=== PATIENT | female | born 1980 | race Caucasian/White ===

== ENCOUNTER 2023-05-10 08:25 | Outpatient (OUT) | payer MEDICAID, SELFPAY ==
--- NOTE | 2023-05-10 | NM_ITS ---
Patient Name: ODETTE MYERS MR#: [id number] : 1980 Exam Date: 05/10/2023 Ordering Doctor: LINNEA CERVANTES M.D. RADIOLOGY REPORT PROCEDURE: NM QING PERF SPECT REST STR COMPARISON: None. INDICATIONS: Encounter for other preprocedural examination TECHNIQUE: Exam Description: Stress/Rest two day protocol gated SPECT Rest Imagin.5 mCi Tc-99m Cardiolite IV on 05/10/2023 Stress Imaging 25.7 mCi Tc-99m Cardiolite IV on 05/12/2023 Exercise Protocol: Vickey Heart Rate (bpm): Rest: 90 Max: 150 PMHR: 85 Blood Pressure: Rest: 128/88 Max: 180/102 Exercise Time: Minutes: 4 Seconds: 00 Stage Reached: Stage: 2 Mets 4.6 Symptoms: Rest and peak stress ECG findings were normal and the exercise portion of the study was normal per attending physician Dr. Hayward . For more details please see separate cardiac stress test report. FINDINGS: QUALITY OF STUDY: Excellent. PERFUSION DEFECT: LOCATION: Basal anteroseptal. Mid-anteroseptal. SIZE: SEVERITY: TYPE: WALL MOTION: Mild hypokinesis: Mid-anteroseptal. LV SIZE: Normal. 101 mL. TID / TCD: None; 1.0 LVEF: Abnormal. Calculated EF 53%. SUMMARY: Myocardial perfusion imaging study has ABNORMAL findings. CONCLUSION: 1. No acute or reversible ischemia. 2. Mild hypokinesis of the mid anterior septal segment. 3. Fixed, decreased perfusion of the mid and basal anterior septal segments. 4. Slightly low ejection fraction, 53%. Dictated by: Maicol Ramírez M.D. on 05/13/2023 at 15:09 Approved by: Maicol Ramírez M.D. on 05/13/2023 at 15:26
== END 2023-05-10 08:26 | disposition home or self-care (01) ==
LOC: NM 08:25
PROVIDERS: PCP Family Medicine; Visit Provider Internal Medicine Cardiovascular Disease
DX: Z82.49 Family history of ischemic heart disease and other diseases of the circulatory system (principal); Z01.818 Encounter for other preprocedural examination
CPT/HCPCS: 78452; A9500

== ENCOUNTER 2023-05-12 09:47 | Outpatient (OUT) | payer MEDICAID, SELFPAY ==
--- NOTE | 2023-05-12 | PCN_ITS ---
CARDIAC STRESS TEST Requesting Physician: Procedure Date: 05/12/2023 INDICATION: Preoperative evaluation, family history of heart disease. METHODS: After risks, benefits, and alternatives were explained, written informed consent was obtained. The patient was brought to the Stress Lab in a resting and fasting state. She was connected to the appropriate hemodynamic and electrocardiographic monitoring. She underwent a Vickey protocol for exercise. Technetium Cardiolite was injected per protocol. She tolerated the procedure well. There were no complications. FINDINGS: HEMODYNAMICS: The patient exercised for 4 minutes, achieving 4.2 METS and reaching stage 2 of the Vickey protocol. Resting blood pressure was 128/88, increasing to a maximum of 180/102. Resting heart rate was 90 beats per minute, increasing to a maximum of 150 beats per minute, which is 85% of maximum predicted heart rate. The patient reported no chest pain or other symptoms. ELECTROCARDIOGRAPHY: Rest EKG: Sinus rhythm, 87 beats per minute, septal infarct, age indeterminate, cannot be ruled out, non-specific ST-T wave changes inferolaterally. During exercise and recovery: No significant changes in her ST-T wave abnormalities are seen. No significant arrhythmias seen. FINAL IMPRESSIONS: 1. No ischemic EKG changes seen in a patient with an abnormal resting EKG. 2. Normal heart rate and blood pressure response to exercise. 3. Salgado treadmill score is +4. Estimated one year mortality is 1.0 to 1.1%. Risk category: Moderate risk. Angiography may be indicated. 4. Nuclear images are to be read, interpreted and reported in a separate dictation. [facility]
--- OUTSIDE RECORDS SUMMARY | 2023-05-12 09:49 | XMS_ITS | CCD ---
Author Name Unknown Address [address] [place] [id number] Organization [facility] Care Team Providers Care Statement Request Clerk Name Role Phone HIEN MISTRY Attending Unavailable FEDEHIEN NGUYEN Consulting Unavailable FEDEHIEN NGUYEN Admitting Unavailable SANCHEZ, DR ROSE Attending Unavailable SANCHEZ, DR ROSE Primary Care Unavailable SANCHEZ, DR ROSE Admitting Unavailable ROSS, ANNIE Admitting Unavailable ROSS, ANNIE Attending Unavailable ROSS, ANNIE Consulting Unavailable SANCHEZ, DR ROSE Attending Unavailable SANCHEZ, DR ROSE Consulting Unavailable SANCHEZ, DR ROSE Admitting Unavailable CONNELL, ABAD Admitting Unavailable CONNELL, ABAD Attending Unavailable CONNELL, ABAD Attending Unavailable ANA, KOURTNEY Attending Unavailable CONNELL, ABAD Referring Unavailable ALGHOTHLINNEA BUTTS Attending Unavailable ALGHOTHBECKIE MOHAMAJurgen Referring Unavailable Allergies Allergy Classification Reported Allergen(s) Allergy Type Date of Onset Reaction(s) Facility (1 source) Latex; Translations: [LATEX] Propensity to adverse reactions to drug (disorder) 3 [facility] Repository (1 source) SULFUR HEXAFLUORIDE MICROSPHR; Translations: [SULFUR HEXAFLUORIDE MICROSPHR] Propensity to adverse reactions to drug (disorder) 4 [facility] Repository Problems Active Problems Problem Classification Problem Date Documented Date Episodic/Chronic Anxiety disorders (2 sources) Anxiety disorder, unspecified; Translations: [Anxiety disorder, unspecified] Onset: 01-07-2023 Chronic Esophageal disorders (2 sources) Gastro-esophageal reflux disease without esophagitis; Translations: [Gastro-esophageal reflux disease without esophagitis] Onset: 01-08-2023 Chronic Essential hypertension (2 sources) Essential (primary) hypertension; Translations: [Essential (primary) hypertension] Onset: 01-07-2023 Chronic Immunizations and screening for infectious disease (4 sources) Encounter for immunization; Translations: [ENCOUNTER FOR IMMUNIZATION] Onset: 01-10-2021 Episodic Other nervous system disorders (2 sources) Other chronic pain; Translations: [Other chronic pain] Onset: 01-07-2023 Chronic Other nutritional; endocrine; and metabolic disorders (2 sources) Obesity; Translations: [Obesity] Onset: 04-01-2023 Chronic Other nutritional; endocrine; and metabolic disorders (2 sources) Morbid (severe) obesity due to excess calories; Translations: [Morbid (severe) obesity due to excess calories] Onset: 01-07-2023 Chronic Other nutritional; endocrine; and metabolic disorders (2 sources) Body mass index (BMI) 50.0-59.9, adult; Translations: [Body mass index (BMI) 50.0-59.9, adult] Onset: 01-07-2023 Chronic Other screening for suspected conditions (not mental disorders or infectious disease) (2 sources) Abnormal electrocardiogram [ECG] [EKG]; Translations: [Abnormal electrocardiogram (ECG) (EKG)] Onset: 03-12-2023 Episodic Other upper respiratory infections (1 source) Acute pharyngitis, unspecified; Translations: [ACUTE PHARYNGITIS UNSPECIFIED] Onset: 03-26-2021 Episodic Residual codes; unclassified (1 source) Pain, unspecified; Translations: [PAIN UNSPECIFIED] Onset: 03-26-2021 Episodic Unclassified (2 sources) CONTACT W/AND (SUSP) EXPOS COVID-19; Translations: [CONTACT W/AND (SUSP) EXPOS COVID-19] Onset: 03-26-2021 Viral infection (1 source) COVID-19; Translations: [COVID-19] Onset: 03-26-2021 Past or Other Problems Problem Classification Problem Date Documented Date Episodic/Chronic Administrative/social admission (4 sources) Encounter for pre-employment examination; Translations: [ENCOUNTER FOR PRE-EMPLOYMENT EXAM] Onset: 12-16-2020 Episodic Other connective tissue disease (2 sources) Personal history of other diseases of the musculoskeletal system and connective tissue; Translations: [Personal history of other diseases of the musculoskeletal system and connective tissue] Onset: 01-07-2023 Episodic Other non-traumatic joint disorders (2 sources) Pain in left knee; Translations: [Pain in left knee] Onset: 01-07-2023 Episodic Unclassified (1 source) CONTACT W/AND (SUSP) EXPOS COVID-19; Translations: [CONTACT W/AND (SUSP) EXPOS COVID-19] Onset: 03-24-2021 Results Test Name Value Interpretation Reference Range Facility Clinical Supporton 4 Clinical Support [id number] Holden,Clyde ndy L 1980 F Date Provider Department Center 04/29/2023 [id number] RECREATION ASSISTANT [facility] Second Fl Chart Close Cosign Required by: Abad Connell MD[[id number]] Family History Problem Relation Age of Onset Diabetes Father Heart attack Father Hypertension Father Heart attack Brother Deep vein thrombosis Brother Family Status - Relation Status Age at Father Brother Normal [facility] Orders Onlyon 04-20-2023 Orders Only [id number] Clyde Azevedo ndy L 1980 F Date Provider Department Center 04/20/2023 8250-JENNIFFER HOLGUIN [facility] Second Fl Family History Problem Relation Age of Onset Diabetes Father Heart attack Father Hypertension Father Heart attack Brother Deep vein thrombosis Brother Family Status - Relation Status Age at Father Brother Normal [facility] Clinical Supporton 4 Clinical Support [id number] Holden,Bra ndy L 1980 F Date Provider Department Center 04/15/202306032-WSPSPW, KOURTNEY [facility] Second Fl Chart Close Cosign Accepted by: ABAD CONNELL[[id number]] Chart Close Cosign Accepted on: WedMay 03, 2023 2:49 PM Family History Problem Relation Age of Onset Diabetes Father Heart attack Father Hypertension Father Heart attack Brother Deep vein thrombosis Brother Family Status - Relation Status Age at Father Brother Reason for Visit and Comments: Obesity [[id number]] Normal [facility] Clinical Supporton 4 Clinical Support [id number] Jolly,Clyde ndy L 1980 F Date Provider Department Center 04/01/202325513-PFUMUEKOURTNEY WHITE [facility] Second Fl Chart Close Cosign Required by: Abad Connell MD[[id number]] Family History Problem Relation Age of Onset Diabetes Father Heart attack Father Hypertension Father Heart attack Brother Deep vein thrombosis Brother Family Status - Relation Status Age at Father Brother Reason for Visit and Comments: Obesity [[id number]] Normal [facility] Office Visiton 03-12-2023 Follow-up visit [id number] Clyde Azevedo L 1980 F Date Provider Department Center 03/12/2023 3848-HELEN ELLIOTJurgen POP [facility] Family History Problem Relation Age of Onset Diabetes Father Heart attack Father Hypertension Father Heart attack Brother Deep vein thrombosis Brother Family Status - Relation Status Age at Father Brother Level of Service:31632 [place] OFFICE/OUTPATIENT NEW MODERATE MDM 45 MINUTES Normal [facility] Orders Onlyon 02-22-2023 Orders Only [id number] Clyde Azevedo 1980 F Date Provider Department Center 02/22/2023 8250-JENNIFFER HOLGUIN [facility] Second Fl Family History Problem Relation Age of Onset Diabetes Father Heart attack Father Hypertension Father Family Status - Relation Status Age at Father Normal [facility] HISTOLOGY - TISSUE EXAMon LAB AP ADDENDUM 1 [facility] Comment on above: Order Comment: Pre-o p diagnosis:Gastroesophageal reflux disease, unspecified whether esophagitis present [K21.9] Result Comment: B. I mmunostain for Helicobacter pylori is negative, in the presence of adequate control. Addendum electronically signed by Olya Hooper MD on 02/09/2023 at 6:27 PM Performed By: #### L [id number] ####[facility] (BEAKER)[address] [place] [address] LAB AP ADDENDUM 2 Normal [facility] Comment on above: Order Comment: Pre-o p diagnosis:Gastroesophageal reflux disease, unspecified whether esophagitis present [K21.9] Result Comment: C. I mmunostain for Helicobacter pylori is negative, in the presence of adequate control. Addendum electronically signed by Olya Hooper MD on 02/24/2023 at 4:14 PM Performed By: #### L [id number] ####[facility] (BEAKER)[address] [place] [address] LAB AP ASR DISCLAIMER The interpretation of this case included the use of immunohistochemistry or special stains. These tests have not been cleared or approved by the U.S. Food and Drug Administration. The FDA has determined that such clearance or approval is not necessary. These tests are used for clinical purposes and should not be regarded as investigational or for research. This laboratory is certified to perform high complexity testing under the Clinical Laboratory Improvement Amendments of 1998. [facility] Comment on above: Order Comment: Pre-o p diagnosis:Gastroesophageal reflux disease, unspecified whether esophagitis present [K21.9] Performed By: #### L [id number] ####[facility] (BEAKER)[address] [facility] [place] [address] LAB AP CASE REPORT [facility] Comment on above: Order Comment: Pre-o p diagnosis:Gastroesophageal reflux disease, unspecified whether esophagitis present [K21.9] Result Comment: Surg ical Pathology Case: [id number] Authorizing Provider: Abad Connell MD Collected: 02/05/2023 0800 Ordering Location: [facility] Main Operating Room Received: 02/05/2023 0914 Pathologist: Olya Hooper MD Specimens: A) - Small Intestine, Duodenum, DUODENUM B) - Stomach, STOMACH ANTRUM-PLEASE ALSO ADD DENI TEST C) - Stomach, STOMACH BODY Performed By: #### L [id number] ####[facility] (BEAKER)[address] [facility] [place] [address] LAB AP CLINICAL INFORMATION [facility] Comment on above: Order Comment: Pre-o p diagnosis:Gastroesophageal reflux disease, unspecified whether esophagitis present [K21.9] Result Comment: Post -Op Diagnoses K21.9 - Gastroesophageal reflux disease, unspecified whether esophagitis present [ICD-10-CM] Performed By: #### L [id number] ####[facility] (BEAKER)[address] [facility] [place] [address] LAB AP DIAGNOSIS COMMENT B. The biopsy was received in formalin. DENI test was requested by the treating physician, however, this test cannot be performed on formalin fixed tissue. Immunostain for Helicobacter pylori is ordered and will be reported in an addendum. [facility] Comment on above: Order Comment: Pre-o p diagnosis:Gastroesophageal reflux disease, unspecified whether esophagitis present [K21.9] Performed By: #### L [id number] ####[facility] ([facility])[address] [place] [address] LAB AP GROSS DESCRIPTION [facility] Comment on above: Order Comment: Pre-o p diagnosis:Gastroesophageal reflux disease, unspecified whether esophagitis present [K21.9] Result Comment: A. S mall Intestine, Duodenum. Received in formalin labeled Odette Jolly, DUODENUM are two dark santos slightly stellate 0.2 cm soft tissue bits. The specimen is entirely submitted in a single cassette. Christy West, Pathologists' Painter [place] B. Stomach. Received in formalin labeled Odette Jolly, STOMACH ANTRUM is a flores to santos 0.4 cm soft tissue bit. The specimen is entirely submitted in a single cassette. Christy West, Pathologists' Pain[employer] [place] C. Stomach. Received in formalin labeled Odette Jolly, STOMACH BODY are two santos focally erythematous soft tissue bits, 0.2 and 0.3 cm. The specimen is entirely submitted in a single cassette. Christy West, Pathologists' Painter [place] Free text Performed By: #### L [id number] ####[facility] ([facility])[address] [place] [address] LAB AP MICROSCOPIC DESCRIPTION Microscopic examination performed. [facility] Comment on above: Order Comment: Pre-o p diagnosis:Gastroesophageal reflux disease, unspecified whether esophagitis present [K21.9] Performed By: #### L [id number] ####[facility] ([facility])[address] [place] [address] LAB AP REPORT FINAL DIAGNOSIS NARRATIVE [facility] Comment on above: Order Comment: Pre-o p diagnosis:Gastroesophageal reflux disease, unspecified whether esophagitis present [K21.9] Result Comment: A. S mall bowel, duodenum, biopsy: - Small bowel mucosa with features suggestive of peptic injury. - Separate fragment of gastroduodenal junction mucosa with chronic gastritis. B. Stomach, antrum, biopsy: - Gastric mucosa with denuded surface epithelium. - Immunostain for Helicobacter pylori will be reported in an addendum. - No evidence of intestinal metaplasia or dysplasia. - See comment. C. Stomach, body, biopsy: - Mild chronic, inactive gastritis. - Immunostain for Helicobacter pylori will be reported in an addendum. - No evidence of intestinal metaplasia or dysplasia. Performed By: #### L [id number] ####[facility] (CADY)[address] [place] [address] HPon 02-05-2023 HP H&P reviewed. The pa ashlee was examined and there are no changes to the H&P. Normal [facility] OPNOTEon 02-05-2023 OPNOTE EGD (ESOPHAGOGASTRODUODENOSCOPY) Operative Note Date: 02/05/2023 Location: [facility] Name: Odette Azevedo, : 1980, Diagnosis Pre-op Diagnosis * Gastroesophageal reflux disease, unspecified whether esophagitis present [K21.9] Post-op Diagnosis * Gastroesophageal reflux disease, unspecified whether esophagitis present [K21.9] Procedures EGD (ESOPHAGOGASTRODUODENOSCOPY) [address]7412 - [place] ESOPHAGOGASTRODUODENOSCOPY [facility] Surgeons * Abad Connell - Primary Procedure Summary Anesthesia: Monitor Anesthesia Care ASA: ASA status not filed in the log. Estimated Blood Loss: 1 mL Drains: * None in log * Specimens ID Source Type Tests Collected By Collected At Frozen? Priority Lab ID A Stomach Tissue HISTOLOGY - TISSUE EXAM Abad Connell MD 02/05/23 0800 No Description: DUODENUM Comment: PLACED IN FORMALIN B Stomach Tissue HISTOLOGY - TISSUE EXAM Abad Connell MD 02/05/23 0804 No Description: STOMACH ANTRUM-PLEASE ALSO ADD DENI TEST Comment: PLEASE ALSO DO DENI TEST FOR H.PYLORI PLACED IN FORMALIN C Stomach Tissue HISTOLOGY - TISSUE EXAM Abad Connell MD 02/05/23 0805 No Description: STOMACH BODY Comment: PLACED IN FORMALIN Staff: Deputy Coroner: Maggie Ware RN Scrub Person: Nedra Botello Indications: Odette Azevedo is an 42 y.o. female who is having surgery for Gastroesophageal reflux disease, unspecified whether esophagitis present [K21.9]. Procedure Details: The patient was seen in the preoperative area. The risks, benefits, complications, treatment options, non-operative alternatives, expected recovery and outcomes were discussed with the patient. The possibilities of reaction to medication, pulmonary aspiration, injury to surrounding structures, bleeding, recurrent infection, the need for additional procedures, failure to diagnose a condition, and creating a complication requiring transfusion or operation were discussed with the patient. The patient concurred with the proposed plan, giving informed consent. The site of surgery was properly noted/marked if necessary per policy. The patient has been actively warmed in preoperative area. Preoperative antibiotics are not indicated. Venous thrombosis prophylaxis are not indicated. With the patient in the left lateral decubitus position after examination of the heart lung was normal patient received IV sedation by anesthesia. Olympus gastroscope was introduced in the oropharynx down the esophagus where the GE junction was seen at 38 cm level. Z-line was at 38cm. There was no esophagitis and the esophagus appeared normal. Stomach was entered and appeared to have multiple benign appearing fundic gland polyps and no bile reflux into the stomach. There was small area ~1 cm of focal gastritis that was biopsied. The stomach antrum had mild gastritis. Biopsy and DENI test was performed to rule out gastritis and H. pylori. The 1st portion of the duodenum was intubated which appeared to have mild duodenitis and was biopsied as well. The scope withdrawn into the stomach where a retroflexion was performed in the upper part of the stomach that showed the hiatus which was a Hill type I hiatus. The scope was then removed. The esophagus appeared to be normal. Patient tolerated the procedure well and was returned to the recovery room in good condition. Findings: EGD with noted duodenitis, multiple fundic gland polyps, small focal area of gastritis at body biopsied. Complications: None; patient tolerated the procedure well. Disposition: PACU - hemodynamically stable. Condition: stable Abad [facility] Normal [facility] POCT GLUCOSE METER UNSOLICIT ED RESULTSon 02-05-2023 Glucose [Mass/Vol] 118 mg/dL High 70-105 [facility] Comment on above: Order Comment: Waive d Testing in the ED is performed under the ED CLIA certificate #[id number]. Result Comment: skir by Performed By: #### L [id number] #### [facility] (BEAKER) [address] [place] [address] Glucose [Mass/Vol] 95 mg/dL Normal 70-105 [facility] Comment on above: Order Comment: Waive d Testing in the ED is performed under the ED CLIA certificate #[id number]. Result Comment: asor ia3 Performed By: #### L [id number] #### [facility] (BEAKER) [address] [place] [address] CBC WITH AUTO DIFFERENTIALon 01-07-2023 Basophils (Bld) [#/Vol] 0.06 10*3/uL Normal 0.00-0.20 [facility] Comment on above: Performed By: #### L [id number] #### [facility] (BEAKER) [address] [place] [address] Basophils/100 WBC (Bld) 0.6 % Normal 0.0-1.0 [facility] Comment on above: Performed By: #### L [id number] #### [facility] (BEAKER) [address] [place] [address] Eosinophils (Bld) [#/Vol] 0.12 10*3/uL Normal 0.00-0.50 [facility] Comment on above: Performed By: #### L [id number] #### [facility] (BEAKER) [address] [place] [address] Eosinophils/100 WBC (Bld) 1.2 % Normal 0.0-6.0 [facility] Comment on above: Performed By: #### L [id number] #### [facility] (BEAKER) [address] [place] [address] Erythrocyte distribution width (RBC) [Ratio] 13.4 % Normal 11.5-15.0 [facility] Comment on above: Performed By: #### L [id number] #### [facility] ([facility]NER) [address] [place] [address] ERYTHROCYTE MEAN CORPUSCULAR HEMOGLOBIN CONCENTRATION (G/DL) BY AUTOMATED 32.4 g/dL Normal 32.0-35.0 [facility] Comment on above: Performed By: #### L [id number] #### [facility] (BEAKER) [address] [place] [address] Hemoglobin (Bld) [Mass/Vol] 14.8 g/dL Normal 12.0-15.0 [facility] Comment on above: Performed By: #### L [id number] #### [facility] (BEAKER) [address] [place] [address] Immature granulocytes (Bld) [#/Vol] 0.04 10*3/uL Normal 0.00-0.20 [facility] Comment on above: Performed By: #### L [id number] #### [facility] (BEAKER) [address] [place] [address] Immature granulocytes/100 WBC (Bld) 0.4 % Normal 0.0-1.0 [facility] Comment on above: Performed By: #### L [id number] #### [facility] (BEAKER) [address] [place] [address] Lymphocytes (Bld) [#/Vol] 2.92 10*3/uL Normal 1.20-4.00 [facility] Comment on above: Performed By: #### L [id number] #### [facility] (BEAKER) [address] [place] [address] Lymphocytes/100 WBC (Bld) 29.3 % Normal 20.0-45.0 [facility] Comment on above: Performed By: #### L [id number] #### [facility] (BEAKER) [address] [place] [address] MCH (RBC) [Entitic mass] 28.7 pg Normal 27.0-33.0 [facility] Comment on above: Performed By: #### L [id number] #### [facility] (BEAKER) [address] [place] [address] MCV (RBC) [Entitic vol] 88.7 fL Normal 82.0-98.0 [facility] Comment on above: Performed By: #### L [id number] #### [facility] (BEAKER) [address] [place] [address] Monocytes (Bld) [#/Vol] 0.56 10*3/uL Normal 0.10-1.00 [facility] Comment on above: Performed By: #### L [id number] #### [facility] (BEAKER) [address] [place] [address] Monocytes/100 WBC (Bld) 5.6 % Normal 5.0-12.0 [facility] Comment on above: Performed By: #### L [id number] #### [facility] (BEAKER) [address] [place] [address] Neutrophils (Bld) [#/Vol] 6.25 10*3/uL Normal 1.60-7.60 [facility] Comment on above: Performed By: #### L [id number] #### [facility] (BEAKER) [address] [place] [address] Neutrophils/100 WBC (Bld) 62.9 % Normal 40.0-72.0 [facility] Comment on above: Performed By: #### L [id number] #### [facility] (BEAKER) [address] [place] [address] NRBC (PER 100 WBCS) BY AUTOMATED COUNT 0.0 % Normal 0 [facility] Comment on above: Performed By: #### L [id number] #### [facility] (BE[facility]ER) [address] [place] [address] PLATELETS (10*3/UL) IN BLOOD AUTOMATED COUNT 348 10*3/uL Normal 150-400 [facility] Comment on above: Performed By: #### L [id number] #### [facility] (BEAKER) [address] [place] [address] RBC (Bld) [#/Vol] 5.15 10*6/uL High 3.80-5.00 [facility] Comment on above: Performed By: #### L [id number] #### [facility] (BEAKER) [address] [place] [address] WBC (Bld) [#/Vol] 9.95 10*3/uL Normal 4.00-10.60 [facility] Comment on above: Performed By: #### L [id number] #### [facility] (BEAKER) [address] [place] [address] COMPREHENSIVE METABOLIC PANE Daniel 01-07-2023 Albumin [Mass/Vol] 4.6 g/dL Normal 3.5-5.7 [facility] Comment on above: Performed By: #### L [id number] #### [facility] (BEAKER) [address] [place] [address] ALP [Catalytic activity/Vol] 97 U/L Normal 34-104 [facility] Comment on above: Performed By: #### L [id number] #### [facility] (BEAKER) [address] [place] [address] ALT [Catalytic activity/Vol] 23 U/L Normal 7-52 [facility] Comment on above: Performed By: #### L [id number] #### [facility] (BEAKER) [address] [place] [address] Anion gap [Moles/Vol] 12 mmol/L Normal 7-20 [facility] Comment on above: Performed By: #### L [id number] #### [facility] (BEAKER) [address] [place] [address] AST [Catalytic activity/Vol] 20 U/L Normal 13-39 [facility] Comment on above: Performed By: #### L [id number] #### [facility] (BEAKER) [address] [place] [address] Bilirubin [Mass/Vol] 1.0 mg/dL Normal 0.3-1.0 [facility] Comment on above: Performed By: #### L [id number] #### [facility] (BEAKER) [address] [place] [address] Calcium [Mass/Vol] 9.6 mg/dL Normal 8.6-10.3 [facility] Comment on above: Performed By: #### L [id number] #### [facility] (BEAKER) [address] [place] [address] Chloride [Moles/Vol] 103 mmol/L Normal 98-107 [facility] Comment on above: Performed By: #### L [id number] #### [facility] (BEAKER) [address] [place] [address] CO2 [Moles/Vol] 26 mmol/L Normal 21-31 [facility] Comment on above: Performed By: #### L [id number] #### [facility] ([facility]) [address] [place] [address] Creatinine [Mass/Vol] 0.67 mg/dL Normal 0.60-1.20 [facility] Comment on above: Performed By: #### L [id number] #### [facility] ([facility]) [address] [place] [address] GLOMERULAR FILTRATION RATE ML/MIN/1.73 SQ M.PREDICTED 110.5 mL/min/1.73m*2 Normal >60.0 [facility] Comment on above: Result Comment: The [facility]???s estimated glomerular filtration rate (eGFR) will no longer include consideration of race in its calculation. The National Kid[employer] Foundation???s eGFR Task Force developed new recommendations for the estimation of the glomerular filtration rate in the [place] They recommend immediate implementation of the new equation refit without the race variable in all laboratories because the calculation does not include race. In addition to not including race in the calculation and reporting, it included diversity in its development, and has acceptable performance characteristics and potential consequences that do not disproportionately affect any one group of individuals. Performed By: #### L [id number] #### [facility] ([facility]) [address] [place] [address] Glucose [Mass/Vol] 89 mg/dL Normal 70-100 [facility] Comment on above: Performed By: #### L [id number] #### [facility] ([facility]) [address] [place] [address] Potassium [Moles/Vol] 3.7 mmol/L Normal 3.5-5.1 [facility] Comment on above: Performed By: #### L [id number] #### [facility] ([facility]) [address] [place] [address] Protein [Mass/Vol] 7.5 g/dL Normal 6.0-8.3 [facility] Comment on above: Performed By: #### L [id number] #### [facility] ([facility]) [address] [place] [address] Sodium [Moles/Vol] 137 mmol/L Normal 136-145 [facility] Comment on above: Performed By: #### L [id number] #### [facility] ([facility]) [address] [place] [address] Urea nitrogen [Mass/Vol] 19 mg/dL Normal 7-25 [facility] Comment on above: Performed By: #### L [id number] #### [facility] ([facility]) [address] [place] [address] UREA NITROGEN/CREATINI NE (MASS RATIO) IN SER/PLAS 28.4 Normal [facility] Comment on above: Performed By: #### L [id number] #### [facility] ([facility]) [address] [place] [address] COPPER, SERUMon 01-07-2023 COPPER 153.0 ug/dL Normal 80.0-155.0 [facility] Comment on above: Result Comment: INTE RPRETIVE INFORMATION: Copper, Serum or Plasma Elevated results may be due to skin or collection-related contamination, including the use of a noncertified metal-free collection/transport tube. If contamination concerns exist due to elevated levels of serum/plasma copper, confirmation with a second specimen collected in a certified metal-free tube is recommended. Serum copper may be elevated with infection, inflammation, stress, and copper supplementation. In females, elevated copper may also be caused by oral contraceptives and (concentrations may be elevated up to 3 times normal during the third trimester). This test was developed and its performance characteristics determined by [employer]. It has not been cleared or approved by the US Food and Drug Administration. This test was performed in a CLIA certified laboratory and is intended for clinical purposes. Performed By: [facility] [address] [place] [address] Magazine Hand: Varun Thomas MD, PhD CLIA Number: [id number] Performed By: #### L [id number] #### [facility] ([facility]) [address] [place] [address] FERRITINon 01-07-2023 FERRITIN (NG/ML) IN SER/PLAS 54.0 ng/mL Normal 11.0-307.0 [facility] Comment on above: Performed By: #### L [id number] #### [facility] ([facility]) [address] [place] [address] FOLATE RBCon 01-07-2023 Hematocrit (Bld) [Volume fraction] 45.7 % Normal 36.0-48.0 [facility] Comment on above: Performed By: #### L [id number] #### [facility] ([facility]) [address] [place] [address] RBC FOLATE 553 ng/mL Normal >=366 [facility] Comment on above: Result Comment: Perf ormed By: [facility] [address] [place] [address] Magazine Hand: Varun Thomas MD, PhD CLIA Number: [id number] Performed By: #### L [id number] #### [facility] ([facility]) [address] [place] [address] HEMOGLOBIN A1Con 01-07-2023 Glucose [Mass/Vol] 105 mg/dL Normal [facility] Comment on above: Performed By: #### L [id number] #### [facility] ([facility]) [address] [place] [address] HbA1c (Bld) [Mass fraction] 5.3 % Normal 4.0-6.0 [facility] Comment on above: Performed By: #### L [id number] #### [facility] ([facility]) [address] [place] [address] HPon 01-07-2023 Bariatric Surgery Co nsult Note Identifying Data Patient Name: Odette Azevedo MRN / CSN: [id number] Date of / Age: 8 1980 / 42 y.o. / female Encounter Date: 01/07/23 Diagnosis: The encounter diagnosis was Morbid obesity with BMI of 50.0-59.9, adult (CMS/[facility]). Subjective Odette Azevedo is a 42 y.o. years old female who has been having problem with overweight since many years ago. Patient heaviest weight is Her current weight which is 144kg BMI Body mass index is 54.41 kg/m???. . Patient has been trying to lose weight and had fluctuated. She had lost about 20 pounds at Her best attempt in diet and exercising and had tried Adipex. Patient is finding difficulty losing Her weight regardless of what She tried to do with avoiding carbs and all the junk food. Patient's health is also complicated by HTN, anxiety, and knee pain as well as hx of scoliosis s/p back surgery. Patient has a history of IBS as well and denies abdominal surgical history. She is interested in bariatric surgery and She is here for evaluation. Patient does take NSAIDS for her knee pain. GERD: No EGD: No CRYSTAL: Denies diagnosis DM: previous hx of prediabetes Malignancy Screening: per PCP Substance use: no EKG/CXR: no Bleeding/clotting disorders: no Anesthesia issues: no ROS Review of Systems Constitutional: Negative. HENT: Negative. Eyes: Negative. Respiratory: Positive for shortness of breath. Cardiovascular: Negative. Gastrointestinal: Negative. Endocrine: Negative. Genitourinary: Negative. Musculoskeletal: Positive for back pain. Skin: Negative. Allergic/Immunologic: Negative. Neurological: Negative. Hematological: Bruises/bleeds easily. Psychiatric/Behavioral: Negative. Past Medical History: Diagnosis Date Anemia Hypertension History reviewed. No pertinent surgical history. Social History Socioeconomic History Marital status: Single Spouse name: Not on file Number of children: Not on file Years of education: Not on file Highest education level: Not on file Occupational History Not on file Tobacco Use Smoking status: Never Smokeless tobacco: Never Substance and Sexual Activity Alcohol use: Yes Drug use: Never Sexual activity: Not on file Other Topics Concern Not on file Social History Narrative Not on file Social Determinants of Health Financial Resource Strain: Not on file Food Insecurity: Not on file Transportation Needs: Not on file Physical Activity: Not on file Stress: Not on file Social Connections: Not on file Intimate Partner Violence: Unknown (01/07/2023) Humiliation, Afraid, Rape, and Kick questionnaire Fear of Current or Ex-Partner: No Emotionally Abused: Not on file Physically Abused: Not on file Sexually Abused: Not on file Housing Stability: Not on file Family History Problem Relation Name Age of Onset Diabetes Father Heart attack Father Hypertension Father Medications & Allergies Current Outpatient Medications: ALPRAZolam (Xanax) 0.5 mg tablet, TAKE ONE TABLET BY MOUTH TWICE A DAY NEEDED FOR ANXIETY, Disp: , Rfl: atorvastatin (Lipitor) 20 mg tablet, , Disp: , Rfl: buPROPion SR (Wellbutrin SR) 100 mg 12 hr tablet, , Disp: , Rfl: furosemide (Lasix) 40 mg tablet, , Disp: , Rfl: Jardiance 25 mg, , Disp: , Rfl: meloxicam (Mobic) 15 mg tablet, , Disp: , Rfl: PARoxetine (Paxil) 40 mg tablet, , Disp: , Rfl: spironolactone (Aldactone) 25 mg tablet, , Disp: , Rfl: Allergies No Known Allergies Objective Blood pressure (!) 168/91, pulse 109, temperature 36.6 ???C (97.9 ???F), temperature source Oral, height 1.626 m (5' 4 ), weight (!) 144 kg (317 lb). Physical Exam Constitutional: Appearance: obese. HENT: Head: Atraumatic. Right Ear: External ear normal. Left Ear: External ear normal. Nose: Nose normal. Mouth/Throat: Mouth: Mucous membranes are moist. Eyes: General: Right eye: No discharge. Left eye: No discharge. Conjunctiva/sclera: Conjunctivae normal. Cardiovascular: Rate and Rhythm: Normal rate and regular rhythm. Pulses: Normal pulses. Pulmonary: Effort: Pulmonary effort is normal. Abdominal: General: There is no distension. Palpations: Abdomen is soft. Musculoskeletal: General: No swelling. Cervical back: Neck supple. Skin: General: Skin is warm. Capillary Refill: Capillary refill takes less than 2 seconds. Neurological: Mental Status: alert. No results found for: WBC, HCT, HGB, PLT No results found for: NA, K, CL, BUN, CREATININE, CALCIUM, MG, AST, ALT, PROT, ALBUMIN No results found for: TSH, VITD25, FOLATE, [id number] No results found for: HGBA1C, LDL, HDL, CHOLHDLRATIO, TRIG Assessment and Plan Impression: -Obesity weight: 144kg BMI: Body mass index is 54.41 kg/m???. Idea body weight: [place] body weight: 54.7 kg (120 lb 9.5 oz) Adjusted ideal body weight: 90.3 kg (199 lb 2.5 oz) Plan: Laparoscopic sleeve gastrectomy possible open I had (more content not included)... Normal [facility] IRON AND TIBCon 01-07-2023 IRON (UG/DL) IN SER/PLAS 75 ug/dL Normal 50-212 [facility] Comment on above: Performed By: #### L [id number] #### [facility] ([facility]) [address] [place] [address] IRON BINDING CAPACITY (UG/DL) IN SER/PLAS 456 ug/dL High 250-450 [facility] Comment on above: Performed By: #### L [id number] #### [facility] ([facility]) [address] [place] [address] IRON BINDING CAPACITY.UNSATURA STEPHAN (UG/DL) IN SER/PLAS 381.0 ug/dL High 155.0-355.0 [facility] Comment on above: Performed By: #### L [id number] #### [facility] ([facility]) [address] [place] [address] IRON SATURATION (%) IN SER/PLAS 16 % Low 20-50 [facility] Comment on above: Performed By: #### L [id number] #### [facility] ([facility]) [address] [place] [address] LIPID PANELon 01-07-2023 CHOL/HDL 3.0 mg/dL Normal [facility] Comment on above: Performed By: #### L [id number] #### [facility] ([facility]) [address] [place] [address] Cholesterol [Mass/Vol] 179 mg/dL Normal 120-200 [facility] Comment on above: Performed By: #### L [id number] #### [facility] ([facility]) [address] [place] [address] Magnesium [Mass/Vol] 108 mg/dL Normal 40-149 [facility] Comment on above: Result Comment: TRIG LYCERIDE REFERENCE RANGE: 20 YEARS AND OLDER CARDIOVASCULAR RISK LESS THAN 150 mg/dL LOW RISK 150 TO 199 mg/dL BORDERLINE RISK 200 mg/dL AND GREATER HIGH RISK Performed By: #### L [id number] #### [facility] ([facility]) [address] [place] [address] Magnesium [Mass/Vol] 97 mg/dL Normal 0-160 [facility] Comment on above: Performed By: #### L [id number] #### [facility] ([facility]) [address] [place] [address] Magnesium [Mass/Vol] 60 mg/dL Normal 23-92 [facility] Comment on above: Performed By: #### L [id number] #### [facility] ([facility]) [address] [place] [address] NON HDL CHOL. (LDL+VLDL) 119 Normal [facility] Comment on above: Performed By: #### L [id number] #### [facility] ([facility]) [address] [place] [address] TOTAL VLDL-C 22 mg/dL Normal 0-40 [facility] Comment on above: Performed By: #### L [id number] #### [facility] ([facility]) [address] [place] [address] Labon 01-07-2023 Lab [id number] Clyde Azevedo ndgricel 1980 F Date Provider Department Center 01/07/2023 [id number] Family History Problem Relation Age of Onset Diabetes Father Heart attack Father Hypertension Father Family Status - Relation Status Age at Father Normal [facility] NIACIN (VITAMIN B3)on 2022 NICOTINAMIDE 73 ng/mL Normal [facility] Comment on above: Result Comment: Seru m or Plasma Reporting Limit: 10 ng/mL Synonym(s): Niacinamide; Vitamin B3; Niacin(R) Nicotinamide is a metabolite of nicotinic acid, is the common form of niacin included in vitamin preparations and is also added to many foods as a vitamin supplement. Due to the large variability in the metabolism of nicotinic acid, plasma concentrations of this metabolite also are variable. In one study, fasting plasma concentrations were reported to be approximately 40 ng/mL. In another study it was reported that the administration of a single 1000 mg extended-release tablet of nicotinic acid resulted in a mean peak nicotinamide concentration of 400 ng/mL between 5 and 10 hours post dose, decreasing to about 100 ng/mL by 16 hours post dose. The administration of multiple oral doses of nicotinic acid (for a total of 2000 mg) resulted in the following mean peak nicotinamide plasma concentrations: 25 mg every 10 min. for 80 doses (over 13 hours): 1300 ng/mL 50 mg every 10 min. for 40 doses (over 6.5 hours): 2300 ng/mL 100 mg every 10 min. for 20 doses (over 3 hours): 2000 ng/mL This test should be considered as a therapeutic drug monitoring/toxicological test associated with niacin (Vitamin B3) supplementation. Care should be taken in the use of this test for basal Vitamin B3 determination. The supplied reference comment does not reflect normal, endogenous Vitamin B3 concentrations. Analysis by [employer]/ Tandem Mass Spectrometry (LC-MS/MS) Performed By: #### L [id number] #### [facility] ([facility]) [address] [place] [address] NICOTINIC ACID None Det Normal [facility] Comment on above: Result Comment: Seru m or Plasma Reporting Limit: 10 ng/mL Synonym(s): Niacor(R); Niaspan(R); Slo-Niacin(R); Vitamin B3 Nicotinic acid occurs naturally in plants and animals and is also added to many foods as a vitamin supplement. Due to the large variability in the metabolism of nicotinic acid, the dosing preparation used (immediate-release vs. extended-release), and the mg doses used, the serum concentrations may range from less than 10 ng/mL to about [address]2010 ng/mL. After oral administration of an immediate-release tablet, peak plasma concentrations are achieved in 30 to 60 min; after oral administration of an extended- release capsule, peak plasma concentrations occur in 4 to 5 hours. The plasma half-life of nicotinic acid is about 1 hour. In one study, fasting plasma concentrations were reported to be approximately 10 ng/mL. In another study it was reported that the administration of a single 1000 mg extended-release tablet resulted in mean nicotinic acid concentrations of less than 50 ng/mL. The administration of multiple oral doses of nicotinic acid (for a total of 2000 mg) resulted in the following mean peak nicotinic acid plasma concentrations: 25 mg every 10 min. for 80 doses (over 13 hours): 1100 ng/mL 50 mg every 10 min. for 40 doses (over 6.5 hours): 5400 ng/mL 100 mg every 10 min. for 20 doses (over 3 hours): 21848 ng/mL This test should be considered as a therapeutic drug monitoring/toxicological test associated with niacin (Vitamin B3) supplementation. Care should be taken in the use of this test for basal Vitamin B3 determination. The supplied reference comment does not reflect normal, endogenous Vitamin B3 concentrations. Analysis by [employer] Liquid Chromatography/ Tandem Mass Spectrometry (LC-MS/MS) Performed By: #### L [id number] #### [facility] ([address] [address] NICOTINURIC ACID None Det Normal [facility] Comment on above: Result Comment: Seru m or Plasma Reporting Limit: 10 ng/mL Synonym(s): Niacin Metabolite Nicotinuric acid is a metabolite of nicotinic acid and nicotinamide. Due to the large variability in the metabolism of nicotinic acid and nicotinamide, plasma concentrations of this metabolite also are variable. In one study it was reported that the administration of a single 1000 mg extended-release tablet of nicotinic acid resulted in a mean peak nicotinuric acid concentration of over 1000 ng/mL within 2 hours post dose, decreasing to less than 200 ng/mL by 6 hours and less than 50 ng/mL by 12 hours post dose. The administration of multiple oral doses of nicotinic acid (for a total of 2000 mg) resulted in the following mean peak nicotinuric acid plasma concentrations: 25 mg every 10 min. for 80 doses (over 13 hours): 950 ng/mL 50 mg every 10 min. for 40 doses (over 6.5 hours): 2300 ng/mL 100 mg every 10 min. for 20 doses (over 3 hours): 5100 ng/mL This test should be considered as a therapeutic drug monitoring/toxicological test associated with niacin (Vitamin B3) supplementation. Care should be taken in the use of this test for basal Vitamin B3 determination. The supplied reference comment does not reflect normal, endogenous Vitamin B3 concentrations. Analysis by [employer] Liquid [employer]atography/ Tandem Mass Spectrometry (LC-MS/MS) This test was developed and its performance characteristics determined by [employer]. It has not been cleared or approved by the [place] Food and Drug Administration. Digital data review may have taken place remotely by qualified [facility] staff utilizing a secure VPN connection for some or all of the reported results. This is in accordance with and follows CLIA regulations. Testing performed at [facility] [address] [place] [id number] CLIA [id number] Performed By: #### L [id number] #### [facility] ([facility]) [address] [place] [address] Office Visiton 01-07-2023 Follow-up visit [id number] Clyde Azevedo 1980 F Date Provider Department Center 01/07/2023 [id number], [facility] Family History Problem Relation Age of Onset Diabetes Father Heart attack Father Hypertension Father Family Status - Relation Status Age at Father Level of Service:32991 [place] OFFICE/OUTPATIENT NEW LOW MDM 30-44 MINUTES (57) Reason for Visit and Comments: Consult [484] - Odette is here today for an initial bariatric consult. Normal [facility] PTH, INTACTon 01-07-2023 PARATHYRIN INTACT (PG/ML) IN SER/PLAS 60 pg/mL Normal 12-88 [facility] Comment on above: Performed By: #### L [id number] ####[facility] ([facility])[address] [place] [address] T4, FREEon 01-07-2023 THYROXINE (T4) FREE (NG/DL) IN SER/PLAS 0.78 ng/dL Normal 0.71-1.85 [facility] Comment on above: Performed By: #### L [id number] #### [facility] ([facility]) [address] [place] [address] TSHon 01-07-2023 THYROTROPIN (MIU/L) IN SER/PLAS BY DETECTION LIMIT <= 0.05 MIU/L 0.99 mIU/L Normal 0.34-5.60 [facility] Comment on above: Performed By: #### L [id number] ####[facility] ([facility])[address] [place] [address] VITAMIN Aon 01-07-2023 VITAMIN A (RETINOL) 0.70 mg/L Normal 0.30-1.20 [facility] Comment on above: Performed By: #### L [id number] #### [facility] ([facility]) [address] [place] [address] VITAMIN A (RETINYL PALMITATE) 0.03 mg/L Normal 0.00-0.10 [facility] Comment on above: Performed By: #### L [id number] #### [facility] [place] ([place] [address] VITAMIN A, SER/KANIKA - INTERPRETATION Normal Normal [facility] Comment on above: Result Comment: This test was developed and its performance characteristics determined by [employer]. It has not been cleared or approved by the US Food and Drug Administration. This test was performed in a CLIA certified laboratory and is intended for clinical purposes. Performed By: [facility] [address] [place] [address] Magazine Hand: Varun Thomas MD, PhD CLIA Number: [id number] Performed By: #### L [id number] #### [facility] ([place] [address] VITAMIN B1on 01-07-2023 VITAMIN B1, PLASMA 3 nmol/L Low 4-15 [facility] Comment on above: Result Comment: INTE RPRETIVE DATA: Vitamin B1, Plasma Thiamine (vitamin B1) is reported. However, thiamine diphosphate (TDP), the biologically active form of thiamine, is not found in measurable concentrations in plasma, and is best determined in whole blood specimens. Plasma thiamine concentration reflects recent intake rather than body stores. This test was developed and its performance characteristics determined by [employer]. It has not been cleared or approved by the US Food and Drug Administration. This test was performed in a CLIA certified laboratory and is intended for clinical purposes. Performed By: [facility] [address] [place] [address] Magazine Hand: Varun Thomas MD, PhD CLIA Number: [id number] Performed By: #### L [id number] ####[facility] ([facility])[address] [place] [address] VITAMIN B12on 01-07-2023 Cobalamin (Vitamin B12) [Mass/Vol] 192 pg/mL Normal 180-914 [facility] Comment on above: Result Comment: REFE RENCE RANGES: 180-914 pg/mL Normal 145-179 pg/mL Indeterminate <145 pg/mL Deficient Performed By: #### L [id number] ####[facility] ([facility])[address] [place] [address] VITAMIN B2on 01-07-2023 VITAMIN B2 4 nmol/L Low 5-50 [facility] Comment on above: Result Comment: INTE RPRETIVE INFORMATION: Vitamin B2, Plasma This test was developed and its performance characteristics determined by [employer]. It has not been cleared or approved by the US Food and Drug Administration. This test was performed in a CLIA certified laboratory and is intended for clinical purposes. Performed By: [facility] [address] [place] [address] Magazine Hand: Varun Thomas MD, PhD CLIA Number: [id number] Performed By: #### L [id number] #### [facility] ([facility]) [address] [place] [address] VITAMIN B6on 01-07-2023 VITAMIN B6 10.7 nmol/L Low 20.0-125.0 [facility] Comment on above: Result Comment: INTE RPRETIVE INFORMATION: Vitamin B6 (Pyridoxal 5-Phosphate) Pyridoxal 5'-phosphate measured in a specimen collected following an 8-hour or overnight fast accurately indicates vitamin B6 nutritional status. Non-fasting specimen concentration reflects recent vitamin intake. This test was developed and its performance characteristics determined by [employer]. It has not been cleared or approved by the US Food and Drug Administration. This test was performed in a CLIA certified laboratory and is intended for clinical purposes. Performed By: [facility] [address] [place] [address] Magazine Hand: Varun Thomas MD, PhD CLIA Number: [id number] Performed By: #### L [id number] ####[facility] ([facility])[address] [place] [address] VITAMIN D 25 HYDROXYon 01-07 CALCIDIOL (25 [place] VITAMIN D3) (NG/ML) IN SER/PLAS 32.4 ng/mL Normal 30.0-80.0 [facility] Comment on above: Result Comment: >80. 0 Toxicity possible Performed By: #### L [id number] #### [facility] ([facility]) [address] [place] [address] ZINCon 01-07-2023 ZINC 83.3 ug/dL Normal 60.0-120.0 [facility] Comment on above: Result Comment: INTE RPRETIVE INFORMATION: Zinc, Serum or Plasma Elevated results may be due to skin or collection-related contamination, including the use of a noncertified metal-free collection/transport tube. If contamination concerns exist due to elevated levels of serum/plasma zinc, confirmation with a second specimen collected in a certified metal-free tube is recommended. Circulating zinc concentrations are dependent on albumin status and are depressed with malnutrition. Zinc may also be lowered with infection, inflammation, stress, oral contraceptives, and . Zinc may be elevated with zinc supplementation or fasting. Elevated zinc concentrations may interfere with copper absorption. This test was developed and its performance characteristics determined by [employer]. It has not been cleared or approved by the US Food and Drug Administration. This test was performed in a CLIA certified laboratory and is intended for clinical purposes. Performed By: [facility] [address] [place] [address] Magazine Hand: Varun Thomas MD, PhD CLIA Number: [id number] Performed By: #### L [id number] #### [facility] ([facility]) [address] [place] [address] Covid-19 PCR ([facility])on 03-08 SARS-CoV-2 (COVID-19) RNA LUIS ENRIQUE+probe Ql (Unsp spec) Detected Critically abnormal NOT DETECTED [facility] Comment on above: Result Comment: This test is not yet approved or cleared by the [place] FDA. When there are no FDA-approved or cleared tests available, and other criteria are met, FDA can make tests available under an emergency access mechanism called an Emergency Use Authorization (EUA). The EUA for this test is supported by the [place] of Health and Human Service's (HHS's) declaration that circumstances exist to justify the emergency use of in vitro diagnostics for the detection and/or diagnosis of the virus that causes COVID-19. This EUA will remain in effect (meaning this test can be used) for the duration of the COVID-19 declaration justifying emergency of IVDs, unless it is terminated or revoked by FDA (after which the test may no longer be used). Performed By: #### C VDTB #### [facility] [address] [address] [address] Yessica Rashid QUANTIFERON TB GOLD PLUS (NO N-INC)on 12-20-2020 Comment Incubation performed. Normal [facility] Comment on above: Performed By: #### Q NTTBG #### [facility] [address] [place] [address] Dr. Yessica Rashid Criteria Comment Normal [facility] Comment on above: Result Comment: The QuantiFERON-TB Gold Plus result is determined by subtracting the Nil value from either TB antigen (Ag) tube. The mitogen tube serves as a control for the test. Performed By: #### Q NTTBG #### [facility] [address] [place] [address] Dr. Yessica Rashid Mitogen Value >10.00 Normal [facility] Comment on above: Performed By: #### Q NTTBG #### [facility] [address] [place] [address] Dr. Yessica Rashid Nill Value 0.10 IU/mL Normal [facility] Comment on above: Performed By: #### Q NTTBG #### [facility] [address] [place] [address] Dr. Yessica Rashid Quantiferon Gold Plus Negative Normal Negative [facility] Comment on above: Result Comment: Chem iluminescence immunoassay methodology Performed By: #### Q NTTBG #### [facility] [address] [place] [address] Dr. Yessica Rashid TB1 Ag Value 0.10 IU/mL Normal [facility] Comment on above: Performed By: #### Q NTTBG #### [facility] [address] [place] [address] Dr. Yessica Rashid TB2 Ag Value 0.08 IU/mL Normal [facility] Comment on above: Performed By: #### Q NTTBG #### [facility] [address] [place] [address] Dr. Yessica Rashid HEPATITIS B SURFACE ANTIBODY , QUANTon 12-17-2020 Hepatitis B Surf AB Quant <3.1 Critically low Immunity>9. 9 [facility] Comment on above: Result Comment: Stat us of Immunity Anti-HBs Level Inconsistent with Immunity 0.0 - 9.9 Consistent with Immunity >9.9 Performed By: #### H EPBSRF #### [facility] [address] [place] [address] Dr. Yessica Rashid MMR IMMUNITYon 12-17-2020 Mumps Abs, IgG 21.1 AU/mL Normal Immune >10.9 [facility] Comment on above: Result Comment: Nega tive <9.0 Equivocal 9.0 - 10.9 Positive >10.9 A positive result generally indicates past exposure to Mumps virus or previous vaccination. Performed By: #### M MRIMMU #### [facility] [address] [place] [address] Dr. Yessica Rashid Rubella Antibodies, IgG 1.77 index Normal Immune >0.99 [facility] Comment on above: Result Comment: Non- immune <0.90 Equivocal 0.90 - 0.99 Immune >0.99 Performed By: #### M MRIMMU #### [facility] [address] [place] [address] Dr. Yessica Rashid Rubeola Ab, IgG >300.0 Normal Immune >16.4 [facility] Comment on above: Result Comment: Nega tive <13.5 Equivocal 13.5 - 16.4 Positive >16.4 Presence of antibodies to Rubeola is presumptive evidence of immunity except when acute infection is suspected. Performed By: #### M MRIMMU #### [facility] [address] [place] [address] Dr. Yessica Rashid VARICELLA IGG ABon Varicella Zoster IgG 1145 index Normal Immune >165 [facility] Comment on above: Result Comment: Nega tive <135 Equivocal 135 - 165 Positive >165 A positive result generally indicates exposure to the pathogen or administration of specific immunoglobulins, but it is not indication of active infection or stage of disease. Performed By: #### V ARCEL #### [facility] [address] [place] [address] Dr. Yessica Rashid Encounters Encounter Date Encounter Type Care Provider Facility Start: 04-29-2023 ambulatory KOURTNEY WHITE [facility] Start: 04-15-2023 End: 04-15-2023 ambulatory [facility] Start: 04-07-2023 End: 04-08-2023 ambulatory [facility] Start: 04-01-2023 End: 04-01-2023 ambulatory [facility] Start: 03-12-2023 End: 03-12-2023 ambulatory [facility] Start: 03-12-2023 End: 03-12-2023 Encounter for other preprocedural examination [facility] Start: 02-05-2023 End: 02-05-2023 ambulatory [facility] Start: 01-07-2023 ambulatory [facility] Start: 01-07-2023 ambulatory [facility] Start: 04-15-[address] ROSE BRDAFORD Facility: [facility] Start: 03-24-2021 End: 03-24-[address] ROSE BRADFORD Facility:[facility] Start: 01-10-2021 End: 01-11-2021 ambulatory ANNIE BRIZUELA Facility:[facility] Start: 12-16-2020 End: 12-16-2020 ambulatory HIEN MISTRY Facility:[facility] Payers Date Payer Category Payer Private Health Insurance [id number] 2022 Private Health Insurance [id number] 1980 Unknown [id number] 1980 Unknown [id number] 04.23.84 [id number] 1961 Self-pay [id number] 1961 Unknown [id number] Unknown [id number] 04.23.84 [id number] Unknown [id number] Progress note 04-29-2023 Note Date & Type Note Facility 04-29-2023 Note Bariatric Nutrition Follow Up Visit: Name: Odette Azevedo Date: 1980 Age: 42 y.o. Date of Visit: 04/29/23 Visit #: Pre-surgery nutrition visit #3 Past Medical History: Diagnosis Date Anemia Anxiety Depression Hyperlipidemia Hypertension IBS (irritable bowel syndrome) Obese OCD (obsessive compulsive disorder) Scoliosis Current Outpatient Medications Medication Instructions ALPRAZolam (Xanax) 0.5 mg tablet TAKE ONE TABLET BY MOUTH TWICE A DAY NEEDED FOR ANXIETY atorvastatin (LIPITOR) 20 mg, oral, Nightly buPROPion SR (WELLBUTRIN SR) 100 mg, oral, Once Daily furosemide (LASIX) 40 mg, oral, Daily Jardiance 25 mg, Daily meloxicam (MOBIC) 15 mg, oral, Daily multivitamin capsule 1 capsule, oral, Daily PARoxetine (PAXIL) 40 mg, oral, Every morning spironolactone (ALDACTONE) 25 mg, oral, Daily Diabetes Mellitus: prediabetes on Jardiance GERD: No Hyperlipidemia: yes Hypertension: yes Sleep Apnea: unknown Diagnosed Eating Disorder: none History of Mental Health Issues: anxiety, OCD - Labs: 01/08/24 Albumin(g/dL): 4.6 Hemoglobin/Hematocrit: WNL HgbA1c: 5.3 Other noted deficiencies/abnormal labs: low VitB1, B2, B6, iron sat low Abnormal Physical Assessment Findings: none Allergies: Allergies Allergen Reactions Lumason [Sulfur Hexafluoride Microsphr] Shortness of breath and Headache Patient experienced facial flushing after administration of Lumason Latex Rash Anthropometrics: IBW: 120 # Wt History: weight is down 4# since first visit Vitals 02/05/2023 02/05/2023 02/05/2023 02/05/2023 03/12/2023 04/01/2023 04/07/2023 Systolic 155 106 110 118 141 152 - Diastolic 94 72 85 79 89 97 - Pulse 86 81 83 72 89 99 - Temp 97.7 98.6 - - - 97.6 - Resp 20 18 18 18 - - - Height (in) 64 - - - 64 - - Weight (lb) 326.5 - - - 321 - 321 BMI (kg/m2) 56.04 kg/m2 - - - 55.1 kg/m2 - 55.1 kg/m2 BSA (m2) 2.59 m2 - - - 2.57 m2 - 2.57 m2 VISIT REPORT - - - - [email or web address] [id number]; - - Some recent data might be hidden Nutrition History 24 hour Intake: Breakfast: protein shake Lunch: no lunch Dinner: chicken, tuna, vegetable Snacks: cheese stick , beef stick Beverages: water, Current Diet/Special Diets: 1200 kcal Current Vitamins and supplements: VitB12, VitD, iron, MVI Purchased bariatric protein supplement: powder protein in almond milk, Exercise/Activity: walking dogs 3 days /week Dental Issues: none Food allergies/sensitivities/dislikes: mushroom allergy, does not eat much pork How often is patient eating outside of the home?: not eating out How many meals and snacks?: 2 meals Following guidelines drinking 30 minutes outside of meals? yes Straw/gum use: yes, following Carbonated beverage intake: yes, one per week Eating/Chewing Pace: slow eater. Do you know your after surgery protein goals: 60 gm Alcohol use: none Smoking: none maladaptive eating behaviors: none Support from family and friends: yes Nutrition Diagnosis: Obesity related to energy imbalance as evidenced by BMI = 54.4 Nutrition Education/Evaluation/Monitoring: Odette is following the 30 minute rule with difficulty. She has added protein to breakfast and dinner. She skips lunch, but understands the importance of 3 meals with protein after surgery to meet protein goals of 60gm per day. Today we reviewed protein sources and how much protein they provide to diet. She does not like a lot of meat and prefers to eat more vegetarian protein. She is using protein flavorless powder in am with smoothie. We reviewed options to add protein powder to sugar free pudding, applesauce, oats, smoothies. We reviewed option for sugar free beverages. We reviewed the bariatric plate. All questions answered. Goals: Weight loss goals: 5# x 30days 1200 kcal/day for weight loss 60-75gm Protein/day (20-25% total Calories) 1920ml -2150 ml Fluid/day Interventions/Recommendations: Exercise 75-150 minutes of moderate-intensity physical activity per week Continue to follow a 1200 kcal and >60 grams of protein diet Practice incorporating protein at all meals and snacks + one protein drink per day. Continue to practice avoiding straws, gum, carbonated beverages and practice 30 minute rule. Work on prioritizing plate with protein first, non starchy vegetables and then fruit Understanding of Goals and Diet Instructions: Odette Azevedo is developing knowledge as evidenced by was able to verbalize with teachback understanding of 30 minute rule, protein goals, reason to avoid carbonated beverages and caffeine. Pt was seen from 11:50-12:20pm Patient is being seen for preoperative bariatric nutrition management visit Kourtney White RDN, [facility] Progress note 04-15-2023 Note Date & Type Note Facility 04-15-2023 Note Bariatric Nutrition Follow Up Visit: Name: Odette Azevedo Date: 1980 Age: 42 y.o. Date of Telehealth Visit: 04/15/23 Visit #: Patient is being seen for preoperative bariatric nutrition management visit #2 Past Medical History: Diagnosis Date Anemia Anxiety Depression Hyperlipidemia Hypertension IBS (irritable bowel syndrome) Obese OCD (obsessive compulsive disorder) Scoliosis Current Outpatient Medications Medication Instructions ALPRAZolam (Xanax) 0.5 mg tablet TAKE ONE TABLET BY MOUTH TWICE A DAY NEEDED FOR ANXIETY atorvastatin (LIPITOR) 20 mg, oral, Nightly buPROPion SR (WELLBUTRIN SR) 100 mg, oral, Once Daily furosemide (LASIX) 40 mg, oral, Daily Jardiance 25 mg, Daily meloxicam (MOBIC) 15 mg, oral, Daily multivitamin capsule 1 capsule, oral, Daily PARoxetine (PAXIL) 40 mg, oral, Every morning spironolactone (ALDACTONE) 25 mg, oral, Daily Diabetes Mellitus: prediabetes on jaurdice GERD: No Hyperlipidemia: yes Hypertension: yes Sleep Apnea: unknown Diagnosed Eating Disorder: none History of Mental Health Issues: anxiety, OCD - Labs: 01/08/24 Albumin(g/dL): 4.6 Hemoglobin/Hematocrit: WNL HgbA1c: 5.3 Other noted deficiencies/abnormal labs: low VitB1, B2, B6, iron sat low Abnormal Physical Assessment Findings: none Allergies: Allergies Allergen Reactions Lumason [Sulfur Hexafluoride Microsphr] Shortness of breath and Headache Patient experienced facial flushing after administration of Lumason Latex Rash Anthropometrics: IBW: 120 # Wt History: unable to obtain weight Vitals 02/05/2023 02/05/2023 02/05/2023 02/05/2023 03/12/2023 04/01/2023 04/07/2023 Systolic 155 106 110 118 141 152 - Diastolic 94 72 85 79 89 97 - Pulse 86 81 83 72 89 99 - Temp 97.7 98.6 - - - 97.6 - Resp 20 18 18 18 - - - Height (in) 64 - - - 64 - - Weight (lb) 326.5 - - - 321 - 321 BMI (kg/m2) 56.04 kg/m2 - - - 55.1 kg/m2 - 55.1 kg/m2 BSA (m2) 2.59 m2 - - - 2.57 m2 - 2.57 m2 VISIT REPORT - - - - [email or web address] [id number]; - - Some recent data might be hidden Nutrition History 24 hour Intake: Breakfast: serbian yogurt Lunch: 1/2 peanut butter sandwich, 1 cheese stick Dinner: baked chicken tenders and broccoli Snacks: none Beverages: coffee sugar free, water Current Diet/Special Diets:Lower sugar diet Current Vitamins and supplements: none Purchased bariatric protein supplement: none, we reviewed today Dental Issues:No How many meals and snacks?: 2-3 meals Following guidelines drinking 30 minutes outside of meals? She has started practicing Straw/gum use: working on this practice and doing well Carbonated beverage intake: None Eating/Chewing Pace: slower Do you know your after surgery protein goals: yes 60gm Alcohol use: None Smoking: None maladaptive eating behaviors: none Support from family and friends: Yes Nutrition Diagnosis: Obesity related to energy imbalance as evidenced by BMI =55 Nutrition Education/Evaluation/Monitoring: Odette has started following practicing the 30 minute rule, slow mindful eating, avoiding straw and avoiding carbonated beverages. She is not tracking her nutrition(kcal and protein). Today we reviewed nutritional protein supplements requirements. We practiced reading food labels with focus on kcal, protein, sugar and fat. We reviewed protein sources. We discussed importance of protein in diet after surgery. All questions answered. Encouraged to start following a 1200 kcal, 60gm protein diet. Start using [employer] food saji or write on paper. Goals: Weight loss goals: 5# x 30days 1200 kcal/day for weight loss 60-75gm Protein/day (20-25% total Calories) 1920ml -2150 ml Fluid/day Interventions/Recommendations: Exercise 75-150 minutes of moderate-intensity physical activity per week Start to follow a 1200 kcal and >60 grams of protein diet- read food labels. Practice incorporating protein at all meals and snacks + one protein drink per day. Continue to practice avoiding straws, gum, carbonated beverages and practice 30 minute rule. Work on prioritizing plate with protein first, non starchy vegetables and then fruit Understanding of Goals and Diet Instructions: Odette Azevedo is developing knowledge as evidenced by was able to verbalize with teachback understanding of 30 minute rule, importance of protein in diet and protein supplement requirements. The patient was notified that using 3rd alliance party telecommunication application is not HIPPA compliant and many carry some privacy risk. This visit was conducted face to face with the use of audio and video technology -telemedicine visit Time IN: 1:40 Time out: 2:05pm Kourtney White RDN, [facility] Progress note 04-01-2023 Note Date & Type Note Facility 04-01-2023 Note Initial Bariatric Nu trition Assessment Visit: Initial Name: Odette Azevedo Date: 1980 Date of Visit: 04/01/23 Referring physician: Dr. Abad Connell Past Medical History: Diagnosis Date Anemia Anxiety Depression Hyperlipidemia Hypertension IBS (irritable bowel syndrome) Obese OCD (obsessive compulsive disorder) Scoliosis Current Outpatient Medications Medication Instructions ALPRAZolam (Xanax) 0.5 mg tablet TAKE ONE TABLET BY MOUTH TWICE A DAY NEEDED FOR ANXIETY atorvastatin (LIPITOR) 20 mg, oral, Nightly buPROPion SR (WELLBUTRIN SR) 100 mg, oral, Once Daily furosemide (LASIX) 40 mg, oral, Daily Jardiance 25 mg, Daily meloxicam (MOBIC) 15 mg, oral, Daily multivitamin capsule 1 capsule, oral, Daily PARoxetine (PAXIL) 40 mg, oral, Every morning spironolactone (ALDACTONE) 25 mg, oral, Daily Diabetes Mellitus: prediabetes on jaurdice GERD: no Hyperlipidemia: yes Hypertension: yes Sleep Apnea: unknown Diagnosed Eating Disorder: none History of Mental Health Issues: anxiety, OCD - Labs: 01/08/24 Albumin(g/dL): 4.6 Hemoglobin/Hematocrit: WNL HgbA1c: 5.3 Other noted deficiencies/abnormal labs: low VitB1, B2, B6, iron sat low Allergies: Allergies Allergen Reactions Latex Rash Anthropometrics: Height=64 inches IBW: 120 # BMI=55 Hip circumference= Waist circumference= Neck circumference= Picture taken on 04/01/23 Nutrition History: Current Diet/Special Diets: none How many in household?: odette, boyfriend, son Who buys food and prepares meals?: boyfriend and odette 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 Smoking: no Weight Management History: heavy as a child, teenage years ate 1 meal and lost weight, in mid she weighed about 160-170#, at she gained [id number]#, Steady weight gain since of child. Eating patterns/maladaptive eating behaviors: none Any period in the patient's life that was a critical trigger for weight gain: none How often is patient eating outside of the home?: once per week Do you think sometimes you eat to fast or more than you should?: slow How much sleep do you get on most nights?: 6-7 hrs 24 hour diet recall Breakfast: skips on most days, peanut butter toast at times Lunch: skip Dinner: steam fresh vegetables, meat, rice or baked potatoes Snacks: ice cream Beverages: 1800 ml- fluid restriction?? Drinks water, coffee +2 spoons of coffeemate creamer , soda 1 can of day( mid day) What is your level of motivation to make changes? Yes, to be more active, SOB What is your level of confidence to make changes? yes Support from family or friends? yes Physical Activity: 1. On average, how many days per week do you engage in moderate -intensity exercise (like a brisk walk) __0___ days 2. On average, how many days per week do you engage in vigorous-intensity exercise (running or aerobics)_0__ days ?3. On average, how many minutes do you engage in exercise at this level? __0___ minutes 4. On average, how many days do you engage in muscle strengthening activity __0___ days ? Total minutes per week of physical activity = _0____ minutes per week Estimated Energy Needs: Needs based on: actual body weight Calorie needs: 2400 kcals/day based on Equation: Robbie Carbajallisette Protein needs: > 60 g/day Fluid needs: 6199-4994 ml/day per case maker Nutrition Diagnosis: Obesity related to energy imbalance as evidenced by BMI=55 Nutrition Education/Evaluation/Monitoring: Odette Azevedo is a 42 y.o. female who presents to the [facility] for nutritional counseling. Diagnosis of morbid obesity d/t excess calorie intake. We reviewed diet history and eating habits today. Odette does not eat breakfast and lunch. She reports she eats a balanced supper. Odette Azevedo was provided the Bariatric Resource Guide Booklet and we reviewed the 19 bariatric goals prior to surgery. We discussed required vitamins and minerals. We talked about importance of changing eating patterns and learning nutrition to help nursing home weight loss/maintenance. We discussed the importance of protein and hydration after surgery. We discussed exercising and she does gets SOB with walking so actively is limited at this time. Event Operations Manager did want Odette to slowly increase walking as tolerated. We did not talk about protein supplement requirements which will be covered at next session. Rec Nutrition Plan 1200 kcal/day for weight loss 60-75gm Protein/day (20-25% total Calories) 1920ml -2150 ml Fluid/day Interventions/Plan/Recommendations: Weight loss goal: To follow 1200kcal diet and track nutrition with a food log/journal Read and familiarize self with bariatric booklet and bring to all appointments. To start practicing avoiding straws, gum, carb (more content not included)... [facility] Progress note 03-12-2023 Note Date & Type Note Facility 03-12-2023 Note New patient here to establish care. She needs cleared for bariatric surgery, which will be done at [facility]. She denies all cardiac symptoms. Father and brother both had hx of UT. Review of Systems All other systems reviewed and are negative. [facility] Progress note 03-12-2023 Note Date & Type Note Facility 03-12-2023 Note Cardiology Clinic No te Chief Complaint: Perioperative Risk stratification HPI: Odette Azevedo is a 42 y.o. female With a past medical history including morbid obesity, GERD, and OCD. She presents to cardiology clinic for perioperative risk stratification prior to gastric bypass surgery. Patient denies any History of any cardiac issues. She denies any history of UT, CHF, CVA, PCI. She does endorse a family history of premature coronary artery disease. She states that her father and brothers had PCI for CAD at an early age. She denies any cardiac complaints or concerns. She denies any chest pain or shortness of breath. She denies any lower extremity edema, orthopnea, paroxysmal nocturnal dyspnea. She has poor functional capacity, and she is unclear about how many METS she can perform. Cardiology ROS: GENERAL: Denies fever, chills, night sweats, weight loss. HEENT: Denies changes in vision, photophobia, changes in hearing, epistaxis, oral bleeding. CARDIOVASCULAR: Denies chest pain, exertional dyspnea, orthopnea/PND, lower extremity edema, palpitations, lightheadedness/dizziness. RESPIRATORY: Denies SOB, coughing, wheezing GI: Denies abdominal pain, nausea/vomiting, heartburn, melena/hematochezia. RENAL: Denies dysuria, hematuria, flank pain. MSK: Denies muscle weakness/pain, arthralgias/joint pain. NEUROLOGIC: Denies LOC, weakness, numbness, headaches. SKIN: Denies abnormal rashes or bleeding. PSYCH: Denies significant anxiety, depression, sleep disturbances. Past Medical History She has a past medical history of Anemia, Anxiety, Depression, Hyperlipidemia, Hypertension, IBS (irritable bowel syndrome), Obese, OCD (obsessive compulsive disorder), and Scoliosis. Surgical History She has a past surgical history that includes Back surgery (1988) and [place] tooth extraction. Social History She reports that she has never smoked. She has never used smokeless tobacco. She reports current alcohol use. She reports that she does not use drugs. Family History Family History Problem Relation Name Age of Onset Diabetes Father Heart attack Father Hypertension Father Heart attack Brother Deep vein thrombosis Brother Medications Current Outpatient Medications on File Prior to Visit Medication Sig Dispense Refill ALPRAZolam (Xanax) 0.5 mg tablet TAKE ONE TABLET BY MOUTH TWICE A DAY NEEDED FOR ANXIETY atorvastatin (Lipitor) 20 mg tablet Take 20 mg by mouth at bedtime. buPROPion SR (Wellbutrin SR) 100 mg 12 hr tablet Take 100 mg by mouth once daily as directed. furosemide (Lasix) 40 mg tablet Take 40 mg by mouth in the morning. Jardiance 25 mg 25 mg 1 (one) time each day. meloxicam (Mobic) 15 mg tablet Take 15 mg by mouth in the morning. multivitamin capsule Take 1 capsule by mouth in the morning. PARoxetine (Paxil) 40 mg tablet Take 40 mg by mouth in the morning. spironolactone (Aldactone) 25 mg tablet Take 25 mg by mouth in the morning. No current facility-administered medications on file prior to visit. Allergies Lumason [sulfur hexafluoride microsphr] and Latex Physical Exam VITAL SIGNS: BP 141/89 (BP Location: Left wrist, Patient Position: Sitting) Pulse 89 Ht 1.626 m (5' 4 ) Wt (!) 146 kg (321 lb) SpO2 97% BMI 55.10 kg/m??? Constitutional: Well developed, Well nourished, No acute distress, Non-toxic appearance. HENT: Normocephalic, Atraumatic, Bilateral external ears have normal appearance, Nose appears normal, nares are patent. Eyes: PERRLA, EOMI, Conjunctiva normal, No discharge. Neck: Normal range of motion, No tenderness, Supple, No stridor. No cervical lymphadenopathy noted. Cardiovascular: Normal heart rate, Normal rhythm, No murmurs, No rubs, No gallops. Thorax & Lungs: Normal breath sounds, No respiratory distress, No wheezing, No chest tenderness to palpation. Abdomen: Bowel sounds normal, Soft, Nontender, No masses, No pulsatile masses. Skin: Warm, Dry, No erythema, No rash. Back: No tenderness, No CVA tenderness. Extremities: Intact distal pulses, No edema, No tenderness, No cyanosis, No clubbing. Musculoskeletal: Grossly normal strength in extremities Neurologic: Alert & oriented x 3, no gross focal neurological deficits Psychiatric: Affect normal, Judgment normal, Mood normal. Impression: -HTN -HLD -Family history of premature CAD -Perioperative risk stratification -Abnormal EKG with poor r wave progression (personally reviewed) Plan: -Given unclear functional status and family history of premature CAD, will obtain stress test to rule out ischemia. Patient cannot walk on treadmill, per her report. As such, will order dobutamine echocardiogram stress test. Further recommendations to follow perioperative restratification -Patient states that blood pressure is well-controlled at home. Continue current regimen -Continue atorvastatin 20 mg daily for hyperlipidemia -Aggressive risk factor modification given st (more content not included)... [facility] Clinical Note 02-05-2023 Note Date & Type Note Facility 02-05-2023 Note Patient: Odette fischer Procedure Information Anesthesia Start Date/Time: 02/05/2348 Procedure: EGD (ESOPHAGOGASTRODUODENOSCOPY) (Esophagus) - can use OR 9's yan cart, get scope from Endo Location: [facility] / [facility] Operating Room Surgeons: Abad Connell MD Relevant Problems GI (+) Gastroesophageal reflux disease Clinical information reviewed: Tobacco Allergies Meds Med Hx Surg Hx OB Status Fam Hx Soc Hx Physical Exam Airway Mallampati: II TM distance: >3 FB Neck ROM: full Cardiovascular - normal exam Dental Pulmonary - normal exam Abdominal (+) obese Anesthesia Plan ASA 4 MAC intravenous induction Postoperative administration of opioids is intended. Anesthetic plan and risks discussed with patient. Use of blood products discussed with patient who. Plan discussed with resident, CAA and SECURITY RISK ANALYST. Additional Equipment Requests [facility] Clinical Note 02-05-2023 Note Date & Type Note Facility 02-05-2023 Note Patient: Odette fischer Procedure Summary Date: 02/05/23 Room / Location: [facility] / [facility] Operating Room Anesthesia Start: 747 Anesthesia Stop: 18 Procedure: EGD (ESOPHAGOGASTRODUODENOSCOPY) (Esophagus) Diagnosis: Gastroesophageal reflux disease, unspecified whether esophagitis present (Gastroesophageal reflux disease, unspecified whether esophagitis present [K21.9]) Surgeons: Abad Connell MD Responsible Provider: Nataliia Raza MD Anesthesia Type: MAC ASA Status: Not recorded Anesthesia Type: MAC Vitals Value Taken Time BP 110/85 02/05/23 0830 Temp 37 ???C (98.6 ???F) 02/05/23 0815 Pulse 83 02/05/23 0830 Resp 18 02/05/23 0830 SpO2 94 % 02/05/23 0839 Vitals shown include unvalidated device data. Anesthesia Post Evaluation Patient location during evaluation: PACU Patient participation: complete - patient participated Level of consciousness: awake and alert Pain management: adequate There was medical reason for not using a multimodal analgesia pain management approach.Airway patency: patent Cardiovascular status: acceptable and hemodynamically stable Respiratory status: acceptable and room air Hydration status: acceptable Patient is hemodynamically stable and is able to be discharged from PACU per anesthesia protocol. No notable events documented. [facility] Clinical Note 01-25-2023 Note Date & Type Note Facility 01-25-2023 Note IF YOU ARE GOING [place] AFTER YOUR SURGERY OR PROCEDURE, FOR YOUR SAFETY, YOUR SURGERY WILL BE CANCELLED IF BOTH OF THE FOLLOWING ARE NOT AVAILABLE: An adult driver license examiner over the age of 18, that can receive information about your care after surgery, and drive you home. A responsible adult to stay with you for 24 hours in case of an emergency. Can be same as above. The highest risk of complications is within the first 24 hours after sedation/anesthesia. Nothing to eat or drink after midnight the night before surgery. This includes gum, candy, mints, and lozenges. No alcohol, marijuana, or tobacco products including vaping for 24 hours. Please brush your teeth; don't swallow the toothpaste or water. If you use dentures, wear them but do not use paste. Please leave any other removable dental hardware at home. Do not put in contact lenses. Do not wear perfume, make-up, nail khmer, or lotions on the day of your surgery or procedure. Follow skin-prep/wipe instructions as below if required. Bring with you: *Insurance card *Photo ID *Medication list *Co-pay for visit/prescriptions If applicable: *Rescue inhalers *Green bracelet from lab *CPAP or BiPAP machine, if staying overnight *Any braces, splints, or equipment ordered preoperatively *Remote controls for implanted devices Leave at home: *Purse/Wallet/Scott- unless needed for co-pay *Cell phone (can leave with family/friend or place in locker if needed) *Jewelry (including piercings and wedding bands) *If not possible, ask the person who is waiting with you to keep them Children under the age of 12 will not be allowed into patient care areas. We will call you between 3pm and 4pm the day before your surgery to give you an arrival time. If you do not receive this call, have any questions, or need to make any changes, please call [phone]. Notify your surgeon if you develop any illness such as a cold, cough, fever, sore throat or vomiting between now and your surgery. Thank you for entrusting us with your care. [facility] Progress note 01-07-2023 Note Date & Type Note Facility 01-07-2023 Note Bariatric Surgery Co nsult Note Identifying Data Patient Name: Odette Azevedo MRN / CSN: [id number] Date of / Age: 8 1980 / 42 y.o. / female Encounter Date: 01/07/23 Diagnosis: The encounter diagnosis was Morbid obesity with BMI of 50.0-59.9, adult (CMS/[facility]). Subjective Odette Azevedo is a 42 y.o. years old female who has been having problem with overweight since many years ago. Patient heaviest weight is Her current weight which is 144kg BMI Body mass index is 54.41 kg/m???. . Patient has been trying to lose weight and had fluctuated. She had lost about 20 pounds at Her best attempt in diet and exercising and had tried Adipex. Patient is finding difficulty losing Her weight regardless of what She tried to do with avoiding carbs and all the junk food. Patient's health is also complicated by HTN, anxiety, and knee pain as well as hx of scoliosis s/p back surgery. Patient has a history of IBS as well and denies abdominal surgical history. She is interested in bariatric surgery and She is here for evaluation. Patient does take NSAIDS for her knee pain. GERD: No EGD: No CRYSTAL: Denies diagnosis DM: previous hx of prediabetes Malignancy Screening: per PCP Substance use: no EKG/CXR: no Bleeding/clotting disorders: no Anesthesia issues: no ROS Review of Systems Constitutional: Negative. HENT: Negative. Eyes: Negative. Respiratory: Positive for shortness of breath. Cardiovascular: Negative. Gastrointestinal: Negative. Endocrine: Negative. Genitourinary: Negative. Musculoskeletal: Positive for back pain. Skin: Negative. Allergic/Immunologic: Negative. Neurological: Negative. Hematological: Bruises/bleeds easily. Psychiatric/Behavioral: Negative. Past Medical History: Diagnosis Date Anemia Hypertension History reviewed. No pertinent surgical history. Social History Socioeconomic History Marital status: Single Spouse name: Not on file Number of children: Not on file Years of education: Not on file Highest education level: Not on file Occupational History Not on file Tobacco Use Smoking status: Never Smokeless tobacco: Never Substance and Sexual Activity Alcohol use: Yes Drug use: Never Sexual activity: Not on file Other Topics Concern Not on file Social History Narrative Not on file Social Determinants of Health Financial Resource Strain: Not on file Food Insecurity: Not on file Transportation Needs: Not on file Physical Activity: Not on file Stress: Not on file Social Connections: Not on file Intimate Partner Violence: Unknown (01/07/2023) Humiliation, Afraid, Rape, and Kick questionnaire Fear of Current or Ex-Partner: No Emotionally Abused: Not on file Physically Abused: Not on file Sexually Abused: Not on file Housing Stability: Not on file Family History Problem Relation Name Age of Onset Diabetes Father Heart attack Father Hypertension Father Medications & Allergies Current Outpatient Medications: ALPRAZolam (Xanax) 0.5 mg tablet, TAKE ONE TABLET BY MOUTH TWICE A DAY NEEDED FOR ANXIETY, Disp: , Rfl: atorvastatin (Lipitor) 20 mg tablet, , Disp: , Rfl: buPROPion SR (Wellbutrin SR) 100 mg 12 hr tablet, , Disp: , Rfl: furosemide (Lasix) 40 mg tablet, , Disp: , Rfl: Jardiance 25 mg, , Disp: , Rfl: meloxicam (Mobic) 15 mg tablet, , Disp: , Rfl: PARoxetine (Paxil) 40 mg tablet, , Disp: , Rfl: spironolactone (Aldactone) 25 mg tablet, , Disp: , Rfl: Allergies No Known Allergies Objective Blood pressure (!) 168/91, pulse 109, temperature 36.6 ???C (97.9 ???F), temperature source Oral, height 1.626 m (5' 4 ), weight (!) 144 kg (317 lb). Physical Exam Constitutional: Appearance: obese. HENT: Head: Atraumatic. Right Ear: External ear normal. Left Ear: External ear normal. Nose: Nose normal. Mouth/Throat: Mouth: Mucous membranes are moist. Eyes: General: Right eye: No discharge. Left eye: No discharge. Conjunctiva/sclera: Conjunctivae normal. Cardiovascular: Rate and Rhythm: Normal rate and regular rhythm. Pulses: Normal pulses. Pulmonary: Effort: Pulmonary effort is normal. Abdominal: General: There is no distension. Palpations: Abdomen is soft. Musculoskeletal: General: No swelling. Cervical back: Neck supple. Skin: General: Skin is warm. Capillary Refill: Capillary refill takes less than 2 seconds. Neurological: Mental Status: alert. No results found for: WBC, HCT, HGB, PLT No results found for: NA, K, CL, BUN, CREATININE, CALCIUM, MG, AST, ALT, PROT, ALBUMIN No results found for: TSH, VITD25, FOLATE, BFMTGADH94 No results found for: HGBA1C, LDL, HDL, CHOLHDLRATIO, TRIG Assessment and Plan Impression: -Obesity weight: 144kg BMI: Body mass index is 54.41 kg/m???. Idea body weight: [place] body weight: 54.7 kg (120 lb 9.5 oz) Adjusted ideal body weight: 90.3 kg (199 lb 2.5 oz) Plan: Laparoscopic sleeve gastrectomy possible open I had (more content not included)... [facility] Progress note 12-17-2022 Note Date & Type Note Facility 12-17-2022 Note Patient attended The [facility] Metabolic and Bariatric Surgery Program Orientation Seminar on 12/16/2022. All questions were answered at that time. MBS Coordinator contacted patient and set appointment for initial bariatric consultation per patient availability. [facility] Summary Purpose Family History No Family History Records FoundNo Family History Records Found Advance Directives No Advanced Directives Records FoundNo Advanced Directives Records Found Additional Source Comments INFORMATION SOURCE (unrecogn ized section and content) DATE CREATED AUTHOR 04/15/2021 [facility] DATE CREATED AUTHOR AUTHOR'S ORGANIZ ATION 05/07/2023 [facility] FOR RECORDS PERTAINING TO PATIENTS WHO ARE OR HAVE BEEN ENROLLED IN A CHEMICAL DEPENDENCY/SUBSTANCEABUSE PROGRAM, SOME INFORMATION MAY BE OMITTED. This clinical summary was aggregated from multiple sources. Caution should be exercised in using it in the provision of clinical care. This summary normalizes information from multiple sources, and as a consequence, information in this document may materially change the coding, format and clinical context of patient data. In addition, data may be omitted in some cases. CLINICAL DECISIONS SHOULD BE BASED ON THE PRIMARY CLINICAL RECORDS. [email or web address] provides no warranty or guarantee of the accuracy or completeness of information in this document.
== END 2023-05-12 09:48 | disposition home or self-care (01) ==
LOC: CARD 09:47
PROVIDERS: PCP Family Medicine; Visit Provider Internal Medicine Cardiovascular Disease
DX: Z01.810 Encounter for preprocedural cardiovascular examination (principal); Z82.49 Family history of ischemic heart disease and other diseases of the circulatory system
CPT/HCPCS: 93017

== ENCOUNTER 2023-06-07 12:58 | Outpatient (OUT) | payer MEDICAID, SELFPAY ==
--- NOTE | 2023-06-07 13:00 | CA_ITS ---
Patient Name: ODETTE MYERS MR#: [id number] : 1980 Exam Date: 06/07/2023 Ordering Doctor: LINNEA CERVANTES M.D. ECHOCARDIOGRAM REPORT PROCEDURE: CA ECHO DOPPLER COMPLETE INDICATIONS: Pre-operative examination COMPARISON: None. DESCRIPTION: COMPLETE ECHOCARDIOGRAM Real-time transthoracic echocardiography with 2D, M-mode, spectral and color flow Doppler performed. QUALITY: Technically difficult due to patients condition. 64 , 316#, BSA 2.38 m2, BP 138/94 LEFT VENTRICLE: Normal chamber size. Mild concentric left ventricular hypertrophy. Segmental wall motion cannot be accurately assessed due to poor sound transmission. Normal systolic function. LV EF: Normal left ventricular ejection fraction, (55%). DIASTOLIC: Normal diastolic function. ATRIAL SEPTUM: LEFT ATRIUM: Normal chamber size. RIGHT ATRIUM: Normal chamber size. RIGHT VENTRICLE: Normal chamber size. TRICUSPID VALVE: Normal mobility and thickness. No stenosis with no regurgitation. MITRAL VALVE: Normal mobility and thickness. No evidence of mitral valve stenosis. There is no mitral annular calcification. No mitral regurgitation. AORTIC VALVE: No visible sclerosis. Normal leaflet mobility. No evidence of aortic valve stenosis. No aortic regurgitation. AORTIC ROOT: PULMONIC VALVE: Not well visualized. No stenosis. No regurgitation. PERICARDIUM: No evidence of pericardial effusion. IVC: Collapses with inspirations. IVC is normal in size. PLEURA: CONCLUSION: 1. Mild concentric left ventricular hypertrophy with normal systolic function. LVEF is estimated at 55%. 2. Normal right ventricular size and systolic function. 3. No significant valvular dysfunction. 4. Technically difficult study with poor sound transmission, limiting the diagnostic accuracy of the test. Adult Echocardiography Procedure Report Left Ventricle LVEDD (3.7 - 5.6 cm): 4.79 cm LVESD (2.2 - 4.0 cm): 3.23 cm LVIVS thickness (0.6 - 1.2 cm): 1.18 cm LVPW thickness (0.5 - 1.0 cm): 1.20 cm E - e': 4.65 LVOT Max Gradient: 2.45 mm[Hg] LVOT Area (cm2): 0.78 m/s Peak Velocity (LVOT): 0.78 m/s LVOT Diameter 2.15 cm Left Atrium LA Volume Index (2D A2C): 13.52 ml/m2 Left Atrium Systolic Dimension: 3.61 cm Mitral Valve MV E to A Ratio: 1.25 Mitral Valve A-Wave Peak Velocity: 0.48 m/s Mitral Valve E-Wave Peak Velocity: 0.59 m/s Right Ventricle Aorta AO Root Diam: 3.14 cm Aortic Valve AoV Area (Peak Robetr): 2.99 cm2, 2.99 cm2 Peak Velocity(Antegrade Flow): 0.95 m/s Peak Gradient(Antegrade Flow): 3.62 mm[Hg] Tricuspid Valve Pulmonic Valve Peak Gradient: 3.22 mm[Hg], 3.48 mm[Hg] Right Atrium Dictated by: Prince Mcgee M.D. on 06/08/2023 at 19:01 Approved by: Prince Mcgee M.D. on 06/08/2023 at 19:05
== END 2023-06-07 12:59 | disposition home or self-care (01) ==
LOC: CARD 12:59
PROVIDERS: PCP Family Medicine; Visit Provider Internal Medicine Cardiovascular Disease
DX: Z01.818 Encounter for other preprocedural examination (principal); Z82.49 Family history of ischemic heart disease and other diseases of the circulatory system
CPT/HCPCS: 93306

== ENCOUNTER 2023-06-11 16:46 | Outpatient (OUT) | payer MEDICAID, SELFPAY ==
[2023-06-11 17:03] LABS: Basophils Absolute Auto 0.1 10^3/uL (0.0-0.1); Basophils Percent Auto 0.5 % (0.2-2.0); Eosinophils Absolute Auto 0.2 10^3/uL (0.0-0.7); Eosinophils Percent Auto 1.9 % (0.9-7.0); Hemoglobin 14.5 g/dL (12.0-16.0); Immature Granulocytes Abs Auto 0.03 10^3/uL (0.00-0.03); Immature Granulocytes Pct Auto 0.3 % (0.0-0.5); Lymphocytes Absolute Auto 3.6 10^3/uL (1.2-3.8); Lymphocytes Percent Auto 32.2 % (20.5-60.0); Mean Corpuscular HGB Conc 31.5 g/dL (29.9-35.2); Mean Corpuscular Hemoglobin 28.4 pg (26.7-34.0); Mean Corpuscular Volume 90.2 fL (81.0-99.0); Mean Platelet Volume 10.3 fL (9.5-13.5); Monocytes Absolute Auto 0.6 10^3/uL (0.3-0.8); Monocytes Percent Auto 5.1 % (1.7-12.0); Neutrophils Absolute Auto 6.8 10^3/uL (1.4-6.5); Platelet Count 314 10^3/uL (150-450); White Blood Count 11.3 10^3/uL (4.0-11.0)
[2023-06-11 17:55] LABS: Alanine Aminotransferase 27 U/L (14-59); Albumin Globulin Ratio 0.9; Albumin Level 3.7 g/dL (3.4-5.0); Alkaline Phosphatase 131 U/L (46-116); Anion Gap 13.6; Aspartate Amino Transferase 16 U/L (15-37); BUN Creatinine Ratio 22.9; Bilirubin Total 0.5 mg/dL (0.2-1.0); Calcium 9.5 mg/dL (8.5-10.1); Carbon Dioxide 26.9 mmol/L (21.0-32.0); Chloride 104 mmol/L (98-107); Estimated GFR (African America >60 (>=60); Estimated GFR (Non-African Ame >60 (>=60); Globulin 3.9 g/dL; Glucose 121 mg/dL (74-106); Potassium 3.5 mmol/L (3.5-5.1); Sodium 141 mmol/L (136-145); Total Protein 7.6 g/dL (6.4-8.2)
== END 2023-06-11 16:47 | disposition home or self-care (01) ==
LOC: LAB 16:46
PROVIDERS: PCP Family Medicine; Visit Provider Physician Assistant
DX: Z01.818 Encounter for other preprocedural examination (principal); R73.01 Impaired fasting glucose
CPT/HCPCS: 36415; 80053; 85025

== ENCOUNTER 2023-07-23 09:26 | Outpatient (OUT) | payer MEDICAID, SELFPAY ==
--- NOTE | 2023-07-23 09:32 | US_ITS ---
The [address] [address] Patient Name: ODETTE MYERS MRN: [id number] date: 1980 Sex: F Assigned Patient Location: US Current Patient Location: US Accession/Order Number: [id number] Exam Date: 07/23/2023 09:40 Report Date: 07/23/2023 10:27 At the request of: NON-STAFF PHYSICIAN Procedure: US abdomen limited EXAMINATION: US abdomen limited HISTORY: Incisional Pain L76.82 COMPARISON: No relevant comparison available. FINDINGS: Ultrasound in the region of the patient's pain demonstrates a small area of anechoic echogenicity with increased acoustic through transmission measuring 9.1 x 6.4 x 9.0 mm, postoperative seroma is suspected no definite hernia is observed. No focal mass. US/US abdomen limited IMPRESSION: 9.1 mm fluid collection in the region of the patient's incision possibly a postoperative seroma Electronically authenticated by: MERI CALZADA Date: 07/23/2023 10:27
--- OUTSIDE RECORDS SUMMARY | 2023-07-23 09:34 | XMS_ITS | CCD ---
Author Organization [facility] Care Team Providers Care Weigh Boss Name Role Phone HIEN MISTRY Attending Unavailable FEDEHIEN NGUYEN Consulting Unavailable HIEN MISTRY Admitting Unavailable SANCHEZ, DR ROSE Attending Unavailable SANCHEZ, DR ROSE Primary Care Unavailable SANCHEZ, DR ROSE Admitting Unavailable ROSS, ANNIE Admitting Unavailable ROSS, ANNIE Attending Unavailable ROSS, ANNIE Consulting Unavailable SANCHEZ, DR ROSE Attending Unavailable SANCHEZ, DR ROSE Consulting Unavailable SANCHEZ, DR ROSE Admitting Unavailable HEMMER, CAROLYN Estrada Attending Unavailable SANCHEZ, ROSE M Attending Unavailable CONNELL, JEFFERY Admitting Unavailable CONNELL, JEFFERY Attending Unavailable ANA, KOURTNEY Attending Unavailable GAUAMIS, RENELLA Attending Unavailable CONNELL, JEFFERY Attending Unavailable CONNELL, JEFFERY Attending Unavailable BADAR, MELLISA Attending Unavailable GAUAMIS, RENELLA Referring Unavailable ALGHOTHANI, MOHAMAD Referring Unavailable ALGHOTHANI, MOHAMAD Attending Unavailable CONNELL, JEFFERY Referring Unavailable RAPPORT, LAVON Attending Unavailable CONNELL, JEFFERY Referring Unavailable CONNELL, JEFFERY Admitting Unavailable CONNELL, JEFFERY Attending Unavailable Allergies Allergy Classification Reported Allergen(s) Allergy Type Date of Onset Reaction(s) Facility (1 source) Latex; Translations: [LATEX] Propensity to adverse reactions to drug (disorder) 3 [facility] Repository (1 source) SULFUR HEXAFLUORIDE MICROSPHR; Translations: [SULFUR HEXAFLUORIDE MICROSPHR] Propensity to adverse reactions to drug (disorder) 4 [facility] Repository Problems Active Problems Problem Classification Problem Date Documented Da te Episodic/Chronic Anxiety disorders (4 sources) Anxiety disorder, unspecified; Translations: [Obsessive-compuls sonido disorder, unspecified] Onset: 01-07-2023 Chronic Coagulation and hemorrhagic disorders (2 sources) Spontaneous ecchymoses; Translations: [Spontaneous ecchymoses] Onset: 06-21-2023 Episodic Esophageal disorders (2 sources) Gastro-esophageal reflux disease without esophagitis; Translations: [Gastro-esophageal reflux disease without esophagitis] Onset: 01-08-2023 Chronic Essential hypertension (2 sources) Essential (primary) hypertension; Translations: [Essential (primary) hypertension] Onset: 01-07-2023 Chronic Immunizations and screening for infectious disease (4 sources) Encounter for immunization; Translations: [ENCOUNTER FOR IMMUNIZATION] Onset: 01-10-2021 Episodic Other gastrointestinal disorders (2 sources) Bariatric surgery status; Translations: [Bariatric surgery status] Onset: 07-06-2023 Episodic Other nervous system disorders (2 sources) Other chronic pain; Translations: [Other chronic pain] Onset: 06-21-2023 Chronic Other nutritional; endocrine; and metabolic disorders (2 sources) Morbid (severe) obesity due to excess calories; Translations: [Morbid (severe) obesity due to excess calories] Onset: 06-16-2023 Chronic Other nutritional; endocrine; and metabolic disorders (2 sources) Body mass index (BMI) 50.0-59.9, adult; Translations: [Body mass index (BMI) 50.0-59.9, adult] Onset: 06-16-2023 Chronic Other nutritional; endocrine; and metabolic disorders (2 sources) Obesity; Translations: [Obesity] Onset: 06-14-2023 Chronic Other upper respiratory infections (1 source) Acute pharyngitis, unspecified; Translations: [ACUTE PHARYNGITIS UNSPECIFIED] Onset: 03-26-2021 Episodic Residual codes; unclassified (1 source) Pain, unspecified; Translations: [PAIN UNSPECIFIED] Onset: 03-26-2021 Episodic Residual codes; unclassified (2 sources) Localized edema; Translations: [Localized edema] Onset: 01-07-2023 Episodic Unclassified (2 sources) CONTACT W/AND (SUSP) EXPOS COVID-19; Translations: [CONTACT W/AND (SUSP) EXPOS COVID-19] Onset: 03-26-2021 Unclassified (2 sources) Post-op; Translations: [Post-op] Onset: 07-15-2023 Unclassified (2 sources) Psychiatric Evaluation; Translations: [Psychiatric Evaluation] Onset: 06-02-2023 Viral infection (1 source) COVID-19; Translations: [COVID-19] Onset: 03-26-2021 Past or Other Problems Problem Classification Problem Date Documented Date Episodic/Chronic Administrative/socia l admission (4 sources) Encounter for pre-employment examination; [...] [Pain in left knee] Onset: 01-07-2023 Episodic Other screening for suspected conditions (not mental disorders or infectious disease) (2 sources) Abnormal electrocardiogram [ECG] [EKG]; Translations: [Abnormal electrocardiogram (ECG) (EKG)] Onset: 04-07-2023 Episodic Unclassified (1 source) CONTACT W/AND (SUSP) EXPOS COVID-19; Translations: [CONTACT W/AND (SUSP) EXPOS COVID-19] Onset: 03-24-2021 Results Test Name Value Interpretation Reference Range Facility Letter (Out)on 07-15-2023 Letter (Out) [id number] Clyde Azevedo 1980 F Date Provider Department Center 07/15/2023 [id number] MARTINEZ [facility] Second Fl Family History Problem Relation Age of Onset Diabetes Father Heart attack Father Hypertension Father Asthma Father Anxiety disorder Father COPD Father Heart disease Father Hyperlipidemia Father Mental illness Father Heart attack Brother Deep vein thrombosis Brother Diabetes Maternal Grandmother Alcohol abuse Maternal Grandmother Arthritis Maternal Grandmother Depression Maternal Grandmother Heart disease Maternal Grandmother Miscarriages / Stillbirths Maternal Grandmother Diabetes Paternal Grandfather Hypertension Paternal Grandfather Hyperlipidemia Paternal Grandfather Mental illness Paternal Grandfather Hypertension Paternal Grandmother Arthritis Paternal Grandmother Heart disease Paternal Grandmother Kidney disease Paternal Grandmother Asthma Brother Diabetes Brother Hypertension Brother Anxiety disorder Brother COPD Brother Depression Brother Heart disease Brother Hyperlipidemia Brother Suicide Attempts Brother Asthma Brother Hypertension Brother COPD Brother Hyperlipidemia Brother Mental illness Brother Hypertension Mother's Sister Heart disease Mother's Sister Miscarriages / Stillbirths Mother's Sister Anxiety disorder Mother Arthritis Mother Depression Mother Alcohol abuse Maternal Grandfather Arthritis Maternal Grandfather Heart disease Maternal Grandfather Hyperlipidemia Maternal Grandfather Anxiety disorder Sister Arthritis Sister Depression Sister Depression Sister Drug abuse Sister Mental illness Sister Family Status - Relation Status Age at Father Brother Maternal Grandmother Paternal Grandfather Paternal Grandmother Brother Brother Mother's Sister Mother Maternal Grandfather Sister Sister Normal [facility] Office Visiton 07-15-2023 Follow-up visit [id number] Clyde Azevedo 1980 F Date Provider Department Center 07/15/2023 [id number], JEFFERY [facility] Second Fl Family History Problem Relation Age of Onset Diabetes Father Heart attack Father Hypertension Father Asthma Father Anxiety disorder Father COPD Father Heart disease Father Hyperlipidemia Father Mental illness Father Heart attack Brother Deep vein thrombosis Brother Diabetes Maternal Grandmother Alcohol abuse Maternal Grandmother Arthritis Maternal Grandmother Depression Maternal Grandmother Heart disease Maternal Grandmother Miscarriages / Stillbirths Maternal Grandmother Diabetes Paternal Grandfather Hypertension Paternal Grandfather Hyperlipidemia Paternal Grandfather Mental illness Paternal Grandfather Hypertension Paternal Grandmother Arthritis Paternal Grandmother Heart disease Paternal Grandmother Kidney disease Paternal Grandmother Asthma Brother Diabetes Brother Hypertension Brother Anxiety disorder Brother COPD Brother Depression Brother Heart disease Brother Hyperlipidemia Brother Suicide Attempts Brother Asthma Brother Hypertension Brother COPD Brother Hyperlipidemia Brother Mental illness Brother Hypertension Mother's Sister Heart disease Mother's Sister Miscarriages / Stillbirths Mother's Sister Anxiety disorder Mother Arthritis Mother Depression Mother Alcohol abuse Maternal Grandfather Arthritis Maternal Grandfather Heart disease Maternal Grandfather Hyperlipidemia Maternal Grandfather Anxiety disorder Sister Arthritis Sister Depression Sister Depression Sister Drug abuse Sister Mental illness Sister Family Status - Relation Status Age at Father Brother Maternal Grandmother Paternal Grandfather Paternal Grandmother Brother Brother Mother's Sister Mother Maternal Grandfather Sister Sister Level of Service:48554 AL POSTOP FOLLOW UP VISIT RELATED TO ORIGINAL PX Reason for Visit and Comments: Post-op [483] - Odette is here today for a post op visit, s/p 07/06/23 gastric sleeve. Normal [facility] Orders Onlyon 07-12-2023 Orders Only [id number] Clyde Azevedo 1980 F Date Provider Department Center 07/12/2023 [id number], RENELLA [facility] Second Fl Family History Problem Relation Age of Onset Diabetes Father Heart attack Father Hypertension Father Asthma Father Anxiety disorder Father COPD Father Heart disease Father Hyperlipidemia Father Mental illness Father Heart attack Brother Deep vein thrombosis Brother Diabetes Maternal Grandmother Alcohol abuse Maternal Grandmother Arthritis Maternal Grandmother Depression Maternal Grandmother Heart disease Maternal Grandmother Miscarriages / Stillbirths Maternal Grandmother Diabetes Paternal Grandfather Hypertension Paternal Grandfather Hyperlipidemia Paternal Grandfather Mental illness Paternal Grandfather Hypertension Paternal Grandmother Arthritis Paternal Grandmother Heart disease Paternal Grandmother Kidney disease Paternal Grandmother Asthma Brother Diabetes Brother Hypertension Brother Anxiety disorder Brother COPD Brother Depression Brother Heart disease Brother Hyperlipidemia Brother Suicide Attempts Brother Asthma Brother Hypertension Brother COPD Brother Hyperlipidemia Brother Mental illness Brother Hypertension Mother's Sister Heart disease Mother's Sister Miscarriages / Stillbirths Mother's Sister Anxiety disorder Mother Arthritis Mother Depression Mother Alcohol abuse Maternal Grandfather Arthritis Maternal Grandfather Heart disease Maternal Grandfather Hyperlipidemia Maternal Grandfather Anxiety disorder Sister Arthritis Sister Depression Sister Depression Sister Drug abuse Sister Mental illness Sister Family Status - Relation Status Age at Father Brother Maternal Grandmother Paternal Grandfather Paternal Grandmother Brother Brother Mother's Sister Mother Maternal Grandfather Sister Sister Normal [facility] Documentationon 07-09-2023 Documentation [id number] Clyde Azevedo 1980 F Date Provider Department Center 07/09/2023 [id number], RENELLA [facility] Second Fl Family History Problem Relation Age of Onset Diabetes Father Heart attack Father Hypertension Father Asthma Father Anxiety disorder Father COPD Father Heart disease Father Hyperlipidemia Father Mental illness Father Heart attack Brother Deep vein thrombosis Brother Diabetes Maternal Grandmother Alcohol abuse Maternal Grandmother Arthritis Maternal Grandmother Depression Maternal Grandmother Heart disease Maternal Grandmother Miscarriages / Stillbirths Maternal Grandmother Diabetes Paternal Grandfather Hypertension Paternal Grandfather Hyperlipidemia Paternal Grandfather Mental illness Paternal Grandfather Hypertension Paternal Grandmother Arthritis Paternal Grandmother Heart disease Paternal Grandmother Kidney disease Paternal Grandmother Asthma Brother Diabetes Brother Hypertension Brother Anxiety disorder Brother COPD Brother Depression Brother Heart disease Brother Hyperlipidemia Brother Suicide Attempts Brother Asthma Brother Hypertension Brother COPD Brother Hyperlipidemia Brother Mental illness Brother Hypertension Mother's Sister Heart disease Mother's Sister Miscarriages / Stillbirths Mother's Sister Anxiety disorder Mother Arthritis Mother Depression Mother Alcohol abuse Maternal Grandfather Arthritis Maternal Grandfather Heart disease Maternal Grandfather Hyperlipidemia Maternal Grandfather Anxiety disorder Sister Arthritis Sister Depression Sister Depression Sister Drug abuse Sister Mental illness Sister Family Status - Relation Status Age at Father Brother Maternal Grandmother Paternal Grandfather Paternal Grandmother Brother Brother Mother's Sister Mother Maternal Grandfather Sister Sister Normal [facility] 30on 07-07-2023 30 Daily Case Managemen t Update Multidisciplinary rounds have been completed. Barriers to Discharge: Patient is medically ready for hospital discharge today. Patient is post-op #1 s/p vertical sleeve gastrectomy. Upper GI follow through completed and negative for leaks. AVS has been completed. No further OTM needs at this time. [facility] will continue to follow patient through discharge process and assist with any further discharge related needs. Diet: Dietary Orders (From admission, onward) Start Ordered 07/07/23 1040 Bariatric Full Liquid Diet Diet effective now Question: Room Service? Answer: No 07/07/23 1040 Physician Expected Discharge Date: 07/08/2023 Discharge Delays: PT Six Click Score: 23 OT Six Click Score: PT Recommendations: OT Recommendations: Does patient understand post acute plan of care? Yes Is expected discharge disposition appropriate for patient?: Yes New Consults: Normal [facility] 30 The patient is Moder ately Stable - Low risk of patient condition declining or worsening The patient's goals for the shift include sleep/comfort The clinical goals for the shift include sleep/comfort Problem: Pain - Adult Goal: Verbalizes/displays adequate comfort level or baseline comfort level Outcome: Progressing Problem: Safety - Adult Goal: Free from fall injury Outcome: Progressing Problem: Discharge Planning Goal: Discharge to home or other facility with appropriate resources Outcome: Progressing Problem: Chronic Conditions and Co-morbidities Goal: Patient's chronic conditions and co-morbidity symptoms are monitored and maintained or improved Outcome: Progressing Normal [facility] BASIC METABOLIC PANELon 05-0 Anion gap [Moles/Vol] 9 mmol/L Normal 7-20 [facility] Comment on above: Performed By: #### L [id number] #### [facility] ([facility] [address] [place] [address] Calcium [Mass/Vol] 8.9 mg/dL Normal 8.6-10.3 [facility] Comment on above: Performed By: #### L [id number] #### [facility] ([facility]) [address] [place] [address] Chloride [Moles/Vol] 101 mmol/L Normal 98-107 [facility] Comment on above: Performed By: #### L [id number] #### [facility] ([facility]) [address] [place] [address] CO2 [Moles/Vol] 29 mmol/L Normal 21-31 [facility] Comment on above: Performed By: #### L [id number] #### [facility] ([facility]) [address] [place] [address] Creatinine [Mass/Vol] 0.72 mg/dL Normal 0.60-1.20 [facility] Comment on above: Performed By: #### L [id number] #### [facility] ([facility]) [address] [place] [address] GLOMERULAR FILTRATION RATE ML/MIN/1.73 SQ M.PREDICTED 105.7 mL/min/1.73m*2 Normal >60.0 [facility] Comment on above: Result Comment: The [facility]???s estimated glomerular filtration rate (eGFR) will no [...] group of individuals. Performed By: #### L [id number] #### [facility] ([facility] [address] [place] [address] Glucose [Mass/Vol] 117 mg/dL High 70-100 [facility] Comment on above: Performed By: #### L [id number] #### [facility] ([facility]) [address] [place] [address] Potassium [Moles/Vol] 3.2 mmol/L Low 3.5-5.1 [facility] Comment on above: Performed By: #### L [id number] #### [facility] ([facility] [address] [place] [address] Sodium [Moles/Vol] 136 mmol/L Normal 136-145 [facility] Comment on above: Performed By: #### L [id number] #### [facility] ([facility] [address] [place] [address] Urea nitrogen [Mass/Vol] 6 mg/dL Low 7-25 [facility] Comment on above: Performed By: #### L [id number] #### [facility] ([facility]) [address] [place] [address] UREA NITROGEN/CREATININ E (MASS RATIO) IN SER/PLAS 8.3 Normal [facility] Comment on above: Performed By: #### L [id number] #### [facility] ([facility]) [address] [place] [address] CBCon 07-07-2023 Erythrocyte distribution width (RBC) [Ratio] 13.6 % Normal 11.5-15.0 [facility] Comment on above: Performed By: #### L [id number] ####[facility] ([facility])[address] [place] [address] ERYTHROCYTE MEAN CORPUSCULAR HEMOGLOBIN CONCENTRATION (G/DL) BY AUTOMATED 31.7 g/dL Low 32.0-35.0 [facility] Comment on above: Performed By: #### L [id number] ####[facility] ([facility])[address] [place] [address] Hematocrit (Bld) [Volume fraction] 39.8 % Normal 36.0-48.0 [facility] Comment on above: Performed By: #### L [id number] ####[facility] ([facility])[address] [place] [address] Hemoglobin (Bld) [Mass/Vol] 12.6 g/dL Normal 12.0-15.0 [facility] Comment on above: Performed By: #### L [id number] ####[facility] ([facility])[address] [place] [address] MCH (RBC) [Entitic mass] 29.0 pg Normal 27.0-33.0 [facility] Comment on above: Performed By: #### L [id number] ####[facility] ([facility])[address] [place] [address] MCV (RBC) [Entitic vol] 91.7 fL Normal 82.0-98.0 [facility] Comment on above: Performed By: #### L [id number] ####[facility] ([facility])[address] [place] [address] PLATELETS (10*3/UL) IN BLOOD AUTOMATED COUNT 234 10*3/uL Normal 150-400 [facility] Comment on above: Performed By: #### L [id number] ####[facility] ([facility])[address] [address] RBC (Bld) [#/Vol] 4.34 10*6/uL Normal 3.80-5.[address] [facility] Comment on above: Performed By: #### L [id number] ####[facility] ([facility])[address] [address] WBC (Bld) [#/Vol] 11.00 10*3/uL High 4.00-10.60 [facility] Comment on above: Performed By: #### L [id number] ####[facility] ([facility])[address] [place] [address] DSon 07-07-2023 DS Admission Admitted 07/06/2023 for Morbid obesity with body mass inde* Discharge Diagnosis Morbid obesity with body mass index (BMI) of 50.0 to 59.9 in adult ([facility]) Discharge Disposition Home or Self Care (01) Discharge Medications Your medication list START taking these medications Instructions Last Dose Given Next Dose Due acetaminophen 500 mg tablet Commonly known as: Tylenol Take 2 tablets (1,000 mg) by mouth every 6 (six) hours if needed for mild pain (1-3 pain score) for up to 10 days. gabapentin 300 mg capsule Commonly known as: Neurontin Take 1 capsule (300 mg) by mouth three times daily for 7 days. methocarbamol 500 mg tablet Commonly known as: Robaxin Take 1 tablet (500 mg) by mouth every 6 (six) hours for 7 [address] omep[address] capsule Commonly known as: PriLOSEC Take 1 capsule (20 mg) by mouth before breakfast. Do not crush or chew. ondansetron ODT 4 mg disintegrating tablet Commonly known as: Zofran-ODT Take 1 tablet (4 mg) by mouth every 8 (eight) hours if needed for nausea or vomiting for up to 7 days. oxyCODONE 5 mg immediate release tablet Commonly known as: Roxicodone Take 1 tablet (5 mg) by mouth every 4 (four) hours if needed for moderate pain (4-7 pain score) for up to 12 doses. scopolamine 1 mg over 3 days patch 3 day Commonly known as: Transderm-Scop Start taking on: July 08, 2023 Place 1 patch on the skin every 3rd (third) day for 9 days. Do not start before July 08, 2023. CONTINUE taking these medications Instructions Last Dose Given Next Dose Due ALPRAZolam 0.5 mg tablet Commonly known as: Xanax atorvastatin 20 mg tablet Commonly known as: Lipitor b complex vitamins capsule biotin 2,500 mcg capsule buPROPion SR 100 mg 12 hr tablet Commonly known as: Wellbutrin SR busPIRone 5 mg tablet Commonly known as: Buspar Jardiance 25 mg Generic drug: empagliflozin multivitamin capsule Vitamin D3 25 MCG (1000 units) tablet Generic drug: cholecalciferol STOP taking these medications furosemide 40 mg tablet Commonly known as: Lasix spironolactone 25 mg tablet Commonly known as: Aldactone Where to Get Your Medications These medications were sent to [facility] - [place], [place] - [address] [place] [address] [place] [address], [facility] [address] gabapentin 300 mg capsule methocarbamol 500 mg tablet omeprazole [address] capsule ondansetron ODT 4 mg disintegrating tablet oxyCODONE 5 mg immediate release tablet scopolamine 1 mg over 3 days patch 3 day Information about where to get these medications is not yet available Ask your nurse or doctor about these medications acetaminophen 500 mg tablet Activity Patient currently has no discharge activity orders Diet Patient currently has no discharge diet orders Allergies Lumason [sulfur hexafluoride microsphr] and Latex Hospital Course Patient underwent uncomplicated robotic Sleeve gastrectomy on 07/06/23. Patient did well overnight and had an unremarkable UGI on 07/06 with no leak or strictures. Patient tolerated liquids with nausea/pain controlled. Denies fever, chills, nausea, vomiting, diarrhea, constipation, skin changes, vision changes, chest pain, shortness of breath, or headaches. Pertinent Physical Exam At Time of Discharge Physical Exam Constitutional: General: She is not in acute distress. Appearance: Normal appearance. She is obese. She is not ill-appearing. HENT: Head: Normocephalic. Right Ear: External ear normal. Left Ear: External ear normal. Nose: Nose normal. Mouth/Throat: Mouth: Mucous membranes are moist. Eyes: General: No scleral icterus. Right eye: No discharge. Left eye: No discharge. Conjunctiva/sclera: Conjunctivae normal. Cardiovascular: Rate and Rhythm: Normal rate and regular rhythm. Pulses: Normal pulses. Pulmonary: Effort: Pulmonary effort is normal. No respiratory distress. Abdominal: General: There is no distension. Palpations: Abdomen is soft. Tenderness: There is no abdominal tenderness. Comments: Incisions c/d/i Musculoskeletal: General: No swelling or deformity. Cervical back: Neck supple. Skin: General: Skin is warm. Capillary Refill: Capillary refill takes less than 2 seconds. Coloration: Skin is not jaundiced. Neurological: General: No focal deficit present. Mental Status: She is alert and oriented to person, place, and time. Psychiatric: Mood and Affect: Mood normal. Lab Results Labs Reviewed CBC - Abnormal Result Value Auto WBC 11.00 (*) RBC 4.34 Hemoglobin 12.6 Hematocrit 39.8 MCV 91.7 MCH 29.0 MCHC 31.7 (*) RDW 13.6 Platelets 234 POCT GLUCOSE METER UNSOLICITED RESULTS - Abnormal Glucose POC 119 (*) Narrative: Waived Testing in the ED is performed under the ED CLIA certificate #[id number]. POCT GLUCOSE METER UNSOLICITED RESULTS - Normal Glucose POC 95 Narrative: Waived (more content not included)... Normal [facility] [place] UPPER GI WITH KUBon 07-06 SD UPPER GI WITH KUB Fluoroscopy upper GI HISTORY: Status post gastric sleeve COMPARISON: None FINDINGS: Contrast passes normally from the stomach into the stomach. Normal postoperative appearance of the stomach from gastric sleeve. Contrast passes normally from the stomach into the duodenum. No leak or obstruction identified. Reference air kerma 134 mGy. IMPRESSION: *Status post gastric sleeve with no evidence of leak or obstruction. Electronically signed: Roger Funk. Normal [facility] Comment on above: Order Comment: Water soluble contrast, 90ml maximum oral intake MAGNESIUMon 07-07-2023 Magnesium [Mass/Vol] 1.8 mg/dL Low 1.9-2.7 [facility] Comment on above: Performed By: #### L [id number] #### [facility] HOSP[facility] LAB (BEAKER) [address] [place] [address] Orders Onlyon 07-07-2023 Orders Only [id number] Clyde Azevedo 1980 F Date Provider Department Center 07/07/2023 [id number] URIBE [facility] SURG Second Fl Family History Problem Relation Age of Onset Diabetes Father Heart attack Father Hypertension Father Asthma Father Anxiety disorder Father COPD Father Heart disease Father Hyperlipidemia Father Mental illness Father Heart attack Brother Deep vein thrombosis Brother Diabetes Maternal Grandmother Alcohol abuse Maternal Grandmother Arthritis Maternal Grandmother Depression Maternal Grandmother Heart disease Maternal Grandmother Miscarriages / Stillbirths Maternal Grandmother Diabetes Paternal Grandfather Hypertension Paternal Grandfather Hyperlipidemia Paternal Grandfather Mental illness Paternal Grandfather Hypertension Paternal Grandmother Arthritis Paternal Grandmother Heart disease Paternal Grandmother Kidney disease Paternal Grandmother Asthma Brother Diabetes Brother Hypertension Brother Anxiety disorder Brother COPD Brother Depression Brother Heart disease Brother Hyperlipidemia Brother Suicide Attempts Brother Asthma Brother Hypertension Brother COPD Brother Hyperlipidemia Brother Mental illness Brother Hypertension Mother's Sister Heart disease Mother's Sister Miscarriages / Stillbirths Mother's Sister Anxiety disorder Mother Arthritis Mother Depression Mother Alcohol abuse Maternal Grandfather Arthritis Maternal Grandfather Heart disease Maternal Grandfather Hyperlipidemia Maternal Grandfather Anxiety disorder Sister Arthritis Sister Depression Sister Depression Sister Drug abuse Sister Mental illness Sister Family Status - Relation Status Age at Father Brother Maternal Grandmother Paternal Grandfather Paternal Grandmother Brother Brother Mother's Sister Mother Maternal Grandfather Sister Sister Normal [facility] PHOSPHORUSon 07-07-2023 Magnesium [Mass/Vol] 1.9 mg/dL Low 2.5-5.0 [facility] Comment on above: Performed By: #### L [id number] #### [facility] (BEAKER) [address] [place] [address] POCT GLUCOSE METER UNSOLICIT ED RESULTSon 07-07-2023 Glucose [Mass/Vol] 95 mg/dL Normal 70-105 [facility] Comment on above: Order Comment: Waive d Testing in the ED is performed under the ED CLIA certificate #[id number]. Result Comment: epoo le6 Performed By: #### L [id number] #### [facility] (BEAKER) [address] [place] [address] Glucose [Mass/Vol] 119 mg/dL High 70-105 [facility] Comment on above: Order Comment: Waive d Testing in the ED is performed under the ED CLIA certificate #[id number]. Result Comment: epoo le6 Performed By: #### L [id number] ####[facility] (BEAKER)[address] [place] [address] HISTOLOGY - TISSUE EXAMon LAB AP CASE REPORT Normal [facility] Comment on above: Order Comment: Waive d Testing in the ED is performed under the ED CLIA certificate #[id number]. Result Comment: Surg ical Pathology Case: [id number] Authorizing Provider: Jeffery Connell MD Collected: 07/06/2023 1201 Ordering Location: [facility] Main Operating Room Received: 07/06/2023 1312 Pathologist: Olya Hooper MD Specimen: Stomach, Portion of stomach Performed By: #### L [id number] #### [facility] (BEAKER) [address] [place] [address] LAB AP CLINICAL INFORMATION [facility] Comment on above: Order Comment: Waive d Testing in the ED is performed under the ED CLIA certificate #[id number]. Result Comment: Post -Op Diagnoses E66.01, Z68.43 - Morbid obesity with body mass index (BMI) of 50.0 to 59.9 in adult (CMS/HCC) [ICD-10-CM] Performed By: #### L [id number] #### [facility] (BEAKER) [address] [place] [address] LAB AP DIAGNOSIS COMMENT Multiple fundic gland polyps may arise in several settings such as proton pump inhibitor use, familial adenomatous polyposis (FAP), and gastric adenocarcinoma and proximal polyposis of the stomach (GAPPS). [facility] Comment on above: Order Comment: Waive d Testing in the ED is performed under the ED CLIA certificate #[id number]. Performed By: #### L [id number] #### [facility] ([facility] [address] [place] [address] LAB AP GROSS DESCRIPTION A. Stomach. [facility] Comment on above: Order Comment: Waive d Testing in the ED is performed under the ED CLIA certificate #[id number]. Result Comment: Part A is received in formalin labeled with the patient's name Odette Azevedo and portion of stomach. It consists of a 23.2 cm in length and 3.2 cm in diameter, santos-pink, tubular sleeve gastrectomy specimen with minimal attached santos-yellow, lobulated omental fat. The resection margin is closed with a staple line. The serosa is pink, glistening, smooth and uniform. The specimen is opened to reveal santos-pink mucosa with normal rugal folds and 32 polypoid areas ranging from 0.2 cm to 0.7 cm in greatest dimension. The closest polypoid area to resection margin is abutting the resection margin and is located towards the presumed distal (less dilated) portion of stomach. The serosa closest to the abutting polypoid area is inked green and the resection margin is inked yellow. A 0.3 x 0.3 x 0.3 cm polyp in the middle portion of stomach is 0.3 cm from the resection margin. The resection margin near this polyp is inked blue. A 0.4 x 0.3 x 0.3 cm polyp at the presumed proximal (more dilated) end of stomach that is 0.9 cm from the resection margin. The resection margin near this polyp is inked black. The two largest polyps (0.7 cm each) are located 3.2 cm and 2.8 cm from the closest resection margin. The serosa overlying the larger polyps is inked orange. The polyps are grossing confined to the mucosa. No prominent lymph nodes are identified. Gross photographs are taken and training representative sections of the specimen are submitted as follows: Cassette summary: A1: 4 polyps, including all closest resection margins, perpendicular A2: 2 polyps, including resection margin, perpendicular A3: 3 polyps, including resection margin, perpendicular A4: 2 largest polyps Ruby Valdovinos, Pathologists' Caregivers Non Medical Student Quique Vargas, Pathologists' Caregivers Non Medical Performed By: #### L [id number] #### [facility] ([facility]) [address] [place] [address] LAB AP MICROSCOPIC DESCRIPTION Microscopic examination performed. [facility] Comment on above: Order Comment: Waive d Testing in the ED is performed under the ED CLIA certificate #[id number]. Performed By: #### L [id number] #### [facility] ([facility] [address] [place] [address] LAB AP REPORT FINAL DIAGNOSIS NARRATIVE [facility] Comment on above: Order Comment: Waive d Testing in the ED is performed under the ED CLIA certificate #[id number]. Result Comment: Percy quan, sleeve gastrectomy: - Portion of stomach with multiple fundic gland polyps. - No evidence of dysplasia or carcinoma. - See comment. Performed By: #### L [id number] #### [facility] ([facility]) [address] [place] [address] OPNOTEon 07-06-2023 OPNOTE GASTRECTOMY, SLEEVE, ROBOT-ASSISTED Operative Note Date: 07/06/2023 Location: [facility] OR Name: Odette Azevedo, : 1980, Diagnosis Pre-op Diagnosis * Morbid obesity with body mass index (BMI) of 50.0 to 59.9 in adult ([facility]) [E66.01, Z68.43] Post-op Diagnosis * Morbid obesity with body mass index (BMI) of 50.0 to 59.9 in adult ([facility]) [E66.01, Z68.43] Procedures GASTRECTOMY, SLEEVE, ROBOT-ASSISTED 16455 - AL LAPS [facility] RSTRICTIV PX LONGITUDINAL GASTRECTOMY Surgeons * Jeffery Connell - Primary Procedure Summary Anesthesia: General ASA: III Estimated Blood Loss: 25 mL Drains: * None in log * Specimens ID Source Type Tests Collected By Collected At Frozen? Priority Lab ID A Stomach Tissue HISTOLOGY - TISSUE EXAM Jeffery Connell MD 07/06/23 1201 Description: Portion of stomach Staff: Dishwasher Busser: Deisy Echols RN Relief Dishwasher Busser: Solange Allen RN Scrub Person: Nedra Botello Indications: Odette Azevedo is an 42 y.o. female who is having surgery for Morbid obesity with body mass index (BMI) of 50.0 to 59.9 in adult ([facility]) [E66.01, Z68.43]. Procedure Details: The patient was seen in [...] actively warmed in preoperative area. Preoperative antibiotics have been ordered and given within 1 hours of incision. Venous thrombosis prophylaxis have been ordered including bilateral sequential compression devices and chemical prophylaxis The patient was correctly identified before the procedure and informed consent was reviewed. Anesthesia pre-induction timeout was performed with anesthesia staff and surgical team present using the appropriate checklist and verification. The patient was taken to the operating room and placed on the operating table in supine position with a safety belt fastened across the thighs. Preoperative antibiotics was insured to have been given. SCDs were applied and verified to be running. General endotracheal anesthesia was initiated. Appropriate lines were placed. The patient was positioned supine with bilateral arms out with all appropriate padding and secured to the table. She was prepped and draped in the usual sterile fashion. A second timeout was performed with all members of the surgical and Anesthesia teams present. 1 mg of IV Glucagon was given and OG was placed by anesthesia team. Varess needle entry was performed at Bhat's point in the LUQ. Saline drop test was performed and insufflation with CO2 was initiated. Once the abdomen was adequately insufflated, optical trocar entry was performed with 8 mm robotic port in the left abdomen. The entry confirmed intraabdominal insufflation with no signs of any injury to underlying structures underneath entry site or Varess needle site. Varess needle was withdrawn and the rest of the trocars were placed under direct visualization (two more 8 mm trocars on the left side of the abdomen, one 12 mm robotic port in the right periumbilical region). A transversus abdominis block was performed under direct visualization with a 18 gauge spinal needle using 1% lidocaine w/ epinephrine mixed with 0.25% marcaine at 20 ml on each side of the abdomen. The abdomen was surveyed and a Moi liver retractor was placed in the subxiphoid region via a 5 mm incision. Robot was docked. The greater curve of the stomach freed up with a Vessel sealer device all the way up to the left eriberto, taking extra care to divide the short gastrics and protecting the spleen and splenic vessels. There was no hiatal hernia noted. Dissection then carried out inferiorly to 6 cm proximal of the pylorus. The posterior stomach was freed up from all adhesions. 40 Fr VisiGi bougie was placed in the stomach and a 60 mm Blue load stapler was used to begin the sleeve at least 6 cm away from the pylorus as well as away from the angularis incisura of the stomach. 60 mm white loads were then used to divide the rest of the stomach all the way up to 1 cm lateral to the angle of His, taking care to avoid any redundant fundus posteriorly. ICG 2.5 mg mixed with 50 ml of sterile saline was injected via VisiGi bougie and leak test was negative for leak under Firefly. The entire staple line was imbricated with a 2-0 Absorbable V-lock with the omentum. Hemostasis was achieved meticulously. Robot was undocked. The s (more content not included)... Normal [facility] POCT GLUCOSE METER UNSOLICIT ED RESULTSon 07-06-2023 Glucose [Mass/Vol] 93 mg/dL Normal 70-105 [facility] Comment on above: Order Comment: Waive d Testing in the ED is performed under the ED CLIA certificate #[id number]. Result Comment: [email or web address] [email or web address] Performed By: #### L [id number] ####[facility] ([email or web address])[address] [place] [address] Glucose [Mass/Vol] 95 mg/dL Normal 70-105 [facility] Comment on above: Order Comment: Waive d Testing in the ED is performed under the ED CLIA certificate #[id number]. Result Comment: epaw low Performed By: #### L [id number] #### [facility] ([email or web address]) [address] [place] [address] ABO/RHon 06-21-2023 ABO group Nom (Bld) A Normal [facility] Comment on above: Performed By: #### L [id number] ####[facility] BLOOD BANK, RH TYPE IN BLOOD Positive Normal [facility] Comment on above: Result Comment: This result is revised from OPOS result, resulted on 06/21/2023 3:07:01 PM Performed By: #### L [id number] ####[facility], Result Comment: This test has been invalidated. See Test performed 06/21/2023 4:26:32 PM for corrected/revised report Performed By: #### L [id number] #### [facility] ([email or web address]) [address] [place] [address] APTTon 06-21-2023 ACTIVATED PARTIAL THROMBOPLASTIN TIME IN PPP BY COAGULATION ASSAY 30.2 Seconds Normal 25.0-35.0 [facility] Comment on above: Result Comment: Clin ical significance of the APTT is questionable in the presence of heparin. Performed By: #### L [id number] #### [facility] ([facility]) [address] [place] [address] Follow-Upon 06-21-2023 Follow-Up [id number] Clyde Azevedo L 1980 F Date Provider Department Center 06/21/2023 8250-JENNIFFER MACIAS [facility] SURG Second Fl Family History Problem Relation Age of Onset Diabetes Father Heart attack Father Hypertension Father Asthma Father Anxiety disorder Father COPD Father Heart disease Father Hyperlipidemia Father Mental illness Father Heart attack Brother Deep vein thrombosis Brother Diabetes Maternal Grandmother Alcohol abuse Maternal Grandmother Arthritis Maternal Grandmother Depression Maternal Grandmother Heart disease Maternal Grandmother Miscarriages / Stillbirths Maternal Grandmother Diabetes Paternal Grandfather Hypertension Paternal Grandfather Hyperlipidemia Paternal Grandfather Mental illness Paternal Grandfather Hypertension Paternal Grandmother Arthritis Paternal Grandmother Heart disease Paternal Grandmother Kidney disease Paternal Grandmother Asthma Brother Diabetes Brother Hypertension Brother Anxiety disorder Brother COPD Brother Depression Brother Heart disease Brother Hyperlipidemia Brother Suicide Attempts Brother Asthma Brother Hypertension Brother COPD Brother Hyperlipidemia Brother Mental illness Brother Hypertension Mother's Sister Heart disease Mother's Sister Miscarriages / Stillbirths Mother's Sister Anxiety disorder Mother Arthritis Mother Depression Mother Alcohol abuse Maternal Grandfather Arthritis Maternal Grandfather Heart disease Maternal Grandfather Hyperlipidemia Maternal Grandfather Anxiety disorder Sister Arthritis Sister Depression Sister Depression Sister Drug abuse Sister Mental illness Sister Family Status - Relation Status Age at Father Brother Maternal Grandmother Paternal Grandfather Paternal Grandmother Brother Brother Mother's Sister Mother Maternal Grandfather Sister Sister Level of Service:38481 AL OFFICE/OUTPATIENT ESTABLISHED LOW MDM 20 MIN Normal [facility] Labon 06-21-2023 Lab [id number] Clyde Azevedo ndy L 1980 F Date Provider Department Center 06/21/2023 2245-[facility] OPD LAB RESOURCE [facility] OPD [facility] Medical C Family History Problem Relation Age of Onset Diabetes Father Heart attack Father Hypertension Father Asthma Father Anxiety disorder Father COPD Father Heart disease Father Hyperlipidemia Father Mental illness Father Heart attack Brother Deep vein thrombosis Brother Diabetes Maternal Grandmother Alcohol abuse Maternal Grandmother Arthritis Maternal Grandmother Depression Maternal Grandmother Heart disease Maternal Grandmother Miscarriages / Stillbirths Maternal Grandmother Diabetes Paternal Grandfather Hypertension Paternal Grandfather Hyperlipidemia Paternal Grandfather Mental illness Paternal Grandfather Hypertension Paternal Grandmother Arthritis Paternal Grandmother Heart disease Paternal Grandmother Kidney disease Paternal Grandmother Asthma Brother Diabetes Brother Hypertension Brother Anxiety disorder Brother COPD Brother Depression Brother Heart disease Brother Hyperlipidemia Brother Suicide Attempts Brother Asthma Brother Hypertension Brother COPD Brother Hyperlipidemia Brother Mental illness Brother Hypertension Mother's Sister Heart disease Mother's Sister Miscarriages / Stillbirths Mother's Sister Anxiety disorder Mother Arthritis Mother Depression Mother Alcohol abuse Maternal Grandfather Arthritis Maternal Grandfather Heart disease Maternal Grandfather Hyperlipidemia Maternal Grandfather Anxiety disorder Sister Arthritis Sister Depression Sister Depression Sister Drug abuse Sister Mental illness Sister Family Status - Relation Status Age at Father Brother Maternal Grandmother Paternal Grandfather Paternal Grandmother Brother Brother Mother's Sister Mother Maternal Grandfather Sister Sister Normal [facility] PROTIME-INRon 06-21-2023 INR IN PPP BY COAGULATION ASSAY 1.07 Normal 0.90-1.10 [facility] Comment on above: Result Comment: ACCC P RECOMMENDED INR FOR WARFARIN THERAPY CONDITION INR PROPHYLAXIS OF VENOUS THROMBOSIS 2-3 (HIGH-RISK SURGERY) TREATMENT OF VENOUS THROMBOSIS 2-3 TREATMENT OF PULMONARY EMBOLISM 2-3 PREVENTION OF SYSTEMIC EMBOLISM: 2-3 ACUTE MYOCARDIAL INFARCTION TISSUE HEART VALVES VALVULAR HEART DISEASE ATRIAL FIBRILLATION RECURRENT SYSTEMIC EMBOLISM MECHANICAL HEART VALVE 2.5-3.5 FROM: ORAL ANTICOAGULANTS. MECHANISM OF ACTION, CLINICAL EFFECTIVENESS, AND OPTIMAL THERAPEUTIC RANGE. CHEST 1995;[id number]. Performed By: #### L [id number] ####[facility] (BEAKER)[address] [place] [address] PROTHROMBIN TIME (PT) IN PPP BY COAGULATION ASSAY 13.9 Seconds Normal 12.3-14.8 [facility] Comment on above: Performed By: #### L [id number] ####[facility] (BEAKER)[address] [place] [address] TYPE AND SCREENon 06-21-2023 AB SCREEN Negative Normal [facility] Comment on above: Performed By: #### L [id number] #### [facility] (BEAKER) [address] [facility] [place] [address] ABO group Nom (Bld) O Normal [facility] Comment on above: Performed By: #### L [id number] #### [facility] (BEAKER) [address] [facility] [place] [address] Documentationon 06-16-2023 Documentation [id number] Clyde Azevedo 1980 F Date Provider Department Center 06/16/2023 JENNIFFER KRAMER [facility] SURG Second Fl Family History Problem Relation Age of Onset Diabetes Father Heart attack Father Hypertension Father Asthma Father Anxiety disorder Father COPD Father Heart disease Father Hyperlipidemia Father Mental illness Father Heart attack Brother Deep vein thrombosis Brother Diabetes Maternal Grandmother Alcohol abuse Maternal Grandmother Arthritis Maternal Grandmother Depression Maternal Grandmother Heart disease Maternal Grandmother Miscarriages / Stillbirths Maternal Grandmother Diabetes Paternal Grandfather Hypertension Paternal Grandfather Hyperlipidemia Paternal Grandfather Mental illness Paternal Grandfather Hypertension Paternal Grandmother Arthritis Paternal Grandmother Heart disease Paternal Grandmother Kidney disease Paternal Grandmother Asthma Brother Diabetes Brother Hypertension Brother Anxiety disorder Brother COPD Brother Depression Brother Heart disease Brother Hyperlipidemia Brother Suicide Attempts Brother Asthma Brother Hypertension Brother COPD Brother Hyperlipidemia Brother Mental illness Brother Hypertension Mother's Sister Heart disease Mother's Sister Miscarriages / Stillbirths Mother's Sister Anxiety disorder Mother Arthritis Mother Depression Mother Alcohol abuse Maternal Grandfather Arthritis Maternal Grandfather Heart disease Maternal Grandfather Hyperlipidemia Maternal Grandfather Anxiety disorder Sister Arthritis Sister Depression Sister Depression Sister Drug abuse Sister Mental illness Sister Family Status - Relation Status Age at Father Brother Maternal Grandmother Paternal Grandfather Paternal Grandmother Brother Brother Mother's Sister Mother Maternal Grandfather Sister Sister Normal [facility] Orders Onlyon 06-16-2023 Orders Only [id number] Clyde Azevedo ndy L 1980 F Date Provider Department Center 06/16/2023 MAITE LUCERO [facility] SURG Second Fl Family History Problem Relation Age of Onset Diabetes Father Heart attack Father Hypertension Father Asthma Father Anxiety disorder Father COPD Father Heart disease Father Hyperlipidemia Father Mental illness Father Heart attack Brother Deep vein thrombosis Brother Diabetes Maternal Grandmother Alcohol abuse Maternal Grandmother Arthritis Maternal Grandmother Depression Maternal Grandmother Heart disease Maternal Grandmother Miscarriages / Stillbirths Maternal Grandmother Diabetes Paternal Grandfather Hypertension Paternal Grandfather Hyperlipidemia Paternal Grandfather Mental illness Paternal Grandfather Hypertension Paternal Grandmother Arthritis Paternal Grandmother Heart disease Paternal Grandmother Kidney disease Paternal Grandmother Asthma Brother Diabetes Brother Hypertension Brother Anxiety disorder Brother COPD Brother Depression Brother Heart disease Brother Hyperlipidemia Brother Suicide Attempts Brother Asthma Brother Hypertension Brother COPD Brother Hyperlipidemia Brother Mental illness Brother Hypertension Mother's Sister Heart disease Mother's Sister Miscarriages / Stillbirths Mother's Sister Anxiety disorder Mother Arthritis Mother Depression Mother Alcohol abuse Maternal Grandfather Arthritis Maternal Grandfather Heart disease Maternal Grandfather Hyperlipidemia Maternal Grandfather Anxiety disorder Sister Arthritis Sister Depression Sister Depression Sister Drug abuse Sister Mental illness Sister Family Status - Relation Status Age at Father Brother Maternal Grandmother Paternal Grandfather Paternal Grandmother Brother Brother Mother's Sister Mother Maternal Grandfather Sister Sister Normal [facility] Orders Only [id number] Clyde Azevedo ndy L 1980 F Date Provider Department Center 06/16/2023 JENNIFFER KRAMER [facility] SURG Second Fl Family History Problem Relation Age of Onset Diabetes Father Heart attack Father Hypertension Father Asthma Father Anxiety disorder Father COPD Father Heart disease Father Hyperlipidemia Father Mental illness Father Heart attack Brother Deep vein thrombosis Brother Diabetes Maternal Grandmother Alcohol abuse Maternal Grandmother Arthritis Maternal Grandmother Depression Maternal Grandmother Heart disease Maternal Grandmother Miscarriages / Stillbirths Maternal Grandmother Diabetes Paternal Grandfather Hypertension Paternal Grandfather Hyperlipidemia Paternal Grandfather Mental illness Paternal Grandfather Hypertension Paternal Grandmother Arthritis Paternal Grandmother Heart disease Paternal Grandmother Kidney disease Paternal Grandmother Asthma Brother Diabetes Brother Hypertension Brother Anxiety disorder Brother COPD Brother Depression Brother Heart disease Brother Hyperlipidemia Brother Suicide Attempts Brother Asthma Brother Hypertension Brother COPD Brother Hyperlipidemia Brother Mental illness Brother Hypertension Mother's Sister Heart disease Mother's Sister Miscarriages / Stillbirths Mother's Sister Anxiety disorder Mother Arthritis Mother Depression Mother Alcohol abuse Maternal Grandfather Arthritis Maternal Grandfather Heart disease Maternal Grandfather Hyperlipidemia Maternal Grandfather Anxiety disorder Sister Arthritis Sister Depression Sister Depression Sister Drug abuse Sister Mental illness Sister Family Status - Relation Status Age at Father Brother Maternal Grandmother Paternal Grandfather Paternal Grandmother Brother Brother Mother's Sister Mother Maternal Grandfather Sister Sister Normal [facility] Telemedicineon 06-14-2023 Telemedicine [id number] Clyde Azevedo 1980 F Date Provider Department Center 06/14/202327586-ROLYVSKSUM SOCIAL PSYCHOLOGIST [facility] Second Fl Family History Problem Relation Age of Onset Diabetes Father Heart attack Father Hypertension Father Asthma Father Anxiety disorder Father COPD Father Heart disease Father Hyperlipidemia Father Mental illness Father Heart attack Brother Deep vein thrombosis Brother Diabetes Maternal Grandmother Alcohol abuse Maternal Grandmother Arthritis Maternal Grandmother Depression Maternal Grandmother Heart disease Maternal Grandmother Miscarriages / Stillbirths Maternal Grandmother Diabetes Paternal Grandfather Hypertension Paternal Grandfather Hyperlipidemia Paternal Grandfather Mental illness Paternal Grandfather Hypertension Paternal Grandmother Arthritis Paternal Grandmother Heart disease Paternal Grandmother Kidney disease Paternal Grandmother Asthma Brother Diabetes Brother Hypertension Brother Anxiety disorder Brother COPD Brother Depression Brother Heart disease Brother Hyperlipidemia Brother Suicide Attempts Brother Asthma Brother Hypertension Brother COPD Brother Hyperlipidemia Brother Mental illness Brother Hypertension Mother's Sister Heart disease Mother's Sister Miscarriages / Stillbirths Mother's Sister Anxiety disorder Mother Arthritis Mother Depression Mother Alcohol abuse Maternal Grandfather Arthritis Maternal Grandfather Heart disease Maternal Grandfather Hyperlipidemia Maternal Grandfather Anxiety disorder Sister Arthritis Sister Depression Sister Depression Sister Drug abuse Sister Mental illness Sister Family Status - Relation Status Age at Father Brother Maternal Grandmother Paternal Grandfather Paternal Grandmother Brother Brother Mother's Sister Mother Maternal Grandfather Sister Sister Level of Service:05490 AL OFFICE/OUTPATIENT ESTABLISHED SF MDM 10 MIN Reason for Visit and Comments: Obesity [[id number]] Normal [facility] Clinical Supporton Clinical Support [id number] Clyde Azevedo L 1980 F Date Provider Department Center 05/28/202388160-[id number] SOCIAL PSYCHOLOGIST [facility] Chart Close Cosign Required by: Jeffery Connell MD[[id number]] Family History Problem Relation Age of Onset Diabetes Father Heart attack Father Hypertension Father Asthma Father Anxiety disorder Father COPD Father Heart disease Father Hyperlipidemia Father Mental illness Father Heart attack Brother Deep vein thrombosis Brother Diabetes Maternal Grandmother Alcohol abuse Maternal Grandmother Arthritis Maternal Grandmother Depression Maternal Grandmother Heart disease Maternal Grandmother Miscarriages / Stillbirths Maternal Grandmother Diabetes Paternal Grandfather Hypertension Paternal Grandfather Hyperlipidemia Paternal Grandfather Mental illness Paternal Grandfather Hypertension Paternal Grandmother Arthritis Paternal Grandmother Heart disease Paternal Grandmother Kidney disease Paternal Grandmother Asthma Brother Diabetes Brother Hypertension Brother Anxiety disorder Brother COPD Brother Depression Brother Heart disease Brother Hyperlipidemia Brother Suicide Attempts Brother Asthma Brother Hypertension Brother COPD Brother Hyperlipidemia Brother Mental illness Brother Hypertension Mother's Sister Heart disease Mother's Sister Miscarriages / Stillbirths Mother's Sister Anxiety disorder Mother Arthritis Mother Depression Mother Alcohol abuse Maternal Grandfather Arthritis Maternal Grandfather Heart disease Maternal Grandfather Hyperlipidemia Maternal Grandfather Anxiety disorder Sister Arthritis Sister Depression Sister Depression Sister Drug abuse Sister Mental illness Sister Family Status - Relation Status Age at Father Brother Maternal Grandmother Paternal Grandfather Paternal Grandmother Brother Brother Mother's Sister Mother Maternal Grandfather Sister Sister Reason for Visit and Comments: Obesity [[id number]] Normal [facility] Office Visiton 05-20-2023 Follow-up visit [id number] Clyde Azevedo 1980 F Date Provider Department Center 05/20/202374404-ACBCCMELLISA INTERIANO [facility] Comprehensiv Family History Problem Relation Age of Onset Diabetes Father Heart attack Father Hypertension Father Asthma Father Heart attack Brother Deep vein thrombosis Brother Diabetes Maternal Grandmother Diabetes Paternal Grandfather Hypertension Paternal Grandfather Hypertension Paternal Grandmother Asthma Brother Diabetes Brother Hypertension Brother Asthma Brother Hypertension Brother Hypertension Mother's Sister Family Status - Relation Status Age at Father Brother Maternal Grandmother Paternal Grandfather Paternal Grandmother Brother Brother Mother's Sister Level of Service:30493 AL OFFICE/OUTPATIENT NEW LOW MDM 30 MINUTES (GC) Normal [facility] Orders Onlyon 05-17-2023 Orders Only [id number] Nome,Bra ndy L 1980 F Date Provider Department Center 05/17/2023 NinoMonique-SHIRA RAMIREZ DONN Sheri [facility] Family History Problem Relation Age of Onset Diabetes Father Heart attack Father Hypertension Father Heart attack Brother Deep vein thrombosis Brother Family Status - Relation Status Age at Father Brother Normal [facility] Telemedicineon 05-14-2023 Telemedicine [id number] Jolly,Bra ndy L 1980 F Date Provider Department Center 05/14/2023 [id number] SOCIAL PSYCHOLOGIST [facility] Second Fl Family History Problem Relation Age of Onset Diabetes Father Heart attack Father Hypertension Father Heart attack Brother Deep vein thrombosis Brother Family Status - Relation Status Age at Father Brother Level of Service:68590 AL OFFICE/OUTPATIENT ESTABLISHED SF MDM 10 MIN Normal [facility] Clinical Supporton 4 Clinical Support [id number] Jolly,Bra ndy L 1980 F Date Provider Department Center 04/29/2023 [id number] SOCIAL PSYCHOLOGIST [facility] Second Fl Chart Close Cosign Required by: Jeffery Connell MD[[id number]] Family History Problem Relation Age of Onset Diabetes Father Heart attack Father Hypertension Father Heart attack Brother Deep vein thrombosis Brother Family Status - Relation Status Age at Father Brother Normal [facility] Orders Onlyon 04-20-2023 Orders Only [id number] Jolly,Bra ndy L 1980 F Date Provider Department Center 04/20/2023 [id number]-JENNIFFER MACIAS [facility] Second Fl Family History Problem Relation Age of Onset Diabetes Father Heart attack Father Hypertension Father Heart attack Brother Deep vein thrombosis Brother Family Status - Relation Status Age at Father Brother Normal [facility] Clinical Supporton 4 Clinical Support [id number] Jolly,Bra ndy L 1980 F Date Provider Department Center 04/15/202357266-YFASAZKOURTNEY WHITE [facility] Second Fl Chart Close Cosign Accepted by: JEFFERY CONNELL[[id number]] Chart Close Cosign Accepted on: WedMay 03, 2023 2:49 PM Family History Problem Relation Age of Onset Diabetes Father Heart attack Father Hypertension Father Heart attack Brother Deep vein thrombosis Brother Family Status - Relation Status Age at Father Brother Reason for Visit and Comments: Obesity [[id number]] Normal [facility] Clinical Supporton Clinical Support [id number] Clyde Azevedo L 1980 F Date Provider Department Center 04/01/2023 [id number] ALEXANDRA [facility] Second Fl Chart Close Cosign Required by: Jeffery Connell MD[[id number]] Family History Problem Relation Age of Onset Diabetes Father Heart attack Father Hypertension Father Heart attack Brother Deep vein thrombosis Brother Family Status - Relation Status Age at Father Brother Reason for Visit and Comments: Obesity [[id number]] Normal [facility] Office Visiton 03-12-2023 Follow-up visit [id number] Clyde Azevedo L 1980 F Date Provider Department Center 03/12/2023 3848-LINNEA CERVANTES [facility] Family History Problem Relation Age of Onset Diabetes Father Heart attack Father Hypertension Father Heart attack Brother Deep vein thrombosis Brother Family Status - Relation Status Age at Father Brother Level of Service:62382 AL OFFICE/OUTPATIENT NEW MODERATE MDM 45 MINUTES Normal [facility] Orders Onlyon 02-22-2023 Orders Only [id number] Clyde Azevedo 1980 F Date Provider Department Center 02/22/2023 JENNIFFER KRAMER [facility] Second Fl Family History Problem Relation Age of Onset Diabetes Father Heart attack Father Hypertension Father Family Status - Relation Status Age at Father Normal [facility] HISTOLOGY - TISSUE EXAMon LAB AP ADDENDUM 1 Normal [facility] [place] Comment on above: Order Comment: Pre-o p diagnosis:Gastroesophageal reflux disease, unspecified whether esophagitis present [K21.9] Result Comment: B. I mmunostain for Helicobacter pylori is negative, in the presence of adequate control. Addendum electronically signed by Olya Hooper MD on 02/09/2023 at 6:27 PM Performed By: #### L [id number] ####[facility] ([facility])[address] [place] [address] LAB AP ADDENDUM 2 Normal [facility] [place] Comment on above: Order Comment: Pre-o p diagnosis:Gastroesophageal reflux disease, unspecified whether esophagitis present [K21.9] Result Comment: C. I mmunostain for Helicobacter pylori is negative, in the presence of adequate control. Addendum electronically signed by Olya Hooper MD on 02/24/2023 at 4:14 PM Performed By: #### L [id number] ####[facility] ([facility])[address] [place] [address] LAB AP ASR DISCLAIMER The interpretation of [...] the Clinical Laboratory Improvement Amendments of 1998. Normal [facility] Comment on above: Order Comment: Pre-o p diagnosis:Gastroesophageal reflux disease, unspecified whether esophagitis present [K21.9] Performed By: #### L [id number] ####[facility] ([facility])[address] [place] [address] LAB AP CASE REPORT Normal [facility] Comment on above: Order Comment: Pre-o p diagnosis:Gastroesophageal reflux disease, unspecified whether esophagitis present [K21.9] Result Comment: Surg ical Pathology Case: [id number] Authorizing Provider: Jeffery Connell MD Collected: 02/05/2023 0800 Ordering Location: [facility] Main Operating Room Received: 02/05/2023 0914 Pathologist: Olya Hooper MD Specimens: A) - Small Intestine, Duodenum, DUODENUM B) - Stomach, STOMACH ANTRUM-PLEASE ALSO ADD DENI TEST C) - Stomach, STOMACH BODY Performed By: #### L [id number] ####[facility] ([facility])[address] [place] [address] LAB AP CLINICAL INFORMATION [facility] Comment on above: Order Comment: Pre-o p diagnosis:Gastroesophageal reflux disease, unspecified whether esophagitis present [K21.9] Result Comment: Post -Op Diagnoses K21.9 - Gastroesophageal reflux disease, unspecified whether esophagitis present [ICD-10-CM] Performed By: #### L [id number] ####[facility] ([facility])[address] [place] [address] LAB AP DIAGNOSIS COMMENT B. The biopsy was received in formalin. DENI test was requested by the treating physician, however, this test cannot be performed on formalin fixed tissue. Immunostain for Helicobacter pylori is ordered and will be reported in an addendum. [facility] Comment on above: Order Comment: Pre-o p diagnosis:Gastroesophageal reflux disease, unspecified whether esophagitis present [K21.9] Performed By: #### L [id number] ####[facility] ([facility])[address] [place] [address] LAB AP GROSS DESCRIPTION [facility] Comment on above: Order Comment: Pre-o p diagnosis:Gastroesophageal reflux disease, unspecified whether esophagitis present [K21.9] Result Comment: A. S mall Intestine, Duodenum. Received in formalin labeled Odette Jolly, DUODENUM are two dark santos slightly stellate 0.2 cm soft tissue bits. The specimen is entirely submitted in a single cassette. [facility] B. Stomach. Received in formalin labeled Odette Jolly, STOMACH ANTRUM is a flores to santos 0.4 cm soft tissue bit. The specimen is entirely submitted in a single cassette. [facility] C. Stomach. Received in formalin labeled Odette Jolly, STOMACH BODY are two santos focally erythematous soft tissue bits, 0.2 and 0.3 cm. The specimen is entirely submitted in a single cassette. [facility] Free text Performed By: #### L [id number] ####[facility] ([facility] [place] [address] LAB AP MICROSCOPIC DESCRIPTION Microscopic examination performed. [facility] Comment on above: Order Comment: Pre-o p diagnosis:Gastroesophageal reflux disease, unspecified whether esophagitis present [K21.9] Performed By: #### L [id number] ####[facility] ([facility])[address] [place] [address] LAB AP REPORT FINAL DIAGNOSIS NARRATIVE Normal [facility] Comment on above: Order Comment: [...] metaplasia or dysplasia. Performed By: #### L [id number] ####[facility] ([facility])[address] [place] [address] HPon 02-05-2023 HP H&P reviewed. The pa tient was examined and there are no changes to the H&P. [facility] OPNOTEon 02-05-2023 OPNOTE EGD (ESOPHAGOGASTRODUODENOSCOPY) Operative Note Date: 02/05/2023 Location: [facility] OR Name: Odette Azevedo, : 1980, Diagnosis Pre-op Diagnosis * Gastroesophageal reflux disease, unspecified whether esophagitis present [K21.9] Post-op Diagnosis * Gastroesophageal reflux disease, unspecified whether esophagitis present [K21.9] Procedures EGD (ESOPHAGOGASTRODUODENOSCOPY) [id number] - [place] ESOPHAGOGASTRODUODENOSCOPY TRANSORAL DIAGNOSTIC Surgeons * Jeffery Connell - Primary Procedure Summary Anesthesia: Monitor Anesthesia Care ASA: ASA status not filed in the log. Estimated Blood Loss: 1 mL Drains: * None in log * Specimens ID Source Type Tests Collected By Collected At Frozen? Priority Lab ID A Stomach Tissue HISTOLOGY - TISSUE EXAM Jeffery Connell MD 02/05/23799 No Description: DUODENUM Comment: PLACED IN FORMALIN B Stomach Tissue HISTOLOGY - TISSUE EXAM Jeffery Connell MD 02/05/23803 No Description: STOMACH ANTRUM-PLEASE ALSO ADD DENI TEST Comment: PLEASE ALSO DO DENI TEST FOR H.PYLORI PLACED IN FORMALIN C Stomach Tissue HISTOLOGY - TISSUE EXAM Jeffery Connell MD 02/05/23804 No Description: STOMACH BODY Comment: PLACED IN FORMALIN Staff: Dishwasher Busser: Maggie Ware RN Scrub Person: Nedra Botello [...] Disposition: PACU - hemodynamically stable. Condition: stable Jeffery Connell Normal [facility] POCT GLUCOSE METER UNSOLICIT ED RESULTSon 02-05-2023 Glucose [Mass/Vol] 118 mg/dL High 70-105 [facility] Comment on above: Order Comment: Waive d Testing in the ED is performed under the ED CLIA certificate #[id number]. Result Comment: skir by Performed By: #### L [id number] #### [facility] ([facility]) [address] [place] [address] Glucose [Mass/Vol] 95 mg/dL Normal 70-105 [facility] Comment on above: Order Comment: Waive d Testing in the ED is performed under the ED CLIA certificate #[id number]. Result Comment: asor ia3 Performed By: #### L [id number] #### [facility] ([facility]) [address] [place] [address] CBC WITH AUTO DIFFERENTIALon 01-07-2023 Basophils (Bld) [#/Vol] 0.06 10*3/uL Normal 0.00-0.20 [facility] Comment on above: Performed By: #### L [id number] #### [facility] ([facility]) [address] [place] [address] Basophils/100 WBC (Bld) 0.6 % Normal 0.0-1.0 [facility] Comment on above: Performed By: #### L [id number] #### [facility] ([facility]) [address] [place] [address] Eosinophils (Bld) [#/Vol] 0.12 10*3/uL Normal 0.00-0.50 [facility] Comment on above: Performed By: #### L [id number] #### [facility] ([facility]) [address] [place] [address] Eosinophils/100 WBC (Bld) 1.2 % Normal 0.0-6.0 [facility] Comment on above: Performed By: #### L [id number] #### [facility] ([facility]) [address] [place] [address] Erythrocyte distribution width (RBC) [Ratio] 13.4 % Normal 11.5-15.0 [facility] Comment on above: Performed By: #### L [id number] #### [facility] ([facility]) [address] [place] [address] ERYTHROCYTE MEAN CORPUSCULAR HEMOGLOBIN CONCENTRATION (G/DL) BY AUTOMATED 32.4 g/dL Normal 32.0-35.0 [facility] Comment on above: Performed By: #### L [id number] #### [facility] ([facility]) [address] [place] [address] Hematocrit (Bld) [Volume fraction] 45.7 % Normal [facility] Comment on above: Performed By: #### L [id number] #### [facility] ([facility]) [address] [place] [address] Performed By: #### L [id number] ####[facility] ([facility])[address] [place] [address] Hemoglobin (Bld) [Mass/Vol] 14.8 g/dL Normal 12.0-15.0 [facility] Comment on above: Performed By: #### L [id number] #### [facility] ([facility]) [address] [place] [address] Immature granulocytes (Bld) [#/Vol] 0.04 10*3/uL Normal 0.00-0.20 [facility] Comment on above: Performed By: #### L [id number] #### [facility] ([facility]) [address] [place] [address] Immature granulocytes/100 WBC (Bld) 0.4 % Normal 0.0-1.0 [facility] Comment on above: Performed By: #### L [id number] #### [facility] ([facility]) [address] [place] [address] Lymphocytes (Bld) [#/Vol] 2.92 10*3/uL Normal 1.20-4.00 [facility] Comment on above: Performed By: #### L [id number] #### [facility] ([facility]) [address] [place] [address] Lymphocytes/100 WBC (Bld) 29.3 % Normal 20.0-45.0 [facility] Comment on above: Performed By: #### L [id number] #### [facility] ([facility]) [address] [place] [address] MCH (RBC) [Entitic mass] 28.7 pg Normal 27.0-33.0 [facility] Comment on above: Performed By: #### L [id number] #### [facility] ([facility] [address] [place] [address] MCV (RBC) [Entitic vol] 88.7 fL Normal 82.0-98.0 [facility] Comment on above: Performed By: #### L [id number] #### [facility] ([facility]) [address] [place] [address] Monocytes (Bld) [#/Vol] 0.56 10*3/uL Normal 0.10-1.00 [facility] Comment on above: Performed By: #### L [id number] #### [facility] ([facility]) [address] [place] [address] Monocytes/100 WBC (Bld) 5.6 % Normal 5.0-12.0 [facility] Comment on above: Performed By: #### L [id number] #### [facility] ([facility]) [address] [place] [address] Neutrophils (Bld) [#/Vol] 6.25 10*3/uL Normal 1.60-7.60 [facility] Comment on above: Performed By: #### L [id number] #### [facility] ([facility]) [address] [place] [address] Neutrophils/100 WBC (Bld) 62.9 % Normal 40.0-72.0 [facility] Comment on above: Performed By: #### L [id number] #### [facility] ([facility]) [address] [place] [address] NRBC (PER 100 WBCS) BY AUTOMATED COUNT 0.0 % Normal 0 [facility] Comment on above: Performed By: #### L [id number] #### [facility] ([facility]) [address] [place] [address] PLATELETS (10*3/UL) IN BLOOD AUTOMATED COUNT 348 10*3/uL Normal 150-400 [facility] Comment on above: Performed By: #### L [id number] #### [facility] ([facility]) [address] [place] [address] RBC (Bld) [#/Vol] 5.15 10*6/uL High 3.80-5.[address] [facility] Comment on above: Performed By: #### L [id number] #### [facility] ([facility]) [address] [place] [address] WBC (Bld) [#/Vol] 9.95 10*3/uL Normal 4.00-10.[address] [facility] Comment on above: Performed By: #### L [id number] #### [facility] ([facility]) [address] [place] [address] COMPREHENSIVE METABOLIC PANE Daniel 01-07-2023 Albumin [Mass/Vol] 4.6 g/dL Normal 3.5-5.7 [facility] Comment on above: Performed By: #### L [id number] #### [facility] ([facility]) [address] [place] [address] ALP [Catalytic activity/Vol] 97 U/L Normal 34-104 [facility] Comment on above: Performed By: #### L [id number] #### [facility] ([facility]) [address] [place] [address] ALT [Catalytic activity/Vol] 23 U/L Normal 7-52 [facility] Comment on above: Performed By: #### L [id number] #### [facility] ([facility]) [address] [place] [address] Anion gap [Moles/Vol] 12 mmol/L Normal 7-20 [facility] Comment on above: Performed By: #### L [id number] #### [facility] ([facility]) [address] [place] [address] AST [Catalytic activity/Vol] 20 U/L Normal 13-39 [facility] Comment on above: Performed By: #### L [id number] #### [facility] ([facility]) [address] [place] [address] Bilirubin [Mass/Vol] 1.0 mg/dL Normal 0.3-1.0 [facility] Comment on above: Performed By: #### L [id number] #### [facility] ([facility]) [address] [place] [address] Calcium [Mass/Vol] 9.6 mg/dL Normal 8.6-10.3 [facility] Comment on above: Performed By: #### L [id number] #### [facility] ([facility] [address] [place] [address] Chloride [Moles/Vol] 103 mmol/L Normal 98-107 [facility] Comment on above: Performed By: #### L [id number] #### [facility] ([facility] [address] [place] [address] CO2 [Moles/Vol] 26 mmol/L Normal 21-31 [facility] Comment on above: Performed By: #### L [id number] #### [facility] ([facility]) [address] [place] [address] Creatinine [Mass/Vol] 0.67 mg/dL Normal 0.60-1.20 [facility] Comment on above: Performed By: #### L [id number] #### [facility] ([facility] [address] [place] [address] GLOMERULAR FILTRATION RATE ML/MIN/1.73 SQ M.PREDICTED 110.5 mL/min/1.73m*2 Normal >60.0 [facility] Comment on above: Result Comment: The [facility]???s estimated glomerular filtration rate (eGFR) will no [...] group of individuals. Performed By: #### L [id number] #### [facility] ([facility]) [address] [place] [address] Glucose [Mass/Vol] 89 mg/dL Normal 70-100 [facility] Comment on above: Performed By: #### L [id number] #### [facility] ([facility]) [address] [place] [address] Potassium [Moles/Vol] 3.7 mmol/L Normal 3.5-5.1 [facility] Comment on above: Performed By: #### L [id number] #### [facility] ([facility]) [address] [place] [address] Protein [Mass/Vol] 7.5 g/dL Normal 6.0-8.3 [facility] Comment on above: Performed By: #### L [id number] #### [facility] ([facility]) [address] [place] [address] Sodium [Moles/Vol] 137 mmol/L Normal 136-145 [facility] Comment on above: Performed By: #### L [id number] #### [facility] ([facility]) [address] [place] [address] Urea nitrogen [Mass/Vol] 19 mg/dL Normal 7-25 [facility] Comment on above: Performed By: #### L [id number] #### [facility] ([facility]) [address] [place] [address] UREA NITROGEN/CREATININ E (MASS RATIO) IN SER/PLAS 28.4 Normal [facility] Comment on above: Performed By: #### L [id number] #### [facility] ([facility]) [address] [place] [address] COPPER, SERUMon 01-07-2023 COPPER 153.0 ug/dL Normal 80.0-155.0 [facility] Comment on above: Result Comment: INTE RPRETIVE [...] developed and its performance characteristics determined by [facility]. It has not been cleared or approved by the US Food and Drug Administration. This test was performed in a CLIA certified laboratory and is intended for clinical purposes. Performed By: [facility] [address] [place] [address] Pot Sander: Varun Thomas MD, PhD CLIA Number: [id number] Performed By: #### L [id number] ####[facility] ([facility])[address] [place] [address] FERRITINon 01-07-2023 FERRITIN (NG/ML) IN SER/PLAS 54.0 ng/mL Normal 11.0-307.0 [facility] Comment on above: Performed By: #### L [id number] #### [facility] ([facility]) [address] [place] [address] FOLATE RBCon 01-07-2023 RBC FOLATE 553 ng/mL Normal >=366 [facility] Comment on above: Result Comment: Perf ormed By: [facility] [address] [place] [address] Pot Sander: Varun Thomas MD, PhD CLIA Number: [id number] Performed By: #### L [id number] ####[facility] ([facility])[address] [place] [address] HEMOGLOBIN A1Con 01-07-2023 Glucose [Mass/Vol] 105 mg/dL Normal [facility] Comment on above: Performed By: #### L [id number] ####[facility] ([facility])[address] [place] [address] HbA1c (Bld) [Mass fraction] 5.3 % Normal 4.0-6.0 [facility] Comment on above: Performed By: #### L [id number] ####[facility] ([facility])[address] [place] [address] HPon 01-07-2023 Bariatric Surgery Co nsult Note Identifying Data Patient Name: Odette Azevedo MRN / CSN: [id number] Date of / Age: 8 1980 / 42 y.o. / female Encounter Date: 01/07/23 Diagnosis: The encounter diagnosis was Morbid obesity with BMI of 50.0-59.9, adult (CMS/[facility]). Subjective Odette Azevedo is a 42 [...] No results found for: TSH, VITD25, FOLATE, XSCOIPBE04 No results found for: HGBA1C, LDL, HDL, CHOLHDLRATIO, TRIG Assessment and Plan Impression: -Obesity weight: 144kg BMI: Body mass index is 54.41 kg/m???. Idea body weight: [place] body weight: 54.7 kg (120 lb 9.5 oz) Adjusted ideal body weight: 90.3 kg (199 lb 2.5 oz) Plan: Laparoscopic sleeve gastrectomy possible open I had (more content not included)... Normal [facility] IRON AND TIBCon 01-07-2023 IRON (UG/DL) IN SER/PLAS 75 ug/dL Normal 50-212 [facility] Comment on above: Performed By: #### L [id number] #### [facility] ([facility]) [address] [place] [address] IRON BINDING CAPACITY (UG/DL) IN SER/PLAS 456 ug/dL High 250-450 [facility] Comment on above: Performed By: #### L [id number] #### [facility] ([facility]) [address] [place] [address] IRON BINDING CAPACITY.UNSATURAT ED (UG/DL) IN SER/PLAS 381.0 ug/dL High 155.0-355.0 [facility] Comment on above: Performed By: #### L [id number] #### [facility] ([facility]) [address] [place] [address] IRON SATURATION (%) IN SER/PLAS 16 % Low 20-50 [facility] Comment on above: Performed By: #### L [id number] #### [facility] ([facility]) [address] [place] [address] LIPID PANELon 01-07-2023 CHOL/HDL 3.0 mg/dL Normal [facility] Comment on above: Performed By: #### L [id number] #### [facility] ([facility]) [address] [place] [address] Cholesterol [Mass/Vol] 179 mg/dL Normal 120-200 [facility] Comment on above: Performed By: #### L [id number] #### [facility] ([facility]) [address] [place] [address] Magnesium [Mass/Vol] 108 mg/dL Normal 40-149 [facility] Comment on above: Result Comment: TRIG LYCERIDE REFERENCE RANGE: 20 YEARS AND OLDER CARDIOVASCULAR RISK LESS THAN 150 mg/dL LOW RISK 150 TO 199 mg/dL BORDERLINE RISK 200 mg/dL AND GREATER HIGH RISK Performed By: #### L [id number] #### [facility] ([facility]) [address] [place] [address] Magnesium [Mass/Vol] 97 mg/dL Normal 0-160 [facility] Comment on above: Performed By: #### L [id number] #### [facility] ([facility]) [address] [place] [address] Magnesium [Mass/Vol] 60 mg/dL Normal 23-92 [facility] Comment on above: Performed By: #### L [id number] #### [facility] ([facility]) [address] [place] [address] NON HDL CHOL. (LDL+VLDL) 119 Normal [facility] Comment on above: Performed By: #### L [id number] #### [facility] ([facility]) [address] [place] [address] TOTAL VLDL-C 22 mg/dL Normal 0-40 [facility] Comment on above: Performed By: #### L [id number] #### [facility] ([facility]) [address] [place] [address] Labon 01-07-2023 Lab [id number] Clyde Azevedo ndgricel 1980 F Date Provider Department Center 01/07/2023 2245-[facility] OPD LAB RESOURCE [facility] Family History Problem Relation Age of Onset Diabetes Father Heart attack Father Hypertension Father Family Status - Relation Status Age at Father Normal [facility] NIACIN (VITAMIN B3)on 2022 NICOTINAMIDE 73 ng/mL Normal [facility] Comment on above: Result Comment: Seru [...] Mass Spectrometry (LC-MS/MS) Performed By: #### L [id number] #### [facility] ([facility]) [address] [place] [address] NICOTINIC ACID None Det Normal [facility] Comment on above: Result Comment: Seru [...] from less than 10 ng/mL to about 69224 ng/mL. After oral administration of an immediate-release [...] min. for 20 doses (over 3 hours): 89527 ng/mL This test should be considered as a therapeutic drug monitoring/toxicological test associated with niacin (Vitamin B3) supplementation. Care should be taken in the use of this test for basal Vitamin B3 determination. The supplied reference comment does not reflect normal, endogenous Vitamin B3 concentrations. Analysis by High Performance Liquid Chromatography/ Tandem Mass Spectrometry (LC-MS/MS) Performed By: #### L [id number] #### [facility] ([facility]) [address] [place] [address] NICOTINURIC ACID None Det Normal [facility] Comment on above: Result Comment: [...] developed and its performance characteristics determined by [facility]. It has not been cleared or approved by the US Food and Drug Administration. Digital data review may have taken place remotely by qualified [facility] staff utilizing a secure VPN connection for some or all of the reported results. This is in accordance with and follows CLIA regulations. Testing performed at [facility] [address] [place] [address] CLIA [id number] Performed By: #### L [id number] #### [facility] ([facility]) [address] [place] [address] Office Visiton 01-07-2023 Follow-up visit [id number] Clyde Azevedo 1980 F Date Provider Department Center 01/07/2023 [address]34[address]-EGNJEFFERY URI[facility] SURG Second Fl Family History Problem Relation Age of Onset Diabetes Father Heart attack Father Hypertension Father Family Status - Relation Status Age at Father Level of Service:89747 AL OFFICE/OUTPATIENT NEW LOW MDM 30-44 MINUTES (57) Reason for Visit and Comments: Consult [484] - Odette is here today for an initial bariatric consult. Normal [facility] PTH, INTACTon 01-07-2023 PARATHYRIN INTACT (PG/ML) IN SER/PLAS 60 pg/mL Normal 12-88 [facility] Comment on above: Performed By: #### L [id number] ####[facility] ([facility])[address] [place] [address] T4, FREEon 01-07-2023 THYROXINE (T4) FREE (NG/DL) IN SER/PLAS 0.78 ng/dL Normal 0.71-1.85 [facility] Comment on above: Performed By: #### L [id number] ####[facility] ([facility])[address] [place] [address] TSHon 01-07-2023 THYROTROPIN (MIU/L) IN SER/PLAS BY DETECTION LIMIT <= 0.05 MIU/L 0.99 mIU/L Normal 0.34-5.60 [facility] Comment on above: Performed By: #### L [id number] ####[facility] ([facility])[address] [place] [address] VITAMIN Aon 01-07-2023 VITAMIN A (RETINOL) 0.70 mg/L Normal 0.30-1.20 [facility] Comment on above: Performed By: #### L [id number] ####[facility] ([email or web address])[address] [place] [address] VITAMIN A (RETINYL PALMITATE) 0.03 mg/L Normal 0.00-0.10 [facility] Comment on above: Performed By: #### L [id number] ####[facility] ([email or web address])[address] [place] [address] VITAMIN A, SER/KANIKA - INTERPRETATION Normal Normal [facility] Comment on above: Result Comment: This test was developed and its performance characteristics determined by [facility]. It has not been cleared or approved by the US Food and Drug Administration. This test was performed in a CLIA certified laboratory and is intended for clinical purposes. Performed By: [facility] [address] [place] [address] Pot Sander: Varun Thomas MD, PhD CLIA Number: [id number] Performed By: #### L [id number] ####[facility] ([facility])[address] [place] [address] VITAMIN B1on 01-07-2023 VITAMIN B1, PLASMA 3 nmol/L Low 4-15 [facility] Comment on above: Result Comment: INTE RPRETIVE DATA: Vitamin B1, Plasma Thiamine (vitamin B1) is reported. However, thiamine diphosphate (TDP), the biologically active form of thiamine, is not found in measurable concentrations in plasma, and is best determined in whole blood specimens. Plasma thiamine concentration reflects recent intake rather than body stores. This test was developed and its performance characteristics determined by [facility]. It has not been cleared or approved by the US Food and Drug Administration. This test was performed in a CLIA certified laboratory and is intended for clinical purposes. Performed By: [facility] [address] [place] [address] Pot Sander: Varun Thomas MD, PhD CLIA Number: [id number] Performed By: #### L [id number] ####[facility] ([facility])[address] [place] [address] VITAMIN B12on 01-07-2023 Cobalamin (Vitamin B12) [Mass/Vol] 192 pg/mL Normal 180-914 [facility] Comment on above: Result Comment: REFE RENCE RANGES: 180-914 pg/mL Normal 145-179 pg/mL Indeterminate <145 pg/mL Deficient Performed By: #### L [id number] ####[facility] ([facility]AK[facility])[address] [place] [address] VITAMIN B2on 01-07-2023 VITAMIN B2 4 nmol/L Low 5-50 [facility] Comment on above: Result Comment: INTE RPRETIVE INFORMATION: Vitamin B2, Plasma This test was developed and its performance characteristics determined by [facility]. It has not been cleared or approved by the US Food and Drug Administration. This test was performed in a CLIA certified laboratory and is intended for clinical purposes. Performed By: [facility] [address] [place] [address] Pot Sander: Varun Thomas MD, PhD CLIA Number: [id number] Performed By: #### L [id number] #### [facility] ([facility]) [address] [place] [address] VITAMIN B6on 01-07-2023 VITAMIN B6 10.7 nmol/L Low 20.0-125.0 [facility] Comment on above: Result Comment: INTE RPRETIVE INFORMATION: Vitamin B6 (Pyridoxal 5-Phosphate) Pyridoxal 5'-phosphate measured in a specimen collected following an 8-hour or overnight fast accurately indicates vitamin B6 nutritional status. Non-fasting specimen concentration reflects recent vitamin intake. This test was developed and its performance characteristics determined by [facility]. It has not been cleared or approved by the US Food and Drug Administration. This test was performed in a CLIA certified laboratory and is intended for clinical purposes. Performed By: [facility] [address] [place] [address] Pot Sander: Varun Thomas MD, PhD CLIA Number: [id number] Performed By: #### L [id number] ####[facility] ([facility])[address] [place] [address] VITAMIN D 25 HYDROXYon 01-07 CALCIDIOL (25 [place] VITAMIN D3) (NG/ML) IN SER/PLAS 32.4 ng/mL Normal 30.0-80.0 [facility] Comment on above: Result Comment: >80. 0 Toxicity possible Performed By: #### L [id number] ####[facility] ([facility])[address] [place] [address] ZINCon 01-07-2023 ZINC 83.3 ug/dL Normal 60.0-120.0 [facility] Comment on above: Result Comment: INTE RPRETIVE [...] developed and its performance characteristics determined by [facility]. It has not been cleared or approved by the US Food and Drug Administration. This test was performed in a CLIA certified laboratory and is intended for clinical purposes. Performed By: [facility] [address] [place] [address] Pot Sander: Varun Thomas MD, PhD CLIA Number: [id number] Performed By: #### L [id number] ####[facility] ([facility])[address] [place] [address] Covid-19 PCR ([facility])on 03-08 SARS-CoV-2 (COVID-19) RNA LUIS ENRIQUE+probe Ql (Unsp spec) Detected Critically abnormal NOT DETECTED [facility] Comment on above: Result Comment: This test is not yet approved or cleared by the [place] FDA. When there are no FDA-approved or cleared tests available, and other criteria are met, FDA can make tests available under an emergency access mechanism called an Emergency Use Authorization (EUA). The EUA for this test is supported by the Improvement Engineer of Health and Human Service's (HHS's) declaration [...] longer be used). Performed By: #### C VDTBH #### [facility] [address] [address] [address] Yessica Rashid QUANTIFERON TB GOLD PLUS (NO N-INC)on 12-20-2020 Comment Incubation performed. Normal [facility] Comment on above: Performed By: #### Q NTTBG #### [facility] [address] [address] [address] Yessica Rashid Criteria Comment Normal [facility] Comment on above: Result Comment: The QuantiFERON-TB Gold Plus result is determined by subtracting the Nil value from either TB antigen (Ag) tube. The mitogen tube serves as a control for the test. Performed By: #### Q NTTBG #### [facility] [address] [place] [address] Dr. Yessica Rashid Mitogen Value >10.00 Normal [facility] Comment on above: Performed By: #### Q NTTBG #### [facility] [address] [place] [address] Dr. Yessica Rashid Nill Value 0.10 IU/mL Normal [facility] Comment on above: Performed By: #### Q NTTBG #### [facility] [address] [place] [address] Dr. Yessica Rashid Quantiferon Gold Plus Negative Normal Negative [facility] Comment on above: Result Comment: Chem iluminescence immunoassay methodology Performed By: #### Q NTTBG #### [facility] [address] [place] [address] Dr. Yessica Rashid TB1 Ag Value 0.10 IU/mL Normal [facility] Comment on above: Performed By: #### Q NTTBG #### [facility] [address] [place] [address] Dr. Yessica Rashid TB2 Ag Value 0.08 IU/mL Normal [facility] Comment on above: Performed By: #### Q NTTBG #### [facility] [address] [place] [address] Dr. Yessica Rashid HEPATITIS B SURFACE ANTIBODY , QUANTon 12-17-2020 Hepatitis B Surf AB Quant <3.1 Critically low Immunity>9. 9 [facility] Comment on above: Result Comment: Stat us of Immunity Anti-HBs Level Inconsistent with Immunity 0.0 - 9.9 Consistent with Immunity >9.9 Performed By: #### H EPBSRF #### [facility] [address] [place] [address] Dr. Yessica Rashid MMR IMMUNITYon 12-17-2020 Mumps Abs, IgG 21.1 AU/mL Normal Immune >10.[address] [facility] Comment on above: Result Comment: Nega tive <9.0 Equivocal 9.0 - 10.9 Positive >10.9 A positive result generally indicates past exposure to Mumps virus or previous vaccination. Performed By: #### M MRIMMU #### [facility] [address] [place] [address] Dr. Yessica Rashid Rubella Antibodies, IgG 1.77 index Normal Immune >0.99 [facility] Comment on above: Result Comment: Non- immune <0.90 Equivocal 0.90 - 0.99 Immune >0.99 Performed By: #### M MRIMMU #### [facility] [address] [place] [address] Dr. Yessica Rashid Rubeola Ab, IgG >300.0 Normal Immune >16.4 [facility] Comment on above: Result Comment: Nega tive <13.5 Equivocal 13.5 - 16.4 Positive >16.4 Presence of antibodies to Rubeola is presumptive evidence of immunity except when acute infection is suspected. Performed By: #### M MRIMMU #### [facility] [address] [place] [address] Dr. Yessica Rashid VARICELLA IGG ABon 1 Varicella Zoster IgG 1145 index Normal Immune >165 [facility] Comment on above: Result Comment: Nega tive <135 Equivocal 135 - 165 Positive >165 A positive result generally indicates exposure to the pathogen or administration of specific immunoglobulins, but it is not indication of active infection or stage of disease. Performed By: #### V ARCEL #### [facility] [address] [place] [address] Dr. Yessica Rashid Encounters Encounter Date Encounter Type Care Provider Facility Start: 07-15-2023 End: 07-15-2023 ambulatory [facility] Start: 07-12-2023 End: 07-12-2023 ambulatory ROSE Estrada SANCHEZ Not Available Start: 07-07-2023 Evaluation and manag ement of inpatient [facility] Start: 07-06-2023 End: 07-07-2023 Evaluation and management of inpatient [facility] Start: 06-21-2023 ambulatory [facility] Start: 06-21-2023 ambulatory JENNIFFER MACIAS [facility] Start: 06-21-2023 [facility] Start: 06-14-2023 End: 06-14-2023 ambulatory [facility] Start: 06-02-2023 End: 06-02-2023 ambulatory LAVON FREEMAN [facility] Start: 05-28-2023 End: 05-28-2023 ambulatory [facility] Start: 05-20-2023 End: 05-20-2023 ambulatory MELLISA [facility] Start: 05-14-2023 End: 05-14-2023 ambulatory [facility] Start: 05-12-2023 End: 05-12-2023 ambulatory CAROLYN HARDING Not Available Start: 04-29-2023 ambulatory KOURTNEY ANA [facility] Start: 04-15-2023 End: 04-15-2023 ambulatory [facility] Start: 04-07-2023 End: 04-08-2023 ambulatory [facility] Start: 04-01-2023 End: 04-01-2023 ambulatory [facility] Start: 03-12-2023 End: 03-12-2023 ambulatory [facility] Start: 02-05-2023 End: 02-05-2023 ambulatory [facility] Start: 01-07-2023 ambulatory [facility] Start: 01-07-2023 ambulatory [facility] Start: 04-15-[address] ROSE BRADFORD Facility: [facility] Start: 03-24-2021 End: 03-24-[address] ROSE BRADFORD Facility:[facility] Start: 01-10-2021 End: 01-11-2021 ambulatory ANNIE BRIZUELA Facility:[facility] Start: 12-16-2020 End: 12-16-2020 ambulatory HIEN MISTRY Facility:[facility] Payers Date Payer Category Payer Medicaid [id number] 2022 Medicaid [id number] 2022 Private Health Insurance [id number] 1980 Unknown [id number] 2.16.84 [id number] 1980 Unknown [id number] 2.16.84 [id number] 1978 Unknown [id number] 2.16.84 [id number] 1980 Unknown [id number] 2.16.84 [id number] 1959 Self-pay [id number] 1961 Unknown [id number] Unknown [id number] 2.16.84 [id number] Unknown [id number] 2.16.84 [id number] Clinical Notes 12-17-2022 to 07-15-2023 Note Date & Type Note Facility 07-15-2023 Note Subjective Patient ID: Odette Azevedo is a 42 y.o. female who presents for Post-op (Odette is here today for a post op visit, s/p 07/06/23 gastric sleeve. ). HPI Patient s/p sleeve gastrectomy without complications. Doing well and tolerating liquids and protein shakes. Pain and nausea controlled. Patient ambulating but constipated. Patient taking in about 40-50 oz liquid with one 60 g protein powder shake daily. Patient lives about 1.5 hr away and has gym member at local facility. Review of Systems Constitutional: Negative. Respiratory: Negative. Cardiovascular: Negative. Gastrointestinal: Positive for constipation and nausea. Genitourinary: Negative. Neurological: Negative. Hematological: Bruises/bleeds easily. Objective Visit Vitals BP 136/77 (BP Location: Left arm, Patient Position: Sitting) Pulse 81 Temp 36.7 ???C (98.1 ???F) (Oral) Physical Exam Constitutional: General: She is not in acute distress. Appearance: Normal appearance. She is not ill-appearing. HENT: Head: Normocephalic. Right Ear: External ear normal. Left Ear: External ear normal. Nose: Nose normal. Mouth/Throat: Mouth: Mucous membranes are moist. Eyes: General: No scleral icterus. Right eye: No discharge. Left eye: No discharge. Conjunctiva/sclera: Conjunctivae normal. Cardiovascular: Rate and Rhythm: Normal rate and regular rhythm. Pulses: Normal pulses. Pulmonary: Effort: Pulmonary effort is normal. No respiratory distress. Abdominal: General: There is no distension. Palpations: Abdomen is soft. Tenderness: There is no abdominal tenderness. Comments: Incisions c/d/i Musculoskeletal: General: No swelling or deformity. Cervical back: Neck supple. Skin: General: Skin is warm. Capillary Refill: Capillary refill takes less than 2 seconds. Coloration: Skin is not jaundiced. Neurological: General: No focal deficit present. Mental Status: She is alert and oriented to person, place, and time. Psychiatric: Mood and Affect: Mood normal. Assessment/Plan Diagnoses and all orders for this visit: S/P gastric sleeve procedure Doing well. Follow up as per pathway. Discussed importance of liquid intake (64 oz. And 60-80 g protein). Continue PPI for 1 month. Encouraged ambulation/light exercise as able. Diagnosis Plan 1. S/P gastric sleeve procedure [facility] 07-12-2023 Note Post-op Phone Call Odette Azevedo is a 42 y.o. year old female patient is doing well after surgery. Patient had a laparoscopic Gastric Sleeve procedure on 07/06/2023. No issues with incisions. Tolerating diet well with no nausea/vomiting. No current issues with bowel function. Denies any issues with the incisions. Pain is well controlled. Patient denies fever, chills, diarrhea, constipation, skin changes, leg swelling/pain, vision changes, chest pain, shortness of breath, or headaches. [facility] 07-09-2023 Note Attempted to do a post op check. [facility] 07-07-2023 Note 07/07/23 1127 Admission Assessment Questions Verify insurance with patient Yes Do you understand medical disease or what brought you into the hospital? Yes Who is your current PCP? Rose Bradford MD Can I schedule a follow up appointment for you at the time of discharge? No Do you understand why you are taking your current medications? Yes Are you taking your medications as prescribed? Yes Did patient provide teach back? Yes Would you like use our pharmacy [facility] to fill your new medications at the time of Discharge? Yes Does the patient have a corrections caseworker assigned to them through their insurance? No Living Arrangement (Current/Prior to Hospitalization) Private residence Does the patient have history of HHC or SNF? No Assistive Device Not applicable Patient's goal for discharge Home Was patient reminded that goal for discharge is 11am? Yes Does the patient have transportation at discharge? Yes Type of Residence/Post Acute Needs Private residence Is PT/OT appropriate? No Is PT/OT ordered? No Is SW consult appropriate? No Is SW consult ordered? No Do you understand the benefits of Nykaahart? Yes Were you able to send link and activate JumpTime? Sentrinsict already active [facility] 07-06-2023 Note Patient: Odette morgan Procedure Summary Date: 07/06/23 Room / Location: [facility] OPERATING ROOM 13 / [facility] Operating Room Anesthesia Start: 1103 Anesthesia Stop: 1255 Procedure: GASTRECTOMY, SLEEVE, ROBOT-ASSISTED Diagnosis: Morbid obesity with body mass index (BMI) of 50.0 to 59.9 in adult ([facility]) (Morbid obesity with body mass index (BMI) of 50.0 to 59.9 in adult ([facility]) [E66.01, Z68.43]) Surgeons: Jeffery Connell MD Responsible Provider: Earnest Tapia MD Anesthesia Type: general ASA Status: 3 Anesthesia Type: general Vitals Value Taken Time BP 121/53 07/06/23 1323 Temp 36.3 ???C (97.3 ???F) 07/06/23 1253 Pulse 72 07/06/23 1323 Resp 14 07/06/23 1323 SpO2 99 % 07/06/23 1323 Anesthesia Post Evaluation Patient location during evaluation: PACU Patient participation: complete - patient participated Level of consciousness: awake Pain score: 1 Pain management: adequate Airway patency: patent Cardiovascular status: acceptable Respiratory status: acceptable Patient is hemodynamically stable and is able to be discharged from PACU per anesthesia protocol. No notable events documented. [facility] 07-06-2023 Note Patient: Odette morgan Procedure Summary Date: 07/06/23 Room / Location: [facility] OPERATING ROOM 13 / [facility] Operating Room Anesthesia Start: 1103 Anesthesia Stop: 1255 Procedure: GASTRECTOMY, SLEEVE, ROBOT-ASSISTED Diagnosis: Morbid obesity with body mass index (BMI) of 50.0 to 59.9 in adult ([facility]) (Morbid obesity with body mass index (BMI) of 50.0 to 59.9 in adult ([facility]) [E66.01, Z68.43]) Surgeons: Jeffery Connell MD Responsible Provider: Earnest Tapia MD Anesthesia Type: general ASA Status: 3 Anesthesia Post Transport Note Transport to: PACU O2 Route: face mask Oxygen Flow (L/min): 8 Patient Monitor: direct observation Transport: uneventful Patient condition is: stable Comments: Patient arousable, V SS, SV well, report to RN [facility] 07-06-2023 Note Airway Date/Time: 07/06/2023 11:10 AM Urgency: elective Airway not difficult General Information and Staff Patient location during procedure: OR Anesthesiologist: Earnest Tapia MD Resident/AIRFLIGHT ATTENDANTS SUPERVISOR/CAA: MARTIN Vences Performed: other anesthesia staff Learner assisted: VIOLETA Bangura Indications and Patient Condition Indications for airway management: anesthesia Spontaneous Ventilation: absent Sedation level: deep Preoxygenated: yes Patient position: sniffing MILS not maintained throughout Mask difficulty assessment: 1 - vent by mask No planned trial extubation Final Airway Details Final airway type: endotracheal airway Successful airway: ETT Cuffed: yes Successful intubation technique: video laryngoscopy Facilitating devices/methods: intubating stylet Endotracheal tube insertion site: oral Blade: De La Fuente Blade size: #3 ETT size (mm): 7.5 Cormack-Lehane Classification: grade I - full view of glottis Placement verified by: chest auscultation and capnometry Cuff volume (mL): 6 Measured from: lips ETT to lips (cm): 21 Number of attempts at approach: 1 Number of other approaches attempted: 0 Additional Comments Soft bite block placed at end [facility] 07-06-2023 Note Patient: Odette morgan Procedure Information Date/Time: 07/06/23 1030 Procedure: GASTRECTOMY, SLEEVE, ROBOT-ASSISTED Location: [facility] OPERATING ROOM 13 / [facility] Operating Room Surgeons: Jeffery Connell MD Relevant Problems Anesthesia (within normal limits) Cardio >4 METS denies chest pain/SOB Endo BMI 50, non diabetic GI (+) Gastroesophageal reflux disease Neuro/Psych (within normal limits) Pulmonary (within normal limits) Clinical information reviewed: Tobacco Allergies Meds Med Hx Surg Hx OB Status Fam Hx Soc Hx Physical Exam Airway Mallampati: II TM distance: >3 FB Neck ROM: full Cardiovascular - normal exam Dental Pulmonary - normal exam Abdominal Anesthesia Plan ASA 3 general The patient is not a current smoker. Patient was not previously instructed to abstain from smoking on day of procedure. Patient did not smoke on day of procedure. intravenous induction Anesthetic plan and risks discussed with patient. Plan discussed with CAA. Additional Equipment Requests [facility] 07-06-2023 Note [facility] Trauma Service History and Physical History of Present Illness Odette Azevedo is a 42 y.o. year old female patient with a known history of Morbid Obesity, Hypertension, Hyperlipidemia,Chronic pain, peripheral edema, and, OCD/Anxiety came in today for her scheduled Laparoscopic Gastric Sleeve Procedure. Patient denies any fever or chills, CP, or SOB. NPO post midnight. Past Medical History: Diagnosis Date Anemia Anxiety Awareness under anesthesia July 22, 2007 Depression History of transfusion 1988 Hyperlipidemia Hypertension IBS (irritable bowel syndrome) Obese OCD (obsessive compulsive disorder) Other chronic pain 06/21/2023 Scoliosis Spinal headache 02/05/2023 Past Surgical History: Procedure Laterality Date BACK SURGERY 1988 SPINE SURGERY 1988 WISDOM TOOTH EXTRACTION Allergies Allergies Allergen Reactions Lumason [Sulfur Hexafluoride Microsphr] Shortness of breath and Headache Patient experienced facial flushing after administration of Lumason Latex Rash Home Medications: Current Outpatient Medications Medication Instructions ALPRAZolam (Xanax) 0.5 mg tablet TAKE ONE TABLET BY MOUTH TWICE A DAY NEEDED FOR ANXIETY atorvastatin (LIPITOR) 20 mg, oral, Nightly b complex vitamins capsule 1 capsule, oral, Daily biotin 2,500 mcg capsule 1 capsule, oral, Every morning buPROPion SR (WELLBUTRIN SR) 100 mg, oral, Once Daily busPIRone (BUSPAR) 5 mg, oral, 3 times daily, JUST STARTED 06/29/23 cholecalciferol (VITAMIN D3) 1,000 Units, oral, Daily furosemide (LASIX) 40 mg, oral, Daily Jardiance 25 mg, Daily meloxicam (MOBIC) 15 mg, oral, Daily multivitamin capsule 1 capsule, oral, Daily spironolactone (ALDACTONE) 25 mg, oral, Daily ROS Review of Systems Constitutional: Negative for activity change, appetite change, chills, fever and unexpected weight change. Eyes: Negative for visual disturbance. Respiratory: Negative for shortness of breath and wheezing. Cardiovascular: Negative for chest pain and palpitations. Gastrointestinal: Negative for abdominal pain, constipation, diarrhea and nausea. Endocrine: Negative for polyphagia. Skin: Negative for color change, rash and wound. Neurological: Negative for headaches. Hematological: Does not bruise/bleed easily. Psychiatric/Behavioral: The patient is nervous/anxious. All other systems reviewed and are negative. Vital signs BP 132/74 Pulse 83 Temp 36.5 ???C (97.7 ???F) (Temporal) Resp 20 Ht 1.626 m (5' 4 ) Wt 135 kg (296 lb 15.4 oz) BMI 50.97 kg/m??? Physical Exam Constitutional: Appearance: She is morbidly obese. HENT: Head: Normocephalic. Nose: Nose normal. Mouth/Throat: Mouth: Mucous membranes are moist. Cardiovascular: Rate and Rhythm: Normal rate and regular rhythm. Pulses: Normal pulses. Heart sounds: Normal heart sounds. Pulmonary: Effort: Pulmonary effort is normal. No respiratory distress. Breath sounds: Normal breath sounds. Abdominal: Palpations: Abdomen is soft. Tenderness: There is no abdominal tenderness. Musculoskeletal: General: Normal range of motion. Cervical back: Normal range of motion. Skin: General: Skin is warm. Capillary Refill: Capillary refill takes less than 2 seconds. Neurological: Mental Status: She is alert and oriented to person, place, and time. Psychiatric: Mood and Affect: Mood is anxious. Labs: Reviewed today Lab Results Component Value Date WBC 9.95 01/07/2023 HGB 14.8 01/07/2023 HCT 45.7 01/07/2023 HCT 45.7 01/07/2023 MCV 88.7 01/07/2023 PLT 348 01/07/2023 Lab Results Component Value Date GLUCOSE 89 01/07/2023 CALCIUM 9.6 01/07/2023 NA 137 01/07/2023 K 3.7 01/07/2023 CO2 26 01/07/2023 CL 103 01/07/2023 BUN 19 01/07/2023 CREATININE 0.67 01/07/2023 Lab Results Component Value Date ALT 23 01/07/2023 AST 20 01/07/2023 ALKPHOS 97 01/07/2023 BILITOT 1.0 01/07/2023 Lab Results Component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 auscultation bilaterally. No wheezes, rales, or rhonchi CARDIOVASCULAR: Regular rate and rhythm. Normal S1 and S2. No murmur, rubs, or gallops. BACK: normal curvature ABDOMEN: Soft, non-tender, non-distended EXTREMITIES: No cyanosis, no edema, no calf tenderness SKIN: Warm and dry. No rashes or lesions NEUROLOGIC: Normal gait. No extremity weakness. No slurred speech PSYCHIATRIC: Cooperative. Appropriate mood and affect. Labs Results: Lab Results Component Value Da (more content not included)... [facility] 05-14-2023 Note Bariatric Nutrition Telemedicine Remote Visit: Name: Odette Azevedo Date: 1980 Age: 42 y.o. Date of Visit: 05/14/23 Visit #: Pre-surgery nutrition visit #4 This visit was conducted [id number] with the use of audio and video technology using the [employer] Remote Telehealth between patient and provider for a virtual visit. Prior to start of visit the patient was informed that using a 3rd green party telecommunications application may carry some privacy risk? ___YES Past Medical History: Diagnosis Date Anemia Anxiety [...] # Wt History: unable to obtain weight d/t televisit Vitals 02/05/2023 02/05/2023 02/05/2023 03/12/2023 04/01/2023 04/07/2023 04/29/2023 Systolic 106 110 118 141 152 - - Diastolic 72 85 79 89 97 - - Pulse 81 83 72 89 99 - - Temp 98.6 - - - 97.6 - 96 Resp 18 18 18 - - - - Height (in) - - - 64 - - - Weight (lb) - - - 321 - 321 317.2 BMI (kg/m2) - - - 55.1 kg/m2 - 55.1 kg/m2 54.45 kg/m2 BSA (m2) - - - 2.57 m2 - 2.57 m2 2.55 m2 VISIT REPORT - - - 17NONCRENCREPNotFromCR [id number]; - - - Some recent data might be hidden Nutrition History 24 hour Intake: Breakfast: boiled eggs and protein shake Lunch: turkey or chicken, protein pack microwave vegetable Dinner: chicken, rice, vegetable Snacks: yogurt Beverages: water Current Diet/Special Diets:1200 kcal Current Vitamins and supplements: MVI Purchased bariatric protein supplement: vanilla protein powder Exercise/Activity: walking Dental Issues:none Food allergies/sensitivities/dislikes:-- How often is patient eating outside of the home?: limited How many meals and snacks?: 3 meals Following guidelines drinking 30 minutes outside of meals? yes Straw/gum use: none Carbonated beverage intake: none Eating/Chewing Pace: slow Do you know your after surgery protein goals: Alcohol use: none Smoking: none maladaptive eating behaviors: none Support from family and friends: yes Nutrition Diagnosis: Obesity related to energy imbalance as evidenced by BMI=54 Nutrition Education/Evaluation/Monitoring: Odette is following a 1200 kcal diet. Eating 3 protein meals per day. She is eating bariatric friendly foods. She continues to practice the 30 minute rule, slow mindful eating, avoids carbonated beverages. We reviewed bariatric diet phases today. Goals: Weight loss goals: 5# wt loss x 30 days Calorie Intake: 1200 kkcal Protein Intake: 60gm protein Fluid Intake: 48-64fl oz Interventions/Recommendations: Exercise 75-150 minutes of moderate-intensity physical [...] able to verbalize with teachback understanding of protein goals Time In: 11:06am Time Out: 11:30am Patient is being seen for preoperative bariatric nutrition management visit Kourtney White RDN, TEVIN [facility] 04-29-2023 Note Bariatric Nutrition Follow Up Visit: [...] VISIT REPORT - - - - 17NONCRENCREPNotFromCR [id number]; - - Some recent data might be [...] nutrition management visit Kourtney White RDN, TEVIN [facility] 04-15-2023 Note Bariatric Nutrition Follow Up Visit: [...] VISIT REPORT - - - - 17NONCRENCREPNotFromCR [id number]; - - Some recent data might be hidden Nutrition History 24 hour Intake: Breakfast: malay yogurt Lunch: 1/2 peanut butter sandwich, 1 [...] 1200 kcal, 60gm protein diet. Start using [employer] food saji or write on paper. Goals: [...] The patient was notified that using 3rd green party telecommunication application is not HIPPA compliant and many carry some privacy risk. This visit was conducted face to face with the use of audio and video technology -telemedicine visit Time IN: 1:40 Time out: 2:05pm Kourtney White RDN, TEVIN [facility] 04-01-2023 Note Initial Bariatric Nu trition Assessment Visit: Initial Name: Odette Azevedo Date: 1980 Date of Visit: 04/01/23 Referring physician: Dr. Jeffery Connell Past Medical History: Diagnosis Date Anemia [...] 1 meal and lost weight, in mid 18 she weighed about 160-170#, at she gained rzswlq=640#, Steady weight gain since of child. Eating [...] Calorie needs: 2400 kcals/day based on Equation: [place] Protein needs: > 60 g/day Fluid needs: 6793-3196 ml/day per postal worker Nutrition Diagnosis: Obesity related to energy imbalance as evidenced by BMI=55 Nutrition Education/Evaluation/Monitoring: Odette Azevedo is a 42 y.o. female who presents to the [facility] Bariatric Clinic for nutritional counseling. Diagnosis of [...] eating patterns and learning nutrition to help care home weight loss/maintenance. We discussed the importance of protein and hydration after surgery. We discussed exercising and she does gets SOB with walking so actively is limited at this time. [employer] Black Belt Engineer did want Odette to slowly increase walking [...] straws, gum, carb (more content not included)... [facility] 03-12-2023 Note Cardiology Clinic No te Chief Complaint: Perioperative Risk stratification HPI: Odette Azevedo is a 42 y.o. female With a past medical history including morbid obesity, GERD, and OCD. She presents to cardiology clinic for perioperative risk stratification prior to gastric bypass surgery. Patient denies any History of any cardiac issues. She denies any history of VT, CHF, CVA, PCI. She does endorse a [...] history that includes Back surgery (1988) and [place] tooth extraction. Social History She reports that [...] modification given st (more content not included)... [facility] 03-12-2023 Note New patient here to establish care. She needs cleared for bariatric surgery, which will be done at [facility]. She denies all cardiac symptoms. Father and brother both had hx of VT. Review of Systems All other systems reviewed and are negative. [facility] 02-05-2023 Note Patient: Odette Form an Procedure Information Anesthesia Start Date/Time: 02/05/23 0748 Procedure: EGD (ESOPHAGOGASTRODUODENOSCOPY) (Esophagus) - can use OR 9's yan cart, get scope from Endo Location: [facility] OPERATING ROOM 13 / [facility] Operating Room Surgeons: Jeffery Connell MD Relevant Problems GI (+) Gastroesophageal [...] who. Plan discussed with resident, CAA and AIRFLIGHT ATTENDANTS SUPERVISOR. Additional Equipment Requests [facility] 02-05-2023 Note Patient: Odette Form an Procedure Summary Date: 02/05/23 Room / Location: [facility] OPERATING ROOM 13 / [facility] Operating Room Anesthesia Start: 0748 Anesthesia Stop: 817 Procedure: EGD (ESOPHAGOGASTRODUODENOSCOPY) (Esophagus) Diagnosis: Gastroesophageal reflux disease, unspecified whether esophagitis present (Gastroesophageal reflux disease, unspecified whether esophagitis present [K21.9]) Surgeons: Jeffery Connell MD Responsible Provider: Nataliia Raza MD [...] per anesthesia protocol. No notable events documented. 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 Do not wear perfume, make-up, nail norwegian, or lotions on the day of your [...] need to make any changes, please call [phone]. Notify your surgeon if you develop any illness such as a cold, cough, fever, sore throat or vomiting between now and your surgery. Thank you for entrusting us with your care. [facility] Surgical Services Team [facility] 01-07-2023 Note Bariatric Surgery Co nsult Note Identifying Data Patient Name: Odette Azevedo MRN / CSN: [id number] Date of / Age: 8 1980 / 42 y.o. / female Encounter Date: 01/07/23 Diagnosis: The encounter diagnosis was Morbid obesity with BMI of 50.0-59.9, adult (CMS/[facility]). Subjective Odette Azevedo is a 42 [...] No results found for: TSH, VITD25, FOLATE, [id number] No results found for: HGBA1C, LDL, HDL, CHOLHDLRATIO, TRIG Assessment and Plan Impression: -Obesity weight: 144kg BMI: Body mass index is 54.41 kg/m???. Idea body weight: [place] body weight: 54.7 kg (120 lb 9.5 oz) Adjusted ideal body weight: 90.3 kg (199 lb 2.5 oz) Plan: Laparoscopic sleeve gastrectomy possible open I had (more content not included)... [facility] 12-17-2022 Note Patient attended The [facility] Metabolic and Bariatric Surgery Program Orientation Seminar on 12/16/2022. All questions were answered at that time. MBS Coordinator contacted patient and set appointment for initial bariatric consultation per patient availability. [facility] Summary Purpose Family History No Family History Records FoundNo Family History Records FoundNo Family History Records Found Advance Directives No Advanced Directives Records FoundNo Advanced Directives Records FoundNo Advanced Directives Records Found Additional Source Comments INFORMATION SOURCE (unrecogn ized section and content) DATE CREATED AUTHOR 04/15/2021 [facility] DATE CREATED AUTHOR AUTHOR'S ORGANIZ ATION 07/12/2023 [facility] EPIC DATE CREATED AUTHOR AUTHOR'S ORGANIZ ATION 07/16/2023 [facility] FOR RECORDS PERTAINING TO PATIENTS WHO [...] BE BASED ON THE PRIMARY CLINICAL RECORDS. [employer] [facility]. provides no warranty or guarantee of the accuracy or completeness of information in this document.
== END 2023-07-23 09:27 | disposition home or self-care (01) ==
LOC: US 09:27
PROVIDERS: PCP Family Medicine
DX: L76.82 Other postprocedural complications of skin and subcutaneous tissue (principal)
CPT/HCPCS: 76705

== ENCOUNTER 2024-03-29 10:00 | Outpatient (OUT) | payer MEDICAID, SELFPAY ==
[2024-03-29 11:09] LABS: Percent Iron Saturation 22.2 %
[2024-03-29 12:37] LABS: Chol HDL Ratio 2.4; Cholesterol 156 mg/dL (<=200); HDL Cholesterol 66 mg/dL (40-60); Thyroid Stimulating Hormone 1.206 uIU/mL (0.358-3.740); Triglycerides 73 mg/dL (<=150); VLDL CHOLESTEROL 14.6 mg/dL
[2024-03-30 06:11] LABS: Vitamin B12 470 pg/mL (232-1245)
[2024-04-03 12:07] LABS: Vitamin B6, Plasma 14.5 ug/L (3.4-65.2)
[2024-04-03 17:07] LABS: Vitamin A, Serum 41.6 ug/dL (20.1-62.0)
[2024-04-04 18:07] LABS: Vitamin B1 (Thiamine), Blood 109.7 nmol/L (66.5-200.0)
== END 2024-03-29 10:01 | disposition home or self-care (01) ==
LOC: LAB 10:00
PROVIDERS: PCP Family Medicine
DX: D50.8 Other iron deficiency anemias (principal); Z98.84 Bariatric surgery status; E66.812 Obesity, class 2; E66.09 Other obesity due to excess calories; Z68.38 Body mass index [BMI] 38.0-38.9, adult; I10 Essential (primary) hypertension
CPT/HCPCS: 36415; 80061; 82306; 82607; 82728; 82746; 83540; 83550; 84207; 84252; 84425; 84443; 84590; 84591

== ENCOUNTER 2025-02-03 22:27 | Emergency (ER) | payer MEDICAID, SELFPAY ==
--- OUTSIDE RECORDS SUMMARY | 2007-06-30 07:37 | XMS_ITS | Continuity of Care Document ---
Author Organization [facility] Address [address] [place] [address] Phone Care Team Providers Care Personnel Research Scientist Name Role Phone ToddJono richards Unavailable Unavailable Procedures Procedure Date Levonorgestrel Iu Contracept Insrt Intrauterine Device Pp Care Only (separt Proc) Routine Ob Care Incl Vag Del Echo Pg Uterus B-scan; Complt 8 Regular Ob Visit Regular Ob Visit Regular Ob Visit Cult Bact Screen Only Sngl Org 08 Regular Ob Visit Echo Pg Uterus B-scan; Complt 7 Rtu Pg Utrus W/imag Doc Transv 07 Regular Ob Visit Glu; Post Glu Dose Bld Ct; Hg/pltlt Ct Auto/compl 07 Routine Venipunct/finger/heel 7 Regular Ob Visit Echo Pg Uterus B-scan; Complt 7 Alpha-fetoprotein; Serum Estriol Inhibin A Routine Venipunct/finger/heel 7 Preven Med Counsl (sep Pro); 3 07 Cytopath Cerv/vag Thin Prep; R 07 Rtu Pg Utrus W/imag Doc Transv 07 Rtu Pg Utrus 1 Tri Abd;03/08 Ges Offic/outpt E&m Estab Mod-hi 2 Glu; Bossman Antib; Toxoplasma Antib; Toxoplasma Igm Antib; Varicella-zoster Comp Metabolic Panel Lipid Panel Triiodothyronine T3; Tot (tt3) Thyroxine; Tot Thyroid Hormone Uptake/bindng 7 Ob Panel Urin Pg Test Visual Color Comp Antib; Hiv-1 Glu; Bossman Advance Directives Directive Yes / No Effective Date File Name No Information Encounters Encounter Description Practice Location Reason(s) For Visit Diagnoses Date Provider Providers Copied on Encounter [facility], [address], [place], [place], [address] [place] [address], tel:[phone] [facility] No Information Sandy De La Cruz. [address], [place], [place], [address] [place] [address], [place]. tel:[phone] [facility], [address], [place], [place], [address] [place] [address], tel:[phone] [facility] No Information Sandy De La Cruz. [address], [address], [place], [place], [id number], [place]. tel:[phone] [facility], [address], [place], [address] [place] [address], tel:[phone] [facility] ngy No Information Ashish Moraes. [address], [address], [place], [place], [id number], [place]. tel:[phone] [facility], [address], [place], [address] [place] [address], tel:[phone] [facility] ngy No Information Sandy De La Cruz. [address], [address], [place], [place], [id number], [place]. tel:[phone] [facility], [address], [place], [place], [id number], [place] tel:[phone] [facility] ngy No Information Yann Moraes. [address], [address], [place], [place], [id number], [place]. tel:[phone] [facility], [address], [place], [place], [id number], [place] tel:[phone] [facility] ngy No Information Yann Moraes. [address], [address], [place], [place], [id number], [place]. tel:[phone] [facility], [address], [place], [place], [id number], [place] tel:[phone] [facility] ngy No Information Sandy De La Cruz. [address], [address], [place], [place], [id number], [place]. tel:[phone] [facility], [address], [place], [place], [id number], [place] tel:[phone] [facility] No Information Ashish Moraes. [address], [address], [place], [place], [id number], [place]. tel:[phone] [facility], [address], [place], [place], [id number], [place] tel:[phone] [facility] No Information Sandy De La Cruz. [address], [address], [place], [place], [id number], [place]. tel:[phone] [facility], [address], [place], [place], [id number], [place] tel:[phone] [facility] No Information Rumaurice De La Cruz. [address], [place] [address], [place], [address] [place] [address], [place]. tel:[phone] [facility], [address], [place], [address] [place] [address], tel:[phone] [facility] No Information Rumaurice De La Cruz. [address], [place] [address], [place], [address] [place] [address], [place]. tel:[phone] [facility], [address], [place], [address] [place] [address], tel:[phone] [facility] No Information Rumaurice De La Cruz. [address], [place] [address], [place], [address] [place] [address], . tel:[phone] Preven Med Counsl (sep Pro); 3 [facility], [place] [address], [place], [address] [place] [address], tel:[phone] [facility] No Information Rumaurice De La Cruz. [address], [address], [address] [place] [address], . tel:[phone] Offic/outpt E&m Estab Mod-hi 2 [facility], [facility] [address], [place], [address] [place] [address], tel:[phone] [facility] No Information Sandy De La Cruz. [address], [address], [address] [place] [address], [place]. tel:[phone] Family History Family Member Type Diagnosis Age At Onset No Information Payers Payer name Insurance type Covered democrat ID Madaya kwan(s) [employer] ([facility]) CI [id number] Social History Type Description Quantity Date Captured Comments Sex Female Smoking Status No Information Chief Complaint And Reason For Visit No Information Reason For Referral Reason For Referral No Information History Of Present Illness Encounter Date Complaint History Of Prese nt Illness No Information Functional Status Date Functional Assessmen t No Information Instructions Date Instruction Additional Infor keyla No Information Assessments Type Assessment Date No Information Patient Care Teams Name Effective Dates (start - stop) Status Members No Information
--- OUTSIDE RECORDS SUMMARY | 2018-01-02 05:30 | XMS_ITS | Continuity of Care Document ---
Author Organization [facility] Address [address] [place] [address] Phone Care Team Providers Care Plate Sensitizer Name Role Phone Marquita Blanco MD Unavailable Unavailable Allergies, Adverse Reactions, Alerts Substance Reaction Status Criticality No Known Allergies Active No Inform ation Medications Medication Instructions Dosage Effective Dates (start - stop) Status Comments fluticasone 50 mcg/actuation nasal spray,suspension spray 1 - 2 spray by intranasal route every day in each nostril as needed 50-100 MCG - Active amoxicillin 875 mg tablet take 1 tablet by oral route every 12 hours 875 MG - Active amoxicillin 500 mg tablet take 1 tablet by oral route every 8 hours until gone - Active Flonase Allergy Relief 50 mcg/actuation nasal spray,suspension spray 1 - 2 spray by intranasal route every day in each nostril as needed 50-100 MCG - Active amoxicillin 500 mg capsule take 1 capsule by oral route every 12 hours 500 MG - Active CLARITIN (unknown strength) take 1 tablet by oral route every day Not Available - Active Procedures Procedure Date OFFICE VISIT/EST LEVEL III Medication Reviewed TOBACCO NON-USER PHQ2 Negative FU MAX PARTIAL DENTURE-RESIN BASE FU TEMP PTL DENTURE (MAXILLARY) 018 TEMP PTL DENTURE (MAXILLARY) EXMPT BITEWIN FILMS PERIODIC ORAL EVAL:ESTABLISHED 18 ADULT PROPHYLAXIS(Over 14) ORAL HYGIENE INSTRUCTIONS Caries High Risk Findings OFFICE VISIT/NEW LEVEL III Medication Reviewed Health History Update AMALGAM:2 SURFACES-PRIMARY OR PERM RESIN-BASE COMPSITE:4+ SURF, POST Health History Update AMALGAM:2 SURFACES-PRIMARY OR PERM RESIN-BASED COMPOSITE:2 SURFACES, ANT Oc Health History Update AMALGAM:2 SURFACES-PRIMARY OR PERM Health History Update AMALGAM:3 SURFACES-PRIMARY OR PERM Health History Update COMPR ORAL EVAL:NEW/EST BITEWIN FILMS PANORAMIC FILM Advance Directives Directive Yes / No Effective Date File Name No Information Encounters Encounter Description Practice Location Reason(s) For Visit Diagnoses Date Provider Providers Copied on Encounter OFFICE VISIT/EST LEVEL III [facility], [address], [id number], [place] tel:[phone] [facility] URI (chief complaint) Dietary counseling and surveillanceA cute URIBody mass index (BMI) 45.0-49.9, adult 8 Bella Juárez. [address] [place], [place], [id number], [place]. tel:[phone] [facility], [address] [facility] [address], [place], [id number], [place] tel:[phone] [facility] Other dental procedure status 8 Derrek Estes. [address] [place], [address], [place]. tel:[phone] [facility], [address], [place], [id number], [place] tel:[phone] [facility] Other dental procedure status 8 Anglin DDS [address]. [address] [place], [address], [place]. tel:[phone] [facility], [address] [place] [address] [address], [place], [place], [id number], [place] tel:[phone] [facility] Other dental procedure status 8 Anglin DDS [address]. [address] [place], [address], [place]. tel:[phone], [place], [place], [id number], [place] tel:[phone] [facility] Other dental procedure statusEncount er for dental exam and cleaning w/o abnormal findings 8 Anglin DDS [address]. [address] [place], [address], [place]. tel:[phone] OFFICE VISIT/NEW LEVEL III [address], [place], [place], [id number], [place] tel:[phone] [facility] Care Sinus symptoms (acute) (chief complaint) Acute non-recurrent sinusitis, unspecified locationEusta chian tube anomalyBody mass index (BMI) 45.0-49.9, adult - 8 [facility] Yaz. . [facility], [address] [place] [address] [address], [place], [place], [id number], [place] tel:[phone] [facility] Other dental procedure statusDental judaism status 6 Anglin DDS [address]. [address] [place], [address], [place]. tel:[phone], [place], [place], [id number], [place] tel:[phone] [facility] Other dental procedure statusDental judaism status 6 No Information [facility], [address] [place] [address] [address], [place], [place], [id number], [place] tel:[phone] [facility] Other dental procedure statusDental judaism status 6 No Information [facility], [address] [facility] [address], [place], [place], [id number], tel:[phone] [facility] Other dental procedure statusDental judaism status 6 No Information [facility], [address] [facility] [address], [place], [place], [id number], [place] tel:[phone] [facility] Other dental procedure status 6 Anglin Slime Estes. [address] [facility], [place], [address], [place]. tel:[phone] Family History Family Member Type Diagnosis Age At Onset No Information Payers Payer name Insurance type Covered republican ID Andrea bowens(arben Almendarez [facility] [id number] Social History Type Description Quantity Date Captured Comments Alcohol Use Details Unknown Caffeine Use Details Unknown Tobacco Use Status Current non-smoker 16 Smoking Status Never smoker Non-Smoking Tobacco Use Details : No Details Available : No Details Available [id number] Vital Signs Date / Time: Height Weight BMI Pulse Rate Blood Pressure Temperature Respiratory Rate Body Surface Area Head Circumference Head Circ. Percentile Wt./Volodymyr. Percentile BMI percentile Pulse Ox Inhaled Ox 10:44 AM 65.06 in 135.171 kg (298.00 lbs) 49.5 0 kg/m eter (2) 88 /min 126/64 mm[Hg] 99.10 F 16 /min 2.49 meter(2) Chief Complaint And Reason For Visit From encounter dated '01/02/2018 10:30'. URI (chief complaint) Reason For Referral Reason For Referral No Information Plan Of Treatment Date Type Action Status Goal Lifestyle education regardin g diet completed History Of Present Illness Encounter Date Complaint History Of Prese nt Illness URI (comments) Here for evaluat ion of cough, chest congestion, productive cough x 2 weeks. Had fever earlier this week to 100.2. Not a smoker. Has been taking Nanci Christoval Cold/Flu, Clariitn and Flonase. Has also had terrible sinus headaches. Saw some blood in sputum. Nose also bleeds. URI Sinus symptoms (acute) Onset: 1 Week. Associated symptoms include cough, headache, nasal drainage, sinus pressure, sore throat, nasal congestion and ear pain.. Additional information: Taking claritin, flonase and tylenol prn. Functional Status Date Functional Assessmen t No Information Instructions Date Instruction Additional Infor keyla Lifestyle education regarding di et Related to Dietary counseling and surveillance Giving encouragement to exercise Related to Dietary counseling and surveillance Assessments Type Assessment Date assessment Dietary counseling and surveilla nce assessment Acute URI assessment Body mass index (BMI) 45.0-49.9, adult impression Given duration of sy mptoms, will try abx.Continue OTC treatments as well. Mental Status Date Cognitive Assessment Orientation - Olney ed to time, place, person, situation. Patient Care Teams Name Effective Dates (start - stop) Status Members No Information
[2025-02-03 22:35] VITALS: BP 120/83; PULSE 82; TEMP 36.7; O2SAT 100; BMI 31.6
--- NOTE | 2025-02-03 22:42 | PC.NURSE ---
Patient complains of throat tightness , symptoms present for approx. one month. Complains of headache and left lower leg numbness , symptoms started today. Alert and oriented, ambulates without difficulty.
[2025-02-03 23:28] LABS: Hematocrit 37.5 % (36.0-48.0); Hemoglobin 12.4 g/dL (12.0-16.0); Immature Granulocytes Abs Auto 0.01 10^3/uL (0.00-0.03); Immature Granulocytes Pct Auto 0.1 % (0.0-0.5); Lymphocytes Absolute Auto 3.7 10^3/uL (1.2-3.8); Mean Corpuscular HGB Conc 33.1 g/dL (29.9-35.2); Mean Corpuscular Hemoglobin 29.5 pg (26.7-34.0); Mean Corpuscular Volume 89.3 fL (81.0-99.0); Platelet Count 245 10^3/uL (150-450); Red Blood Count 4.20 10^6/uL (4.20-5.40); White Blood Count 7.1 10^3/uL (4.0-11.0)
--- OUTSIDE RECORDS SUMMARY | 2025-02-03 23:39 | XMS_ITS | CCD ---
Author Organization [facility] Care Team Providers Care Three Dimensional Art Instructor Name Role Phone HIEN MISTRY Attending Unavailable HIEN MISTRY Consulting Unavailable HIEN MISTRY Admitting Unavailable SANCHEZ, DR ROSE Attending Unavailable SANCHEZ, DR ROSE Primary Care Unavailable SANCHEZ, DR ROSE Admitting Unavailable ANNIE BRIZUELA Admitting Unavailable ANNIE BRIZUELA Attending Unavailable ANNIE BRIZUELA Consulting Unavailable SANCHEZ, DR ROSE Attending Unavailable SANCHEZ, DR ROSE Consulting Unavailable SANCHEZ, DR ROSE Admitting Unavailable Rose Bradford MD Primary Care Provider Kim Burger Unavailable Kim Burger Unavailable [phone] CONNELL, JEFFERY Attending Unavailable CONNELL, JEFFERY Attending Unavailable JENNIFFER HOLGUIN Attending Unavailable KOURTNEY WHITE Attending Unavailable JENNIFFER HOLGUIN Attending Unavailable KOURTNEY WHITE Attending Unavailable LINNEA CERVANTES Attending Unavailable LINNEA CERVANTES Attending Unavailable CONNELLJEFFERY Acuna Referring Unavailable CONNELLJEFFERY Acuna Attending Unavailable Rose Bradford MD Unavailable YAEL RIVERA Attending Unavailable YAEL RIVERA Attending Unavailable ROSE BRDAFORD Attending Unavailable KIM HARDING Attending Unavailable YAEL RIVERA Attending Unavailable KIM HARDING Attending Unavailable YAEL RIVERA Attending Unavailable Kim Burger Unavailable [phone] Wednesday MARKETING OPERATIONS SPECIALIST, Fanny Unavailable Allergies Allergy ClassificationReported Allergen(s)Allergy TypeDate of OnsetReaction(s) Facility (20 sources)Latex; Translations: [LATEX]Propensity to adverse reactions 08-45-0353GqksJBXM [facility] (20 sources)Sulfur HexafluoridePropensity to adverse ohzwezdld06-47-1037 Headache, Shortness of breathNOMS Healthcare (1 source)SULFUR HEXAFLUORIDE MICROSPHR; Translations: [SULFUR HEXAFLUORIDE MICROSPHR]Propensity to adverse reactions to drug (disorder)63-98-7310UiwnvmuoawSelect [facility] [place] [facility] Medications Current Medications MedicationDrug Class(es)DatesSig (Normalized)Sig (Original)ALPRAZolam 0.5 mg oral tablet (20 sources)BenzodiazepineStart: 12-41-6869krcj 1 tablet by mouth twice daily as needed for anxietyALPRAZolam (Xanax) 0.5 MG tablet Indications: Anxiety TAKE 1 TABLET (0.5 MG) BY MOUTH 2 (TWO) TIMESA DAY NEEDED FOR ANXIETY 60 tablet 12/21/2024 ActiveStart: 01-31-2024 End: 30-06-3821fhke 1 tablet by mouth twice daily as needed for anxiety ALPRAZolam (Xanax) 0.5 MG tablet Indications: Anxiety Take 1 tablet (0.5 mg) by mouth 2 (two) timesa day as needed for anxiety 60 tablet 11/21/2024 12/21/2024 DiscontinuedStart: 60-70-5630dvsb 1 tablet by mouth twice daily as needed for anxietyALPRAZolam (Xanax) 0.5 MG tablet Indications: Anxiety Take 1 tablet (0.5 mg) by mouth 2 (two) timesa day as needed for anxiety 60 tablet 12/30/2023 ActiveStart: 09-13-2023 End: 34-13-4172vkum 1 tablet by mouth twice daily as needed for anxiety ALPRAZolam (Xanax) 0.5 MG tablet Indications: Anxiety Take 1 tablet (0.5 mg) by mouth 2 (two) timesa day as needed for anxiety 60 tablet 12/30/2023 01/31/2024 DiscontinuedStart: 05-12-2023 End: 58-67-9446eteg 1 tablet by mouth twice daily as needed for anxiety ALPRAZolam (Xanax) 0.5 MG tablet Indications: Anxiety Take 1 tablet (0.5 mg) by mouth 2 (two) timesa day as needed for anxiety 60 tablet 05/12/2023 07/29/2023 Discontinued (Reorder)ascorbic acid 60 mg / beta carotene 5000 unt / copper sulfate 40 mg / dl-alpha tocopheryl acetate 30 unt / sodium selenite 0.04 mg / zinc oxide 40 mg oral tablet (7 sources)Vitamin CStart: 55-45-7867dwbv 1 tablet by mouth once dailyMultiple Vitamin (Multivitamin Adult) tablet Indications: Anxiety Take 1 tablet by mouth Daily 30 tablet 2 10/23/2024 Activeatorvastatin 20 mg oral tablet (20 sources)HMG-CoA Reductase InhibitorStart: 71-71-1525kbwj 1 tablet by mouth once daily in the morningatorvastatin (Lipitor) 20 MG tablet Indications: Elevated LDL cholesterol level TAKE 1 TABLET BY MOUTH EVERY DAY IN THE MORNING 100 tablet 3 11/20/2024 ActiveStart: 10-05-2022 End: 91-71-1160xawx 1 tablet by mouth in the morningatorvastatin (Lipitor) 20 MG tablet Indications: Elevated LDL cholesterol level Take 1 tablet (20 mg) by mouth in the morning. 100 tablet 3 10/26/2023 Activeb complex vitamins capsule (20 sources)Start: 62-00-9286snrd 1 capsule by mouth once in the morningb complex vitamins capsule Indications: H/O gastric bypass Take 1 capsule by mouth in the morning. 90 capsule 3 06/24/2024 Active End: 94-36-6590udrc 1 capsule by mouth in the morningb complex vitamins capsule Take 1 capsule by mouth in the morning. 06/24/2024 Discontinued (Reorder)take 1 capsule by mouth in the morningb complex vitamins capsule Take 1 capsule by mouth in the morning. Activebiotin 10 mg oral capsule (20 sources)Start: 04-48-3743aecy 1 capsule by mouth once dailybiotin 10 MG capsule Indications: Impaired fasting glucose TAKE 1 CAPSULE BY MOUTH EVERY DAY 30 capsule 11 11/15/2024 ActiveStart: 44-09-4055utwj 1 tablet by mouth once dailybiotin 01614 MCG tablet Indications: Impaired fasting glucose Take 1 tablet (10,000 mcg) by mouth Daily 30 tablet 10/16/2024 Activebiotin 49643 MCG tablet Take by mouth Daily Iifani48 hr buPROPion hydrochloride 150 mg extended release oral tablet (20 sources)AminoketoneStart: 77-70-9024bruv 1 tablet by mouth once daily buPROPion XL (Wellbutrin XL) 150 MG 24 hr tablet Indications: Anxiety TAKE 1 TABLET BY MOUTH EVERY DAY, DO NOT CRUSH, CHEW, OR SPLIT 100 tablet 3 02/25/2024 ActiveStart: 06-76-9323afxa 1 tablet by mouth once dailybuPROPion XL (Wellbutrin XL) 150 MG 24 hr tablet Indications: Anxiety Take 1 tablet (150 mg) by mouth Daily Do not crush, chew, or split. 30 tablet 3 10/26/2023 ActiveStart: 02-59-1725xorf 1 tablet by mouth once daily in the morningbuPROPion SR (Wellbutrin SR) 100 MG 12 hr tablet Indications: Obsessive-compulsive disorder, unspecified type (CMS/HCC) TAKE 1 TABLET BY MOUTH EVERY MORNING 30 tablet 15 09/13/2023 ActiveStart: 07-29-2022 End: 87-42-3501weke 1 tablet by mouth every twelve hours in the morningbuPROPion SR (Wellbutrin SR) 100 MG 12 hr tablet Indications: Obsessive-compulsive disorder, unspecified type Take 1 tablet (100 mg) by mouth in the morning. 100 tablet 4 07/29/2022 09/13/2023 DiscontinuedbusPIRone hydrochloride 10 mg oral tablet (20 sources)Start: 41-74-5471rcik 1 tablet by mouth in the morning, then take 1 tablet by mouth in the evening, then take 1 tablet by mouth at bedtimebusPIRone (Buspar) 10 MG tablet Indications: Anxiety Take 1 tablet (10 mg) by mouth in the morning and 1 tablet (10 mg) in the evening and 1 tablet (10 mg) before bedtime. 12/13/2024 ActiveStart: 09-20-5414edsi 1 tablet by mouth in the morning, then take 1 tablet by mouth in the evening, then take 1 tablet by mouth at bedtime busPIRone (Buspar) 10 MG tablet Indications: Anxiety Take 1 tablet (10 mg) by mouth in the morning and 1 tablet (10 mg) in the evening and 1 tablet (10 mg) before bedtime. 12/13/2024 ActiveStart: 08-14-2024 End: 55-83-7927kruh 1 tablet by mouth at bedtimebusPIRone (Buspar) 5 MG tablet Indications: Anxiety TAKE 1 TABLET BY MOUTH IN THE MORNING, IN THE EVENING AND BEFORE BEDTIME 270 tablet 3 08/14/2024 12/13/2024 Discontinued (Reorder)Start: 06-25-2023 End: 94-46-0254lpjk 1 tablet by mouth in the morning, then take 1 tablet by mouth in the evening, then take 1 tablet by mouth at bedtimebusPIRone (Buspar) 5 MG tablet Indications: Anxiety Take 1 tablet (5 mg) by mouth in the morning and 1 tablet (5 mg) in the evening and 1 tablet (5 mg) before bedtime. 90 tablet 11 06/25/2023 Activecefdinir 300 mg oral capsule (1 source)Cephalosporin AntibacterialStart: 01-05-2024 End: 42-17-9178qoub 1 capsule by mouth in the morningcefdinir (Omnicef) 300 MG capsule Indications: Acute left otitis media , Acute non-recurrent pansinusitis Take 1 capsule (300 mg) by mouth in the morning and 1 capsule (300 mg) before bedtime. Do allthis for 10 days. 20 capsule 01/05/2024 01/15/2024 Active cholecalciferol 0.025 mg oral tablet (20 sources)Vitamin DStart: 48-99-7153imka 1 tablet by mouth once in the morning cholecalciferol (Vitamin D-3) 25 MCG (1000 UT) tablet Indications: Vitamin D deficiency Take 1 tablet (25 mcg) by mouth in the morning. 90 tablet 3 06/24/2024 Active End: 84-35-3771brjl 1 tablet by mouth in the morningcholecalciferol (Vitamin D- 3) 25 MCG (1000 UT) tablet Take 1,000 Units by mouth in the morning. 06/24/2024 Discontinued (Reorder)empagliflozin 25 mg oral tablet (4 sources)Sodium-Glucose Cotransporter 2 InhibitorStart: 12-20-2023 End: 08-31-2598mzws 1 tablet by mouth once dailyJardiance 25 MG Indications: Impaired fasting glucose TAKE 1 TABLET BY MOUTH EVERY DAY AT THE SAME TIME 30 tablet 3 12/20/2023 12/27/2023 Discontinued (Therapy completed)Start: 01-05-2023 End: 46-20-1489waoo 1 tablet by mouth once dailyJardiance 25 MG Indications: Impaired fasting glucose TAKE 1 TABLET (25 MG) BY MOUTH 1 (ONE) TIME EACH DAY AT THE SAME TIME. 30 tablet 3 07/22/2023 Activefluconazole 150 mg oral tablet (1 source)Azole AntifungalStart: 01-05-2024 End: 25-19-6106vekwtqmlbql (Diflucan) 150 MG tablet Indications: Acute left otitis media Take 1 tablet (150 mg) bymouth Daily for 1 day, THEN 1 tablet (150 mg) Daily for 1 day. Take doses 3 days apart. 2 tablet 01/05/2024 01/06/2024 Activefluticasone propionate 0.05 mg/actuat metered dose nasal spray (20 sources)CorticosteroidStart: 09-20-8558wttw 1-2 spray(s) nasal route once dailyfluticasone (Flonase) 50 MCG/ACT nasal spray Indications: Acute left otitis media , Acute non-recurrent pansinusitis INSTILL 1 TO 2 SPRAYS IN EACH NOSTRIL DAILY. BEFORE 1ST USE PRIME PUMP, AFTER USE CLERAN TIP & REPLACE CAP 48 mL 1 08/14/2024 ActiveStart: 70-33-8574kfvl 1-2 spray(s) nasal route once daily fluticasone (Flonase) 50 MCG/ACT nasal spray Indications: Acute left otitis media , Acute non-recurrent pansinusitis INSTILL 1-2 SPRAYS INTO EACH NOSTRIL DAILY, BEFORE 1ST USE, PRIME PUMP, AFTER ISE CLEAN TIP AND REPLACE CAP 48 mL 1 01/27/2024 ActiveStart: 39-83-9680axqu 1-2 spray(s) nasal route once daily fluticasone (Flonase) 50 MCG/ACT nasal spray Indications: Acute left otitis media , Acute non-recurrent pansinusitis Administer 1-2 sprays into each nostril Daily Shake gently. Before first use, prime pump. After use, clean tip and replace cap. 16 g 01/05/2024 Activefurosemide 40 mg oral tablet (20 sources)Loop DiureticStart: 30-11-7980jepe 1 tablet by mouth once daily furosemide (Lasix) 40 MG tablet Indications: Localized edema TAKE 1 TABLET BY MOUTH EVERY DAY 100 tablet 3 08/31/2024 ActiveStart: 07-29-2022 End: 71-08-8455irmu 1 tablet by mouth once dailyfurosemide (Lasix) 40 MG tablet Indications: Localized edema Take 1 tablet (40 mg) by mouth Daily 100 tablet 4 07/12/2023 Activelisinopril 5 mg oral tablet (6 sources)Angiotensin Converting Enzyme InhibitorStart: 07-13-2023 End: 72-50-2380zgns 1 tablet by mouth once dailylisinopril 5 MG tablet Indications: Pure hypercholesterolemia (CMS/HCC) Take 1 tablet (5 mg) by mouth Daily 90 tablet 10/26/2023 Activephentermine hydrochloride 37.5 mg oral tablet (20 sources)Sympathomimetic Amine AnorecticStart: 04-26-2024 End: 78-80-9929cnsc 1 tablet by mouth in the morningphentermine (Adipex-P) 37.5 MG tablet Indications: Morbid (severe) obesity due to excess calories (CMS-HCC) TAKE 1 TABLET (37.5 MG) BY MOUTH IN THE MORNING 30 tablet 12/21/2024 01/20/2025 ActiveStart: 03-23-2024 End: 99-92-8639hunc 1 capsule by mouth before mealtimephentermine 37.5 MG capsule Indications: Morbid (severe) obesity due to excess calories (CMS/HCC) Ta ke 1 capsule (37.5 mg) by mouth in the morning. Take before meals. 30 capsule 04/26/2024 05/24/2024Discontinued (Other)simethicone 125 mg chewable tablet (20 sources)Start: 12-26-2023 End: 79-33-3843TMM Gas Relief Extra Strength 125 MG chewable tablet 12/26/2023 12/13/2024 Discontinued (Therapy completed) Completed/Discontinued Medications MedicationDrug Class(es)DatesSig (Normalized)Sig (Original)meloxicam 15 mg oral tablet (1 source)Nonsteroidal Anti-inflammatory DrugStart: 04-01-2023 End: 30-73-8817dejh 1 tablet by mouth in the morningmeloxicam (Mobic) 15 MG tablet Indications: Chronic pain of left knee TAKE 1 TABLET (15 MG) BY MOUTH IN THE MORNING. 30 tablet 3 04/01/2023 07/12/2023 Discontinued (Other)methocarbamol 500 mg oral tablet (4 sources)Muscle RelaxantStart: 04-26-2024 End: 94-44-3344utqe 1 tablet by mouth four times daily as needed for muscle spasmsmethocarbamol (Robaxin) 500 MG tablet Indications: Muscle spasm Take 1 tablet (500 mg) by mouth 4 (four) times a day as needed for muscle spasms for up to 10 days 40 tablet 04/26/2024 05/24/2024 Discontinued (Other)PARoxetine hydrochloride 20 mg oral tablet (7 sources)Serotonin Reuptake InhibitorStart: 10-23-2024 End: 17-94-6525zwbw 1 tablet by mouth in the morningPARoxetine (Paxil) 20 MG tablet Indications: Anxiety Take 1 tablet (20 mg) by mouth in the morning.30 tablet 3 10/23/2024 10/31/2024 Discontinued (Side effects)Start: 09-28-2023 End: 37-46-2261pjab 1 tablet by mouth once dailyPARoxetine (Paxil) 40 MG tablet Indications: Anxiety TAKE 1 TABLET BY MOUTH EVERY DAY AT THE SAME TIME EACH DAY 90 tablet 1 12/27/2023 ActiveStart: 06-09-2023 End: 93-95-1444rscc 0.5 tablet by mouth once dailyPARoxetine (Paxil) 40 MG tablet Indications: Anxiety Take 0.5 tablets (20 mg) by mouth 1 (one) timeeach day at the same time 100 tablet 3 06/09/2023 06/16/2023 Discontinued (Dose adjustment)spironolactone 25 mg oral tablet (1 source)Aldosterone AntagonistStart: 01-05-2023 End: 15-27-1653rycw 1 tablet by mouth in the morningspironolactone (Aldactone) 25 MG tablet Indications: Finding of above normal blood pressure Take 1 tablet (25 mg) by mouth in the morning. 30 tablet 3 01/05/2023 07/12/2023 Discontinued (Other) Problems Active Problems Problem ClassificationProblemDateDocumented DateEpisodic/ChronicAnxiety disorders (20 sources)Anxiety; Translations: [Anxiety disorder, unspecified]Onset: 221315-59-1235IypqehmMwbzicii mellitus with complications (2 sources)Type 2 diabetes mellitus; Translations: [Type 2 diabetes mellitus with other specified complication]52-38-3269HpmgegcZhfaggpnp of lipid metabolism (20 sources)Pure hypercholesterolemia; Translations: [Pure hypercholesterolemia, unspecified]Onset: 947732-76-2575SgsukhbPjvmjdmyus disorders (20 sources)Gastroesophageal reflux disease; Translations: [Gastro-esophageal reflux disease without esophagitis]Onset: 133001-27-7666PzwrsjpBkhzfzpxy hypertension (2 sources)Essential (primary) hypertension; Translations: [Essential (primary) hypertension]Onset: 98-35-6127DuihtksSnagpunnyyswq and screening for infectious disease (4 sources)Encounter for immunization; Translations: [ENCOUNTER FOR IMMUNIZATION]Onset: 15-66-9863ArvtyjywHldkbichchtid mental health disorders (2 sources)Primary insomnia; Translations: [Primary insomnia]06-74-5146Okpuvez Nutritional deficiencies (20 sources)Vitamin D deficiency; Translations: [Vitamin D deficiency, unspecified]Onset: 162660-50-9989NedibjyAcpku connective tissue disease (2 sources)Spasm; Translations: [Other muscle spasm]74-42-9160UngwxeymNirdq gastrointestinal disorders (20 sources)Irritable bowel syndrome with diarrhea; Translations: [Irritable bowel syndrome with diarrhea]Onset: 320387-70-0177XdkcaruRgseq gastrointestinal disorders (1 source)Irritable bowel syndrome with diarrhea; Translations: [Irritable bowel syndrome with diarrhea]Onset: 06-53-8858HupxbumYstcs nutritional; endocrine; and metabolic disorders (20 sources)Obesity caused by energy imbalance; Translations: [Morbid (severe) obesity due to excess calories]Onset: 211418-26-9931YbvazusAutbz nutritional; endocrine; and metabolic disorders (20 sources)Body mass index 40+ - severely obese; Translations: [Body mass index (BMI) 50.0-59.9, adult]Onset: 434892-96-0293VkpvyuyKndxu nutritional; endocrine; and metabolic disorders (1 source)Morbid obesity; Translations: [Morbid (severe) obesity due to excess calories]Onset: 298221-07-2946CengjlsPitnc nutritional; endocrine; and metabolic disorders (2 sources)Other obesity due to excess calories; Translations: [Other obesity due to excess calories]Onset: 80-67-6615SunzszqAvqgl nutritional; endocrine; and metabolic disorders (2 sources)Body mass index (BMI) 38.0-38.9, adult; Translations: [Body mass index (BMI) 38.0-38.9, adult]Onset: 08-24-3824TlgjougFdbbv nutritional; endocrine; and metabolic disorders (2 sources)Morbid (severe) obesity due to excess calories; Translations: [Morbid (severe) obesity due to excess calories]Onset: 70-65-3987MgwxdwbJpcyn screening for suspected conditions (not mental disorders or infectious disease) (2 sources)Patient encounter status; Translations: [Encounter for other screening for malignant neoplasm of breast]33-10-7566FgqpppmiIezuk upper respiratory infections (2 sources)Acute pharyngitis, unspecified; Translations: [Acute pansinusitis] Onset: 952831-99-5989YdbsmjruFvjrmx media and related conditions (1 source)Acute left otitis media; Translations: [Otitis media, unspecified, left ear]08-77-9165PzhdtfzxZhzqrpfe codes; unclassified (1 source)Pain, unspecified; Translations: [PAIN UNSPECIFIED]Onset: 03-26-2021 EpisodicResidual codes; unclassified (8 sources)History of sleeve gastrectomy; Translations: [Acquired absence of stomach [part of]]Onset: 785241-02-1198MhpvqbanCgicqfpbazwx (2 sources)CONTACT W/AND (SUSP) EXPOS COVID-19; Translations: [CONTACT W/AND (SUSP) EXPOS COVID-19]Onset: 79-43-2272Pfcghfuhfnog (1 source)Patient on antidepressant monitoring planOnset: 227310-70-6812 Unclassified (1 source)Baseline PHQ-9Onset: 291165-31-5343Mwttollwciaq (1 source)Obesity, class 2; Translations: [Obesity, class 2]Onset: 01-13-2024 Unclassified (2 sources)Post-op; Translations: [Post-op]Onset: 30-49-8459Tdheo infection (1 source)COVID-19; Translations: [COVID-19]Onset: 03-26-2021 Past or Other Problems Problem ClassificationProblemDateDocumented DateEpisodic/Chronic Administrative/social admission (6 sources)Encounter for pre-employment examination; Translations: [Dietary counseling and surveillance]Onset: 45-79-7110TcrwmfujHzjdwweajlrmp of surgical procedures or medical care (2 sources)Other postprocedural complications of skin and subcutaneous tissue; Translations: [Other postprocedural complications of skin and subcutaneous tissue]Onset: 29-00-6538MotteyxxJxxvvhpmij and other anemia (2 sources)Other iron deficiency anemias; Translations: [Other iron deficiency anemias]Onset: 52-96-6873YsjwcagjMntvxksb mellitus without complication (20 sources)Type 2 diabetes mellitus without complication; Translations: [Type 2 diabetes mellitus without complications]Onset: 07-12-2023 Resolved: 411585-61-0043XhczjfbAwyaokgc mellitus without complication (20 sources)Impaired fasting glycemia; Translations: [Impaired fasting glucose] Onset: 316151-34-9380LhxqwbutXkqrl circulatory disease (20 sources)Elevated blood pressure; Translations: [Elevated blood-pressure reading, without diagnosis of hypertension]Onset: 07-29-2022 Resolved: 862253-65-7192AlgeefolRixxk connective tissue disease (20 sources)Muscle pain; Translations: [Myalgia, unspecified site]Onset: 977652-45-0285KuadrweiBlwfs gastrointestinal disorders (20 sources)History of bypass of stomach; Translations: [Bariatric surgery status]Onset: 612583-36-1889QwoeujicVgeaf gastrointestinal disorders (2 sources)Bariatric surgery status; Translations: [Bariatric surgery status] Onset: 57-07-1587NgdssdsiQpzhg infections; including parasitic (20 sources)Personal history of other infectious and parasitic diseases; Translations: [History of COVID-19]Onset: 001253-03-5468QeumcycnYawsj skin disorders (2 sources)Nonscarring hair loss, unspecified; Translations: [Nonscarring hair loss, unspecified]Onset: 60-44-6556EzoopfocDqntvehd codes; unclassified (20 sources)Insomnia; Translations: [Insomnia, unspecified]Onset: 07-29-2022 80-64-6066TtcxcghzOliccufo codes; unclassified (20 sources)Localized edema; Translations: [Localized edema]Onset: 07-29-2022 56-19-3471RfhqujwaBwgslpkwgngz (1 source)CONTACT W/AND (SUSP) EXPOS COVID-19; Translations: [CONTACT W/AND (SUSP) EXPOS COVID-19]Onset: 21-17-9262Xuwvudxwqzko (1 source)Obesity, class 2; Translations: [Obesity, class 2]Onset: 01-14-2024 Viral infection (20 sources)COVID-19; Translations: [Other specified viral infection]Onset: 07-29-2022 Resolved: 069664-11-4477Smcoqtfg Results Test NameValueInterpretationReference RangeFacilityFollow-Upon 07-06-2024 Follow-[id number] Odette Azevedo 1980 F Date Provider Department Center 07/06/2024 31201-BUSJEFFERY CONNELL [facility] [address] Family History Problem Relation [...] Mother Maternal Grandfather Sister Sister Level of Service:15442 [place] OFFICE/OUTPATIENT ESTABLISHED LOW MDM 20 MIN Reason for Visit and Comments: Follow-up [545235] - Odette is here today for follow up: 1 yr follow up S/p 07/06/23 Robotic [facility]astric [facility]lee[facility]NUniversity [facility] - Hematology and Cell countson 02-42-5710EdV3n (Bld) [Mass fraction] 5.3 %[facility] HealthcareNo Panel Informationon 17-73-1209Pvlycpivyxebsq and review of laboratory resultsNormSuburban Community HospitalNOKY HealthcareOffice Visiton 01-88-6308Xqeufd-up [id number] Odette Azevedo 1980 F Date Provider Department Center 05/15/2024 3848-LINNEA CERVANTES DONN [facility] Family History Problem Relation Age of [...] Mother Maternal Grandfather Sister Sister Level of Service:51017 [place] OFFICE/OUTPATIENT ESTABLISHED LOW MDM 20 [facility]Telemedicineon 41-90-2664Anbqqleqcpgw [id number] Odette Azevedo 1980 F Date Provider Department Center 04/04/2024 80621-JRVLIRDUHJ JUNIOR BOOKKEEPER [facility] [place] Family History Problem Relation Age of Onset [...] Mother Maternal Grandfather Sister Sister Level of Service:[id number]* OFFICE/OUTPATIENT [facility] 15-29 MINUTESNoSelect Medical Specialty Hospital - CantonMETRO IRON AND TIBCon 79-44-8440KJM IRON74 ug/dL50.0 - 170.0 ug/dLNOMS HealthcareTBH PERCENT IRON TPTFVTOMQZ25.2 %[facility]S HealthcareTBH TOTAL IRON BINDING BSUXKOBP636 ug/dL250.0 - 450.0 ug/dLNOMS HealthcareCLINISYNCNOMS HealthcareFollow-Upon 66-15-0730Amelhb-[id number] Odette Azevedo 1980 F Date Provider Department Center 01/14/2024 8250JENNIFFER QUEZADA [facility] [address] Family History Problem Relation [...] Mother Maternal Grandfather Sister Sister Level of Service:80824 [place] OFFICE/OUTPATIENT ESTABLISHED MOD MDM 30 MIN Reason for Visit and Comments: Follow-up [437667] - Odette is here for a 6 mos ff up GS 07/05.NormalSelect Medical Specialty Hospital - Southeast OhioLaboratory - Hematology and Cell countson 12-27-2023 HbA1c (Bld) [Mass fraction]4.8 %[facility] HealthcareNo Panel Informationon 12-27-2023 Interpretation and review of laboratory resultsAbnormalNOKY HealthcareNOMS HealthcareOffice Visiton 33-80-4205Hrxfuv-up [id number] Odette Azevedo 1980 F Date Provider Department Center 11/23/2023 3848-LINNEA CERVANTES [facility] Family History Problem Relation Age of [...] Mother Maternal Grandfather Sister Sister Level of Service:45446 [place] OFFICE/OUTPATIENT ESTABLISHED LOW MDM 20 MINNormal [facility] OhioClinical Supporton 73-04-6595Thzkbhrl Support [id number] Odette Azevedo 1980 F Date Provider Department Center 10/12/2023 53794-RUKCYPKOURTNEY WHITE [facility] Second [address] Chart Close Cosign Accepted by: JEFFERY CONNELL[[id number]] Chart Close Cosign Accepted on: WedOct 12, 2023 1:03 PM Family History Problem Relation Age of [...] Sister Reason for Visit and Comments: Obesity [[id number]]NormalUnThe University of Toledo Medical CenterFollow-Upon 28-80-5251Wkcwkc-[id number] Odette Azevedo 1980 F Date Provider Department Center 09/02/2023 JENNIFFER KRAMER [facility] [address] Family History Problem Relation [...] Mother Maternal Grandfather Sister Sister Level of Service:22455 [place] OFFICE/OUTPATIENT ESTABLISHED MOD MDM 30 MIN Reason for Visit and Comments: Follow-up [382130] - Patient is here for a 07/[address] [id number] Coordinator called patient to remind her of her 6-8 week follow up with [facility] on 09/02/2023 at 0900. She confirmed she would be there. Informed her to call us should she need to reschedule. She verbalized understanding.NormalSelect Medical Specialty Hospital - Southeast OhioTelephoneon [id number] Odette Azevedo 1980 Date Provider Department Center 08/31/2023 TOMAS ELLER [facility] SURG Second Fl Family History Problem Relation [...] Brother Mother's Sister Mother Maternal Grandfather Sister SisterNormalUniversity of Houston Methodist HospitalClinical Supporton 30-34-0812Fygtehwn [id number] Odette Azevedo 1980 F Date Provider Department Center 08/05/202301900-OGGTNOMKVK JUNIOR BOOKKEEPER [facility] SURG Second Fl Chart Close Cosign Required by: Jeffery Connell MD[[id number]] Family History Problem Relation Age of Onset [...] Brother Mother's Sister Mother Maternal Grandfather Sister SisterNormalUniversCleveland Clinic Children's Hospital for RehabilitationLetter (Out)on 07-28-2023 Letter (Out)[id number] Odette Azevedo 1980 F Date Provider Department Center 07/28/2023 JEFFERY ROCHA [facility] SURG Second Fl Family History Problem Relation [...] Brother Mother's Sister Mother Maternal Grandfather Sister SisterNormalUniversity Georgetown Behavioral HospitalOrders Onlyon 07-28-2023 Orders [id number] Odette Azevedo 1980 F Date Provider Department Center 07/28/2023 SPEEDY ROCHAIN [facility] SURG Second Fl Family History Problem Relation [...] Brother Mother's Sister Mother Maternal Grandfather Sister SisterNormalUniProMedica Defiance Regional Hospital ABDOMEN LIMITEDon 90-88-2909[place]na[place] [address] Ultrasound Report Signed Patient: ODETTE AZEVEDO MR#: [id number] : 1980 Acct:[id number] Age/Sex: 42 / F ADM Date: 07/23/23 Loc: US Attending Dr: Non-Staff Physician MDeysi Ordering Physician: PhysicianNonRichieStaff Arias Date of Service: 07/23/23 Procedure(s): US abdomen limited Accession Number(s): [id number] cc: ROSE BRADFORD ; PhysicianNon-Staff Arias [place] [id number] Patient Name: ODETTE AZEVEDO MRN: [id number] date: 1980 Sex: F Assigned Patient Location: US Current Patient Location: US Accession/Order Number: [id number] Exam Date: 07/23/2023 09:40 Report Date: 07/23/2023 10:27 At the request of: NON-STAFF PHYSICIAN Procedure: US abdomen limited EXAMINATION: US abdomen limited HISTORY: Incisional Pain L76.82 COMPARISON: No relevant comparison available. FINDINGS: Ultrasound in the region of the patient's pain demonstrates a small area of anechoic echogenicity with increased acoustic through transmission measuring 9.1 x 6.4 x 9.0 mm, postoperative seroma is suspected no definite hernia is observed. No focal mass. US/US abdomen limited IMPRESSION: 9.1 mm fluid collection in the region of the patient's incision possibly a postoperative seroma Electronically authenticated by: MERI CALZADA Date: 07/23/2023 10:27 Dictated By: Meir Calzada M.D. Signed By: 07/23/23 1030 DD/ 1027 TD/TT: Application Developer Manager:TBHRadiology, Radiologist, - 07/23/2023 [place] [address] Ultrasound Report Signed Patient: ODETTE AZEVEDO MR#: [id number] : 1980 Acct:[id number] Age/Sex: 42 / F ADM Date: 07/23/23 Loc: US Attending Dr: Non-Staff Physician Arias Ordering Physician: Physician,Non-Staff MDeysi Date of Service: 07/23/23 Procedure(s): US abdomen limited Accession Number(s): [id number] cc: ROSE BRADFORD ; Physician,Non-Staff MDeysi The [address] [address] Patient Name: ODETTE AZEVEDO MRN: [id number] date: 1980 Sex: F Assigned Patient Location: US Current Patient Location: US Accession/Order Number: [id number] Exam Date: 07/23/2023 09:40 Report Date: 07/23/2023 10:27 At the request of: NON-STAFF PHYSICIAN Procedure: US abdomen limited EXAMINATION: US abdomen limited HISTORY: Incisional Pain L76.82 COMPARISON: No relevant comparison available. FINDINGS: Ultrasound in the region of the patient's pain demonstrates a small area of anechoic echogenicity with increased acoustic through transmission measuring 9.1 x 6.4 x 9.0 mm, postoperative seroma is suspected no definite hernia is observed. No focal mass. US/US abdomen limited IMPRESSION: 9.1 mm fluid collection in the region of the patient's incision possibly a postoperative seroma Electronically authenticated by: MERI CALZADA Date: 07/23/2023 10:27 Dictated By: Meri Calzada M.D. Signed By: 07/23/23 1030 DD/ 1027 TD/TT: Application Developer Manager: JACQUELIN HealthcareRadiology Study observation (narrative)JACQUELIN HealthcareUS ABDOMEN LIMITEDOrdered By: Radiologist Radiology on [id number] Healthcare Work Phone: Office Visiton [phone]-up [id number] Odette Azevedo 1980 F Date Provider Department Center 07/22/2023 45082-SQL, JEFFERY [facility] SURG Second Fl Family History Problem Relation [...] Mother Maternal Grandfather Sister Sister Level of Service:16630 [place] POSTOP FOLLOW UP VISIT RELATED TO ORIGINAL PX Reason for Visit and Comments: Post-op [483] - Odette is here today for a post op visit, s/p 07/06/23 sleeve.[facility] CenterOrders Onlyon 87-76-9202Urukli [id number] Odette Azevedo 1980 F Date Provider Department Center 07/21/202340454-[address] [place] [address] SURG Second Fl Family History Problem Relation [...] Brother Mother's Sister Mother Maternal Grandfather Sister SisterNormalUniMercy Health – The Jewish HospitalRefillon 50-30-3489Yfcqdy [id number] Odette Azevedo 1980 F Date Provider Department Center 07/21/202371140-DMV [facility] [address] Family History Problem Relation Age [...] Sister Sister Reason for Visit and Comments: Med Refill [231936]NormalSelect Medical Specialty Hospital - Southeast OhioLetter (Out)on 91-08-1384Fhziqe (Out)[id number] Odette Azevedo 1980 F Date Provider Department Center 07/15/2023 97907-VGCJEFFERY MARTINEZ [facility] SURG Second Fl Family History Problem Relation [...] Brother Mother's Sister Mother Maternal Grandfather Sister SisterNormalUniMercy Health – The Jewish HospitalOffice Visiton 07-15-2023 Follow-up [id number] Odette Azevedo 1980 F Date Provider Department Center 07/15/2023 27521-LKV, JEFFERY [facility] SURG Second Fl Family History Problem Relation [...] Mother Maternal Grandfather Sister Sister Level of Service:37708 [place] POSTOP FOLLOW UP VISIT RELATED TO ORIGINAL PX Reason for Visit and Comments: Post-op [483] - Odette is here today for a post op visit, s/p 07/06/23 gastric sleeve.[facility] Medical CenterCA ECHO DOPPLER COMPLETE on 12-94-4752AgdMain Campus Medical Center [address] [place] [address] Cardiology Report Signed Patient: ODETTE AZEVEDO MR#: [id number] : 1980 Acct:[id number] Age/Sex: 42 / F ADM Date: 06/07/23 Loc: CARD Attending Dr: LINNEA CERVANTES Ordering Physician: LINNEA CERVANTES Date of Service: 06/07/23 Procedure(s): CA echo doppler complete Accession Number(s): [id number] cc: ROSE BRADFORD ; LINNEA CERVANTES Patient Name: ODETTE AZEVEDO MR#: [id number] : 1980 Exam Date: 06/07/2023 Ordering Doctor: LINNEA CERVANTES M.D. ECHOCARDIOGRAM REPORT PROCEDURE: CA ECHO DOPPLER COMPLETE INDICATIONS: Pre-operative examination COMPARISON: None. DESCRIPTION: COMPLETE ECHOCARDIOGRAM Real-time transthoracic echocardiography with 2D, M-mode, spectral and color flow Doppler performed. QUALITY: Technically difficult due to patients condition. 64 , 316#, BSA 2.38 m2, BP 138/94 LEFT VENTRICLE: Normal chamber size. Mild concentric left ventricular hypertrophy. Segmental wall motion cannot be accurately assessed due to poor sound transmission. Normal systolic function. LV EF: Normal left ventricular ejection fraction, (55%). DIASTOLIC: Normal diastolic function. ATRIAL SEPTUM: LEFT ATRIUM: Normal chamber size. RIGHT ATRIUM: Normal chamber size. RIGHT VENTRICLE: Normal chamber size. TRICUSPID VALVE: Normal mobility and thickness. No stenosis with no regurgitation. MITRAL VALVE: Normal mobility and thickness. No evidence of mitral valve stenosis. There is no mitral annular calcification. No mitral regurgitation. AORTIC VALVE: No visible sclerosis. Normal leaflet mobility. No evidence of aortic valve stenosis. No aortic regurgitation. AORTIC ROOT: PULMONIC VALVE: Not well visualized. No stenosis. No regurgitation. PERICARDIUM: No evidence of pericardial effusion. IVC: Collapses with inspirations. IVC is normal in size. PLEURA: CONCLUSION: 1. Mild concentric left ventricular hypertrophy with normal systolic function. LVEF is estimated at 55%. 2. Normal right ventricular size and systolic function. 3. No significant valvular dysfunction. 4. Technically difficult study with poor sound transmission, limiting the diagnostic accuracy of the test. Adult Echocardiography Procedure Report Left Ventricle LVEDD (3.7 - 5.6 cm): 4.79 cm LVESD (2.2 - 4.0 cm): 3.23 cm LVIVS thickness (0.6 - 1.2 cm): 1.18 cm LVPW thickness (0.5 - 1.0 cm): 1.20 cm E - e': 4.65 LVOT Max Gradient: 2.45 mm[Hg] LVOT Area (cm2): 0.78 m/s Peak Velocity (LVOT): 0.78 m/s LVOT Diameter 2.15 cm Left Atrium LA Volume Index (2D A2C): 13.52 ml/m2 Left Atrium Systolic Dimension: 3.61 cm Mitral Valve MV E to A Ratio: 1.25 Mitral Valve A-Wave Peak Velocity: 0.48 m/s Mitral Valve E-Wave Peak Velocity: 0.59 m/s Right Ventricle Aorta AO Root Diam: 3.14 cm Aortic Valve AoV Area (Peak Robert): 2.99 cm2, 2.99 cm2 Peak Velocity(Antegrade Flow): 0.95 m/s Peak Gradient(Antegrade Flow): 3.62 mm[Hg] Tricuspid Valve Pulmonic Valve Peak Gradient: 3.22 mm[Hg], 3.48 mm[Hg] Right Atrium Dictated by: Roopa Brown M.D. on 06/08/2023 at 19:01 Approved by: Roopa Brown M.D. on 06/08/2023 at 19:05 Dictated By: ROOPA BROWN Signed By: 06/08/231905 DD/ 04 TD/TT: Application Developer Manager:TBHRadiology, Radiologist, - 06/08/2023 [place] [address] Cardiology Report Signed Patient: ODETTE AZEVEDO MR#: [id number] : 1980 Acct:[id number] Age/Sex: 42 / F ADM Date: 06/07/23 Loc: CARD Attending Dr: LINNEA CERVANTES Ordering Physician: LINNEA CERVANTES Date of Service: 06/07/23 Procedure(s): CA echo doppler complete Accession Number(s): [id number] cc: ROSE BRADFORD ; LINNEA CERVANTES Patient Name: ODETTE AZEVEDO MR#: [id number] : 1980 Exam Date: 06/07/2023 Ordering Doctor: LINNEA CERVANTES M.D. ECHOCARDIOGRAM REPORT PROCEDURE: CA ECHO DOPPLER COMPLETE INDICATIONS: Pre-operative examination COMPARISON: None. DESCRIPTION: COMPLETE ECHOCARDIOGRAM Real-time transthoracic echocardiography with 2D, M-mode, spectral and color flow Doppler performed. QUALITY: Technically difficult due to patients condition. 64 , 316#, BSA 2.38 m2, BP 138/94 LEFT VENTRICLE: Normal chamber size. Mild concentric left ventricular hypertrophy. Segmental wall motion cannot be accurately assessed due to poor sound transmission. Normal systolic function. LV EF: Normal left ventricular ejection fraction, (55%). DIASTOLIC: Normal diastolic function. ATRIAL SEPTUM: LEFT ATRIUM: Normal chamber size. RIGHT ATRIUM: Normal chamber size. RIGHT VENTRICLE: Normal chamber size. TRICUSPID VALVE: Normal mobility and thickness. No stenosis with no regurgitation. MITRAL VALVE: Normal mobility and thickness. No evidence of mitral valve stenosis. There is no mitral annular calcification. No mitral regurgitation. AORTIC VALVE: No visible sclerosis. Normal leaflet mobility. No evidence of aortic valve stenosis. No aortic regurgitation. AORTIC ROOT: PULMONIC VALVE: Not well visualized. No stenosis. No regurgitation. PERICARDIUM: No evidence of pericardial effusion. IVC: Collapses with inspirations. IVC is normal in size. PLEURA: CONCLUSION: 1. Mild concentric left ventricular hypertrophy with normal systolic function. LVEF is estimated at 55%. 2. Normal right ventricular size and systolic function. 3. No significant valvular dysfunction. 4. Technically difficult study with poor sound transmission, limiting the diagnostic accuracy of the test. Adult Echocardiography Procedure Report Left Ventricle LVEDD (3.7 - 5.6 cm): 4.79 cm LVESD (2.2 - 4.0 cm): 3.23 cm LVIVS thickness (0.6 - 1.2 cm): 1.18 cm LVPW thickness (0.5 - 1.0 cm): 1.20 cm E - e': 4.65 LVOT Max Gradient: 2.45 mm[Hg] LVOT Area (cm2): 0.78 m/s Peak Velocity (LVOT): 0.78 m/s LVOT Diameter 2.15 cm Left Atrium LA Volume Index (2D A2C): 13.52 ml/m2 Left Atrium Systolic Dimension: 3.61 cm Mitral Valve MV E to A Ratio: 1.25 Mitral Valve A-Wave Peak Velocity: 0.48 m/s Mitral Valve E-Wave Peak Velocity: 0.59 m/s Right Ventricle Aorta AO Root Diam: 3.14 cm Aortic Valve AoV Area (Peak Robert): 2.99 cm2, 2.99 cm2 Peak Velocity(Antegrade Flow): 0.95 m/s Peak Gradient(Antegrade Flow): 3.62 mm[Hg] Tricuspid Valve Pulmonic Valve Peak Gradient: 3.22 mm[Hg], 3.48 mm[Hg] Right Atrium Dictated by: Roopa Brown M.D. on 06/08/2023 at 19:01 Approved by: Roopa Brown M.D. on 06/08/2023 at 19:05 Dictated By: ROOPA BROWN Signed By: 06/08/231905 DD/ 04 TD/TT: Application Developer Manager: WHITTIER REHABILITATION HOSPITALSlime Galion Community HospitalRadiology Study observation (narrative)[facility] ECHO DOPPLER COMPLETEOrdered By: Radiologist Radiology on 06-72-1157WYJR Critique^It Work Phone: nm QING PERF SPECT REST STRon 47-01-3645RgpSaran[place], [place] [address] Nuclear Medicine Report Signed Patient: ODETTE AZEVEDO MR#: [id number] : 1980 Acct:[id number] Age/Sex: 42 / F ADM Date: 05/10/23 Loc: OBDULIO Attending Dr: LINNEA CERVANTES Ordering Physician: LINNEA CERVANTES Date of Service: 05/10/23 Procedure(s): NM qing perf SPECT rest str Accession Number(s): [id number] cc: ROSE BRADFORD ; LINNEA CERVANTES Patient Name: ODETTE AZEVEDO MR#: [id number] : 1980 Exam Date: 05/10/2023 Ordering Doctor: LINNEA CERVANTES M.D. RADIOLOGY REPORT PROCEDURE: NM QING PERF SPECT REST STR COMPARISON: None. INDICATIONS: Encounter for other preprocedural examination TECHNIQUE: Exam Description: Stress/Rest two day protocol gated SPECT Rest Imagin.5 mCi Tc-99m Cardiolite IV on 05/10/2023 Stress Imaging 25.7 mCi Tc-99m Cardiolite IV on 05/12/2023 Exercise Protocol: Vickey Heart Rate (bpm): Rest: 90 Max: 150 PMHR: 85 Blood Pressure: Rest: 128/88 Max: 180/102 Exercise Time: Minutes: 4 Seconds: 00 Stage Reached: Stage: 2 Mets 4.6 Symptoms: Rest and peak stress ECG findings were normal and the exercise portion of the study was normal per attending physician Dr. Hayward . For more details please see separate cardiac stress test report. FINDINGS: QUALITY OF STUDY: Excellent. PERFUSION DEFECT: LOCATION: Basal anteroseptal. Mid-anteroseptal. SIZE: SEVERITY: TYPE: WALL MOTION: Mild hypokinesis: Mid-anteroseptal. LV SIZE: Normal. 101 mL. TID / TCD: None; 1.0 LVEF: Abnormal. Calculated EF 53%. SUMMARY: Myocardial perfusion imaging study has ABNORMAL findings. CONCLUSION: 1. No acute or reversible ischemia. 2. Mild hypokinesis of the mid anterior septal segment. 3. Fixed, decreased perfusion of the mid and basal anterior septal segments. 4. Slightly low ejection fraction, 53%. Dictated by: Maicol Ramírez M.D. on 05/13/2023 at 15:09 Approved by: Maicol Ramírez M.D. on 05/13/2023 at 15:26 Dictated By: Maicol Ramírez M.D. Signed By: 05/13/23 1527 DD/ 1526 TD/TT: Application Developer Manager:TBHRadiology, Radiologist, - 05/13/2023 [place] [address] Nuclear Medicine Report Signed Patient: ODETTE AZEVEDO MR#: [id number] : 1980 Acct:[id number] Age/Sex: 42 / F ADM Date: 05/10/23 Loc: NM Attending Dr: LINNEA CERVANTES Ordering Physician: LINNEA CERVANTES Date of Service: 05/10/23 Procedure(s): NM qing perf SPECT rest str Accession Number(s): [id number] cc: ROSE BRADFORD ; LINNEA CERVANTES Patient Name: ODETTE AZEVEDO MR#: [id number] : 1980 Exam Date: 05/10/2023 Ordering Doctor: LINNEA CERVANTES M.D. RADIOLOGY REPORT PROCEDURE: NM QING PERF SPECT REST STR COMPARISON: None. INDICATIONS: Encounter for other preprocedural examination TECHNIQUE: Exam Description: Stress/Rest two day protocol gated SPECT Rest Imagin.5 mCi Tc-99m Cardiolite IV on 05/10/2023 Stress Imaging 25.7 mCi Tc-99m Cardiolite IV on 05/12/2023 Exercise Protocol: Vickey Heart Rate (bpm): Rest: 90 Max: 150 PMHR: 85 Blood Pressure: Rest: 128/88 Max: 180/102 Exercise Time: Minutes: 4 Seconds: 00 Stage Reached: Stage: 2 Mets 4.6 Symptoms: Rest and peak stress ECG findings were normal and the exercise portion of the study was normal per attending physician Dr. Hayward . For more details please see separate cardiac stress test report. FINDINGS: QUALITY OF STUDY: Excellent. PERFUSION DEFECT: LOCATION: Basal anteroseptal. Mid-anteroseptal. SIZE: SEVERITY: TYPE: WALL MOTION: Mild hypokinesis: Mid-anteroseptal. LV SIZE: Normal. 101 mL. TID / TCD: None; 1.0 LVEF: Abnormal. Calculated EF 53%. SUMMARY: Myocardial perfusion imaging study has ABNORMAL findings. CONCLUSION: 1. No acute or reversible ischemia. 2. Mild hypokinesis of the mid anterior septal segment. 3. Fixed, decreased perfusion of the mid and basal anterior septal segments. 4. Slightly low ejection fraction, 53%. Dictated by: Maicol Ramírez M.D. on 05/13/2023 at 15:09 Approved by: Maicol Ramírez M.D. on 05/13/2023 at 15:26 Dictated By: Maicol Ramírez M.D. Signed By: 05/13/23 1527 DD/ 1526 TD/TT: Application Developer Manager: WHITTIER REHABILITATION HOSPITALSlime [facility] Community HospitalRadiology Study observation (narrative)[facility] QING PERF SPECT REST STROrdered By: Radiologist Radiology on 76-38-7211FEWS Critique^It Work Phone: [phone]-44 PCR (CVDTBH)on 02-59-4919LLKF-CoV-2 (COVID- 19) RNA LUIS ENRIQUE+probe Ql (Unsp spec)DetectedCritically abnormalNOT DETECTEDThe [facility] on above:Result Comment: This test is not yet approved or cleared by the [place] FDA. When there are no FDA-approved or cleared tests available, and other criteria are met, FDA can make tests available under an emergency access mechanism called an Emergency Use Authorization (EUA). The EUA for this test is supported by the [place] of Health and Human Service's (HHS's) declaration [...] no longer be used). Performed By: #### CVDTBH #### [facility] [address] [place] [address] Dr. Yessica RashidQUANTIFERON TB GOLD PLUS (NON-INC)on 97-69-7167ZuaygizMqfphvqedv performed.NormalThe [facility] on above:Performed By: #### QNTTBG #### [facility] [address] [place] [address] Dr. Yessica SandersiaCommentNoOhioHealth O'Bleness Hospital on above:Result Comment: The QuantiFERON-TB Gold Plus result is determined by subtracting the Nil value from either TB antigen (Ag) tube. The mitogen tube serves as a control for the test.Performed By: #### QNTTBG #### [facility] [address] [place] [address] Dr. Yessica RashidMitogen Value>10.00NoOhioHealth O'Bleness Hospital on above: Performed By: #### QNTTBG #### [facility] [address] [place] [address] Dr. Yessica Brink Value0.10 IU/mLNormalSelect Medical Specialty Hospital - Columbus Southment on above: Performed By: #### QNTTBG #### [facility] [address] [place] [address] Dr. Yessica Clemens PlusNegativeNormalNegativeMain Campus Medical Center Comment on above:Result Comment: Chemiluminescence immunoassay methodology Performed By: #### QNTTBG #### [facility] [address] [place] [address] Dr. Yessica Tong1 Ag Value0.10 IU/mLNormalMain Campus Medical CenterComment on above:Performed By: #### QNTTBG #### [facility] [address] [place] [address] Dr. Yessica Tong2 Ag Value0.08 IU/mLNormalMain Campus Medical CenterComment on above:Performed By: #### QNTTBG #### [facility] [address] [place] [address] Dr. Yessica Peterson B SURFACE ANTIBODY, QUANTon 28-87-6753Tkuurmdjw B Surf AB Quant<3.1Critically lowImmunity>9.9The [facility] on above: Result Comment: Status of Immunity Anti-HBs Level Inconsistent with Immunity 0.0 - 9.9 Consistent with Immunity >9.9Performed By: #### HEPBSRF #### [facility] [address] [place] [address] Dr. Yessica Beavers IMMUNITYon 07-53-0583Kztjr Abs, IgG21.1 AU/mLNormalImmune >10.9[facility] on above:Result Comment: Negative <9.0 Equivocal 9.0 - 10.9 Positive >10.9 A positive result generally indicates past exposure to Mumps virus or previous vaccination.Performed By: #### MMRIMMU #### [facility] [address] [place] [address] Dr. Yessica Garciaa Antibodies, IgG1.77 indexNormalImmune >0.99The [facility]fin HospitalComment on above:Result Comment: Non-immune <0.90 Equivocal 0.90 - 0.99 Immune >0.99Performed By: #### MMRIMMU #### [facility] [address] [place] [address] Dr. Yessica Luong Ab, IgG>300.0NormalImmune >16.4The [facility] Comment on above:Result Comment: Negative <13.5 Equivocal 13.5 - 16.4 Positive >16.4 Presence of antibodies to Rubeola is presumptive evidence of immunity except when acute infection is suspected.Performed By: #### MMRIMMU #### [facility] [address] [place] [address] Dr. Yessica RashidVARICELLA IGG ABon 28-22-7538Fijxphlfl Zoster ScN0556 indexNormal Immune >165Main Campus Medical CenterComment on above:Result Comment: Negative <135 Equivocal 135 - 165 Positive >165 A positive result generally indicates exposure to the pathogen or administration of specific immunoglobulins, but it is not indication of active infection or stage of disease.Performed By: #### VARCEL #### [facility] [address] [place] [address] Dr. Yessica Rashid Vital Signs Date TimeVital SignValuePerforming WyeraltwsPunhifpz53-45-3326 09:46-0400Body .6 cmKim Harding PA Work Phone: [phone] County Memorial HospitalJqbnqmqkeg68-36-3432 09:46-0400Body mass index (BMI) [Ratio]34.19 kg/j8Spdcz Hemmer PA Work Phone: [phone] [facility]'s HospitalPrtewbanvj92-30-1295 09:46-0400Body obnbpf71.36 kgKim Garvinmer PA Work Phone: [phone] [facility] HospitalVmxftzgahi91-62-9892 09:46-0400Diastolic blood ecpimpty18 mm[Hg]Kim Harding PA Work Phone: [phone] County Memorial HospitalAnbtxhabwq51-69-3171 09:46-0400Heart rate93 /min Kim Harding PA Work Phone: [phone]'s HospitalCkueikaprs35-46-3537 09:46-0400Respiratory rate16 /minDrisslidia Dipti PA Work Phone: NORipley County Memorial HospitalAuiizxkgew26-42-3383 09:46-3374QxS0% (BldA) [Mass fraction]99 %Kim Garvinedmund PA Work Phone: NORipley County Memorial HospitalIfvrrfgmpu39-05-0490 09:46-0400Systolic blood snmvkyfz848 mm[Hg]Kim Dipti PA Work Phone: NORipley [facility] Memorial HospitalEyzqrwresv32-80-9845 08:19-0400Body wcaewi138.6 cmYael Rivera SUPERVISOR PUBLIC HEALTH NURSING Work Phone: NORiple[facility] Memorial HospitalXwqtmosjsl30-31-4846 08:19-0400Body mass index (BMI) [Ratio]34.84 kg/m2Donnyrob Arnoldo SUPERVISOR PUBLIC HEALTH NURSING Work Phone: NORiple[facility] Memorial HospitalBzjmnzrkxd54-86-3260 08:19-0400Body gyxnyr85.08 kgDonnyrob Arnoldo SUPERVISOR PUBLIC HEALTH NURSING Work Phone: NORiple[facility] HospitalEsnnnnodbo08-40-2632 08:19-0400Diastolic blood lvafabop20 mm[Hg]Yael Rivera SUPERVISOR PUBLIC HEALTH NURSING Work Phone: NORiple[facility] Memorial HospitalNhaleqbale90-86-5272 08:19-0400Heart rate78 /min Yael Rivera SUPERVISOR PUBLIC HEALTH NURSING Work Phone: NORiple[facility] HospitalIsdxcfcjug90-00-3472 08:19-0400Respiratory rate16 /minDonnyrob Arnoldo SUPERVISOR PUBLIC HEALTH NURSING Work Phone: [facility] Memorial HospitalWcqwhfqptu51-51-2501 08:19-0951WbN2% (BldA) [Mass fraction]97 %Yael Rivera SUPERVISOR PUBLIC HEALTH NURSING Work Phone: [facility] HospitalFrqgjsjrxe10-19-4984 08:19-0400Systolic blood cgodnmrx329 mm[Hg]Yael Rivera SUPERVISOR PUBLIC HEALTH NURSING Work Phone: [facility] HospitalAzxdcblqcf12-88-6073 15:38-0400Body xllzox653.6 cmDonnyrob Arnoldo SUPERVISOR PUBLIC HEALTH NURSING Work Phone: [facility] HospitalSzdopussia62-88-7896 15:38-0400Body mass index (BMI) [Ratio]36.56 kg/m2Donnyrob Arnoldo SUPERVISOR PUBLIC HEALTH NURSING Work Phone: [facility] HospitalBgharrpjdd95-93-8151 15:38-0400Body ucibul60.62 kgKirob Rivera SUPERVISOR PUBLIC HEALTH NURSING Work Phone: [facility] HospitalKflawdbmdm02-86-3102 15:38-0400Diastolic blood ybohxruz65 mm[Hg]Yael Rivera SUPERVISOR PUBLIC HEALTH NURSING Work Phone: [facility] HospitalJuwopwdbxc92-38-9593 15:38-0400Heart rate84 /min Yael Rivera SUPERVISOR PUBLIC HEALTH NURSING Work Phone: [facility] HospitalRvcjlxouzv80-29-9646 15:38-5947DiR8% (BldA) [Mass fraction]96 %Yael Rivera SUPERVISOR PUBLIC HEALTH NURSING Work Phone: [facility] HospitalMhapdoxtfo99-70-4363 15:38-0400Systolic blood olmkecvl677 mm[Hg]Yael Arnoldo SUPERVISOR PUBLIC HEALTH NURSING Work Phone: [facility] HospitalFemqjtnncy78-45-4229 13:02-0500Body iftmad410.6 cmYael Rivera SUPERVISOR PUBLIC HEALTH NURSING Work Phone: [phone] [place], [place] [address]Kcvxsgupoi33-88-7160 13:02-0500Body mass index (BMI) [Ratio]38.38 kg/m2Yael Rivera SUPERVISOR PUBLIC HEALTH NURSING Work Phone: [facility] HospitalWxgxyjodql76-36-0783 13:02-0500Body .42 kgKirob Rivera SUPERVISOR PUBLIC HEALTH NURSING Work Phone: [facility] HospitalVhnruvvktw79-26-7354 13:02-0500Diastolic blood xnygtoiz52 mm[Hg]Yael Rivera SUPERVISOR PUBLIC HEALTH NURSING Work Phone: [facility] HospitalKkwgyxeuao60-13-8193 13:02-0500Heart rate79 /min Yael Rivera SUPERVISOR PUBLIC HEALTH NURSING Work Phone: [facility] HospitalJkeoivfdgr48-12-7713 13:02-0500Respiratory rate17 /minDonnyrob Rivera SUPERVISOR PUBLIC HEALTH NURSING Work Phone: [facility] HospitalVnvlraoqjg66-39-9673 13:02-6147RxT9% (BldA) [Mass fraction]99 %Yael Rivera SUPERVISOR PUBLIC HEALTH NURSING Work Phone: [facility] HospitalPnptyrzfan49-47-9879 13:02-0500Systolic blood wayflspk084 mm[Hg]Yael Rivera SUPERVISOR PUBLIC HEALTH NURSING Work Phone: [facility] HospitalBuesbhjbnq02-45-6396 16:26-0500Body kqqguh887.6 cmYael Rivera SUPERVISOR PUBLIC HEALTH NURSING Work Phone: [facility] HospitalVnliojibud56-16-4782 16:26-0500Body mass index (BMI) [Ratio]40.51 kg/m2Yael Rivera SUPERVISOR PUBLIC HEALTH NURSING Work Phone: [facility] HospitalTjfwwybifi74-04-3047 16:26-0500Body ipqebq192.05 kgYael Rivera SUPERVISOR PUBLIC HEALTH NURSING Work Phone: [facility] HospitalQiubvvwkck03-00-7365 16:26-0500Diastolic blood wvwwijxz76 mm[Hg]Yael Rivera SUPERVISOR PUBLIC HEALTH NURSING Work Phone: [facility] HospitalUgkmbyrvuf92-53-8137 16:26-0500Heart rate84 /min Yael Rivera SUPERVISOR PUBLIC HEALTH NURSING Work Phone: [facility] HospitalGhosboudpw47-99-1991 16:26-5654SuE8% (BldA) [Mass fraction]100 %Yael Rivera SUPERVISOR PUBLIC HEALTH NURSING Work Phone: [facility] HospitalBriyzevvzc79-02-6099 16:26-0500Systolic blood hcabmbhs500 mm[Hg]Yael Rivera SUPERVISOR PUBLIC HEALTH NURSING Work Phone: [facility] HospitalXnpwqrjlsf64-74-6447 17:04-0400Body vweohb785.6 cmKim Hemmer PA Work Phone: [facility] HospitalIsokethkmi27-36-5405 17:04-0400Body mass index (BMI) [Ratio]41.61 kg/q8Zzfgm Hemmer PA Work Phone: [facility] HospitalAlkgmebeiq94-54-2545 17:04-0400Body temperature 99.1 [degF]Kim Hemmer PA Work Phone: [facility] HospitalHeugyjdryv63-50-4400 17:04-0400Body .95 kgKim Hemmer PA Work Phone: [facility] HospitalKdisxdfyem87-06-3193 17:04-0400Diastolic blood vngjfbux05 mm[Hg]Kim Hemmer PA Work Phone: [facility] HospitalRstzrzvurv02-68-5550 17:04-0400Heart rate83 /min Kim Hemmer PA Work Phone: [facility] HospitalGqbfbfesuz88-54-4304 17:04-0400Respiratory rate16 /minKim KAPLAN Work Phone: [facility] HospitalDdrwtwsagh40-71-3993 17:04-7858FeV4% (BldA) [Mass fraction]98 %Kim KAPLAN Work Phone: [facility] HospitalUntebuipkx66-40-6838 17:04-0400Systolic blood mm[Hg]Kim KAPLAN Work Phone: [facility] HospitalNbndagmoks07-44-7241 08:44-0400Body wbsnho714.6 Vinh Bradford MD Work Phone: [facility] HospitalWiqrihsmhe16-11-1387 08:44-0400Body mass index (BMI) [Ratio]41.13 kg/c4UcjwwRose Bradford MD Work Phone: [facility] HospitalYramrnzzwh47-05-6141 08:44-0400Body jgguzs154.68 kgRose Bradford MD Work Phone: [facility] HospitalRewqwijsym82-29-7873 08:44-0400Diastolic blood mm[Hg]Rose Bradford MD Work Phone: [facility] HospitalQgbuspnppf66-99-2841 08:44-0400Heart rate85 /min Rose Bradford MD Work Phone: [facility] HospitalCzeeapiohc60-84-8750 08:44-0400Respiratory rate16 /minRose Bradford MD Work Phone: [facility] HospitalWotxzxahdx56-73-9139 08:44-4743MvC2% (BldA) [Mass fraction]98 %Rose Bradford MD Work Phone: [facility] HospitalVlpjephaqp07-29-8200 08:44-0400Systolic blood orszbvid681 mm[Hg]Rose Bradford MD Work Phone: [facility] Healthcare Encounters Encounter DateEncounter TypeCare ProviderFacilityStart: 12-21-2024 End: 42-01-5306AbubifRirvr M Hemmer PA Work Phone: [facility] [place] [facility] MedinceComment on above:Morbid (severe) obesity due to excess calories (CMS-HCC); AnxietyStart: 12-13-2024 End: 81-14-3449Kwcsagkari Harding PA Work Phone: [facility] [place] [facility] MedinceStart: 12-13-2024 End: 72-47-8630Ayluxz Jose Elias Harding PA Work Phone: [facility] [place] [facility] MedinceStart: 12-13-2024 End: 40-15-6241eohiegjeqaQJSIP M HEMMERNot AvailableStart: 12-13-2024 End: 08-67-6118Ccbllo outpatient visit 25 minutesKim KAPLAN Work Phone: [facility] [place] [facility] MedinceComment on above:Primary insomnia (Primary Dx); Class 1 obesity due to excess calories with serious comorbidity and body mass index (BMI) of 34.0 to 34.9 in adult; Anxiety; H/O gastric sleeveStart: 11-22-2024 End: 77-35-0694RtlhjxZnscd M Alda MD Work Phone: [facility] [place] Family MedinceComment on above:Morbid (severe) obesity due to excess calories ([facility]-HCC)Start: 11-21-2024 End: 85-68-6185OqmjllGjyqe M Hemmer PA Work Phone: [facility] [place] [facility] MedinceComment on above:Anxiety Start: 10-31-2024 End: 88-04-5722Mshqqdzmk Abdifatah Bradford MD Work Phone: [facility] [place] [facility] MedinceStart: 10-21-2024 End: 79-96-8977QkwcnfYqk C Miller SUPERVISOR PUBLIC HEALTH NURSING Work Phone: [facility] [place] Family MedinceComment on above:Morbid (severe) obesity due to excess calories ([facility]-HCC)Start: 09-26-2024 End: 78-88-2064IvifhvYee C Miller SUPERVISOR PUBLIC HEALTH NURSING Work Phone: [facility] CI FMComment on above:Anxiety; Morbid (severe) obesity due to excess calories (CMS-HCC)Start: 08-24-2024 End: 66-73-1662Vdjnpbkrai Rivera SUPERVISOR PUBLIC HEALTH NURSING Work Phone: [facility] FMStart: 08-24-2024 End: 80-05-1309Nkjofakari Rivera SUPERVISOR PUBLIC HEALTH NURSING Work Phone: [facility] FMStart: 08-24-2024 End: 58-70-3420gxkpoyuprbIVL C MILLERNot AvailableStart: 08-24-2024 End: 50-18-2369Oltndp outpatient visit 15 minutesKirob Rivera SUPERVISOR PUBLIC HEALTH NURSING Work Phone: [facility] CI FMComment on above:Morbid (severe) obesity due to excess calories (CMS-HCC); AnxietyStart: 07-22-2024 End: 29-13-5310FqkqzcAorfb M Hemmer PA Work Phone: [facility] CI FMComment on above:Morbid (severe) obesity due to excess calories (CMS/HCC); AnxietyStart: 07-06-2024 End: 11-91-3521cntumtuzlhQZCXPO HSUUniACMC Healthcare System Glenbeightart: 06-24-2024 End: 59-86-0710PkwjvdDirgx M Alda MD Work Phone: [facility] CI FMComment on above:Vitamin D deficiency (Primary Dx); Anxiety; Morbid (severe) obesity due to excess calories (CMS/HCC); H/O gastric bypassStart: 06-20-2024 End: 48-38-0887QvbvbaQyh C Miller SUPERVISOR PUBLIC HEALTH NURSING Work Phone: [facility] CI FMComment on above:AnxietyStart: 05-24-2024 End: 49-01-5059Nygdfl outpatient visit 25 minutesKirob Rivera SUPERVISOR PUBLIC HEALTH NURSING Work Phone: [facility] CI FMComment on above:Morbid (severe) obesity due to excess calories (CMS/HCC); Type 2 diabetes mellitus with other specified complication, without long-term current use of insulin (CMS/HCC)Start: 05-24-2024 End: 40-87-0475aazxzgaonyWBY C MILLERNot AvailableStart: 05-17-2024 End: 62-56-6218AippdpXfyly M Hemmer PA Work Phone: [facility] CI FMComment on above:AnxietyStart: 05-15-2024 End: 06-20-5970dpahmavwbwXZHDSPZ [facility] Start: 04-26-2024 End: 81-85-4002Gloszy Marycruz Rivera SUPERVISOR PUBLIC HEALTH NURSING Work Phone: [facility] CI FMStart: 04-26-2024 End: 96-59-7309Hsbatw Marycruz Rivera SUPERVISOR PUBLIC HEALTH NURSING Work Phone: [facility] CI FMStart: 04-26-2024 End: 29-16-3285Rtvrmr outpatient visit 25 minutesYael Rivera SUPERVISOR PUBLIC HEALTH NURSING Work Phone: [facility] CI FMComment on above:Morbid (severe) obesity due to excess calories (CMS/HCC) (Primary Dx); Muscle spasmStart: 04-26-2024 End: 91-98-6695idztypacqxKCN C MILLERNot AvailableStart: 04-19-2024 End: 18-73-0735CbxzeaWzszdky Jaiden BARNES CI FMComment on above:AnxietyStart: 04-04-2024 End: 84-17-3939avvniyhccmRAMWHH HSUUniACMC Healthcare System Glenbeightart: 03-29-2024 End: 95-05-1292Wucknreea Result EncounterGeneric External Data ProviderNOMS External Department UnsolicitedStart: 03-29-2024 End: 29-24-5667Tbsmsgsal Result EncounterGeneric External Data ProviderNOMS External Department UnsolicitedStart: 03-23-2024 End: 03-61-2212Pofxem outpatient visit 25 minutesYael Rivera SUPERVISOR PUBLIC HEALTH NURSING Work Phone: [facility] CI FMComment on above:Morbid (severe) obesity due to excess calories (CMS/HCC) (Primary Dx); Breast screening; Body mass index (BMI) 40.0-44.9, adult (CMS/HCC)Start: 03-23-2024 End: 01-36-3871nmbejcwvlnPUCAmanda Hood AvailableStart: 03-23-2024 End: 39-01-6240Cpddhv Marycruz Rivera SUPERVISOR PUBLIC HEALTH NURSING Work Phone: [facility] CI FMStart: 03-23-2024 End: 01-52-2265Ieligz Marycruz Rivera SUPERVISOR PUBLIC HEALTH NURSING Work Phone: [facility] CI FMStart: 03-05-2024 End: 42-17-7640OcvqdwIeleo M Hemmer PA Work Phone: [facility] CI FMComment on above:AnxietyStart: 01-29-2024 End: 59-22-9500YrtwexBxtjkBlanka KAPLAN Work Phone: [facility] CI FMComment on above:AnxietyStart: 01-14-2024 ambulatoryMUNSON HEALTHCARE GRAYLING HOSPITALLLA Providence Hospitaltart: 01-05-2024 End: 21-47-1354Umtepb outpatient visit 15 minutesKim KAPLAN Work Phone: [facility] CI FMComment on above:Acute left otitis media (Primary Dx); Acute non-recurrent pansinusitisStart: 01-05-2024 End: 37-99-7642fksbtsoqzhGKKZYJoana Santos AvailableStart: 12-30-2023 End: 98-42-3847PdzzspWpvmqlz Jaiden BARNES CI FMComment on above:AnxietyStart: 12-28-2023 End: 32-23-8499Bxkmgxnmx encounterKim KAPLAN Work Phone: [facility] CI FMStart: 12-27-2023 End: 11-49-5511opidpfdnwxXRPNY M ALDANot AvailableStart: 12-27-2023 End: 60-92-6413Pnhsrk outpatient visit 25 minutesRose Bradford MD Work Phone: [facility] CI FMComment on above:Type 2 diabetes mellitus without complication, without long-term current use of insulin (CMS/[facility]); Morbid (severe) obesity due to excess calories (CMS/HCC); Body mass index (BMI) 50.0-59.9, adult (CMS/HCC)Start: 11-23-2023 End: 97-76-2002icvarumijxEDMMPXRRiverside Methodist Hospital Start: 10-25-2023 End: 39-76-5198JlaqfqTgcpy M Alda MD Work Phone: NOSS FMComment on above:Elevated LDL cholesterol level (CMS/HCC); AnxietyStart: 31-91-2235wkvwmalfzwXSQFYQTDKettering Health Springfieldtart: 12-60-5767ujifjillwlXNISATO GAUAMISUniACMC Healthcare System Glenbeightart: 47-53-8997xmhttmznjzMTNPIFLGKettering Health Springfieldtart: 07-29-2023 End: 38-51-9854cnvpnlrnwiULFSZJ HSUUniversMercy Health Perrysburg Hospitaltart: 07-23-2023 End: 81-82-0626Jmycdcopy Result EncounterGeneric External Data ProviderNOMS External Department UnsolicitedStart: 07-23-2023 End: 24-82-8610Fuoolknsc Result EncounterGeneric External Data ProviderNOMS External Department UnsolicitedStart: 07-22-2023 End: 26-26-9557xgukxupnbrZJTEIP HSUUniACMC Healthcare System Glenbeightart: 07-15-2023 End: 51-70-4957opufwstbdwOMWMHB HSniACMC Healthcare System Glenbeightart: 06-08-2023 End: 37-39-5478Wlpkqzdni Result EncounterGeneric External Data ProviderNOMS External Department UnsolicitedStart: 06-08-2023 End: 01-87-2209Ickukyopf Result EncounterGeneric External Data ProviderNOMS External Department UnsolicitedStart: 05-13-2023 End: 61-64-3201Qamkozjvb Result EncounterGeneric External Data ProviderNOMS External Department UnsolicitedStart: 05-13-2023 End: 92-67-6237Ciryuszfs Result EncounterGeneric External Data ProviderNOMS External Department UnsolicitedStart: 94-52-3075atiaocgcrlON RUGEN ALDA Facility:N7Dvxsz: 03-24-2021 End: 37-84-5480usqtfyexcbLX ROSE ALDAFacility:Q9Ktlyk: 01-10-2021 End: 25-40-4114lsegqsgrzbVMKTVN ROSSFacility:T9Joutb: 12-16-2020 End: 60-06-0825znjhitnnauSQPBODTQ EBERLYFacility:H1 Procedures DateProcedureProcedure DetailPerforming ClinicianStart: 89-47-7972Rokvzg-up visitFollow-upJUSTIN HSUStart: 26-58-0503Ecnkirdfaq glycosylated a1cDonnym Maira Rivera NP Work Phone: Start: 51-71-5156FFBBZ IRON AND TIBCGeneric External Data ProviderStart: 22-72-1579Xurcjetoll glycosylated h3yFbdmuRose Bradford MD Work Phone: Start: 68-13-5028QC ABDOMEN LIMITEDGeneric External Data ProviderStart: 47-94-1322AJ ECHO DOPPLER COMPLETEGeneric External Data ProviderStart: 64-97-2561GV QING PERF SPECT REST STRGeneric External Data Provider Plan of Treatment DateCare ActivityDetailAuthorStart: 89-15-4656Beclepgnn for malignant neoplasm of colonColorectal Cancer ScreeningNOMS HealthcareComment on above:Postponed from 1978 (Other Medical Reasons)Start: 05-24-2025 End: 26-27-6517Vhnmwcg encounter fjnjqsolm22/19/2026 11:00 AM EDT Office Visit [facility] [place] [facility] [address] [place] [address] Kim Harding PA [address] [place] [address] NOMSlime Jaeger MedinceStart: 12-26-2024 Urine screening for proteinDiabetes: Urine Protein ScreeningNOKY Healthcare Start: 12-13-2024 End: 08-91-6493Mdddyyd encounter njzpfhuqb27/08/2025 9:30 AM EDT Office Visit [facility] [place] [facility] [address] [place] [address] Kim Harding PA [address] [place] [address] [facility] [place] Jaeger MedinceStart: 11-06-2024 COVID-19 Vaccine ( season)COVID-19 Vaccine ( season)NOM[facility] HealthcareStart: 31-15-1510Qvsffsnxs vaccinationInfluenza Vaccine (#1)[facility] HealthcareStart: 25-35-1859Nadumcrkip A1c measurementDiabetes: Hemoglobin A1C NOM[facility] HealthcareStart: 08-24-2024 End: 35-01-9296Icjyjdi encounter nqtusxkgd82/19/2025 8:00 AM EDT Office Visit [facility] [address] [place] [address] Yael Rivera, SUPERVISOR PUBLIC HEALTH NURSING [address] [facility] [address] [place] [address] NOM[facility] CI FMStart: 84-91-5646Chxfd screening for protein Diabetes: Urine Protein ScreeningNOKY HealthcareStart: 05-24-2024 End: 83-59-1877Ydilhyt encounter vixcceeba43/19/2025 4:00 PM EDT Office Visit [facility] [address] [place] [address] Yael Rivera, SUPERVISOR PUBLIC HEALTH NURSING [address] [facility] [address] [place] [address] [facility] CI FMStart: 04-26-2024 End: 10-87-8263Lluituq encounter asbkizqtv18/19/2025 1:00 PM EST Office Visit [facility] [address] [place] [address] Yael Rivera, SUPERVISOR PUBLIC HEALTH NURSING [address] [place] [address] ArrivedNOMS CI FMComment on above:ArrivedStart: 47-89-4488Sxhgadnuhq A1c measurementDiabetes: Hemoglobin S4FTIMS Healthcare Start: 03-23-2024 End: 80-64-8598Jidzyxc encounter gdlwjoqdz30/16/2025 4:30 PM EST Office Visit [facility] [address] [place] [address] Yael Rivera NP [address] [place] [address] ArrivedNOMS CI FMComment on above:ArrivedStart: 03-23-2024 End: 77-63-5665UR Breast - bilateral ScreeningBilateral screening mammogram Imaging Routine Breast screening Expected: 03/23/2024 (Approximate), Expires: 05/21/2025NO[facility] Work Phone: Comment on above:Expected: 03/23/2024 (Approximate), Expires: 05/21/2025Start: 01-28-2024 End: 97-73-9830Xslelxufbidu / ancillary services sxjqhozfmo66/22/2024 4:00 PM EST Ancillary Procedure [facility] [place] [address] [place] [address] DKMK IMAGING SANDUSKYStart: 01-11-2024 End: 02-53-2036Lgmtsxm encounter vsygwfyli04/05/2024 8:30 AM EST Office Visit [facility] [address] [place] [address] Rose Bradford MD [address] [place] [address] [facility] CI FMStart: 83-79-4698Qebqaoniv vaccinationInfluenza Vaccine (#1)[facility] HealthcareStart: 60-15-5062Kfibmffkhb A1c measurementDiabetes: Hemoglobin E5UYHTC HealthcareStart: 65-18-0052Dgawrrha screeningDiabetes: Retinopathy ScreeningNOMS HealthcareStart: 38-68-9363Gvjuslayp for malignant neoplasm of breastMammogramNOMS HealthcareStart: 91-80-6305Gsynwaxgr for malignant neoplasm of cervixNOMS HealthcareStart: 00-38-0025Hneqeigyw for malignant neoplasm of cervixPap SmearNOMS HealthcareStart: 74-90-7894Jtgdgdxve B Vaccines (1 of 3 - 19+ 3-dose series)Hepatitis B Vaccines (1 of 3 - 19+ 3-dose series)[facility] HealthcareStart: 41-31-8938Svmsvcbqwulr Vaccine: Pediatrics (0 to 5 Years) and At-Risk Patients (6 to 64 Years) (1 of 2 - PCV)Pneumococcal Vaccine: Pediatrics (0 to 5 Years) and At-Risk Patients (6 to 64 Years) (1 of 2 - PCV) [facility] HealthcareStart: 63-21-8640IAtV/Tdap/Td Vaccines (1 - Tdap)DTaP/Tdap/Td Vaccines (1 - Tdap)[facility] HealthcareStart: 93-63-8417SME Vaccines (1 of 1 - Standard series)MMR Vaccines (1 of 1 - Standard series)[facility] HospitalStart: 94-87-8582Xwalmmmjn for malignant neoplasm of colonMOUNTAINSTAR HEALTHCARE Healthcare Immunizations Immunization DateImmunizationNotesCare EqfrlhtdIgbgbgkv98-50-6633wfocqhtvm, injectable, madin katelynn canine kidney, preservative freeYael Rivera SUPERVISOR PUBLIC HEALTH NURSING Work Phone: [phone] [place], [place] [address]Gbthsslkpj79-82-6157kanepsapa virus vaccine, unspecified formulationYael Rivera NP Work Phone: [phone] [address] StreetEbunvyygeu36-60-6359lghdgnjyj, injectable, quadrivalent, preservative freeRose Bradford MD Work Phone: [phone] [place], [place] [address]Henpzurwxc33-06-4317ncfdecwpe virus vaccine, unspecified formulationRose Bradford MD Work Phone: [phone] [address] StreetBrimffkhze80-21-2382lpkeyjzpc, injectable, quadrivalent, preservative freeRose Bradford MD Work Phone: [phone] [address] StreetXtkdwnotee53-82-2940cuyyktngj, injectable, quadrivalent, preservative freeRose Bradford MD Work Phone: [phone] [place], [place] [address]Owakewzjer26-91-3584zhyekkvyv, injectable, quadrivalent, preservative freeRose Bradford MD Work Phone: [phone] [place] [address] Payers DatePayer CategoryPayerPolicy [id number] [id number] Health [id number] [id number] [id number] 2.160.1.443631.3.57[id number] 2.160.1.779099.3.57[id number] 2.0.1.583090.3.57[id number] 2.0.1.800197.3.57[id number] 2.0.1.510431.3.57[id number] 2.160.1.548303.3.57[id number] 2.840.1.729302.3.57[id number] 2.0.1.835221.3.579.2.766970-82-6243Neej-upi17627435633-55-8628Avckcvw [id number] 2.0.1.2[id number] 2.0.1.852603.3.579.2.593 Social History DateTypeDetailFacilityStart: 60-82-7873Qvkwbzs smoking status NHISNever smoked tobaccoNOMS HealthcareStart: 24-67-5278Zdnspnc use and exposureSmokeless tobacco non-userNOMS HealthcareStart: 05-12-2023 End: 17-45-6084Vwybifgus beverage intakeCurrent drinker of alcohol (finding)[facility] HealthcareStart: 05-12-2023 End: 16-75-0002Imavudv of Social functionNOMS HealthcareStart: 05-12-2023 End: 99-37-8716Vjwklv connection and isolation panelNOKY HealthcareStart: 34-14-5530Itd often do you attend presybeterian or sikh services?Patient declined [facility] HealthcareDo you belong to any clubs or organizations such as presybeterian groups, unions, fraternal or athletic groups, or school groups?NoNOMS Healthcare Are you now , , , , never or living with a partner?DivorcedNOMS HealthcareHow often to you have a drink containing alcohol?2-4 times a monthNOMS HealthcareHow many standard drinks containing alcohol do you have on a typical day?1 or 2NOMS HealthcareHow often do you have 6 or more drinks on 1 occasion?NeverNOMS HealthcareHow hard is it for you to pay for the very basics like food, housing, medical care, and heatingSomewhat hard [facility] HealthcareDo you feel stress - tense, restless, nervous, or anxious, or unable to sleep at night because yourmind is troubled all the time - these days [OSQ]Only a littleNOMS Healthcare(I/We) worried whether (my/our) food would run out before (I/we) got money to buy more.Never trueNOMS HealthcareStart: 51-87-7810Jlnpxmj Commentdrinks 2-4 times a month and 6 or more drinks per occassion. Caffeine intake: coffee, chocolateNOMS HealthcareStart: 38-06-8058Vqm assigned at birthNot on fileNOKY HealthcareStart: 05-24-2024 End: 86-41-2303Rpqvziliq beverage intakeEx-drinker (finding)[facility] Healthcare Start: 17-76-1904Oksujzy CommentOnce or twice a month- gave up entirely for bariatric surgNOMS Healthcare Goals DatePatient GoalDesired Activity/StatePersonal health goal Functional Status OtynZarrxpxzjjAwbcgcVbzofhbu07-19-5723Lxbjxfg Health Questionnaire 2 item (PHQ- 2) [Reported][facility] HospitalExxsvhiged78-85-7868Mvhwswa Health Questionnaire 2 item (PHQ- 2) [Reported][facility] HospitalYjvqwmofey94-59-8578Qwojmgh Health Questionnaire 2 item (PHQ- 2) [Reported][facility] Clinical Notes 07-12-2023 to 12-13-2024 Note Date & KfrgTeqqMgirrlvq33-59-0863 History of Present illness Narrative* ROSAURA Obregon - 12/13/2024 9:30 AM EDT Images from the original note were not included. Subjective Patient ID: Odette Azevedo is a 44 y.o. female who presents for weight check. Odette is present today for weight check. She started Adipex on 03/23/24. 03/23/24 wt - 236 08/24/24 wt - 203 Today wt - 199.2 Pt is watching what she is eating but is not exercising. She just signed up to go back to the [facility] through. States has been a stressful year. Acjrpv-pj-vnp . Has extra people living with her rightnow. Changes at her job, working 12-16 hour days. Her 's son is in correction and it is his familyliving with them. Over the past 2 weeks, how often have you been bothered by any of the following problems? Little interest or pleasure in doing things: Not at all (currently on medication) Feeling down, depressed, or hopeless: Not at all (currently on medication) Patient Health Questionnaire-2 Score: 0 Current Outpatient Medications on File Prior to Visit Medication Sig Dispense Refill ALPRAZolam (Xanax) 0.5 MG tablet Take 1 tablet (0.5 mg) by mouth 2 (two) times a day as needed for anxiety 60 tablet 0 atorvastatin (Lipitor) 20 MG tablet TAKE 1 TABLET BY MOUTH EVERY DAY IN THE MORNING 100 tablet 3 b complex vitamins capsule Take 1 capsule by mouth in the morning. 90 capsule 3 biotin 10 MG capsule TAKE 1 CAPSULE BY MOUTH EVERY DAY 30 capsule 11 buPROPion XL (Wellbutrin XL) 150 MG 24 hr tablet TAKE 1 TABLET BY MOUTH EVERY DAY, DO NOT CRUSH, CHEW, OR SPLIT 100 tablet 3 cholecalciferol (Vitamin D-3) 25 MCG (1000 UT) tablet Take 1 tablet (25 mcg) by mouth in the morning. 90 tablet 3 fluticasone (Flonase) 50 MCG/ACT nasal spray INSTILL 1 TO 2 SPRAYS IN EACH NOSTRIL DAILY. BEFORE 1ST USE PRIME PUMP, AFTER USE CLERAN TIP & REPLACE CAP 48 mL 1 furosemide (Lasix) 40 MG tablet TAKE 1 TABLET BY MOUTH EVERY DAY 100 tablet 3 Multiple Vitamin (Multivitamin Adult) tablet Take 1 tablet by mouth Daily 30 tablet 2 phentermine (Adipex-P) 37.5 MG tablet Take 1 tablet (37.5 mg) by mouth in the morning. 30 tablet 0 [DISCONTINUED] busPIRone (Buspar) 5 MG tablet TAKE 1 TABLET BY MOUTH IN THE MORNING, IN THE EVENINGAND BEFORE BEDTIME 270 tablet 3 [DISCONTINUED] [facility] Gas Relief Extra Strength 125 MG chewable tablet No current facility-administered medications on file prior to visit. I have reviewed and reconciled the history and medication list with the patient today. Allergies Allergen Reactions Sulfur Hexafluoride Headache and Shortness of breath Patient experienced facial flushing after administration of Lumason Latex Rash Social History Tobacco Use Smoking status: Never Smokeless tobacco: Never Vaping Use Vaping status: Never Used Substance Use Topics Alcohol use: Not Currently Comment: Once or twice a month- gave up entirely for bariatric surg Drug use: Never Family History Problem Relation Name Age of Onset Heart disease Mother Hypertension Father Dom Walker, talat calderon Heart disease Father Dom Walker, talat calderon Diabetes Father Dom Walker, [facility] yumiko Depression Father Dom Walker, talat calderon Hypertension Sister Pricila Multiple sclerosis Sister Pricila Diabetes Brother Dom Walker, talat Calderon Hypertension Brother Dom Walker, talat Calderon COPD Brother Dom Walker, talat Calderon Heart attack Brother Dom Walker, bio Yumiko Asthma Brother Dom Walker, bio Y[place] Diabetes Maternal Grandmother [place] Heart disease Maternal Grandmother [place] Mental illness Sister Lalita Past Medical History: Diagnosis Date Anemia Anxiety Arthritis COVID-19 03/24/2021 Depression Diabetes mellitus (HCC) GERD (gastroesophageal reflux disease) Hypertension Inflammatory bowel disease Scoliosis Severe acute respiratory syndrome coronavirus 2 (SARS-CoV-2) detected 07/29/2022 Visual impairment Past Surgical History: Procedure Laterality Date BACK SURGERY 1988 SLEEVE GASTROPLASTY 07/06/2023 Dr. Martinez SPINE SURGERY Visit Vitals BP 106/80 Pulse 93 Resp 16 Ht 5' 4 Wt 199 lb 3.2 oz SpO2 99% BMI 34.19 kg/m Smoking Status Never BSA 2.02 m Review of Systems Constitutional: Negative for chills, fatigue and fever. Respiratory: Negative for cough, shortness of breath and wheezing. Cardiovascular: Negative for chest pain, palpitations and leg swelling. Gastrointestinal: Negative for abdominal pain, constipation, diarrhea, nausea and vomiting. Skin: Negative for rash. Psychiatric/Behavioral: The patient is nervous/anxious (Increased stress). Objective Physical Exam Constitutional: General: She is not in acute distress. Appearance: She is well-developed. She is obese. HENT: Head: Normocephalic and atraumatic. Eyes: General: No scleral icterus. Conjunctiva/sclera: Conjunctivae normal. Cardiovascular: Rate and Rhythm: Normal rate and regular rhythm. Heart sounds: Normal heart sounds. No murmur heard. Pulmonary: Effort: Pulmonary effort is normal. No respiratory distress. Breath sounds: Normal breath sounds. No wheezing, rhonchi or rales. Skin: General: Skin is warm and dry. Neurological: General: No focal deficit present. Mental Status: She is alert and oriented to person, place, and time. Psychiatric: Mood and Affect: Mood is anxious (Mild). Affect is tearful (Mild). Behavior: Behavior normal. Assessment/Plan Diagnoses and all orders for this visit: Primary insomnia Stable at this time. Consider medication in the future specifically for this condition if needed. Class 1 obesity due to excess calories with serious comorbidity and body mass index (BMI) of 34.0 to 34.9 in adult Pt has lost almost 4 pounds since her last appt. Patient has lost a total of 36.8 pounds since starting the Adipex. Encouraged pt to continue to aimfor a gradual weight loss over the next 3 months. Encouraged continued exercise. Limit simple sugars and carbohydrates, watch portion sizes. Will see pt back in 3 months. If continues to tolerate it well and patient continues to have health benefit from medication, it can be continued. Anxiety - busPIRone (Buspar) 10 MG tablet; Take 1 tablet (10 mg) by mouth in the morning and 1 tablet (10 mg) in the evening and 1 tablet (10 mg) before bedtime. Has noted some improvement in her anxiety with the increase in Buspar. She can continue it, the Bupropion daily, and Xanax as needed, for her anxiety. Encouraged her to make sure she is taking time for herself. H/O gastric sleeve Encouraged pt to continue her supplements daily. Follow up in about 3 months (around 03/15/2025) for Wellness. documented in this encounterSaint John's [id number] Telephone encounter Note* Telephone Encounter - ROSAURA Obregon - 11/22/2024 10:02 AM EDT OARRS reviewed, Rx sent into patient's pharmacy. [place] [id number] Miscellaneous Notes* Telephone Encounter - ROSAURA Obregon - 11/22/2024 10:02 AM EDT OARRS reviewed, Rx sent into patient's pharmacy. documented in this encounterSaint John's [id number] Telephone encounter Note* Telephone Encounter - Apoorva Piña - 11/21/2024 10:54 AM EDT Patient scheduled [facility] [id number] Miscellaneous Notes* Telephone Encounter - Apoorva Piña - 11/21/2024 10:54 AM EDT Patient scheduled * Telephone Encounter - ROSAURA Obregon - 11/21/2024 10:38 AM EDT Please help pt get scheduled for a controlled medication follow up visit within the month. Last refill on this until seen. OARRS report generated and reviewed. * Telephone Encounter - MP NICHOLSON - 11/21/2024 9:58 AM EDT OV 08/24/24 RF 09/27/24 documented in this encounterSaint John's [id number] Telephone encounter Note* Telephone Encounter - ROSAURA Obregon - 11/21/2024 10:38 AM EDT Please help pt get scheduled for a controlled medication follow up visit within the month. Last refill on this until seen. OARRS report generated and reviewed. [facility] [id number] Telephone encounter Note* Telephone Encounter - MP NICHOLSON - 11/21/2024 9:58 AM EDT OV 08/24/24 RF 09/27/24 [facility] [id number] Telephone encounter Note* Telephone Encounter - ROSAURA Obregon - 11/01/2024 9:52 AM EDT My chart message. [facility] [id number] Miscellaneous Notes* Telephone Encounter - ROSAURA Obregon - 11/01/2024 9:52 AM EDT My chart message. documented in this encounterSaint John's [id number] Telephone encounter Note* Telephone Encounter - ROSAURA Obregon - 09/27/2024 9:14 AM EDT OARRS reviewed, Rx sent into patient's pharmacy. [facility] [id number] Miscellaneous Notes* Telephone Encounter - ROSAURA Obregon - 09/27/2024 9:14 AM EDT OARRS reviewed, Rx sent into patient's pharmacy. documented in this encounterSaint John's [id number] History of Present illness Narrative* Yael Rivera NP - 08/24/2024 8:00 AM EDT Images from the original note were not included. Subjective Patient ID: Odette Azevedo is a 43 y.o. female who presents for a weight check. Odette presents today for a weight check for taking adipex. She started taking the medication back in with the weight of 236l b at her May visit she was 213 lb and today's weight is 203 lb. Over the past 2 weeks, how often have you been bothered by any of the following problems? Little interest or pleasure in doing things: Not at all Feeling down, depressed, or hopeless: Not at all Patient Health Questionnaire-2 Score: 0 Current Outpatient Medications on File Prior to Visit Medication Sig Dispense Refill ALPRAZolam (Xanax) 0.5 MG tablet Take 1 tablet (0.5 mg) by mouth 2 (two) times a day as needed for anxiety 60 tablet 0 atorvastatin (Lipitor) 20 MG tablet Take 1 tablet (20 mg) by mouth in the morning. 100 tablet 3 b complex vitamins capsule Take 1 capsule by mouth in the morning. 90 capsule 3 biotin 87960 MCG tablet Take by mouth Daily buPROPion XL (Wellbutrin XL) 150 MG 24 hr tablet TAKE 1 TABLET BY MOUTH EVERY DAY, DO NOT CRUSH, CHEW, OR SPLIT 100 tablet 3 busPIRone (Buspar) 5 MG tablet TAKE 1 TABLET BY MOUTH IN THE MORNING, IN THE EVENING AND BEFORE BEDTIME 270 tablet 3 cholecalciferol (Vitamin D-3) 25 MCG (1000 UT) tablet Take 1 tablet (25 mcg) by mouth in the morning. 90 tablet 3 [facility] Gas [facility] Extra Strength 125 MG chewable tablet fluticasone (Flonase) 50 MCG/ACT nasal spray INSTILL 1 TO 2 SPRAYS IN EACH NOSTRIL DAILY. BEFORE 1ST USE PRIME PUMP, AFTER USE CLERAN TIP & REPLACE CAP 48 mL 1 furosemide (Lasix) 40 MG tablet Take 1 tablet (40 mg) by mouth Daily 100 tablet 4 phentermine (Adipex-P) 37.5 MG tablet Take 1 tablet (37.5 mg) by mouth in the morning. 30 tablet 0 No current facility-administered medications on file prior to visit. I have reviewed and reconciled the history and medication list with the patient today. Allergies Allergen Reactions Sulfur Hexafluoride Headache and Shortness of breath Patient experienced facial flushing after administration of Lumason Latex Rash Social History Tobacco Use Smoking status: Never Smokeless tobacco: Never Vaping Use Vaping status: Never Used Substance Use Topics Alcohol use: Not Currently Comment: Once or twice a month- gave up entirely for bariatric surg Drug use: Never Family History Problem Relation Name Age of Onset Heart disease Mother Hypertension Father Dom Walker, bio yumiko Heart disease Father Dom Walker, bio yumiko Diabetes Father Dom Walker, bio yumiko Depression Father Dom Walker, bio yumiko Hypertension Sister Pricial Multiple sclerosis Sister Pricila Diabetes Brother Dom Walker, bio [place] Hypertension Brother Dom Walker, bio [place] COPD Brother Dom Walker, bio [place] Heart attack Brother Dom Walker, bio [place] Asthma Brother Dmo Walker, bio [place] Diabetes Maternal Grandmother [place] Heart disease Maternal Grandmother [place] Mental illness Sister Lalita Past Medical History: Diagnosis Date Anemia Anxiety Arthritis COVID-19 03/24/2021 Depression Diabetes mellitus (HCC) GERD (gastroesophageal reflux disease) Hypertension Inflammatory bowel disease Scoliosis Severe acute respiratory syndrome coronavirus 2 (SARS-CoV-2) detected 07/29/2022 Visual impairment Past Surgical History: Procedure Laterality Date BACK SURGERY 1988 SLEEVE GASTROPLASTY 07/06/2023 Dr. Martinez SPINE SURGERY Visit Vitals Smoking Status Never Review of Systems Constitutional: Negative. HENT: Negative. Eyes: Negative. Respiratory: Negative. Cardiovascular: Negative. Gastrointestinal: Negative. Genitourinary: Negative. Musculoskeletal: Negative. Skin: Negative. Neurological: Negative. Psychiatric/Behavioral: Negative. Hematological: Negative. Endocrine: Negative. Allergic/Immunologic: Negative. Objective Physical Exam Vitals reviewed. Constitutional: Appearance: Normal appearance. HENT: Head: Normocephalic and atraumatic. Nose: Nose normal. Eyes: Conjunctiva/sclera: Conjunctivae normal. Cardiovascular: Rate and Rhythm: Normal rate and regular rhythm. Pulses: Normal pulses. Heart sounds: Normal heart sounds. Pulmonary: Effort: Pulmonary effort is normal. Breath sounds: Normal breath sounds. Abdominal: General: Bowel sounds are normal. Palpations: Abdomen is soft. Musculoskeletal: General: Normal range of motion. Cervical back: Normal range of motion and neck supple. Skin: General: Skin is warm and dry. Neurological: General: No focal deficit present. Mental Status: She is alert and oriented to person, place, and time. Psychiatric: Mood and Affect: Mood normal. Behavior: Behavior normal. Assessment/Plan 1. Morbid (severe) obesity due to excess calories ([facility]) Discussed continued use of adipex and its most common side effects. She is not having any noted side effects since she began using this medication. Her diet is again discussed today. Her overall wt is down from 236 lbs, today she is at 203 lbs. - phentermine (Adipex-P) 37.5 MG tablet; Take 1 tablet (37.5 mg) by mouth in the morning. Dispense:30 tablet; Refill: 0 2. Anxiety - ALPRAZolam (Xanax) 0.5 MG tablet; Take 1 tablet (0.5 mg) by mouth 2 (two) times a day as needed for anxiety Dispense: 60 tablet; Refill: 0 No follow-ups on file. documented in this [facility]06-19-2025 Instructions* Patient Instructions* Yael Rivera NP - 08/24/2024 8:00 AM EDT Adipex renewed. Xanax renewed. documented in this [facility]05-19-2025 Telephone encounter Note* Telephone Encounter - ROSAURA Obregon - 07/24/2024 9:56 AM EDT OARRS reviewed, Rx sent into patient's pharmacy. [facility] [id number] Miscellaneous Notes* Telephone Encounter - ROSAURA Obregon - 07/24/2024 9:56 AM EDT OARRS reviewed, Rx sent into patient's pharmacy. documented in this encounterSaint John's [id number] NoteSubjective Patient ID: Odette Azevedo is a 43 y.o. female who presents for Follow-up (Odette is here today for follow up: 1 yr follow up /S/p 07/06/23 Robotic Gastric Sleeve ). Patient is doing very well postoperatively. She underwent a robotic sleeve gastrectomy last year. She has lost 110 pounds. Her goal weight is to be around 160-180 pounds. She has improved her comorbidities and is no longer taking many of her prescribed medications. She is taking her vitamins regularly and her vitamin levels have been checked a few months ago and were found to be within normal limits. She is tolerating a regular diet without any constipation, nausea, emesis. She is maintaining her thrice weekly exercise regimen. She tracks her daily calories to be around 800-1000 kcal. Overall she is very happy with her results. Her only complaint is that she is beginning to notice some hair thinning and hair loss. Her thyroid function tests have been within normal limits. She suspects this may be due to her perimenopausal status. She has no complaints from her incision sites, they have healed well. No reflux, nausea/vomiting, or dysphagia. Patient is trying Phentermine to lose more weight. Review of Systems Constitutional: Negative. HENT: Negative. Respiratory: Negative. Cardiovascular: Negative. Gastrointestinal: Negative. Genitourinary: Negative. Musculoskeletal: Negative. Neurological: Negative. Hematological: Negative. Objective Visit Vitals BP 118/69 (BP Location: Left arm, Patient Position: Sitting) Pulse 89 Physical Exam Constitutional: General: She is not in acute distress. Appearance: Normal appearance. She is obese. She is not ill-appearing, toxic-appearing or diaphoretic. Eyes: Extraocular Movements: Extraocular movements intact. Conjunctiva/sclera: Conjunctivae normal. Cardiovascular: Rate and Rhythm: Normal rate and regular rhythm. Pulmonary: Effort: Pulmonary effort is normal. No respiratory distress. Abdominal: General: Abdomen is flat. Skin: General: Skin is warm. Neurological: General: No focal deficit present. Mental Status: She is alert and oriented to person, place, and time. Mental status is at baseline. Assessment/Plan Postoperative follow-up, 1 year Status post robotic sleeve gastrectomy Patient is doing well postoperatively, no issues other than mild hair loss/hair thinning. Will trial course of Minoxidil and recommend follow up with PCP. Yearly vitamin level checks from here on out. Patient can follow-up in the bariatric surgery clinic as needed. Jaydon Maciel MD General Surgery Resident, PGY-3 I saw and evaluated the patient, participating in the youssef portions of the service. I have reviewed and supervised the patient visit with Jaydon Maciel MD. I discussed the findings and therapeutic plan with Jaydon Maciel MD. I agree with the findings, plan, and documentation. Reviewed notes 05/24/24, 05/15/24 with PCP and boiler fireman. Labs 04/21/24 reviewed. Jeffery Connell MDUnThe [facility]05-[facility] NoteSubjective Patient ID: Odette Azevedo is a 43 y.o. female who presents for Follow-up (Odette is here today for follow up: 1 yr follow up /S/p 07/06/23 Robotic Gastric Sleeve ). HPI Review of Systems Constitutional: Negative. HENT: Negative. Respiratory: Negative. Cardiovascular: Negative. Gastrointestinal: Negative. Genitourinary: Negative. Musculoskeletal: Negative. Neurological: Negative. Hematological: Negative. Objective There were no vitals taken for this visit. Physical Exam Assessment/Plan No diagnosis found. No orders of the defined types were placed in this encounter. No results found for this or any previous visit (from the past 36 hour(s)). No follow-ups on file.[facility] History of Present illness Narrative* Yael Rivera NP - 05/24/2024 4:00 PM EDT Images from the original note were not included. HPI Weight Check Additional comments: Starting weight 236lb today weight is Last edited by Michela Hwang MA on 05/24/2024 8:48 AM. Subjective Patient ID: Odette Azevedo is a 43 y.o. female who presents for Annual Exam and Weight Check (Starting weight 236lb today weight is ). Pt is losing hair due to her losing lots of weight would poss like something for this. Current Outpatient Medications on File Prior to Visit Medication Sig Dispense Refill phentermine (Adipex-P) 37.5 MG tablet TAKE 1 CAPSULE (37.5 MG) BY MOUTH IN THE MORNING. TAKE BEFOREMEALS. ALPRAZolam (Xanax) 0.5 MG tablet TAKE 1 TABLET (0.5 MG) BY MOUTH 2 (TWO) TIMES A DAY NEEDED FOR ANXIETY 60 tablet 0 atorvastatin (Lipitor) 20 MG tablet Take 1 tablet (20 mg) by mouth in the morning. 100 tablet 3 b complex vitamins capsule Take 1 capsule by mouth in the morning. biotin 17681 MCG tablet Take by mouth Daily buPROPion XL (Wellbutrin XL) 150 MG 24 hr tablet TAKE 1 TABLET BY MOUTH EVERY DAY, DO NOT CRUSH, CHEW, OR SPLIT 100 tablet 3 busPIRone (Buspar) 5 MG tablet Take 1 tablet (5 mg) by mouth in the morning and 1 tablet (5 mg) in the evening and 1 tablet (5 mg) before bedtime. 90 tablet 11 cholecalciferol (Vitamin D-3) 25 MCG (1000 UT) tablet Take 1,000 Units by mouth in the morning. [facility] Extra Strength 125 MG chewable tablet fluticasone (Flonase) 50 MCG/ACT nasal spray INSTILL 1-2 SPRAYS INTO EACH NOSTRIL DAILY, BEFORE 1STUSE, PRIME PUMP, AFTER ISE CLEAN TIP AND REPLACE CAP 48 mL 1 furosemide (Lasix) 40 MG tablet Take 1 tablet (40 mg) by mouth Daily 100 tablet 4 methocarbamol (Robaxin) 500 MG tablet Take 1 tablet (500 mg) by mouth 4 (four) times a day as needed for muscle spasms for up to 10 days 40 tablet 0 [DISCONTINUED] ALPRAZolam (Xanax) 0.5 MG tablet Take 1 tablet (0.5 mg) by mouth 2 (two) times a dayas needed for anxiety 60 tablet 0 [DISCONTINUED] phentermine 37.5 MG capsule Take 1 capsule (37.5 mg) by mouth in the morning. Take before meals. 30 capsule 0 [DISCONTINUED] phentermine 37.5 MG capsule Take 1 capsule (37.5 mg) by mouth in the morning. Take before meals. 30 capsule 0 No current facility-administered medications on file prior to visit. I have reviewed and reconciled the history and medication list with the patient today. Allergies Allergen Reactions Sulfur Hexafluoride Headache and Shortness of breath Patient experienced facial flushing after administration of Lumason Latex Rash Social History Tobacco Use Smoking status: Never Smokeless tobacco: Never Vaping Use Vaping status: Never Used Substance Use Topics Alcohol use: Not Currently Comment: Once or twice a month- gave up entirely for bariatric surg Drug use: Never Family History Problem Relation Name Age of Onset Heart disease Mother Hypertension Father Dom Walker, bio yumiko Heart disease Father Dom Walker, bio yumiko Diabetes Father Dom Walker, bio yumiko Depression Father Dom Walker, bio yumiko Hypertension Sister Pricila Multiple sclerosis Sister Pricila Diabetes Brother Dom Walker, bio [place] Hypertension Brother Dom Walker, bio [place] COPD Brother Dom Walker, bio [place] Heart attack Brother Dom Walker, bio [place] Asthma Brother Dom Walker, bio [place] Diabetes Maternal Grandmother [place] Heart disease Maternal Grandmother [place] Mental illness Sister Lalita Past Medical History: Diagnosis Date Anemia Anxiety Arthritis COVID-19 03/24/2021 Depression ([facility]) Diabetes mellitus ([facility]) GERD (gastroesophageal reflux disease) Hypertension ([facility]) Inflammatory bowel disease Scoliosis Severe acute respiratory syndrome coronavirus 2 (SARS-CoV-2) detected Visual impairment Past Surgical History: Procedure Laterality Date BACK SURGERY 1988 SLEEVE GASTROPLASTY 07/06/2023 Dr. Martinez SPINE SURGERY Visit Vitals Smoking Status Never Review of Systems Constitutional: Negative. HENT: Negative. Eyes: Negative. Respiratory: Negative. Cardiovascular: Negative. Gastrointestinal: Negative. Genitourinary: Negative. Musculoskeletal: Negative. Skin: Negative. Neurological: Negative. Psychiatric/Behavioral: Negative. Hematological: Negative. Endocrine: Negative. Allergic/Immunologic: Negative. Objective Physical Exam Vitals reviewed. Constitutional: Appearance: Normal appearance. HENT: Head: Normocephalic and atraumatic. Right Ear: External ear normal. Left Ear: External ear normal. Nose: Nose normal. Mouth/Throat: Mouth: Mucous membranes are moist. Eyes: Conjunctiva/sclera: Conjunctivae normal. Cardiovascular: Rate and Rhythm: Normal rate and regular rhythm. Heart sounds: Normal heart sounds. Pulmonary: Effort: Pulmonary effort is normal. Breath sounds: Normal breath sounds. Abdominal: General: Bowel sounds are normal. Palpations: Abdomen is soft. Musculoskeletal: General: Normal range of motion. Cervical back: Normal range of motion. Skin: General: Skin is warm and dry. Neurological: General: No focal deficit present. Mental Status: She is alert and oriented to person, place, and time. Psychiatric: Mood and Affect: Mood normal. Behavior: Behavior normal. Thought Content: Thought content normal. Judgment: Judgment normal. Assessment/Plan 1. Morbid (severe) obesity due to excess calories ([facility]) The pt's wt is down 10 lbs since last appointment, now at 213 lbs, down from 223 lbs. She denies any adverse side effects from the use of the phentermine today. We will continue this medication. Follow up in 1 month. - phentermine (Adipex-P) 37.5 MG tablet; Take 1 tablet (37.5 mg) by mouth in the morning. Take before meals. Dispense: 30 tablet; Refill: 0 2. Type 2 diabetes mellitus with other specified complication, without long-term current use of insulin ([facility]) Hemoglobin A1C 5.3 - POCT Glycated hemoglobin, total No follow-ups on file. documented in this encounterSaint John's [id number] Telephone encounter Note* Telephone Encounter - Yael Rivera NP - 05/18/2024 3:30 PM EDT Requested Prescriptions Signed Prescriptions Disp Refills ALPRAZolam (Xanax) 0.5 MG tablet 60 tablet 0 Sig: TAKE 1 TABLET (0.5 MG) BY MOUTH 2 (TWO) TIMES A DAY NEEDED FOR ANXIETY Authorizing Provider: YAEL RIVERA [facility] [id number] Miscellaneous Notes* Telephone Encounter - Yael Rivera NP - 05/18/2024 3:30 PM EDT Requested Prescriptions Signed Prescriptions Disp Refills ALPRAZolam (Xanax) 0.5 MG tablet 60 tablet 0 Sig: TAKE 1 TABLET (0.5 MG) BY MOUTH 2 (TWO) TIMES A DAY NEEDED FOR ANXIETY Authorizing Provider: YAEL RIVERA documented in this encounterSaint John's [id number] NoteCardiology Clinic Note HPI: Odette Azevedo is a 43 y.o. female With a past medical history including morbid obesity, GERD, and OCD. She was referred to cardiology clinic for perioperative risk stratification prior to gastric bypass surgery. Patient here for 6 mo follow up hypertension and hyperlipidemia. Had lipid panel in Mar 2024. Doesn't take lisinopril anymore. Denies chest pain, SOB, palpitations, and lightheadedness/syncope. Patient adamantly denies any cardiac complaints or concerns. Patient denies any chest pain or shortness of breath. Patient denies any lower extremity edema, orthopnea, or proximal nocturnal dyspnea. No near-syncope or syncope. No dizziness or lightheadedness. Lipid panel within target range Cardiology ROS: Review of Systems Musculoskeletal: Positive for neck pain. All other systems reviewed and are negative. Past Medical History She has a past medical history of Anemia, Anxiety, Awareness under anesthesia (07/22/2007), Class 2 obesity due to excess calories without serious comorbidity with body mass index (BMI) of 38.0 to 38.9 in adult (01/13/2024), Depression, History of transfusion (1988), Hyperlipidemia, Hypertension, IBS (irritable bowel syndrome), Obese, OCD (obsessive compulsive disorder), Other chronic pain (06/21/2023), S/P laparoscopic sleeve gastrectomy (07/06/2023), Scoliosis, and Spinal headache (02/05/2023). Surgical History She has a past surgical history that includes Back surgery (1988); [place] tooth extraction; Spine surgery (1988); and Laparoscopic partial gastrectomy (07/06/2023). Social History She reports that she has never smoked. She has never used smokeless tobacco. She reports that she does not currently use alcohol after a past usage of about 2.0 standard drinks of alcohol per week. She reports that she does not use drugs. Family History Family History Problem Relation Name Age of Onset Diabetes Father TALIB MCKENZIE Heart attack Father TALIB RINCON Hypertension Father TALIB MCKENZIE Asthma Father TALIB MCKENZIE Anxiety disorder Father TALIB MCKENZIE COPD Father TALIB MCKENZIE Heart disease Father TALIB MCKENZIE Hyperlipidemia Father TALIB MCKENZIE Mental illness Father TALIB RINCON Heart attack Brother Deep vein thrombosis Brother Diabetes Maternal Grandmother Greer Jean Alcohol abuse Maternal Grandmother Greer Jean Arthritis Maternal Grandmother Greer [place] Depression Maternal Grandmother Greer [place] Heart disease Maternal Grandmother Greer Jean Miscarriages / Stillbirths Maternal Grandmother Greer Jean Diabetes Paternal Grandfather Max Mckenzie Hypertension Paternal Grandfather Ray Mckenzie Hyperlipidemia Paternal Grandfather Max Mckenzie Mental illness Paternal Grandfather Max Mckenzie Hypertension Paternal Grandmother Shawna Mckenzie Arthritis Paternal Grandmother Shawna Mckenzie Heart disease Paternal Grandmother Shawna Mckenzie Kidney disease Paternal Grandmother Shawna Mckenzie Asthma Brother Aaron Batool Diabetes Brother Aaron Batool Hypertension Brother Aaron Batool Anxiety disorder Brother Aaron Batool COPD Brother Aaron Batool Depression Brother Aaron Batool Heart disease Brother Aaron Batool Hyperlipidemia Brother Aaron Batool Suicide Attempts Brother Aaron Batool Asthma Brother Dom Batool Hypertension Brother Dom Batool COPD Brother Dom Batool Hyperlipidemia Brother Dom Batool Mental illness Brother Dom Batool Hypertension Mother's Sister Monica Nelda Heart disease Mother's Sister Monica Nelda Miscarriages / Stillbirths Mother's Sister Monica Nelda Anxiety disorder Mother Christie Batool Arthritis Mother Christie Batool Depression Mother Christie Batool Alcohol abuse Maternal Grandfather Dom Gregoriocomb Arthritis Maternal Grandfather Dom Gregoriocomb Heart disease Maternal Grandfather Dom Gregoriocomb Hyperlipidemia Maternal Grandfather Dom Gregoriocomb Anxiety disorder Sister Pricila Batool Arthritis Sister Pricila Batool Depression Sister Pricila Batool Depression Sister Felipa Batool Drug abuse Sister Felipa Batool Mental illness Sister Felipa Batool Medications Current Outpatient Medications on File Prior to Visit Medication Sig Dispense Refill ALPRAZolam (Xanax) 0.5 mg tablet TAKE ONE TABLET BY MOUTH TWICE A DAY NEEDED FOR ANXIETY atorvastatin (Lipitor) 20 mg tablet Take 20 mg by mouth at bedtime. b complex vitamins capsule Take 1 capsule by mouth in the morning. biotin 2,500 mcg capsule Take 1 capsule by mouth in the morning. buPROPion XL (Wellbutrin XL) 150 mg 24 hr tablet Take 150 mg by mouth in the morning. Do not crush, chew, or split. busPIRone (Buspar) 5 mg tablet Take 5 mg by mouth two times daily. JUST STARTED 06/29/23 cholecalciferol (Vitamin D3) 25 MCG (1000 units) tablet Take 1,000 Units by mouth in the morning. furosemide (Lasix) 40 mg tablet Take 40 mg by mouth in the morning. multivitamin capsule Take 1 capsule by mouth in the mor (more content not included)...[facility]02-19-2025 History of Present illness Narrative* Yael Rivera, [employer] - 04/26/2024 1:00 PM EST Images from the original note were not included. Subjective Patient ID: Odette Azevedo is a 43 y.o. female who presents for a medication F/U Odette presents today for a medication F/U. She started Adipex on 03-23-24. He r weight then was 236lb. Today's weight is 223.6lb. She is also having issues with neck stiffness for the last 3 weeks. She has tried heat, ice and OTC pain medication has not helped. Current Outpatient Medications on File Prior to Visit Medication Sig Dispense Refill ALPRAZolam (Xanax) 0.5 MG tablet Take 1 tablet (0.5 mg) by mouth 2 (two) times a day as needed for anxiety 60 tablet 0 atorvastatin (Lipitor) 20 MG tablet Take 1 tablet (20 mg) by mouth in the morning. 100 tablet 3 b complex vitamins capsule Take 1 capsule by mouth in the morning. biotin 60772 MCG tablet Take by mouth Daily buPROPion XL (Wellbutrin XL) 150 MG 24 hr tablet TAKE 1 TABLET BY MOUTH EVERY DAY, DO NOT CRUSH, CHEW, OR SPLIT 100 tablet 3 busPIRone (Buspar) 5 MG tablet Take 1 tablet (5 mg) by mouth in the morning and 1 tablet (5 mg) in the evening and 1 tablet (5 mg) before bedtime. 90 tablet 11 cholecalciferol (Vitamin D-3) 25 MCG (1000 UT) tablet Take 1,000 Units by mouth in the morning. [facility] Gas Relief Extra Strength 125 MG chewable tablet fluticasone (Flonase) 50 MCG/ACT nasal spray INSTILL 1-2 SPRAYS INTO EACH NOSTRIL DAILY, BEFORE 1STUSE, PRIME PUMP, AFTER ISE CLEAN TIP AND REPLACE CAP 48 mL 1 furosemide (Lasix) 40 MG tablet Take 1 tablet (40 mg) by mouth Daily 100 tablet 4 phentermine 37.5 MG capsule Take 1 capsule (37.5 mg) by mouth in the morning. Take before meals. 30capsule 0 No current facility-administered medications on file prior to visit. I have reviewed and reconciled the history and medication list with the patient today. Allergies Allergen Reactions Sulfur Hexafluoride Headache and Shortness of breath Patient experienced facial flushing after administration of Lumason Latex Rash Social History Tobacco Use Smoking status: Never Smokeless tobacco: Never Vaping Use Vaping status: Never Used Substance Use Topics Alcohol use: Yes Comment: drinks 2-4 times a month and 6 or more drinks per occassion. Caffeine intake: coffee, chocolate Drug use: Defer Family History Problem Relation Name Age of Onset Heart disease Mother Hypertension Father Heart disease Father Diabetes Father Hypertension Sister Multiple sclerosis Sister Diabetes Brother Hypertension Brother COPD Brother Heart attack Brother Asthma Brother Diabetes Maternal Grandmother Heart disease Maternal Grandmother Past Medical History: Diagnosis Date COVID-19 03/24/2021 Inflammatory bowel disease Severe acute respiratory syndrome coronavirus 2 (SARS-CoV-2) detected Past Surgical History: Procedure Laterality Date BACK SURGERY 1988 SLEEVE GASTROPLASTY 07/06/2023 Dr. Martinez Visit Vitals Smoking Status Never Review of Systems Constitutional: Negative. HENT: Negative. Eyes: Negative. Respiratory: Negative. Cardiovascular: Negative. Gastrointestinal: Negative. Genitourinary: Negative. Musculoskeletal: Negative. Skin: Negative. Neurological: Negative. Psychiatric/Behavioral: Negative. Hematological: Negative. Endocrine: Negative. Allergic/Immunologic: Negative. Objective Physical Exam Vitals reviewed. Constitutional: Appearance: Normal appearance. HENT: Head: Normocephalic and atraumatic. Right Ear: External ear normal. Left Ear: External ear normal. Nose: Nose normal. Mouth/Throat: Mouth: Mucous membranes are moist. Eyes: Conjunctiva/sclera: Conjunctivae normal. Neck: Comments: Decreased ROM Cardiovascular: Rate and Rhythm: Normal rate and regular rhythm. Heart sounds: Normal heart sounds. Pulmonary: Effort: Pulmonary effort is normal. Breath sounds: Normal breath sounds. Abdominal: Palpations: Abdomen is soft. Musculoskeletal: General: Normal range of motion. Cervical back: Rigidity and tenderness present. Skin: General: Skin is warm and dry. Neurological: General: No focal deficit present. Mental Status: She is alert and oriented to person, place, and time. Psychiatric: Mood and Affect: Mood normal. Behavior: Behavior normal. Thought Content: Thought content normal. Judgment: Judgment normal. Assessment/Plan 1. Morbid (severe) obesity due to excess calories (CMS/HCC) The pt continues on phentemine daily as ordered. She does not report any adverse effects from its use. She has lost 13 lbs since starting this medication, going from 236 lb to 223 lbs. She continues to decline a radiology tech consult. Will continue as ordered. Follow up as discussed. - phentermine 37.5 MG capsule; Take 1 capsule (37.5 mg) by mouth in the morning. Take before meals.Dispense: 30 capsule; Refill: 0 2. Muscle spasm (Primary) - methocarbamol (Robaxin) 500 MG tablet; Take 1 tablet (500 mg) by mouth 4 (four) times a day as needed for muscle spasms for up to 10 days Dispense: 40 tablet; Refill: 0 No follow-ups on file. documented in this [facility]02-19-2025 Instructions* Patient Instructions* Yael Rivera NP - 04/26/2024 1:00 PM EST Methocarbamol ordered today. Phentermine reordered. documented in this [facility]02-12-2025 Telephone encounter Note* Telephone Encounter - ROSAURA Obregon - 04/19/2024 9:02 AM EST OARRS reviewed, Rx sent into patient's pharmacy. [facility] [id number] Miscellaneous Notes* Telephone Encounter - ROSAURA Obregon - 04/19/2024 9:02 AM EST OARRS reviewed, Rx sent into patient's pharmacy. documented in this encounterSaint John's [id number] NoteBariatric Nutrition Telehealth Follow Up Visit: Name: Odette Azevedo Date: 1980 Age: 43 y.o. Date of Visit: 04/04/24 Visit #: Nutrition assessment/counseling 9 month post op gastric sleeve on 07/06/23 This visit was conducted [id number] with the use of audio and video technology using the [employer] Remote Telehealth between patient and provider for a virtual visit. Prior to start of visit the patient was informed that using a 3rd alliance party telecommunications application may carry some privacy risk? Yes Past Medical History: Diagnosis Date Anemia Anxiety Awareness under anesthesia 07/22/2007 Class 2 obesity due to excess calories without serious comorbidity with body mass index (BMI) of 38.0 to 38.9 in adult 01/13/2024 Depression History of transfusion 1988 Hyperlipidemia Hypertension IBS (irritable bowel syndrome) Obese OCD (obsessive compulsive disorder) Other chronic pain 06/21/2023 S/P laparoscopic sleeve gastrectomy 07/06/2023 Scoliosis Spinal headache 02/05/2023 Current Outpatient Medications Medication Instructions ALPRAZolam (Xanax) 0.5 mg tablet TAKE ONE TABLET BY MOUTH TWICE A DAY NEEDED FOR ANXIETY atorvastatin (LIPITOR) 20 mg, oral, Nightly b complex vitamins capsule 1 capsule, oral, Daily biotin 2,500 mcg capsule 1 capsule, oral, Every morning buPROPion XL (WELLBUTRIN XL) 150 mg, oral, Daily, Do not crush, chew, or split. busPIRone (BUSPAR) 5 mg, oral, 3 times daily, JUST STARTED 06/29/23 cholecalciferol (VITAMIN D3) 1,000 Units, oral, Daily furosemide (LASIX) 40 mg, oral, Daily RT lisinopril 5 mg, oral, Daily multivitamin capsule 1 capsule, oral, Daily Diabetes Mellitus: prediabetes on jaurdice GERD/Reflux: none Any medication for Reflux: none Nausea/vomiting/Diarrhea/constipation: good BM Labs: labs drawn at [facility] but not all results uploaded. Abnormal Physical Assessment Findings: hair loss has stopped but hair remains thin. Allergies: Allergies Allergen Reactions Lumason [Sulfur Hexafluoride Microsphr] Shortness of breath and Headache Patient experienced facial flushing after administration of Lumason Latex Rash Anthropometrics: Initial BMI=54.4 Initial Weight at bariatric consult: 317# Weight on surgery day: 299# Current BMI: 40.96 IBW: 120# Home scale= 219 # Weight Lost (lbs): 98 # since surgery 07/15/2023 8:44 AM 07/22/2023 8:47 AM 08/05/2023 10:15 AM 09/02/2023 9:27 AM 10/12/2023 9:15 AM 11/23/2023 12:03 PM 01/14/2024 2:06 PM Vitals Systolic 136 132 124 122 110 Diastolic 77 90 78 75 79 Heart Rate 81 78 76 81 84 Temp 36.7 ???C (98.1 ???F) 36.6 ???C (97.8 ???F) 36.6 ???C (97.8 ???F) 36.8 ???C (98.2 ???F) Height (in) 1.626 m (5' 4 ) 1.626 m (5' 4 ) 1.626 m (5' 4 ) Weight (lb) 291.6 288.8 283 272.8 263 248 238.6 BMI 50.05 kg/m2 49.57 kg/m2 48.58 kg/m2 46.83 kg/m2 45.14 kg/m2 42.57 kg/m2 40.96 kg/m2 BSA (m2) 2.44 m2 2.43 m2 2.4 m2 2.37 m2 2.32 m2 2.25 m2 2.21 m2 Visit Report Report Report Report Nutrition History Snacks: cheese or cottage cheese Beverages: water, coffee and skinny syrup 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 and low carb Current Vitamins and supplements: iron with iron, Calcium, VitD, VitB complex, biotin 20,000 daily Exercise/Activity: 12,000 steps per day Protein supplement intake: no protein shakes Food allergies/sensitivities/dislikes: rice How often is patient eating outside of the home?: none How many meals and snacks: 3 protein meals and protein snack Following guidelines drinking 30 minutes outside of meals: yes Straw/gum use: yes Carbonated beverage intake: none Eating/Chewing Pace: slow Eating until content vs Full: yes Do you know your daily protein goals: 80 gm Alcohol use: none Smoking: none maladaptive eating behaviors: none Any increased feeling of depression: none Support from family and friends: none Knowledge of [facility] Bariatric Support group: yes Nutrition Diagnosis: Obesity related to energy imbalance as evidenced by BMI = 40.9 Nutrition Education/Assessment: Odette denies N/V/D, constipation, GERD and abdominal pain. She has good energy levels. She is focusing her plate on meat and vegetables. She does not drink protein shakes d/t dislikes them . She is meeting her protein needs. She aims for 80 gm protein per day. She continues to lose weight. Odette does not find her self hungry on most days. Odette is following the 30 minute rule, avoiding carbonated and sugar beverages. She is eating slow and mindful and stopping at content vs full. Today we reviewed protein sources. We discussed incorporating only healthy carbohydrates (< 2oz) with fiber and protein such as oats, lentils, quinoa, beans, squash. Focus plate with protein, vegetables and fruit. All question answered. Goals: Weight loss goals: 180# Calorie Intake: 1000 kcal Protein Intake: 60-80 gm protein (more content not included)...[facility]01-16-2025 History of Present illness Narrative* Yael Rivera, [employer] - 03/23/2024 4:30 PM EST Images from the original note were not included. Subjective Patient ID: Odette Azevedo is a 43 y.o. female who presents for Obesity. PT WAS ON ADIPEX IN 2022 Last rx for this med was 11/2022 Pt reports she tolerated med well and was able to successfully loose weight with medication She does exercise and tries to eat healthy Current Outpatient Medications on File Prior to Visit Medication Sig Dispense Refill ALPRAZolam (Xanax) 0.5 MG tablet TAKE 1 TABLET (0.5 MG) BY MOUTH 2 (TWO) TIMES A DAY NEEDED FOR ANXIETY 60 tablet 0 atorvastatin (Lipitor) 20 MG tablet Take 1 tablet (20 mg) by mouth in the morning. 100 tablet 3 b complex vitamins capsule Take 1 capsule by mouth in the morning. biotin 31949 MCG tablet Take by mouth Daily buPROPion XL (Wellbutrin XL) 150 MG 24 hr tablet TAKE 1 TABLET BY MOUTH EVERY DAY, DO NOT CRUSH, CHEW, OR SPLIT 100 tablet 3 busPIRone (Buspar) 5 MG tablet Take 1 tablet (5 mg) by mouth in the morning and 1 tablet (5 mg) in the evening and 1 tablet (5 mg) before bedtime. 90 tablet 11 cholecalciferol (Vitamin D-3) 25 MCG (1000 UT) tablet Take 1,000 Units by mouth in the morning. [facility] Gas Relief Extra Strength 125 MG chewable tablet fluticasone (Flonase) 50 MCG/ACT nasal spray INSTILL 1-2 SPRAYS INTO EACH NOSTRIL DAILY, BEFORE 1STUSE, PRIME PUMP, AFTER ISE CLEAN TIP AND REPLACE CAP 48 mL 1 furosemide (Lasix) 40 MG tablet Take 1 tablet (40 mg) by mouth Daily 100 tablet 4 No current facility-administered medications on file prior to visit. I have reviewed and reconciled the history and medication list with the patient today. Allergies Allergen Reactions Sulfur Hexafluoride Headache and Shortness of breath Patient experienced facial flushing after administration of Lumason Latex Rash Social History Tobacco Use Smoking status: Never Smokeless tobacco: Never Vaping Use Vaping status: Never Used Substance Use Topics Alcohol use: Yes Comment: drinks 2-4 times a month and 6 or more drinks per occassion. Caffeine intake: coffee, chocolate Drug use: Defer Family History Problem Relation Name Age of Onset Heart disease Mother Hypertension Father Heart disease Father Diabetes Father Hypertension Sister Multiple sclerosis Sister Diabetes Brother Hypertension Brother COPD Brother Heart attack Brother Asthma Brother Diabetes Maternal Grandmother Heart disease Maternal Grandmother Past Medical History: Diagnosis Date COVID-19 03/24/2021 Inflammatory bowel disease Severe acute respiratory syndrome coronavirus 2 (SARS-CoV-2) detected Past Surgical History: Procedure Laterality Date BACK SURGERY 1988 SLEEVE GASTROPLASTY 07/06/2023 Dr. Martinez Visit Vitals Ht 5' 4 BMI 41.61 kg/m Smoking Status Never BSA 2.23 m Review of Systems Constitutional: Negative. HENT: Negative. Eyes: Negative. Respiratory: Negative. Cardiovascular: Negative. Gastrointestinal: Negative. Genitourinary: Negative. Musculoskeletal: Negative. Skin: Negative. Neurological: Negative. Psychiatric/Behavioral: Negative. Endocrine: Negative. Allergic/Immunologic: Negative. Objective Physical Exam Vitals reviewed. Constitutional: Appearance: She is obese. HENT: Head: Normocephalic and atraumatic. Right Ear: External ear normal. Left Ear: External ear normal. Nose: Nose normal. Mouth/Throat: Mouth: Mucous membranes are moist. Cardiovascular: Rate and Rhythm: Normal rate and regular rhythm. Heart sounds: Normal heart sounds. Pulmonary: Effort: Pulmonary effort is normal. Breath sounds: Normal breath sounds. Abdominal: Palpations: Abdomen is soft. Musculoskeletal: General: Normal range of motion. Cervical back: Normal range of motion and neck supple. Skin: General: Skin is warm and dry. Neurological: General: No focal deficit present. Mental Status: She is alert and oriented to person, place, and time. Psychiatric: Mood and Affect: Mood normal. Assessment/Plan 1. Morbid (severe) obesity due to excess calories (CMS/HCC) (Primary) Discussed weight loss options with the patient. Cardiovascular benefits of weight loss reviewed. Encouraged portion control, decrease simple sugars and carbohydrates, and gradually increase activity level. Lifestyle modifications must be continued in order to maintain weight loss. Patient voiced understanding to the above and would like to start Phentermine. New Rx sent in for patient. Goal will be gradual steady weight loss. - phentermine 37.5 MG capsule; Take 1 capsule (37.5 mg) by mouth in the morning. Take before meals.Dispense: 30 capsule; Refill: 0 2. Breast screening - Bilateral screening mammogram; Future - Bilateral screening mammogram 3. Body mass index (BMI) 40.0-44.9, adult (CMS/HCC) No follow-ups on file. documented in this encounterSaint John's [id number] Instructions* Patient Instructions* Yael Rivera NP - 03/23/2024 4:30 PM EST Requested Prescriptions Signed Prescriptions Disp Refills phentermine 37.5 MG capsule 30 capsule 0 Sig: Take 1 capsule (37.5 mg) by mouth in the morning. Take before meals. documented in this encounterSaint John's [id number] Telephone encounter Note* Telephone Encounter - ROSAURA Obregon - 01/31/2024 10:36 AM EST OARRS reviewed, Rx sent into patient's pharmacy. [facility] [id number] Miscellaneous Notes* Telephone Encounter - ROSAURA Obregon - 01/31/2024 10:36 AM EST OARRS reviewed, Rx sent into patient's pharmacy. * Telephone Encounter - MP NICHOLSON - 01/31/2024 10:10 AM EST Patient is asking for a refill on their Alrazolam 0.5 mg documented in this encounterSaint John's [id number] Telephone encounter Note* Telephone Encounter - MP NICHOLSON - 01/31/2024 10:10 AM EST Patient is asking for a refill on their Alrazolam 0.5 mg [facility] [id number] [facility] Follow Up HPI: Odette Azevedo is a 43 y.o. year old female patient who had a Laparoscopic Sleeve Gastrectomy on 07/06/[address] Jeffery Connell . Odette is here for 6 months follow up. Patient's weight prior to the program was 326 lbs. she now weighs 238 lbs. she lost a total of 88 lbs, which is 27% or her Initial weight. Odette concerns: She is concerned about her mild hair loss. Reported Symptoms Acid Reflux No Edema No Nausea and Vomiting No Non healing wound No Diarrhea No Surgical Incision sites No Constipation No Activity Limitation No Dysphagia No Recent ED visit No Hair loss Yes, Dry Skin No Brittle nails No PMH Surgical History Past Medical History: Diagnosis Date Anemia Anxiety Awareness under anesthesia July 22, 2007 Depression History of transfusion 1988 Hyperlipidemia Hypertension IBS (irritable bowel syndrome) Obese OCD (obsessive compulsive disorder) Other chronic pain 06/21/2023 Scoliosis Spinal headache 02/05/2023 Past Surgical History: Procedure Laterality Date BACK SURGERY 1988 SPINE SURGERY 1988 WISDOM TOOTH EXTRACTION Current Medications Allergies Current Outpatient Medications Medication Instructions ALPRAZolam (Xanax) 0.5 mg tablet TAKE ONE TABLET BY MOUTH TWICE A DAY NEEDED FOR ANXIETY atorvastatin (LIPITOR) 20 mg, oral, Nightly b complex vitamins capsule 1 capsule, oral, Daily biotin 2,500 mcg capsule 1 capsule, oral, Every morning buPROPion SR (WELLBUTRIN SR) 150 mg, oral, Once Daily busPIRone (BUSPAR) 5 mg, oral, 3 times daily, JUST STARTED 06/29/23 cholecalciferol (VITAMIN D3) 1,000 Units, oral, Daily furosemide (LASIX) 40 mg, oral, Daily RT Jardiance 25 mg, Daily lisinopril 5 mg, oral, Daily multivitamin capsule 1 capsule, oral, Daily Allergies Allergen Reactions Lumason [Sulfur Hexafluoride Microsphr] Shortness of breath and Headache Patient experienced facial flushing after administration of Lumason Latex Rash Previous Social History Tobacco Use: Low Risk (09/02/2023) Patient History Smoking Tobacco Use: Never Smokeless Tobacco Use: Never Passive Exposure: Not on file Alcohol Use: Not on file Social History Substance and Sexual Activity Drug Use Never Current Smoking Current Alcohol Use Current R Drug Use No No No Wt Readings from Last 5 Encounters: 11/23/23 112 kg (248 lb) 10/12/23 119 kg (263 lb) 09/02/23 124 kg (272 lb 12.8 oz) 08/05/23 128 kg (283 lb) 07/22/23 131 kg (288 lb 12.8 oz) BMI Readings from Last 5 Encounters: 11/23/23 42.57 kg/m??? 10/12/23 45.14 kg/m??? 09/02/23 46.83 kg/m??? 08/05/23 48.58 kg/m??? 07/22/23 49.57 kg/m??? BP Readings from Last 5 Encounters: 11/23/23 122/75 09/02/23 124/78 07/22/23 132/90 07/15/23 136/77 07/07/23 122/81 Pulse Readings from Last 5 Encounters: 11/23/23 81 09/02/23 76 07/22/23 78 07/15/23 81 07/07/23 67 Recent Lab results Lab Results Component Value Date HGBA1C 5.3 01/07/2023 HGB 12.6 07/07/2023 HCT 39.8 07/07/2023 ALBUMIN 4.6 01/07/2023 CREATININE 0.72 07/07/2023 [id number] 192 01/07/2023 VITAMINB6 10.7 (L) 01/07/2023 VITAMINA 0.70 01/07/2023 VITAMINA 0.03 01/07/2023 VITAMINA Normal 01/07/2023 Review of Systems Constitutional: Negative for activity change, appetite change, chills, fever and unexpected weight change. Eyes: Negative for visual disturbance. Respiratory: Negative for chest tightness, shortness of breath and wheezing. Cardiovascular: Negative for chest pain and palpitations. Gastrointestinal: Negative for abdominal pain, constipation, diarrhea, nausea and vomiting. Endocrine: Negative for polyphagia. Genitourinary: Negative for difficulty urinating. Skin: Negative for color change and rash. Allergic/Immunologic: Negative for immunocompromised state. Neurological: Negative for headaches. Hematological: Does not bruise/bleed easily. Psychiatric/Behavioral: The patient is not nervous/anxious. All other systems reviewed and are negative. Patient Compliance Calorie > 1000 Kcal/daily Yes Calorie Tracking Use Yes on her own Protein > 60 gm daily No 1 shake a day Fluid intake daily Yes Multivitamins with Iron daily Yes Progressive Physical Exercise No- she has 2 jobs, she will start to go with the gym Caffeine use No Carbonation No Physical Exam Constitutional: Appearance: Normal appearance. HENT: Head: Normocephalic. Right Ear: External ear normal. Left Ear: External ear normal. Nose: Nose normal. Eyes: Conjunctiva/sclera: Conjunctivae normal. Cardiovascular: Rate and Rhythm: Normal rate and regular rhythm. Pulmonary: Effort: Pulmonary effort is normal. No respiratory distress. Abdominal: General: There is no distension. Palpations: Abdomen is soft. Tenderness: There is no abdominal tenderness. There is no guarding. Musculoskeletal: General: Normal range of motio (more content not included)...[facility]10-30-2024 History of Present illness Narrative* ROSAURA Obregon - 01/05/2024 5:00 PM EDT Images from the original note were not included. Subjective Patient ID: Odette Azevedo is a 43 y.o. female who presents for URI. Odette is present today for evaluation of URI. Admits sinus pressure/pain, headache, post nasal drainage, runny nose, nasal congestion, cough (dry), hoarseness, sore throat earlier in the week but that is now better. This all started on Wednesday, yovani seltzer cold and flu and the only thing it is helping is the runny nose. Pressure is like a mask on her face. Also the top of her head. Current Outpatient Medications on File Prior to Visit Medication Sig Dispense Refill ALPRAZolam (Xanax) 0.5 MG tablet Take 1 tablet (0.5 mg) by mouth 2 (two) times a day as needed for anxiety 60 tablet 0 atorvastatin (Lipitor) 20 MG tablet Take 1 tablet (20 mg) by mouth in the morning. 100 tablet 3 b complex vitamins capsule Take 1 capsule by mouth in the morning. biotin 37767 MCG tablet Take by mouth Daily buPROPion XL (Wellbutrin XL) 150 MG 24 hr tablet Take 1 tablet (150 mg) by mouth Daily Do not crush, chew, or split. 30 tablet 3 busPIRone (Buspar) 5 MG tablet Take 1 tablet (5 mg) by mouth in the morning and 1 tablet (5 mg) in the evening and 1 tablet (5 mg) before bedtime. 90 tablet 11 cholecalciferol (Vitamin D-3) 25 MCG (1000 UT) tablet Take 1,000 Units by mouth in the morning. [facility] Gas Relief Extra Strength 125 MG chewable tablet furosemide (Lasix) 40 MG tablet Take 1 tablet (40 mg) by mouth Daily 100 tablet 4 [DISCONTINUED] ALPRAZolam (Xanax) 0.5 MG tablet Take 1 tablet (0.5 mg) by mouth 2 (two) times a dayas needed for anxiety 60 tablet 0 [DISCONTINUED] lisinopril 5 MG tablet Take 1 tablet (5 mg) by mouth Daily 90 tablet 0 [DISCONTINUED] PARoxetine (Paxil) 40 MG tablet TAKE 1 TABLET BY MOUTH EVERY DAY AT THE SAME TIME EACH DAY 90 tablet 1 No current facility-administered medications on file prior to visit. I have reviewed and reconciled the history and medication list with the patient today. Allergies Allergen Reactions Sulfur Hexafluoride Headache and Shortness of breath Patient experienced facial flushing after administration of Lumason Latex Rash Social History Tobacco Use Smoking status: Never Smokeless tobacco: Never Vaping Use Vaping status: Never Used Substance Use Topics Alcohol use: Yes Comment: drinks 2-4 times a month and 6 or more drinks per occassion. Caffeine intake: coffee, chocolate Drug use: Defer Family History Problem Relation Name Age of Onset Heart disease Mother Hypertension Father Heart disease Father Diabetes Father Hypertension Sister Multiple sclerosis Sister Diabetes Brother Hypertension Brother COPD Brother Heart attack Brother Asthma Brother Diabetes Maternal Grandmother Heart disease Maternal Grandmother Past Medical History: Diagnosis Date COVID-19 03/24/2021 Inflammatory bowel disease Severe acute respiratory syndrome coronavirus 2 (SARS-CoV-2) detected Past Surgical History: Procedure Laterality Date BACK SURGERY 1988 SLEEVE GASTROPLASTY 07/06/2023 Dr. Martinez Visit Vitals BP 98/72 Pulse 83 Temp 99.1 F Resp 16 Ht 5' 4 Wt 242 lb 6.4 oz SpO2 98% BMI 41.61 kg/m Smoking Status Never BSA 2.23 m Review of Systems Constitutional: Negative for chills, fatigue and fever. HENT: Positive for congestion, postnasal drip, rhinorrhea, sinus pressure, sinus pain and voice change. Negative for ear pain and sore throat. Respiratory: Positive for cough. Negative for shortness of breath and wheezing. Cardiovascular: Negative for chest pain, palpitations and leg swelling. Gastrointestinal: Negative for abdominal pain, constipation, diarrhea, nausea and vomiting. Neurological: Positive for headaches. Objective Physical Exam Constitutional: General: She is not in acute distress. Appearance: She is well-developed. She is obese. She is ill-appearing. HENT: Head: Normocephalic and atraumatic. Right Ear: Tympanic membrane and ear canal normal. Left Ear: Ear canal normal. Tympanic membrane is erythematous and bulging. Nose: Congestion present. Right Turbinates: Swollen. Left Turbinates: Swollen. Right Sinus: Maxillary sinus tenderness and frontal sinus tenderness present. Left Sinus: Maxillary sinus tenderness and frontal sinus tenderness present. Mouth/Throat: Mouth: Mucous membranes are moist. Pharynx: Posterior oropharyngeal erythema (Mild) and postnasal drip present. Eyes: General: No scleral icterus. Conjunctiva/sclera: Conjunctivae normal. Cardiovascular: Rate and Rhythm: Normal rate and regular rhythm. Heart sounds: Normal heart sounds. No murmur heard. Pulmonary: Effort: Pulmonary effort is normal. No respiratory distress. Breath sounds: Normal breath sounds. No wheezing, rhonchi or rales. Lymphadenopathy: Cervical: Cervical adenopathy (Submandibular Bilat) present. Skin: General: Skin is warm and dry. Neurological: General: No focal deficit present. Mental Status: She is alert and oriented to person, place, and time. Psychiatric: Mood and Affect: Mood normal. Behavior: Behavior normal. Assessment/Plan Diagnoses and all orders for this visit: Acute left otitis media - cefdinir (Omnicef) 300 MG capsule; Take 1 capsule (300 mg) by mouth in the morning and 1 capsule (300 mg) before bedtime. Do all this for 10 days. - fluticasone (Flonase) 50 MCG/ACT nasal spray; Administer 1-2 sprays into each nostril Daily Shakegently. Before first use, prime pump. After use, clean tip and replace cap. - fluconazole (Diflucan) 150 MG tablet; Take 1 tablet (150 mg) by mouth Daily for 1 day, THEN 1 tablet (150 mg) Daily for 1 day. Take doses 3 days apart. Start the above as directed. Reviewed potential s/e with patient. Take entire Rx even if symptoms improve. Encouraged probiotic while on antibiotic. Increase water intake, get plenty of rest. Tylenol/Motrin prn. Fluconazole if needed for yeast infection. Contact office if no improvement in one week. Acute non-recurrent pansinusitis - cefdinir (Omnicef) 300 MG capsule; Take 1 capsule (300 mg) by mouth in the morning and 1 capsule (300 mg) before bedtime. Do all this for 10 days. - fluticasone (Flonase) 50 MCG/ACT nasal spray; Administer 1-2 sprays into each nostril Daily Shakegently. Before first use, prime pump. After use, clean tip and replace cap. Can take OTC sinus medication for symptomatic relief. Flonase as needed, she has used it before with good results. Follow up if symptoms worsen or fail to improve. documented in this [facility]10-24-2024 Telephone encounter Note* Telephone Encounter - ROSAURA Obregon - 12/30/2023 10:02 AM EDT OARRS reviewed, Rx [facility]'s pharmacy. [id number] Miscellaneous Notes* Telephone Encounter - ROSAURA Obregon - 12/30/2023 10:02 AM EDT OARRS reviewed, Rx sent into patient's pharmacy. documented in this [facility]10-22-2024 Telephone encounter Note* Telephone Encounter - ROSAURA Obregon - 12/28/2023 11:11 AM EDT Sent via my chart message [id number] Miscellaneous Notes* Telephone Encounter - ROSAURA Obregon - 12/28/2023 11:11 AM EDT Sent via my chart message * Telephone Encounter - ROSAURA Obregon - 12/28/2023 8:30 AM EDT Please let pt know that her recent labs were stable or normal. Stay hydrated, no other concerns at this time. documented in this [facility]10-22-2024 Telephone encounter Note* Telephone Encounter - ROSAURA Obregon - 12/28/2023 8:30 AM EDT Please let pt know that her recent labs were stable or normal. Stay hydrated, no other concerns at this time. [facility] [id number] History of Present illness Narrative* Rose Bradford MD - 12/27/2023 8:54 AM EDTAssociated Problem(s): Body mass index (BMI) 50.0- 59.9, adult ([facility]) Ply[employer]s Calisthenics * Rose Bradford MD - 12/27/2023 8:53 AM EDTAssociated Problem(s): Morbid (severe) obesity due to excess calories ([facility]) Diet and Exercise Encouraged * Rose Bradford MD - 12/27/2023 8:47 AM EDTAssociated Problem(s): Type 2 diabetes mellitus, without long-term current use of insulin ([facility]) No Tobacco use Follow ADA 1800 diet low carbohydrate Continue Med Compliance Goal LDL less than 100Goal BP 130/80 Goal HgbA1c < 7.0% Monitor Feet, monitor for infection Needs Exercise Yearly eye exams Prior to your visit today we reviewed your chart and outlined testing and treatment needed foryour care. Reviewed poissble complications of diabetes including, loss of vision, kidney failure and increased risk of heart attacks and stroke. We made recommendations on how to control your blood sugars, and minimize your risk of these complications. We discussed your current barriers to a healthy living and importance of healthy diet and exercise. * Rose Bradford MD - 12/27/2023 8:30 AM EDT Images from the original note were not included. HPI Diabetes Additional comments: Last A1c was 5.2 Med Refill Additional comments: Alprazolam Anxiety Additional comments: She is on alprazolam, wellbutrin, and buspirone and is working well for her. Last edited by Holley Kelly LPN on 12/27/2023 8:44 AM. Subjective Patient ID: Odette Azevedo is a 43 y.o. female who presents for Diabetes (Last A1c was 5.2), Med Refill (Alprazolam), and Anxiety (She is on alprazolam, wellbutrin, and buspirone and is working wellfor her.). Diabetes She presents for her follow-up diabetic visit. She has type 2 diabetes mellitus. Her disease coursehas been improving. There are no hypoglycemic associated symptoms. Pertinent negatives for hypoglycemia include no confusion, dizziness, nervousness/anxiousness, speech difficulty or tremors. There are no diabetic associated symptoms. Pertinent negatives for diabetes include no chest pain and no fatigue. There are no hypoglycemic complications. There are no diabetic complications. Risk factors for coronary artery disease include diabetes mellitus. Current diabetic treatment includes oral agent (monotherapy). She is compliant with treatment all of the time. Current Outpatient Medications on File Prior to Visit Medication Sig Dispense Refill [facility] Gas Relief Extra Strength 125 MG chewable tablet [DISCONTINUED] PARoxetine (Paxil) 40 MG tablet TAKE 1 TABLET BY MOUTH EVERY DAY AT THE SAME TIME EACH DAY ALPRAZolam (Xanax) 0.5 MG tablet Take 1 tablet (0.5 mg) by mouth 2 (two) times a day as needed for anxiety 60 tablet 0 atorvastatin (Lipitor) 20 MG tablet Take 1 tablet (20 mg) by mouth in the morning. 100 tablet 3 b complex vitamins capsule Take 1 capsule by mouth in the morning. biotin 81045 MCG tablet Take by mouth Daily buPROPion XL (Wellbutrin XL) 150 MG 24 hr tablet Take 1 tablet (150 mg) by mouth Daily Do not crush, chew, or split. 30 tablet 3 busPIRone (Buspar) 5 MG tablet Take 1 tablet (5 mg) by mouth in the morning and 1 tablet (5 mg) in the evening and 1 tablet (5 mg) before bedtime. 90 tablet 11 cholecalciferol (Vitamin D-3) 25 MCG (1000 UT) tablet Take 1,000 Units by mouth in the morning. furosemide (Lasix) 40 MG tablet Take 1 tablet (40 mg) by mouth Daily 100 tablet 4 lisinopril 5 MG tablet Take 1 tablet (5 mg) by mouth Daily 90 tablet 0 [DISCONTINUED] Jardiance 25 MG TAKE 1 TABLET BY MOUTH EVERY DAY AT THE SAME TIME 30 tablet 3 No current facility-administered medications on file prior to visit. I have reviewed and reconciled the history and medication list with the patient today. Allergies Allergen Reactions Sulfur Hexafluoride Headache and Shortness of breath Patient experienced facial flushing after administration of Lumason Latex Rash Social History Tobacco Use Smoking status: Never Smokeless tobacco: Never Substance Use Topics Alcohol use: Yes Comment: drinks 2-4 times a month and 6 or more drinks per occassion. Caffeine intake: coffee, chocolate Drug use: Defer Family History Problem Relation Name Age of Onset Heart disease Mother Hypertension Father Heart disease Father Diabetes Father Hypertension Sister Multiple sclerosis Sister Diabetes Brother Hypertension Brother COPD Brother Heart attack Brother Asthma Brother Diabetes Maternal Grandmother Heart disease Maternal Grandmother Past Medical History: Diagnosis Date COVID-19 03/24/2021 Inflammatory bowel disease Severe acute respiratory syndrome coronavirus 2 (SARS-CoV-2) detected Past Surgical History: Procedure Laterality Date BACK SURGERY 1988 SLEEVE GASTROPLASTY 07/06/2023 Dr. Martinez Visit Vitals BP 102/74 Pulse 85 Resp 16 Ht 5' 4 Wt 239 lb 9.6 oz SpO2 98% BMI 41.13 kg/m Smoking Status Never BSA 2.22 m Review of Systems Constitutional: Positive for unexpected weight change. Negative for chills, fatigue and fever. Respiratory: Negative for cough. Cardiovascular: Negative for chest pain. Gastrointestinal: Negative for abdominal pain, blood in stool, constipation, diarrhea, nausea and vomiting. Genitourinary: Negative for dysuria, enuresis, frequency and hematuria. Musculoskeletal: Negative for back pain. Neurological: Negative for dizziness, tremors, syncope, facial asymmetry and speech difficulty. Psychiatric/Behavioral: Negative for agitation, behavioral problems, confusion and dysphoric mood. The patient is not nervous/anxious. Objective Physical Exam Constitutional: General: She is not in acute distress. Appearance: Normal appearance. HENT: Head: Normocephalic. Neck: Vascular: No carotid bruit. Cardiovascular: Rate and Rhythm: Normal rate and regular rhythm. Pulmonary: Effort: Pulmonary effort is normal. No respiratory distress. Breath sounds: Normal breath sounds. Neurological: General: No focal deficit present. Mental Status: She is alert and oriented to person, place, and time. Psychiatric: Mood and Affect: Mood normal. Assessment/Plan Problem List Items Addressed This Visit Morbid (severe) obesity due to excess calories ([facility]) Diet and Exercise Encouraged Type 2 diabetes mellitus, without long-term current use of insulin ([facility]) No Tobacco use Follow ADA 1800 diet low carbohydrate Continue Med Compliance Goal LDL less than 100Goal BP 130/80 Goal HgbA1c < 7.0% Monitor Feet, monitor for infection Needs Exercise Yearly eye exams Prior to your visit today we reviewed your chart and outlined testing and treatment needed foryour care. Reviewed poissble complications of diabetes including, loss of vision, kidney failure and increased risk of heart attacks and stroke. We made recommendations on how to control your blood sugars, and minimize your risk of these complications. We discussed your current barriers to a healthy living and importance of healthy diet and exercise. Relevant Orders POCT Glycated hemoglobin, total (Completed) Body mass index (BMI) 50.0-59.9, adult (CMS/HCC) [employer] Calisthenics No follow-ups on file. documented in this encounterSaint [facility] [id number] NoteCardiology Clinic Note Chief Complaint: Patient here for 8 mo follow up hypertension and hyperlipidemia. HPI: Odette Azevedo is a 43 y.o. female With a past medical history including morbid obesity, GERD, and OCD. She was referred to cardiology clinic for perioperative risk stratification prior to gastric bypass surgery. Patient without any cardiac complaints or concerns. However, due to unclear functional status, stress test and echo were performed Patient here for 8 mo follow up hypertension and hyperlipidemia. Had gastric sleeve in June 2023. She will have annual routine labs done in Jan 2024 for PCP. Patient adamantly denies any cardiac complaints or concerns. Patient denies any chest pain or shortness of breath. Patient denies any lower extremity edema, orthopnea, or proximal nocturnal dyspnea. No near-syncope or syncope. No dizziness or lightheadedness. Surgery was without any complications. Cardiology ROS: Review of Systems All other systems reviewed and are negative. Past Medical History She has a past medical history of Anemia, Anxiety, Awareness under anesthesia (July 22, 2007), Depression, History of transfusion (1988), Hyperlipidemia, Hypertension, IBS (irritable bowel syndrome), Obese, OCD (obsessive compulsive disorder), Other chronic pain (06/21/2023), Scoliosis, and Spinal headache (02/05/2023). Surgical History She has a past surgical history that includes Back surgery (1988); [place] tooth extraction; and Spine surgery (1988). Social History She reports that she has never smoked. She has never used smokeless tobacco. She reports that she does not currently use alcohol after a past usage of about 2.0 standard drinks of alcohol per week. She reports that she does not use drugs. Family History Family History Problem Relation Name Age of Onset Diabetes Father TALIB MCKENZIE Heart attack Father TALIB MCKENZIE Hypertension Father TALIB MCKENZIE Asthma Father TALIB MCKENZIE Anxiety disorder Father TALIB MCKENZIE COPD Father TALIB MCKENZIE Heart disease Father TALIB MCKENZIE Hyperlipidemia Father TALIB MCKENZIE Mental illness Father TALIB MCKENZIE Heart attack Brother Deep vein thrombosis Brother Diabetes Maternal Grandmother [place] Alcohol abuse Maternal Grandmother [place] Arthritis Maternal Grandmother [place] Depression Maternal Grandmother [place] Heart disease Maternal Grandmother [place] Miscarriages / Stillbirths Maternal Grandmother [place] Diabetes Paternal Grandfather Ray Mckenzie Hypertension Paternal Grandfather Ray Mckenzie Hyperlipidemia Paternal Grandfather Ray Mckenzie Mental illness Paternal Grandfather Ray Mckenzie Hypertension Paternal Grandmother Shawna Mckenzie Arthritis Paternal Grandmother Shawna Mckenzie Heart disease Paternal Grandmother Shawna Mckenzie Kidney disease Paternal Grandmother Shawna Mckenzie Asthma Brother Aaron Batool Diabetes Brother Aaron Batool Hypertension Brother Aaron Batool Anxiety disorder Brother Aaron Batool COPD Brother Aaron Batool Depression Brother Aaron Batool Heart disease Brother Aaron Batool Hyperlipidemia Brother Aaron Castrejonyman Suicide Attempts Brother Aaron Batool Asthma Brother Dom Batool Hypertension Brother Dom Batool COPD Brother Dom Castrejonyman Hyperlipidemia Brother Dom Castrejonyman Mental illness Brother Dom Castrejonyman Hypertension Mother's Sister Monica Nelda Heart disease Mother's Sister Monica Lutz Miscarriages / Stillbirths Mother's Sister Monica Lutz Anxiety disorder Mother Christie Renae Arthritis Mother Christie Renae Depression Mother Christie Renae Alcohol abuse Maternal Grandfather Dom Gregoriocomb Arthritis Maternal Grandfather Dom Gregoriocomb Heart disease Maternal Grandfather Dom Gregoriocomb Hyperlipidemia Maternal Grandfather Dom Gregoriocomb Anxiety disorder Sister Pricila Renae Arthritis Sister Pricila Renae Depression Sister Pricila Renae Depression Sister Felipa Renae Drug abuse Sister Felipa Renae Mental illness Sister Felipa Renae Medications Current Outpatient Medications on File Prior to Visit Medication Sig Dispense Refill ALPRAZolam (Xanax) 0.5 mg tablet TAKE ONE TABLET BY MOUTH TWICE A DAY NEEDED FOR ANXIETY atorvastatin (Lipitor) 20 mg tablet Take 20 mg by mouth at bedtime. b complex vitamins capsule Take 1 capsule by mouth in the morning. biotin 2,500 mcg capsule Take 1 capsule by mouth in the morning. buPROPion SR (Wellbutrin SR) 100 mg 12 hr tablet Take 100 mg by mouth once daily as directed. busPIRone (Buspar) 5 mg tablet Take 5 mg by mouth three times daily. JUST STARTED 06/29/23 cholecalciferol (Vitamin D3) 25 MCG (1000 units) tablet Take 1,000 Units by mouth in the morning. furosemide (Lasix) 40 mg tablet Take 40 mg by mouth in the morning. Jardiance 25 mg 25 mg 1 (one) time each day. lisinopril 5 mg tablet multivitamin capsule Take 1 capsule by mouth in the morning. No current facility-administ (more content not included)...[facility]08-20-2024 Telephone encounter Note* Telephone Encounter - ROSAURA Obregon - 10/26/2023 9:24 AM EDT OARRS reviewed, Rx sent into patient's pharmacy. [facility] [id number] Miscellaneous Notes* Telephone Encounter - ROSAURA Obregon - 10/26/2023 9:24 AM EDT OARRS reviewed, Rx sent into patient's pharmacy. documented in this encounterSaint John's [id number] NoteBariatric Nutrition Follow Up Visit: Name: Odette Azevedo Date: 1980 Age: 42 y.o. Date of Visit: 10/12/23 Visit #: Nutrition assessment/counseling 3 months post op gastric sleeve on 07/06/23 Past Medical History: Diagnosis Date Anemia Anxiety [...] Daily furosemide (LASIX) 40 mg, oral, Daily RT Jardiance 25 mg, Daily lisinopril 5 mg tablet No dose, route, or frequency recorded. multivitamin capsule 1 capsule, oral, Daily Diabetes Mellitus: prediabetes on jaurdice GERD/Reflux: none Any medication for Reflux: none Nausea/vomiting/Diarrhea/constipation: none Labs: Albumin(g/dL): 4.6 01/08/24 Hemoglobin/Hematocrit: WNL HgbA1c: 5.3 Other noted deficiencies/abnormal labs: 07/07/23 mag=1.8, phos=1.9, K=3.2, [id number] Abnormal Physical Assessment Findings: none Allergies: Allergies Allergen Reactions Lumason [Sulfur Hexafluoride Microsphr] Shortness of breath and Headache Patient experienced facial flushing after administration of Lumason Latex Rash Anthropometrics: Initial BMI=56.02 Tmvbhn=791# in 02/05/23 Current BMI= 45.14 IBW: 120# Weight Lost (lbs): 36 # since Surgery Date: 07/06/23 07/06/2023 8:03 PM 07/07/2023 4:16 AM 07/07/2023 6:57 AM 07/15/2023 8:44 AM 07/22/2023 8:47 AM 08/05/2023 10:15 AM 09/02/2023 9:27 AM Vitals Systolic 126 122 136 132 124 Diastolic 69 81 77 90 78 Heart Rate 66 67 81 78 76 Temp 36.9 ???C (98.4 ???F) 36.4 ???C (97.5 ???F) 36.7 ???C (98.1 ???F) 36.6 ???C (97.8 ???F) 36.6 ???C (97.8 ???F) Resp 16 16 Height (in) 1.626 m (5' 4 ) 1.626 m (5' 4 ) Weight (lb) 299.61 299.61 291.6 288.8 283 272.8 BMI 51.43 kg/m2 51.43 kg/m2 50.05 kg/m2 49.57 kg/m2 48.58 kg/m2 46.83 kg/m2 BSA (m2) 2.48 m2 2.48 m2 2.44 m2 2.43 m2 2.4 m2 2.37 m2 Visit Report Report Report Nutrition History 24 hour Intake: Breakfast: scr eggs and 1 stick of cheese Lunch: protein bar 35 gm protein, fruit Dinner: chicken 2oz ( 2 times/week) and vegetables Snacks: none Beverages: water Current Diet/Special Diets:mcfp bariatric Current Vitamins and supplements: biotin, Vit D, MVI gummies x 2 Exercise/Activity: walking 3 days ( 1 hr) Protein supplement intake: protein bar at lunch Food allergies/sensitivities/dislikes: salads always, meat, How often is patient eating outside of the home?: at times How many meals and snacks?: 3 meals Following guidelines drinking 30 minutes outside of meals? yes Straw/gum use: none Carbonated beverage intake: none Eating/Chewing Pace: slow Do you know your daily protein goals: yes 60gm Alcohol use: none Smoking: none maladaptive eating behaviors: none Any increased feeling of depression:none Support from family and friends: yes Knowledge of [facility] Bariatric Support group: yes Nutrition Diagnosis: Obesity related to energy imbalance as evidenced by BMI =45 Nutrition Education/Assessment: Odette has been following her [facility] bariatric diet. She is not always meeting her protein goals d/t aversion to most meat and protein shakes. We reviewed protein sources today and some meal planning ideas to hit protein goals. She was also encouraged to try collagen protein in her water for additional 10-15gm protein/day. Odette has been caring for her parents which have added some extra stress and less time for exercise. She is walking 3 days per week. Energy levels are good. No fatigue, GERD, hair loss, brittle nails etc. She takes her vitamins as ordered. Good fluid intake. All questions answered. She is following her bariatric practices. Goals: Weight loss goals: less than 250# Calorie Intake: 800-1000 kcal Protein Intake: >60gm Fluid Intake: 64fl oz Interventions/Recommendations: Incorporate 150-300 minutes of at least moderate-intensity physical activity per week Continue to follow >60 grams of protein diet Eat protein at 3 meals and + 1 protein supplement per day. Continue to avoid straws, sugar, carbonated beverages and follow 30 minute rule. Prioritize plate with protein first, non starchy vegetables and then fruit Continue to take MVI with iron(18mg) and Calcium(1200-1500mg/d) + Vit D(7160-0998 IU/day) Encouraged bariatric support group bharati (more content not included)...[facility]06[facility] Follow Up HPI: Odette Azevedo is a 42 y.o. year old female patient who had a Robotic sleeve gastrectomy on 07/06/[address] Connell. Odette is here for 6-8 weeks follow up. Patient's weight prior to the program was 326 lbs. she now weighs 272 lbs. she lost a total of 54 lbs in 8 weeks . Which is 20% from her original weight. Odette does not have any concerns.She thinks she is not losing her weight fast enough.. Patient denies any acid reflux. . she rates it at 0/10. She stopped taking her Omeprazole Patient denies any nausea or vomiting.. Patient denies constipation. She has a known history of IBS and have had some liquid stool but not consistent and non worsening. Patient's incision appear to be healing well. No complaints of pain. she is tolerating current diet in maintenance phase . Patient continues to watch calorie intake at 1000 calories per day. She does not use any apps to log her calory intake she continues to see our Bariatric radiology tech- Kourtney White. Patient continues to go for a walk. She is considering weight training with son. She does have a gym on he basement. Patient reported sleeping for at least 6-8 hours Patient reported no recent visit with PCP and consultants. Patient visits in the Emergency Room 24 Hour Food Recall Calorie 600 - 800 a day Bfast scrambled eggs polish yogurt Protein shake intake 1 shake a day only Tomato cucumber salad. Recent tobacco/Nicotine Use: none Recent report of alcohol Use: no Caffeine use: none Drinks with Carbonation: none- likes crystal light lemondae Social History Tobacco Use Smoking status: Never Smokeless tobacco: Never Vaping Use Vaping Use: Never used Substance Use Topics Alcohol use: Not Currently Alcohol/week: 2.0 standard drinks of alcohol Types: 2 Standard drinks or equivalent per week Comment: Have a mixed drink.1-2xs a week Drug use: Never WEIGHT HISTORY Wt Readings from Last 20 Encounters: 09/02/23 124 kg (272 lb 12.8 oz) 08/05/23 128 kg (283 lb) 07/22/23 131 kg (288 lb 12.8 oz) 07/15/23 132 kg (291 lb 9.6 oz) 07/07/23 136 kg (299 lb 9.7 oz) 06/02/23 (!) 143 kg (316 lb 3.2 oz) 05/28/23 (!) 142 kg (314 lb) 05/20/23 (!) 142 kg (314 lb) 04/29/23 (!) 144 kg (317 lb 3.2 oz) 04/07/23 (!) 146 kg (321 lb) 03/12/23 (!) 146 kg (321 lb) 02/05/23 (!) 148 kg (326 lb 8 oz) 01/07/23 (!) 144 kg (317 lb) BMI Readings from Last 3 Encounters: 09/02/23 46.83 kg/m??? 08/05/23 48.58 kg/m??? 07/22/23 49.57 kg/m??? BP 124/78 (BP Location: Right arm, Patient Position: Sitting) Pulse 76 Temp 36.6 ???C (97.8 ???F) Ht 1.626 m (5' 4 ) Wt 124 kg (272 lb 12.8 oz) BMI 46.83 kg/m??? Past Medical History: Diagnosis Date Anemia Anxiety Awareness under anesthesia July 22, 2007 Depression History of transfusion 1988 Hyperlipidemia Hypertension IBS (irritable bowel syndrome) Obese OCD (obsessive compulsive disorder) Other chronic pain 06/21/2023 Scoliosis Spinal headache 02/05/2023 Past Surgical History: Procedure Laterality Date BACK SURGERY 1988 SPINE SURGERY 1988 WISDOM TOOTH EXTRACTION Current Outpatient Medications Medication Instructions ALPRAZolam (Xanax) [...] Daily furosemide (LASIX) 40 mg, oral, Daily RT Jardiance 25 mg, Daily lisinopril 5 mg tablet No dose, route, or frequency recorded. multivitamin capsule 1 capsule, oral, Daily Review of Systems Constitutional: Negative for activity change, appetite change, chills, fever and unexpected weight change. Eyes: Negative for visual disturbance. Respiratory: Negative for chest tightness, shortness of breath and wheezing. Cardiovascular: Negative for chest pain and palpitations. Gastrointestinal: Negative for abdominal pain, constipation, diarrhea, nausea and vomiting. Endocrine: Negative for polyphagia. Genitourinary: Negative for difficulty urinating. Skin: Negative for color change and rash. Allergic/Immunologic: Negative for immunocompromised state. Neurological: Negative for headaches. Hematological: Does not bruise/bleed easily. Psychiatric/Behavioral: The patient is not nervous/anxious. All other systems reviewed and are negative. Lab Results Component Value Date WBC 11.00 (H) 07/07/2023 HGB 12.6 07/07/2023 HCT 39.8 07/07/2023 MCV 91.7 07/07/2023 PLT 234 07/07/2023 Lab Results Component Value Date GLUCOSE 117 (H) 07/07/2023 CALCIUM 8.9 07/07/2023 NA 136 07/07/2023 K 3.2 (L) 07/07/2023 CO2 29 07/07/2023 CL 101 (more content not included)...[facility] 08-05-2023 NoteBariatric Nutrition Follow Up Visit: Name: Odette Azevedo Date: 1980 Age: 42 y.o. Date of Visit: 08/05/23 Visit #: Nutrition assessment/counseling 30day post op gastric sleeve on 07/06/23 Past Medical History: Diagnosis Date Anemia Anxiety [...] Daily furosemide (LASIX) 40 mg, oral, Daily RT gabapentin (NEURONTIN) 300 mg, oral, 3 times daily Jardiance 25 mg, Daily lisinopril 5 mg tablet No dose, route, or frequency recorded. methocarbamol (ROBAXIN) 500 mg, oral, Every 6 hours multivitamin capsule 1 capsule, oral, Daily omeprazole (PRILOSEC) 20 mg, oral, Daily before breakfast, Do not crush or chew. oxyCODONE (ROXICODONE) 5 mg, oral, Every 4 hours PRN oxyCODONE (ROXICODONE) 5 mg, oral, Every 6 hours PRN simethicone (MYLICON) 125 mg, oral, Every 6 hours PRN Diabetes Mellitus: prediabetes on jaurdice GERD/Reflux: no Any medication for Reflux: no Nausea/vomiting/Diarrhea/constipation: none Labs: Albumin(g/dL): 4.6 01/08/24 Hemoglobin/Hematocrit: WNL HgbA1c: 5.3 Other noted deficiencies/abnormal labs: 07/07/23 mag=1.8, phos=1.9, K=3.2, obnslmg=714 Abnormal Physical Assessment Findings: none Allergies: Allergies Allergen Reactions Lumason [Sulfur Hexafluoride Microsphr] Shortness of breath and Headache Patient experienced facial flushing after administration of Lumason Latex Rash Anthropometrics: IBW: 120 # Wt History: qe=122# on 01/07/23, rp=373# on 04/01/23, dg=870# on 06/02/23,nv=013# on 07/06/23, vn=264# 07/06/2023 5:57 PM 07/06/2023 6:15 PM 07/06/2023 8:03 PM 07/07/2023 4:16 AM 07/07/2023 6:57 AM 07/15/2023 8:44 AM 07/22/2023 8:47 AM Vitals Systolic 117 126 122 136 132 Diastolic 60 69 81 77 90 Heart Rate 83 69 66 67 81 78 Temp 36.9 ???C (98.4 ???F) 36.4 ???C (97.5 ???F) 36.7 ???C (98.1 ???F) 36.6 ???C (97.8 ???F) Resp 19 18 16 16 Height (in) 1.626 m (5' 4 ) Weight (lb) 299.61 299.61 291.6 288.8 BMI 51.43 kg/m2 51.43 kg/m2 50.05 kg/m2 49.57 kg/m2 BSA (m2) 2.48 m2 2.48 m2 2.44 m2 2.43 m2 Visit Report Report Report Nutrition History 24 hour Intake: Breakfast: yogurt polish Lunch: chicken salad 3 bites Dinner: avocado, string cheese Snacks: protein drink powder and almond milk Beverages: water Current Diet/Special Diets:Bariatric soft diet Current Vitamins and supplements: barimelts and Calcium and D , VitB12 Exercise/Activity: walking a couple Protein supplement intake: protein drink Food allergies/sensitivities/dislikes: How often is patient eating outside of the home?: none How many meals and snacks?: 3 meals Following guidelines drinking 30 minutes outside of meals? yes Straw/gum use: none Carbonated beverage intake: none Eating/Chewing Pace: yes Do you know your daily protein goals: 60gm Alcohol use: none Smoking: none maladaptive eating behaviors: none Support from family and friends: yes Nutrition Diagnosis: Obesity related to energy imbalance as evidenced by BMI 49.57 Nutrition Education/Evaluation/Monitoring: Odette just started on her bariatric soft diet. She denies N/V/D, GERD. Odette reports her abd pain is now gone after 4 days of muscle relaxer. She is eating 3 meals per day. Only able to drink one protein shake per day. She is having some aversion to the protein shakes. We discussed other protein options such as flavorless protein, clear protein drinks and Gatorade protein for extra protein. We reviewed importance of measuring out protein to help count protein intake in diet. She does eat yogurt and cottage cheese. We reviewed diet portions of phase 4 and 5 and how to slowly advance diet over the next 2 months. All questions answered. Goals: Weight loss goals: Less than 250# Calorie Intake: 500-800 kcal Protein Intake: 60gm protein Fluid Intake: 64 fl oz Interventions/Recommendations: Incorporate 150 minutes of at least moderate-intensity physical activity per week Continue to follow >60 grams of protein diet Eat protein at 3 meals 1 protein snacks + 1 protein drinks per day. Continue to avoid straws, gum, carbonated beverages and follow 30 minute rule. Prioritize plate with protein first, non starchy vegetables and then fruit Continue to (more content not included)...[facility] 07-22-2023 NoteSubjective Patient ID: Odette Azevedo is a 42 y.o. female who presents for Post-op (Odette is here today for a post op visit, s/p 07/06/23 sleeve. ). HPI Patient is a s/p 07/05 robotic sleeve gastrectomy for morbid obesity. Patient did well and was seen on first postop visit on 07/15/23. Patient however noted more pain on the right sided extraction site incision and feels it is tearing and radiating out. Pain described as sharp and constant. Patient otherwise tolerating diet well, and having bowel function. Patient also noted numbness in the lower lateral right thigh that is new since surgery. Patient denies feeling a reducible lump or skin changes over the incision. Denies fever, chills, nausea, vomiting, diarrhea, constipation, skin changes, vision changes, chest pain, shortness of breath, or headaches. Review of Systems Constitutional: Negative. Respiratory: Negative. Cardiovascular: Negative. Gastrointestinal: Positive for abdominal pain. Genitourinary: Negative. Neurological: Positive for numbness. Hematological: Bruises/bleeds easily. Objective Visit Vitals BP 132/90 (BP Location: Left arm, Patient Position: Sitting) Pulse 78 Temp 36.6 ???C (97.8 ???F) (Oral) Physical Exam Constitutional: General: She [...] There is no abdominal tenderness. Comments: Incisions c/d/i. R sided extraction site incision with a small lump underneath, not reducible with mild to moderate tenderness on deep palpation. Musculoskeletal: General: No swelling or deformity. Cervical back: Neck supple. Skin: General: Skin is warm. Capillary Refill: Capillary refill takes less than 2 seconds. Coloration: Skin is not jaundiced. Neurological: General: No focal deficit present. Mental Status: She is alert and oriented to person, place, and time. Psychiatric: Mood and Affect: Mood normal. Assessment/Plan Diagnoses and all orders for this visit: Incisional pain - US abdomen limited; Future Patient s/p robotic sleeve gastrectomy. Her symptoms/clinical picture is suspicious for nerve entrapment/scar tissue along her right sided extraction port site. However, cannot exclude port site hernia. Will order US for further evaluation given she is tolerating diet and have no signs of bowel incarceration/obstruction/constitutional symptoms. I discussed with her to go to the ED if pain worsens,starts having nausea/vomiting/obstipation. I will follow up on US results and refill gabapentin/oxycodone for pain relief for now. [facility]05-09-2024 NoteSubjective Patient ID: Odette Azevedo is a 42 [...] able. Diagnosis Plan 1. [facility] [place] NotePost-op Phone Call Odette Azevedo is a 42 [...] changes, chest pain, shortness of breath, or headaches.[facility] [place] Diagnosis H/O gastric bypass- Primary Type 2 diabetes mellitus without complication, without long-term current use of insulin ([facility]/HCC) Type 2 diabetes mellitus with other specified complication, without long-term current use of insulin ([facility]) Pure hypercholesterolemia ([facility]) Pure hypercholesterolemia Vitamin D deficiency Anxiety Anxiety state, unspecified Type 2 diabetes mellitus without complication, without long-term current use of insulin ([facility]/HCC) Morbid (severe) obesity due to excess calories ([facility]) Body mass index (BMI) 50.0-59.9, adult ([facility]) documented in this encounter [facility]Evaluation [facility]* Diagnosis H/O gastric bypass- Primary Type 2 diabetes mellitus without complication, without long-term current use of insulin (CMS/HCC) Type 2 diabetes mellitus with other specified complication, without long-term current use of insulin (CMS/HCC) Pure hypercholesterolemia (CMS/HCC) Pure hypercholesterolemia Vitamin D deficiency Anxiety Anxiety state, unspecified Type 2 diabetes mellitus without complication, without long-term current use of insulin (CMS/HCC) Morbid (severe) obesity due to excess calories (CMS/HCC) Body mass index (BMI) 50.0-59.9, adult (CMS/[facility]) Acute left otitis media- Primary Acute non-recurrent pansinusitis documented in this encounter [facility]* Diagnosis H/O gastric bypass- Primary Type 2 diabetes mellitus without complication, without long-term current use of insulin ([facility]) Type 2 diabetes mellitus with other specified complication, without long-term current use of insulin (CMS/HCC) Pure hypercholesterolemia (CMS/HCC) Pure hypercholesterolemia Vitamin D deficiency Anxiety Anxiety state, unspecified Type 2 diabetes mellitus without complication, without long-term current use of insulin ([facility]) Morbid (severe) obesity due to excess calories (CMS/[facility]) Body mass index (BMI) 50.0-59.9, adult ([facility]) Anxiety Anxiety state, unspecified documented in [facility] encounter [facility]* Diagnosis Elevated LDL cholesterol level ([facility]) Anxiety Anxiety state, unspecified documented in [facility] encounter [facility]* Diagnosis H/O gastric bypass- Primary Type 2 diabetes mellitus without complication, without long-term current use of insulin ([facility]) Type 2 diabetes mellitus with other specified complication, without long-term current use of insulin ([facility]) Pure hypercholesterolemia ([facility]) Pure hypercholesterolemia Vitamin D deficiency Anxiety Anxiety state, unspecified Type 2 diabetes mellitus without complication, without long-term current use of insulin ([facility]) Morbid (severe) obesity due to excess calories ([facility]) Body mass index (BMI) 50.0-59.9, adult ([facility]) Anxiety Anxiety state, unspecified documented in this encounter [facility]* Diagnosis H/O gastric bypass- Primary Type 2 diabetes mellitus without complication, without long-term current use of insulin ([facility]) Type 2 diabetes mellitus with other specified complication, without long-term current use of insulin ([facility]) Pure hypercholesterolemia ([facility]) Pure hypercholesterolemia Vitamin D deficiency Anxiety Anxiety state, unspecified Type 2 diabetes mellitus without complication, without long-term current use of insulin ([facility]) Morbid (severe) obesity due to excess calories ([facility]) Body mass index (BMI) 50.0-59.9, adult ([facility]) Anxiety Anxiety state, unspecified documented in this encounter [facility]* Diagnosis H/O gastric bypass- Primary Type 2 diabetes mellitus without complication, without long-term current use of insulin ([facility]) Type 2 diabetes mellitus with other specified complication, without long-term current use of insulin (CMS/HCC) Pure hypercholesterolemia (CMS/HCC) Pure hypercholesterolemia Vitamin D deficiency Anxiety Anxiety state, unspecified Type 2 diabetes mellitus without complication, without long-term current use of insulin (CMS/HCC) Morbid (severe) obesity due to excess calories (CMS/HCC) Body mass index (BMI) 50.0-59.9, adult ([facility]) Morbid (severe) obesity due to excess calories (CMS/HCC)- Primary Breast screening Breast screening, unspecified Body mass index (BMI) 40.0-44.9, adult ([facility]) documented in this encounter [facility]* Diagnosis H/O gastric bypass- Primary Type 2 diabetes mellitus without complication, without long-term current use of insulin (CMS/[facility]) Type 2 diabetes mellitus with other specified complication, without long-term current use of insulin (CMS/HCC) Pure hypercholesterolemia (CMS/HCC) Pure hypercholesterolemia Vitamin D deficiency Anxiety Anxiety state, unspecified Type 2 diabetes mellitus without complication, without long-term current use of insulin (CMS/HCC) Morbid (severe) obesity due to excess calories (CMS/HCC) Body mass index (BMI) 50.0-59.9, adult ([facility]) Anxiety Anxiety state, unspecified documented in this encounter [facility]* Diagnosis H/O gastric bypass- Primary Type 2 diabetes mellitus without complication, without long-term current use of insulin (CMS/HCC) Type 2 diabetes mellitus with other specified complication, without long-term current use of insulin (CMS/HCC) Pure hypercholesterolemia (CMS/HCC) Pure hypercholesterolemia Vitamin D deficiency Anxiety Anxiety state, unspecified Type 2 diabetes mellitus without complication, without long-term current use of insulin (CMS/HCC) Morbid (severe) obesity due to excess calories (CMS/HCC) Body mass index (BMI) 50.0-59.9, adult ([facility]) Morbid (severe) obesity due to excess calories (CMS/HCC)- Primary Muscle spasm Spasm of muscle documented in this encounter [facility]* Diagnosis H/O gastric bypass- Primary Type 2 diabetes mellitus without complication, without long-term current use of insulin (CMS/HCC) Type 2 diabetes mellitus with other specified complication, without long-term current use of insulin (CMS/HCC) Pure hypercholesterolemia (CMS/HCC) Pure hypercholesterolemia Vitamin D deficiency Anxiety Anxiety state, unspecified Type 2 diabetes mellitus without complication, without long-term current use of insulin (CMS/HCC) Morbid (severe) obesity due to excess calories (CMS/HCC) Body mass index (BMI) 50.0-59.9, adult (CMS/HCC) Anxiety Anxiety state, unspecified documented in this encounter [facility]* Diagnosis H/O gastric bypass- Primary Type 2 diabetes mellitus with other specified complication, without long-term current use of insulin Pure hypercholesterolemia (CMS/HCC) Pure hypercholesterolemia Vitamin D deficiency Anxiety Anxiety state, unspecified Type 2 diabetes mellitus without complication, without long-term current use of insulin Morbid (severe) obesity due to excess calories (CMS/HCC) Body mass index (BMI) 50.0-59.9, adult (CMS/HCC) Morbid (severe) obesity due to excess calories (CMS/HCC) Type 2 diabetes mellitus with other specified complication, without long-term current use of insulin documented in this encounter [facility] HealthcareEvaluation note* Diagnosis H/O gastric bypass- Primary Type 2 diabetes mellitus with other specified complication, without long-term current use of insulin Pure hypercholesterolemia (CMS/HCC) Pure hypercholesterolemia Vitamin D deficiency Anxiety Anxiety state, unspecified Type 2 diabetes mellitus without complication, without long-term current use of insulin Morbid (severe) obesity due to excess calories (CMS/HCC) Body mass index (BMI) 50.0-59.9, adult (CMS/HCC) Anxiety Anxiety state, unspecified documented in this encounter [facility]Evaluation [facility]* Diagnosis H/O gastric bypass- Primary Type 2 diabetes mellitus with other specified complication, without long-term current use of insulin Pure hypercholesterolemia (CMS/HCC) Pure hypercholesterolemia Vitamin D deficiency Anxiety Anxiety state, unspecified Type 2 diabetes mellitus without complication, without long-term current use of insulin Morbid (severe) obesity due to excess calories (CMS/HCC) Body mass index (BMI) 50.0-59.9, adult (CMS/HCC) Vitamin D deficiency- Primary Anxiety Anxiety state, unspecified Morbid (severe) obesity due to excess calories (CMS/HCC) H/O gastric bypass documented in this encounter [facility]* Diagnosis H/O gastric bypass- Primary Type 2 diabetes mellitus with other specified complication, without long-term current use of insulin Pure hypercholesterolemia (CMS/HCC) Pure hypercholesterolemia Vitamin D deficiency Anxiety Anxiety state, unspecified Type 2 diabetes mellitus without complication, without long-term current use of insulin Morbid (severe) obesity due to excess calories (CMS/HCC) Body mass index (BMI) 50.0-59.9, adult (CMS/HCC) Morbid (severe) obesity due to excess calories (CMS/HCC) Anxiety Anxiety state, unspecified documented in this encounter [facility]* Diagnosis H/O gastric bypass- Primary Type 2 diabetes mellitus with other specified complication, without long-term current use of insulin (HCC) Pure hypercholesterolemia Pure hypercholesterolemia Vitamin D deficiency Anxiety Anxiety state, unspecified Type 2 diabetes mellitus without complication, without long-term current use of insulin (HCC) Morbid (severe) obesity due to excess calories (CMS-HCC) Body mass index (BMI) 50.0-59.9, adult (CMS-HCC) Morbid (severe) obesity due to excess calories (CMS-HCC) Anxiety Anxiety state, unspecified documented in this encounter [facility] HealthcareEvaluation note* Diagnosis H/O gastric bypass- Primary Type 2 diabetes mellitus with other specified complication, without long-term current use of insulin (HCC) Pure hypercholesterolemia Pure hypercholesterolemia Vitamin D deficiency Anxiety Anxiety state, unspecified Type 2 diabetes mellitus without complication, without long-term current use of insulin (HCC) Morbid (severe) obesity due to excess calories (CMS-HCC) Body mass index (BMI) 50.0-59.9, adult (CMS-HCC) Anxiety Anxiety state, unspecified Morbid (severe) obesity due to excess calories (CMS-HCC) [facility] Diagnosis H/O gastric bypass- Primary Type 2 diabetes mellitus with other specified complication, without long-term current use of insulin (HCC) Pure hypercholesterolemia Pure hypercholesterolemia Vitamin D deficiency Anxiety Anxiety state, unspecified Type 2 diabetes mellitus without complication, without long-term current use of insulin (HCC) Morbid (severe) obesity due to excess calories (CMS-HCC) Body mass index (BMI) 50.0-59.9, adult (CMS-HCC) Morbid (severe) obesity due to excess calories (CMS-HCC) [facility] Diagnosis H/O gastric bypass- Primary Type 2 diabetes mellitus with other specified complication, without long-term current use of insulin (HCC) Pure hypercholesterolemia Pure hypercholesterolemia Vitamin D deficiency Anxiety Anxiety state, unspecified Type 2 diabetes mellitus without complication, without long-term current use of insulin (HCC) Morbid (severe) obesity due to excess calories ([facility]-HCC) Body mass index (BMI) 50.0-59.9, adult ([facility]) Anxiety Anxiety state, unspecified [facility]* Diagnosis H/O gastric bypass- Primary Type 2 diabetes mellitus with other specified complication, without long-term current use of insulin (HCC) Pure hypercholesterolemia Pure hypercholesterolemia Vitamin D deficiency Anxiety Anxiety state, unspecified Type 2 diabetes mellitus without complication, without long-term current use of insulin (HCC) Morbid (severe) obesity due to excess calories ([facility]-HCC) Body mass index (BMI) 50.0-59.9, adult ([facility]) Morbid (severe) obesity due to excess calories ([facility]-HCC) [facility]* Diagnosis H/O gastric bypass- Primary Type 2 diabetes mellitus with other specified complication, without long-term current use of insulin (HCC) Pure hypercholesterolemia Vitamin D deficiency Anxiety Anxiety state, unspecified Type 2 diabetes mellitus without complication, without long-term current use of insulin (HCC) Morbid (severe) obesity due to excess calories ([facility]-HCC) Body mass index (BMI) 50.0-59.9, adult ([facility]) Primary insomnia- Primary Persistent disorder of initiating or maintaining sleep Class 1 obesity due to excess calories with serious comorbidity and body mass index (BMI) of 34.0 to 34.9 in adult Anxiety Anxiety state, unspecified H/O gastric sleeve [facility]* Diagnosis H/O gastric bypass- Primary Type 2 diabetes mellitus with other specified complication, without long-term current use of insulin (HCC) Pure hypercholesterolemia Vitamin D deficiency Anxiety Anxiety state, unspecified Type 2 diabetes mellitus without complication, without long-term current use of insulin (HCC) Morbid (severe) obesity due to excess calories ([facility]-HCC) Body mass index (BMI) 50.0-59.9, adult ([facility]) Morbid (severe) obesity due to excess calories ([facility]) Anxiety Anxiety state, unspecified documented in this encounter [facility] Summary Purpose Family History No Family History Records FoundNo Family History Records FoundNo Family History Records Found Advance Directives No Advanced Directives Records FoundNo Advanced Directives Records FoundNo Advanced Directives Records Found Additional Source Comments INFORMATION SOURCE (unrecogn ized section and content) DATE CREATED AUTHOR 04/15/2021 [facility] DATE CREATED AUTHOR AUTHOR'S ORGANIZ ATION 07/11/2024 [facility] DATE CREATED AUTHOR AUTHOR'S ORGANIZ ATION 12/15/2024 [facility] EPIC Reason for Visit (unrecogniz ed section and content) ReasonCommentsDiabetesLast A1c was 5.2Med RefillAlprazolamAnxietySona is on alprazolam, wellbutrin, and buspirone and is working well for her.ReasonComments Med RefillReasonOnset DateCommentsMed Tsanfd8012/30/2023easonCommentsObesity ReasonCommentsAnnual ExamWeight CheckStarting weight 236lb today weight is 213lb ReasonOnset DateCommentsMed Kwnnqz3306/24/2024ReasonOnset DateCommentsMed Refill 10/21/2024 Care Teams (unrecognized sec tion and content) Team MemberRelationshipSpecialtyStart DateEnd Date Rose Bradford MD [address] [facility] [address] [place] [address] PCP - GeneralFamily Medicine09/11/22Team MemberRelationshipSpecialtyStart DateEnd Date Rose Bradford MD [address] [facility] [address] [place] [address] PCP - GeneralFamily Medicine09/11/22Team MemberRelationshipSpecialtyStart DateEnd Date Rose Bradford MD [address] [facility] [address] [place] [address] PCP - GeneralFamily Medicine09/11/22Team MemberRelationshipSpecialtyStart DateEnd Date Rose Bradford MD [address] [facility] [address] [place] [address] PCP - GeneralFamily Medicine09/11/22 Kim Harding PA [address] [facility] [address] [place] [address] PCP - [facility]12/07/23Team MemberRelationshipSpecialtyStart DateEnd Date Rose Bradford MD [address] [facility] [address] [place] [address] [facility] - [facility]/11/22Team MemberRelationshipSpecialtyStart DateEnd Date Rose Bradford MD [address] [facility] [address] [place] [address] [facility] - [facility]09/11/22 Kim Harding PA [address] [facility] [address] [place] [address] PCP - [facility] [employer] [facility]12/07/23Team MemberRelationshipSpecialtyStart DateEnd Date Rose Bradford MD [address] [facility] [address] [place] [address] [facility] - [facility]09/11/22 Kim Harding, PA [address] [facility] [address] [place] [address] PCP - [facility] [employer] [facility]12/07/23Team MemberRelationshipSpecialtyStart DateEnd Date Rose Bradford MD [address] [facility] [address] [place] [address] [facility] - [facility]09/11/22 Kim Harding, PA [address] [address] [place] [address] PCP - [facility] [facility]12/07/23Team MemberRelationshipSpecialtyStart DateEnd Date Rose Bradford MD [address] [facility] [address] [place] [address] PCP - GeneralFamily Medicine09/11/22 Kim Harding PA [address] [facility] [address] [place] [address] PCP - [facility]12/07/23Team MemberRelationshipSpecialtyStart DateEnd Date Rose Bradford MD [address] [facility] [address] [place] [address] [facility] - [facility]09/11/22 Kim Harding, PA [address] [facility] [address] [place] [address] PCP - [facility] [facility]10Team MemberRelationshipSpecialtyStart Date End Date Rose Bradford MD [address] [facility] [address] [place] [address] PCP - Generalmily Medicine09/11/22 Kim Harding, PA [address] [address] [place] [address] PCP - [facility]10/Team MemberRelationshipSpecialtyStart Date End Date Rose Bradford MD [address] [facility] [address] [place] [address] PCP - Generalmily Medicine09/11/22 Kim Harding, PA [address] [facility] [address] [place] [address] PCP - [facility]12/06/2410Team MemberRelationshipSpecialtyStart Date End Date Rose Bradford MD [address] [facility] [address] [place] [address] [facility]/11/22 Kim Harding PA [address] [facility] [address] [place] [address] PCP - [facility] [employer] [facility]10Team MemberRelationshipSpecialtyStart Date End Date Rose Bradford MD [address] [facility] [address] [place] [address] P[facility] - [facility]09/11/22 Kim Harding PA [address] [facility] [address] [place] [address] PCP - [facility] [employer] [facility]10Team MemberRelationshipSpecialtyStart Date End Date Rose Bradford MD [address] [address] [place] [address] [facility]09/11/22 Kim Harding PA [address] [place] [address] PCP - [facility] [employer] [facility]10Team MemberRelationshipSpecialtyStart Date End Date Rose Bradford MD [address] [place] [address] PCP - GeneralFamily Medicine09/11/22 Kim Harding PA [address] [place] [address] PCP - [facility] [facility]12/06/2410Team MemberRelationshipSpecialtyStart Date End Date Rose Bradford MD [address] [place] [address] PCP - GeneralFamily Medicine09/11/22 Kim Harding PA [address] [facility] [address] [place] [address] PCP - [facility] [facility]10Team MemberRelationshipSpecialtyStart Date End Date Rose Bradford MD [address] [place] [address] PCP - Generalmily [facility]09/11/22 Kim Harding PA [address] [place] [address] PCP - [facility] [facility]10Team MemberRelationshipSpecialtyStart Date End Date Rose Bradford MD [address] [place] [address] PCP - Generalmi[facility]09/11/22 oRse Bradford MD [address] [place] [address] PCP - [facility] [facility]4/03/2510/30/25Team MemberRelationshipSpecialtyStart DateEnd Date Rose Bradford MD [address] [place] [address] PCP - Man [facility]09/11/22 Rose Bradford MD [address] [place] [address] PCP - [facility] [facility]06/06/2510Team MemberRelationshipSpecialtyStart DateEnd Date Rose Bradford MD [address] [place] [address] PCP - Man [facility]09/11/22 Rose Bradford MD [address] [facility] [address] [place] [address] PCP - [facility] [employer] [facility]06/06/2510Team MemberRelationshipSpecialtyStart DateEnd Date Rose Bradford MD [address] [facility] [address] [place] [address] PCP - Man [facility]09/11/22 Rose Bradford MD [address] [place] [address] PCP - [facility] [facility]/Team MemberRelationshipSpecialtyStart DateEnd Date Rose Bradford MD [address] [address] [place] [address] PCP - [facility]09/11/22 Kim Harding PA [address] [place] [address] PCP - [facility] [facility] Rose Bradford MD [address] [place] [address] PCP - [facility] [facility]06/06/2510WednesdayFanny LPN [address] [place] [address] Licensed Practical Nursemily Egvlomph36/11/2411Team MemberRelationship SpecialtyStart DateEnd Date Rose Bradford MD [address] [facility] [address] [place] [address] PCP - Generalmily Medicine09/11/22 Kim Harding PA [address] [facility] [address] [place] [address] PCP - [facility] [employer] [facility]10 Rose Bradford MD [address] [facility] [address] [place] [address] PCP - [facility] [facility]06/06/2510 RobbyFanny cuellar LPN [address] [place] [address] Licensed Practical [facility]semi[facility]01/16/2411/13/24 FOR RECORDS PERTAINING TO PATIENTS WHO ARE [...] BE BASED ON THE PRIMARY CLINICAL RECORDS. [facility] provides no warranty or guarantee of the accuracy or completeness of information in this document.
--- OUTSIDE RECORDS SUMMARY | 2025-02-03 23:40 | XMS_ITS | Encounter Summary ---
Author Organization [facility] Address [address] [place] [address] Care Team Providers Care Hotel Services Supervisor Name Role Phone Delfina Beck MD Primary Care Provider [phone] Delfina Beck MD Unavailable Reason for Visit * ReasonCommentsMed Refill Encounter Details DateTypeDepartmentCare Team (Latest Contact Info)Atxxhharwew86/16/2025Refill [facility] [place] [facility] [address] [place] [address] Delfina Beck MD [address] [facility] [address] [place] [address] Anxiety Social History Tobacco UseTypesPacks/DayYears UsedDateSmoking Tobacco: NeverSmokeless Tobacco: NeverAlcohol UseStandard Drinks/WeekCommentsNot Currently0 (1 standard drink = 0.6 oz pure alcohol)Once or twice a month- gave up entirely for bariatric surg Social Connection and Isolation PanelAnswerDate RecordedIn a typical week, how many times do you talk on the phone with family, friends, or neighbors?More than three times a week05/12/2023How often do you get together with friends or relatives?More than three times a week05/12/2023How often do you attend restorationism or faith services?Patient svipcoki22/06/2024Do you belong to any clubs or organizations such as restorationism groups, unions, fraternal or athletic groups, or school groups?No05/12/2023How often do you attend meetings of the clubs or organizations you belong to?Patient mzufkdmc97/06/2024re you , , , , never , or living with a partner?Iasswibs73/06/2024 AUDIT-CAnswerDate RecordedQ1: How often do you have a drink containing alcohol? 2-4 times a month05/12/2023Q2: How many drinks containing alcohol do you have on a typical day when you are drinking?1 or Q3: How often do you have six or more drinks on one occasion?Never05/12/2023Overall Financial Resource Strain (CARDIA)AnswerDate RecordedHow hard is it for you to pay for the very basics like food, housing, medical care, and heating?Somewhat hard05/12/2023 PHQ-2AnswerDate RecordedPatient Health Questionnaire-2 Niibx221Finlakeview [facility] [place] of Occup[facility] - Occupational Stress QuestionnaireAnswerDate RecordedDo you feel stress - tense, restless, nervous, or anxious, or unable to sleep at night because yourmind is troubled all the time - these days?Only a nqkfxd7305/12/2023Exercise Vital SignAnswerDate RecordedOn average, how many days per week do you engage in moderate to strenuous exercise (like a brisk walk)?3 days05/12/2023On average, how many minutes do you engage in exercise at this level?20 min05/12/2023Hunger Vital SignAnswerDate RecordedWithin the past 12 months, you worried that your food would run out before you got the money to buy more.Never true05/12/2023Within the past 12 months, the food you bought just didn't last and you didn't have money to get more.Never true05/12/2023RAPARE - TransportationAnswerDate RecordedIn the past 12 months, has lack of transportation kept you from medical appointments or from getting medications?No 05/12/2023In the past 12 months, has lack of transportation kept you from meetings, work, or from getting things needed for daily living?No05/12/2023 Housing Stability Vital SignAnswerDate RecordedIn the last 12 months, was there a time when you were not able to pay the mortgage or rent on time?No05/12/2023In the last 12 months, how many places have you lived?In the last 12 months, was there a time when you did not have a steady place to sleep or slept in ashelter (including now)?No4CommentsUnknownSex and Gender InformationValueDate RecordedSex Assigned at BirthNot on fileLegal SexFemale 05/20/2022 7:01 PM EDTGender IdentityNot on fileSexual OrientationNot on file documented as of this encounter Plan of Treatment DateTypeDepartmentCare Team (Latest Contact Info)Uyuexwbwzns78/19/2026 11:00 AM EDTOffice Visit [facility] [place] [facility] [address] [place] [address] Kim Resendez PA [address] [place] [address] documented as of this encounter Visit Diagnoses Diagnosis Anxiety Anxiety state, unspecified documented in this encounter Care Teams Team MemberRelationshipSpecialtyStart DateEnd Date Delfina Beck MD [address] [place] [address] PCP - GeneralFamily Medicine09/11/22 Delfina Beck MD [address] [place] [address] PCP - JACQUELIN Elder [facility]4/03/251004/06/24documented as of this encounter
--- OUTSIDE RECORDS SUMMARY | 2025-02-03 23:40 | XMS_ITS | Encounter Summary ---
Author Organization [facility] Address [address] [place] [address] Care Team Providers Care Optician Name Role Phone Delfina Beck MD Primary Care Provider [phone] Delfina Beck MD Unavailable Reason for Visit * ReasonCommentsMed Refill Encounter Details DateTypeDepartmentCare Team (Latest Contact Info)Nogxxpjsqcw50/18/2025Refill [facility] [place] [facility] [address] [place] [address] Kim Resendez PA [address] [facility] [address] [place] [address] Morbid (severe) obesity due to excess calories ([facility]HCC) Social History Tobacco UseTypesPacks/DayYears UsedDateSmoking Tobacco: NeverSmokeless [...] times a week05/12/2023How often do you attend oriental orthodox or voodoo services?Patient dcwnpken05/06/2024Do you belong to any clubs or organizations such as oriental orthodox groups, unions, fraternal or athletic groups, or school groups?No05/12/2023How often do you attend meetings of the clubs or organizations you belong to?Patient dnphurdr41/06/2024re you , , , , never , or living with a partner?Zjkdhlpm13/06/2024 AUDIT-CAnswerDate RecordedQ1: How often do you have [...] and heating?Somewhat hard05/12/2023 PHQ-2AnswerDate RecordedPatient Health Questionnaire-2 Jmyhw201[facility] [place] of Occupational Health - Occupational Stress QuestionnaireAnswerDate RecordedDo you feel stress - tense, restless, nervous, or anxious, or unable to sleep at night because yourmind is troubled all the time - these days?Only a dafflc8905/12/2023Exercise Vital SignAnswerDate RecordedOn average, how many days [...] on file documented as of this encounter Miscellaneous Notes * Telephone Encounter - ROSAURA Obregon - 01/23/2025 9:44 AM EST OARRS reviewed, Rx sent into patient's pharmacy. documented in this encounter Plan of Treatment DateTypeDepartmentCare Team (Latest Contact Info)Afannewyotw42/19/2026 11:00 AM EDTOffice Visit [facility] [place] [facility] [address] [facility] [address] [place] [address] Kim Resendez PA [address] [facility] [address] [place] [address] documented as of this encounter Visit Diagnoses Diagnosis Morbid (severe) obesity due to excess calories (CMS-HCC) documented in this encounter Care Teams Team MemberRelationshipSpecialtyStart DateEnd Date Delfina Beck MD [address] [facility] [address] [place] [address] PCP - GeneralFamily Medicine09/11/22 Delfina Beck MD [address] [place] [address] PCP - [facility]OM[facility]ime [facility]4/03/2510documented as of this encounter
--- OUTSIDE RECORDS SUMMARY | 2025-02-03 23:40 | XMS_ITS | Clinical Summary ---
Author Organization [facility] Address [address] [place] [address] Care Team Providers Care Shearer Operator Name Role Phone Delfina Beck MD Primary Care Provider [phone] Delfina Beck MD Unavailable Allergies Active AllergyReactionsCriticalityNoted PjnzHrqyglkoHhxdgGuwdBef34/20/2023Sulfur HexafluorideHeadache,Shortness of djpvmzBjqj26/31/2024 Patient experienced facial flushing after administration of Lumason Medications MedicationSigDispense QuantityRefillsLast FilledStart DateEnd DateStatus buPROPion XL (Wellbutrin XL) 150 MG 24 hr tablet Indications:AnxietyTAKE 1 TABLET BY MOUTH EVERY DAY, DO NOT CRUSH, CHEW, OR SPLIT 100 tablet 4Active b complex vitamins capsule Indications:H/O gastric bypassTake 1 capsule by mouth in the morning. 90 capsule 5Active cholecalciferol (Vitamin D-3) 25 MCG (1000 UT) tablet Indications:Vitamin D deficiencyTake 1 tablet (25 mcg) by mouth in the morning. 90 tablet 5Active fluticasone (Flonase) 50 MCG/ACT nasal spray Indications:Acute left otitis media,Acute non-recurrent pansinusitisINSTILL 1 TO 2 SPRAYS IN EACH NOSTRIL DAILY. BEFORE 1ST USE PRIME PUMP, AFTER USE CLERAN TIP & REPLACE CAP 48 mL 5Active furosemide (Lasix) 40 MG tablet Indications:Localized edemaTAKE 1 TABLET BY MOUTH EVERY DAY 100 tablet 3065Active biotin 10 MG capsule Indications:Impaired fasting glucoseTAKE 1 CAPSULE BY MOUTH EVERY DAY 30 capsule 1105Active atorvastatin (Lipitor) 20 MG tablet Indications:Elevated LDL cholesterol levelTAKE 1 TABLET BY MOUTH EVERY DAY IN THE MORNING 100 tablet 5Active busPIRone (Buspar) 10 MG tablet Indications:AnxietyTake 1 tablet (10 mg) by mouth in the morning and 1 tablet (10 mg) in the evening and 1 tablet (10 mg) before bedtime.5Active Multiple Vitamin (Daily-Zaid Multivitamin) tablet Indications:AnxietyTAKE 1 TABLET BY MOUTH EVERY DAY 30 tablet 5Active ALPRAZolam (Xanax) 0.5 MG tablet Indications:AnxietyTake 1 tablet (0.5 mg) by mouth 2 (two) times a day as needed for anxiety 60 tablet 5Active phentermine (Adipex-P) 37.5 MG tablet Indications:Morbid (severe) obesity due to excess calories (CMS-HCC)Take 1 tablet (37.5 mg) by mouth in the morning. 30 tablet 5Active Multiple Vitamin (Multivitamin Adult) tablet Indications:AnxietyTake 1 tablet by mouth Daily 30 tablet Discontinued phentermine (Adipex-P) 37.5 MG tablet Indications:Morbid (severe) obesity due to excess calories (CMS-HCC)TAKE 1 TABLET (37.5 MG) BY MOUTH IN THE MORNING 30 tablet Discontinued ALPRAZolam (Xanax) 0.5 MG tablet Indications:AnxietyTAKE 1 TABLET (0.5 MG) BY MOUTH 2 (TWO) TIMES A DAY NEEDED FOR ANXIETY 60 tablet Discontinued Active Problems ProblemNoted DateDiagnosed DateH/O gastric kvctuf5612/13/2024 Overview (12/13/2024): Completed at [facility] Body mass index (BMI) 50.0-59.9, adult12/27/2023 Assessment & Plan (12/27/2023 8:54 AM EDT): [employer] Pure cxbtmhjtxpxdgpszitmd11/06/2024 Assessment & Plan (07/12/2023 9:56 AM EDT): This is a chronic medical condition that is stable since last assessment. No changes in treatment are suggested at this time. Continue Current meds. History of COVID-19005/12/2023Gastroesophageal reflux bzwvtiy6501/08/2023nxiety 07/29/2022 Assessment & Plan (07/12/2023 9:55 AM EDT): Patient's Medicine is effective at controlling symptoms at current dose and frequency. PDMP reviewed with no evidence of overuse and abuse D/W patient to avoid use of benzodiazepines when consuming alcohol Advised against operating heavy machinery and driving long distances while on medicines. Impaired fasting osuatua4807/29/20220145Wettjcxh70/24/2023Irritable bowel syndrome with gwjwcdsa42/24/2023Localized edema07/29/2022lass 1 obesity due to excess calories with serious comorbidity and body mass index (BMI) of 34.0 to 34.9 in adult07/29/2022 Assessment & Plan (12/27/2023 8:53 AM EDT): Diet and Exercise Encouraged Eoxksvs8207/29/2022Obsessive-compulsive eznuujvk87/24/2023Vitamin D deficiency 07/29/2022 Resolved Problems ProblemNoted DateDiagnosed DateResolved DateType 2 diabetes mellitus, without long-term current use of fkcvaqh66 Assessment & Plan (12/27/2023 8:47 AM EDT): No Tobacco use Follow ADA 1800 diet [...] and importance of healthy diet and exercise. Assessment & Plan (07/12/2023 9:49 AM EDT): No Tobacco use Follow ADA 1800 diet [...] and importance of healthy diet and exercise. Finding of above normal blood jccaqwhk78/10/2024Severe acute respiratory syndrome coronavirus 2 (SARS-CoV-2) uzvbndhe68/08/2023 Encounters DateTypeDepartmentCare GneuKyhklazcpnq85/18/2025[facility] [address] [facility] [address] [place] [phone] Kim Resendez PA Morbid (severe) obesity due to excess calories ([facility])01/23/2025Refill [facility] [address] [facility] [address] [place] [address] Delfina Beck MD Kvbsala5601/21/2025Refill [facility] [address] [facility] [address] [place] [address] Delfina Beck MD Krxfaot4201/02/2025bstract [facility] [address] [facility] [address] [place] [address] Delfina Beck MD 12/21/2024[facility] [address] [facility] [address] [place] [phone] Kim Resendez PA Morbid (severe) obesity due to excess calories ([facility]); Rlehevv9512/13/2024 9:30 AM EDTOffice Visit [facility] [address] [facility] [address] [place] [address] Kim Resendez PA Primary insomnia (Primary Dx); Class 1 obesity due to excess calories with serious comorbidity and body mass index (BMI) of 34.0 to 34.9 in adult; Anxiety; H/O gastric csdjes2212/13/2024amboo flowsheet [facility] [place] [place] [address] [facility] [address] [place] [address] Kim Resendez PA 12/13/20243865Yqizwo07/17/2025Refill [facility] [address] [facility] [address] [place] [address] Delfina Beck MD Morbid (severe) obesity due to excess calories ([facility])11/21/2024Refill [facility] [address] [facility] [address] [place] [address] Kim Resendez PA Yocujkm5111/20/2024Refill [facility] [address] [facility] [address] [place] [address] Kim Resendez PA Elevated LDL cholesterol level11/15/2024Refill [facility] [address] [facility] [address] [place] [address] Delfina Beck MD Impaired fasting glucosefrom Last 3 Months Immunizations ImmunizationAdministration DatesNext DueInfluenza, Injectable, MDCK, preservative free12/09/2023Influenza, injectable, quadrivalent, preservative free03/16/2022,12/30/2020,01/07/2020,01/30/2019 Family History Medical HistoryRelationNameCommentsAsthmaBrotherChris, Dom, bio DadCOPDBrother AaronDom, bio DadDiabetesBrotherChris, Dom, bio DadHeart attackBrotherChris, Dom, bio DadHypertensionBrotherChris, Dom, bio DadDepressionFatherChris, Dom, bio dadDiabetesFatherChris, Dom, bio dadHeart diseaseFatherChris, Dom, bio dad HypertensionFatherChris, Dom, talat calderonDiabetesMaternal GrandmotherVirginiaHeart diseaseMaternal GrandmotherVirginiaHeart diseaseMotherHypertensionSister 1Carrie Multiple sclerosisSister 1CarrieMental illnessSister 2JenRelationNameStatus CommentsBroDom Ramsey, talat CalderonFatherChDom puentes, talat calderonDeceasedMaternal GrandmotherVirginiaMotherAliveSister 1CarrieSister 2Jen Social History Tobacco UseTypesPacks/DayYears UsedDateSmoking Tobacco: NeverSmokeless Tobacco: Never Tobacco Cessation:Counseling Given: Yes Alcohol UseStandard Drinks/WeekCommentsNot Currently0 (1 standard drink = 0.6 oz pure alcohol)Once or twice a month- gave up entirely for bariatric surgSocial Connection and Isolation PanelAnswerDate RecordedIn a typical week, how many times do you talk on the phone with family, friends, or neighbors?More than three times a week05/12/2023How often do you get together with friends or relatives?More than three times a week05/12/2023How often do you attend cheondoism or bahai services?Patient hfssojnf91/06/2024Do you belong to any clubs or organizations such as cheondoism groups, unions, fraternal or athletic groups, or school groups?No05/12/2023How often do you attend meetings of the clubs or organizations you belong to?Patient qafykkgm18/06/2024re you , , , , never , or living with a partner?Gbylgfhg13/06/2024 AUDIT-CAnswerDate RecordedQ1: How often do you have [...] and heating?Somewhat hard05/12/2023 PHQ-2AnswerDate RecordedPatient Health Questionnaire-2 Jstfe477[facility] of [facility] - Occupational Stress QuestionnaireAnswerDate RecordedDo you feel stress - tense, restless, nervous, or anxious, or unable to sleep at night because yourmind is troubled all the time - these days?Only a onvehx6405/12/2023Exercise Vital SignAnswerDate RecordedOn average, how many days [...] steady place to sleep or slept in [place] (including now)?No05/12/2023CommentsUnknownSex and Gender InformationValueDate RecordedSex Assigned at BirthNot on fileLegal SexFemale 05/20/2022 7:01 PM EDTGender IdentityNot on fileSexual OrientationNot on file Last Filed Vital Signs Vital SignReadingTime TakenCommentsBlood Wmxehvwj773/8010 9:46 AM EDT Eepac9391 9:46 AM DFHDkethrfmahk45.3 ??C (99.1 ??F)01/05/2024 5:04 PM EDTRespiratory Fqrd9167 9:46 AM EDTOxygen Nyqoqovlmv98%12/13/2024 9:46 AM EDTInhaled Oxygen Concentration--Wpoojy00.4 kg (199 lb 3.2 oz)12/13/2024 9:46 AM UYTEqyuqd954.6 cm (5' 4 )12/13/2024 9:46 AM EDTBody Mass Index34.191 9:46 AM EDT Plan of Treatment DateTypeDepartmentCare Team (Latest Contact Info)Lmncaejdpeo70/19/2026 11:00 AM EDTOffice Visit [facility] [address] [facility] [address] [place] [address] Kim Resendez PA [address] [facility] [address] [place] [address] Health MaintenanceDue DateLast DoneCommentsCT Fcsclcbddopi72/06/1979Colonoscopy 1978FIT-DNA1978FIT1978FOBT1978 3040Ycruvhikpybbr50/06/1979 Pneumococcal Vaccine: Pediatrics (0 to 5 Years) and At-Risk Patients (6 to 64 Years) (1 of 2 - PCV)1997Pap Smear10/12/1999Cervical Cancer Screening 2008HPV/Dklgxf5510/11/20083068Dhjejbumz52/06/2019Diabetes: Retinopathy Screening /1Diabetes: Urine Protein Qlgbldmae30/08/2023, 10/02/2022, 1Diabetes: Hemoglobin A1C503/, 12/27/2023, 07/12/2023, Additional history existsCOVID-19 Vaccine ( season) /05/2020, 03/13/2020Influenza Vaccine (#1)/05/2023, 03/16/2022, 12/30/2020, Additional history existsColorectal Cancer Screening 02/06/2028Postponed from 1978 (Other Medical Reasons) Procedures Procedure NamePriorityDate/TimeAssociated DiagnosisCommentsPOCT GLYCATED HEMOGLOBIN, VGWGHCrxjhlo98/19/2025 3:52 PM EDT Type 2 diabetes mellitus with other specified complication, without long-term current use of insulin (HCC) MICROALBUMIN / CREATININE URINE ZRXZSUeycwrf83/06/2024 10:23 AM EDT Type 2 diabetes mellitus without complication, without long-term current use of insulin (HCC) COLOR FUNDUS PHOTOGRAPHY - OU - BOTH EKSDUfiwkzx11/12/2021 12:00 PM EST Type 2 diabetes mellitus without complications (HCC) Encounter for screening for eye and ear disorders from Last 3 Months or Most Recently Relevant to Health Maintenance Results * POCT Glycated hemoglobin, total (05/24/2024 3:52 PM EDT)ComponentValueRef RangeTest MethodAnalysis TimePerformed AtPathologist SignatureHemoglobin A1C 5.3Specimen (Source)Anatomical Location / LateralityCollection Method / Volume Collection TimeReceived OiexCkduv14/19/2025 3:52 PM EDT Narrative Authorizing ProviderResult TypeResult Lary Mclaughlin NPPOINT OF CARE TEST ENTER/EDIT ORDERABLESFinal Result * (ABNORMAL) Microalbumin / creatinine urine ratio (07/12/2023 10:23 AM EDT) ComponentValueRef RangeTest MethodAnalysis TimePerformed AtPathologist SignatureCREATININE, RANDOM WBDCK0344 - 275 mg/dLQUESTALBUMIN, URINE2.0See Note: mg/dLQUESTComment: Reference Range: Reference Range Not established ALBUMIN/CREATININE RATIO, RANDOM URINE38(H)<30 mg/g creatQUESTComment: The ADA defines abnormalities in albumin excretion as follows: Albuminuria Category ?Result (mg/g creatinine) Normal to Mildly increased <30 Moderately increased ? 30-299 Severely increased > OR = 300 The ADA recommends that at least two of three specimens collected within a 3-6 month period be abnormal before considering a patient to be within a diagnostic category. Specimen (Source)Anatomical Location / LateralityCollection Method / Volume Collection TimeReceived TimeUrineUrine specimen obtained by clean catch procedure / Csipssc4307/12/2023 10:23 AM EDT07/12/2023 3:51 PM EDT Narrative Resulting Agency Comment Performing Organization Information ?Site ID: [id number] ?Name: [facility] ?Address: [address] [place] [address], [address] [place] [id number] ?Director: Jamie Pascual MD Authorizing ProviderResult TypeResult StatuseDlfina Beck MDLAB URINE ORDERABLES Final ResultPerforming OrganizationAddressCity/State/ZIP CodePhone Number QUEST * Color Fundus Photography - OU - Both Eyes (01/17/2021 12:00 PM EST)Anatomical RegionLateralityModalityHeadFundus PhotographySpecimen (Source)Anatomical Location / LateralityCollection Method / VolumeCollection TimeReceived Time 01/17/2021 12:00 PM EST Narrative 01/17/2021 12:00 PM EST PERFORMED AT [facility] LOCATION:[id number] [facility] Procedure Note CONVERSION, GENERIC - 07/22/2022 PERFORMED AT [facility] LOCATION:[id number] [facility] Authorizing ProviderResult TypeResult StatusDelfina Beck MDOPHTH PHOTOGRAPHY Final Result from Last 3 Months or Most Recently Relevant to Health Maintenance Insurance Care Teams Team MemberRelationshipSpecialtyStart DateEnd Date Delfina Beck MD [address] [facility] [address] [place], [place] [phone] PCP - GeneralFamily Medicine09/11/22 Delfina Beck MD [address] [place] [address] [address] [place] [address] PCP - JACQUELIN Elder [facility]03/2510
--- OUTSIDE RECORDS SUMMARY | 2025-02-03 23:40 | XMS_ITS | Encounter Summary ---
Author Organization [facility] Address [address] [place] [address] Care Team Providers Care Classifications Officer Cc/Cm Name Role Phone Delfina Beck MD Primary Care Provider [phone] Delfina Beck MD Unavailable Reason for Visit * ReasonCommentsMed Refill Encounter Details DateTypeDepartmentCare Team (Latest Contact Info)Rjtnxgnmcbs48/18/2025Refill [facility] [address] [facility] [address] [place] [address] Delfina Beck MD [address] [facility] [address] [place] [address] Anxiety Social History Tobacco UseTypesPacks/DayYears UsedDateSmoking Tobacco: [...] times a week05/12/2023How often do you attend anglican or yarsani services?Patient ucreopqe52/06/2024Do you belong to any clubs or organizations such as anglican groups, unions, fraternal or athletic groups, or school groups?No05/12/2023How often do you attend meetings of the clubs or organizations you belong to?Patient /06/2024re you , , , , never , or living with a partner?Khoawkfc36/06/2024 AUDIT-CAnswerDate RecordedQ1: How often do you have [...] and heating?Somewhat hard05/12/2023 PHQ-2AnswerDate RecordedPatient Health Questionnaire-2 Ubiyz472[facility] [place] of Occupational Health - Occupational Stress QuestionnaireAnswerDate RecordedDo you feel stress - tense, restless, nervous, or anxious, or unable to sleep at night because yourmind is troubled all the time - these days?Only a kckdyb1105/12/2023Exercise Vital SignAnswerDate RecordedOn average, how many days [...] Plan of Treatment DateTypeDepartmentCare Team (Latest Contact Info)Zkkcifxmwtu91/19/2026 11:00 AM EDTOffice Visit [facility] [address] [facility] [address] [place] [address] Kim Resendez PA [address] [facility] [address] [place] [address] documented as of this encounter Visit Diagnoses Diagnosis Anxiety Anxiety state, unspecified documented in this encounter Care Teams Team MemberRelationshipSpecialtyStart DateEnd Date Delfina Beck MD [address] [place] [address] [place] [address] PCP - GeneralFamily Medicine09/11/22 Delfina Beck MD [address] [place] [address] [place] [address] PCP - JACQUELIN Elder [facility]06/06/2510documented as of this encounter
[2025-02-03 23:41] LABS: Alanine Aminotransferase 88 U/L (14-59); Albumin Globulin Ratio 1.1; Albumin Level 3.4 g/dL (3.4-5.0); Alkaline Phosphatase 84 U/L (46-116); Anion Gap 5.2; Aspartate Amino Transferase 61 U/L (15-37); Blood Urea Nitrogen 8.0 mg/dL (7.0-18.0); Calcium 8.8 mg/dL (8.5-10.1); Carbon Dioxide 33.3 mmol/L (21.0-32.0); Chloride 102 mmol/L (98-107); Estimated GFR (African America >60 (>=60 mL/min/1.73m^2); Estimated GFR (Non-African Ame >60 (>=60 mL/min/1.73m^2); Globulin 3.1 g/dL; Glucose 98 mg/dL (74-106); Sodium 138 mmol/L (136-145); Total Protein 6.5 g/dL (6.4-8.2)
[2025-02-03 23:47] LABS: Potassium 2.5 mmol/L (3.5-5.1)
[2025-02-03] MEDS: POTASSIUM CHLORIDE 10 MEQ ER TABLET 40 MEQ PO (23:55)
[2025-02-04 00:13] LABS: Thyroid Stimulating Hormone 0.574 uIU/mL (0.358-3.740)
--- NOTE | 2025-02-04 02:26 | ED_ITS ---
HPI HPI - General Adult General Chief complaint: Recheck/Abnormal Lab/Rx Stated complaint: NUMBNESS/PRESSURE L SIDE OF BODY Time Seen by Provider: 02/03/25 22:29 Source: patient Mode of arrival: walk-in History of Present Illness HPI narrative: Patient is a 44-year-old female presenting to the emergency department for evaluation of left-sided neck discomfort. Patient states that intermittently over the last month she has been having left-sided neck discomfort. She states it feels like someone is choking her. She states she has intermittent episodes of feeling hot and sweaty and dizzy. She denies any changes in her weight. No change in her hair skin or nails. She denies any chest pain or shortness of breath. No abdominal pain, nausea, or vomiting. She denies any trouble swallowing or breathing. She has no history of regurgitation or trouble keeping food down. She denies history of previous thyroid conditions. Related Data Allergies Allergy/AdvReac Type Severity Reaction Status Date / Time latex Allergy Rash Verified 02/03/25 22:34 sulfur hexafluoride Allergy Anaphylaxis Verified 02/03/25 22:34 microspheres Review of Systems ROS Status of ROS 10 or more systems reviewed and unremark able except as noted in history and below PFSH PFSH Social History Little interest or pleasure in doing things: not at all Feeling down, depressed, or hopeless: not at all Exam Narrative Exam Narrative: CONSTITUTIONAL: Well-appearing, answering questions and following commands appropriately SKIN: Was warm and dry. EYES: Sclerae white. EARS, NOSE, THROAT: Moist oral mucosa. Posterior oropharynx is clear without tonsillar enlargement or exudates. No tonsillar enlargement. No neck swelling or lymphadenopathy. No goiter. No trismus. Speaking with a normal voice. RESPIRATORY: Clear to auscultation bilaterally, no wheezes, crackles, or stridor, no use of accessory muscles. Speaking in full sentences. CARDIOVASCULAR: Normal rate and regular rhythm. There is no S3, S4, murmur, rub. GASTROINTESTINAL: Abdomen is soft, nontender, nondistended. MUSCULOSKELETAL: No peripheral edema. NEUROLOGIC: Patient is awake and alert. Facies were symmetrical. Constitutional Vital Signs, click to edit/add: Last Vital Signs Temp 98.1 F 02/03/25 22:35 Pulse 82 02/03/25 22:35 Resp 20 02/03/25 22:35 BP 120/83 02/03/25 22:35 Pulse Ox 100 02/03/25 22:35 O2 Del Method Room Air 02/03/25 22:35 Course Vital Signs Vital signs: Vital Signs Temperature 98.1 F 02/03/25 22:35 Pulse Rate 82 02/03/25 22:35 Respiratory Rate 20 02/03/25 22:35 Blood Pressure 120/83 02/03/25 22:35 Pulse Oximetry 100 02/03/25 22:35 Oxygen Delivery Method Room Air 02/03/25 22:35 Temperature 98.1 F 02/03/25 22:35 Pulse Rate 82 02/03/25 22:35 Respiratory Rate 20 02/03/25 22:35 Blood Pressure 120/83 02/03/25 22:35 Pulse Oximetry 100 02/03/25 22:35 Oxygen Delivery Method Room Air 02/03/25 22:35 Medical Decision Making MDM Narrative Medical decision making narrative: Patient is a 44-year-old female presenting to the emergency department with 1 month history of intermittent left-sided neck discomfort. Her vital signs on arrival are within normal limits. She is afebrile and hemodynamically stable. Her physical examination is normal without a palpable goiter or lymphadenopathy in the neck. Differential diagnosis includes thyroid nodules/enlargement, lymphadenopathy, or other ENT conditions. Laboratory studies were obtained. CT head and neck were ordered. Laboratory studies were unremarkable. No significant electrolyte or metabolic derangement other than hypokalemia. This was replaced with 40 mEq of oral potassium chloride. No evidence of acute kidney injury. No anemia, leukocytosis, or thrombocytopenia. Mild transaminitis. TSH within normal limits. CT head independently reviewed/interpreted by myself demonstrated no acute intracranial pathology or hemorrhage. CT neck demonstrated a calcified thyroid nodule in the right thyroid lobe measuring 20 x 15 mm. No lymphadenopathy or abscesses. I do believe the patient is stable for discharge. They were instructed to follow up with her PCP for further workup. Return precautions were given including any new or worsening symptoms. Patient understands and agrees to the plan. FINAL IMPRESSION: #Subacute left-sided neck discomfort DISPOSITION: Discharged home CONDITION: Good Lab Data Lab results reviewed: Yes I reviewed the patient's lab results Labs: Lab Results 02/03/25 02/03/25 Range/Units 22:40 23:20 WBC 7.1 (4.0-11.0) 10^3/uL RBC 4.20 (4.20-5.40) 10^6/uL Hgb 12.4 (12.0-16.0) g/dL Hct 37.5 (36.0-48.0) % MCV 89.3 (81.0-99.0) fL MCH 29.5 (26.7-34.0) pg MCHC 33.1 (29.9-35.2) g/dL RDW 12.0 (11.0-15.0) % Plt Count 245 (150-450) 10^3/uL MPV 9.7 (9.5-13.5) fL Neut % (Auto) 37.9 L (43.0-75.0) % Lymph % (Auto) 51.9 (20.5-60.0) % [place] % (Auto) 7.5 (1.7-12.0) % Eos % (Auto) 2.0 (0.9-7.0) % Baso % (Auto) 0.6 (0.2-2.0) % Neut # (Auto) 2.7 (1.4-6.5) 10^3/uL Lymph # (Auto) 3.7 (1.2-3.8) 10^3/uL [place] # (Auto) 0.5 (0.3-0.8) 10^3/uL Eos # (Auto) 0.1 (0.0-0.7) 10^3/uL Baso # (Auto) 0.0 (0.0-0.1) 10^3/uL Abs Immat Gran (auto) 0.01 (0.00-0.03) 10^3/uL Imm/Tot Granulo (auto) 0.1 (0.0-0.5) % Sodium 138 (136-145) mmol/L Potassium 2.5 L* (3.5-5.1) mmol/L Chloride 102 (98-107) mmol/L Carbon Dioxide 33.3 H (21.0-32.0) mmol/L Anion Gap 5.2 BUN 8.0 (7.0-18.0) mg/dL Creatinine 0.62 (0.55-1.02) mg/dL Est GFR ( Amer) >60 (>=60 mL/min/1.73m^2) Est GFR (Non-Af Amer) >60 (>=60 mL/min/1.73m^2) BUN/Creatinine Ratio 12.9 Glucose 98 (74-106) mg/dL Calcium 8.8 (8.5-10.1) mg/dL Total Bilirubin 0.5 (0.2-1.0) mg/dL AST 61 H (15-37) U/L ALT 88 H (14-59) U/L Alkaline Phosphatase 84 (46-116) U/L Total Protein 6.5 (6.4-8.2) g/dL Albumin 3.4 (3.4-5.0) g/dL Globulin 3.1 g/dL Albumin/Globulin Ratio 1.1 TSH 0.574 (0.358-3.740) uIU/mL POC Glucose 85 (74-106) mg/dL Imaging Data CT scan - head: Attestation: I personally reviewed and interpreted this imaging study as follows: Discharge Plan Discharge Chief Complaint: Recheck/Abnormal Lab/Rx Clinical Impression: Discomfort of neck Patient Disposition: Home, Self-Care Time of Disposition Decision: 01:50 Condition: Good Mode of Transportation: Private Vehicle Print Language: Citizen Of [place] Instructions: Neck Pain (ED) Referrals: ROSE BRADFORD [Primary Care Provider, Family Practice] - 1 week Discharge Date/Time: 02/04/25 02:01
== END 2025-02-04 02:01 | disposition home or self-care (01) ==
PROVIDERS: Emergency Provider Student in an Organized Health Care Education/Training Program; PCP Family Medicine
DX: M54.2 Cervicalgia (principal); E87.6 Hypokalemia
CPT/HCPCS: 36415; 70450; 70490; 80053; 84443; 85025; 99284

== ENCOUNTER 2025-02-14 10:37 | Outpatient (OUT) | payer MEDICAID, SELFPAY ==
--- OUTSIDE RECORDS SUMMARY | 2025-02-14 10:42 | XMS_ITS | CCD ---
Author Organization [facility] Care Team Providers Care Inbound Call Center Representative Name Role Phone HIEN MISTRY Attending Unavailable [...] MD Primary Care Provider Kim Burger Unavailable [phone] Kim Burger Unavailable CONNELL, JEFFERY Attending Unavailable CONNELL, JEFFERY Attending Unavailable JENNIFFER HOLGUIN Attending Unavailable KOURTNEY WHITE Attending Unavailable JENNIFFER HOLGUIN Attending Unavailable KOURTNEY WHITE Attending Unavailable LINNEA CERVANTES Attending Unavailable LINNEA CERVANTES Attending Unavailable CONNELLJEFFERY Acuna Referring Unavailable CONNELLJEFFERY Acuna Attending Unavailable Rose Bradford MD Unavailable YAEL RIVERA Attending Unavailable YAEL RIVERA Attending Unavailable ROSE BRADFORD Attending Unavailable KIM HARDING Attending Unavailable YAEL RIVERA Attending Unavailable KIM HARDING Attending Unavailable YAEL RIVERA Attending Unavailable Kim Burger Unavailable [phone] Wednesday MANAGER SPRING, Fanny Unavailable Allergies Allergy ClassificationReported Allergen(s)Allergy TypeDate of OnsetReaction(s) Facility (20 sources)Latex; Translations: [LATEX]Propensity to adverse reactions 94-01-4360LccrCD[facility] (20 sources)Sulfur HexafluoridePropensity to adverse lucynfsur72-65-7560 Headache, Shortness of breathNOMS Healthcare (1 source)SULFUR HEXAFLUORIDE MICROSPHR; Translations: [SULFUR HEXAFLUORIDE MICROSPHR]Propensity to adverse reactions to drug (disorder)52-74-9277FourjdpbaaSt. [facility] Medications Current Medications MedicationDrug Class(es)DatesSig (Normalized)Sig (Original)ALPRAZolam 0.5 mg oral tablet (20 sources)BenzodiazepineStart: 00-47-2064wvnw 1 tablet by mouth twice daily as needed for anxietyALPRAZolam (Xanax) 0.5 MG tablet Indications: Anxiety TAKE 1 TABLET (0.5 MG) BY MOUTH 2 (TWO) TIMESA DAY NEEDED FOR ANXIETY 60 tablet 12/21/2024 ActiveStart: 01-31-2024 End: 57-58-3154nojw 1 tablet by mouth twice daily as needed for anxiety ALPRAZolam (Xanax) 0.5 MG tablet Indications: Anxiety Take 1 tablet (0.5 mg) by mouth 2 (two) timesa day as needed for anxiety 60 tablet 11/21/2024 12/21/2024 DiscontinuedStart: 20-34-8004xfhi 1 tablet by mouth twice daily as needed for anxietyALPRAZolam (Xanax) 0.5 MG tablet Indications: Anxiety Take 1 tablet (0.5 mg) by mouth 2 (two) timesa day as needed for anxiety 60 tablet 12/30/2023 ActiveStart: 09-13-2023 End: 20-90-2209jjhp 1 tablet by mouth twice daily as needed for anxiety ALPRAZolam (Xanax) 0.5 MG tablet Indications: Anxiety Take 1 tablet (0.5 mg) by mouth 2 (two) timesa day as needed for anxiety 60 tablet 12/30/2023 01/31/2024 DiscontinuedStart: 05-12-2023 End: 41-16-0327tuds 1 tablet by mouth twice daily as [...] 40 mg oral tablet (7 sources)Vitamin CStart: 86-24-7599ytdu 1 tablet by mouth once dailyMultiple Vitamin (Multivitamin Adult) tablet Indications: Anxiety Take 1 tablet by mouth Daily 30 tablet 2 10/23/2024 Activeatorvastatin 20 mg oral tablet (20 sources)HMG-CoA Reductase InhibitorStart: 70-43-8330ozhr 1 tablet by mouth once daily in the morningatorvastatin (Lipitor) 20 MG tablet Indications: Elevated LDL cholesterol level TAKE 1 TABLET BY MOUTH EVERY DAY IN THE MORNING 100 tablet 3 11/20/2024 ActiveStart: 10-05-2022 End: 78-04-8141hlod 1 tablet by mouth in the morningatorvastatin (Lipitor) 20 MG tablet Indications: Elevated LDL cholesterol level Take 1 tablet (20 mg) by mouth in the morning. 100 tablet 3 10/26/2023 Activeb complex vitamins capsule (20 sources)Start: 41-99-2091difs 1 capsule by mouth once in the morningb complex vitamins capsule Indications: H/O gastric bypass Take 1 capsule by mouth in the morning. 90 capsule 3 06/24/2024 Active End: 25-89-4229suke 1 capsule by mouth in the morningb complex vitamins capsule Take 1 capsule by mouth in the morning. 06/24/2024 Discontinued (Reorder)take 1 capsule by mouth in the morningb complex vitamins capsule Take 1 capsule by mouth in the morning. Activebiotin 10 mg oral capsule (20 sources)Start: 95-26-2104stdv 1 capsule by mouth once dailybiotin 10 MG capsule Indications: Impaired fasting glucose TAKE 1 CAPSULE BY MOUTH EVERY DAY 30 capsule 11 11/15/2024 ActiveStart: 01-42-6699osav 1 tablet by mouth once dailybiotin 94501 MCG tablet Indications: Impaired fasting glucose Take 1 tablet (10,000 mcg) by mouth Daily 30 tablet 10/16/2024 Activebiotin 81343 MCG tablet Take by mouth Daily Uwbjvs71 hr buPROPion hydrochloride 150 mg extended release oral tablet (20 sources)AminoketoneStart: 53-22-9455rlif 1 tablet by mouth once daily buPROPion XL (Wellbutrin XL) 150 MG 24 hr tablet Indications: Anxiety TAKE 1 TABLET BY MOUTH EVERY DAY, DO NOT CRUSH, CHEW, OR SPLIT 100 tablet 3 02/25/2024 ActiveStart: 94-12-8332efhf 1 tablet by mouth once dailybuPROPion XL (Wellbutrin XL) 150 MG 24 hr tablet Indications: Anxiety Take 1 tablet (150 mg) by mouth Daily Do not crush, chew, or split. 30 tablet 3 10/26/2023 ActiveStart: 34-27-2566wvta 1 tablet by mouth once daily in the morningbuPROPion SR (Wellbutrin SR) 100 MG 12 hr tablet Indications: Obsessive-compulsive disorder, unspecified type (CMS/HCC) TAKE 1 TABLET BY MOUTH EVERY MORNING 30 tablet 15 09/13/2023 ActiveStart: 07-29-2022 End: 09-45-0653qbxd 1 tablet by mouth every twelve hours in the morningbuPROPion SR (Wellbutrin SR) 100 MG 12 hr tablet Indications: Obsessive-compulsive disorder, unspecified type Take 1 tablet (100 mg) by mouth in the morning. 100 tablet 4 07/29/2022 09/13/2023 DiscontinuedbusPIRone hydrochloride 10 mg oral tablet (20 sources)Start: 90-77-1036oxkx 1 tablet by mouth in the morning, then take 1 tablet by mouth in the evening, then take 1 tablet by mouth at bedtimebusPIRone (Buspar) 10 MG tablet Indications: Anxiety Take 1 tablet (10 mg) by mouth in the morning and 1 tablet (10 mg) in the evening and 1 tablet (10 mg) before bedtime. 12/13/2024 ActiveStart: 45-66-2049dxsh 1 tablet by mouth in the morning, then take 1 tablet by mouth in the evening, then take 1 tablet by mouth at bedtime busPIRone (Buspar) 10 MG tablet Indications: Anxiety Take 1 tablet (10 mg) by mouth in the morning and 1 tablet (10 mg) in the evening and 1 tablet (10 mg) before bedtime. 12/13/2024 ActiveStart: 08-14-2024 End: 58-70-0830ztrd 1 tablet by mouth at bedtimebusPIRone (Buspar) 5 MG tablet Indications: Anxiety TAKE 1 TABLET BY MOUTH IN THE MORNING, IN THE EVENING AND BEFORE BEDTIME 270 tablet 3 08/14/2024 12/13/2024 Discontinued (Reorder)Start: 06-25-2023 End: 45-95-4267xfca 1 tablet by mouth in the morning, [...] oral capsule (1 source)Cephalosporin AntibacterialStart: 01-05-2024 End: 18-48-3608uhjn 1 capsule by mouth in the morningcefdinir (Omnicef) 300 MG capsule Indications: Acute left otitis media , Acute non-recurrent pansinusitis Take 1 capsule (300 mg) by mouth in the morning and 1 capsule (300 mg) before bedtime. Do allthis for 10 days. 20 capsule 01/05/2024 01/15/2024 Active cholecalciferol 0.025 mg oral tablet (20 sources)Vitamin DStart: 11-57-7257cort 1 tablet by mouth once in the morning cholecalciferol (Vitamin D-3) 25 MCG (1000 UT) tablet Indications: Vitamin D deficiency Take 1 tablet (25 mcg) by mouth in the morning. 90 tablet 3 06/24/2024 Active End: 95-89-1292jbvp 1 tablet by mouth in the morningcholecalciferol (Vitamin D- 3) 25 MCG (1000 UT) tablet Take 1,000 Units by mouth in the morning. 06/24/2024 Discontinued (Reorder)empagliflozin 25 mg oral tablet (4 sources)Sodium-Glucose Cotransporter 2 InhibitorStart: 12-20-2023 End: 10-52-0461gjxn 1 tablet by mouth once dailyJardiance 25 MG Indications: Impaired fasting glucose TAKE 1 TABLET BY MOUTH EVERY DAY AT THE SAME TIME 30 tablet 3 12/20/2023 12/27/2023 Discontinued (Therapy completed)Start: 01-05-2023 End: 24-61-8285xjpq 1 tablet by mouth once dailyJardiance 25 MG Indications: Impaired fasting glucose TAKE 1 TABLET (25 MG) BY MOUTH 1 (ONE) TIME EACH DAY AT THE SAME TIME. 30 tablet 3 07/22/2023 Activefluconazole 150 mg oral tablet (1 source)Azole AntifungalStart: 01-05-2024 End: 13-46-0668luxdzlwyhui (Diflucan) 150 MG tablet Indications: Acute left otitis media Take 1 tablet (150 mg) bymouth Daily for 1 day, THEN 1 tablet (150 mg) Daily for 1 day. Take doses 3 days apart. 2 tablet 01/05/2024 01/06/2024 Activefluticasone propionate 0.05 mg/actuat metered dose nasal spray (20 sources)CorticosteroidStart: 63-56-4518gpzn 1-2 spray(s) nasal route once dailyfluticasone (Flonase) 50 MCG/ACT nasal spray Indications: Acute left otitis media , Acute non-recurrent pansinusitis INSTILL 1 TO 2 SPRAYS IN EACH NOSTRIL DAILY. BEFORE 1ST USE PRIME PUMP, AFTER USE CLERAN TIP & REPLACE CAP 48 mL 1 08/14/2024 ActiveStart: 71-26-1474rayq 1-2 spray(s) nasal route once daily fluticasone (Flonase) 50 MCG/ACT nasal spray Indications: Acute left otitis media , Acute non-recurrent pansinusitis INSTILL 1-2 SPRAYS INTO EACH NOSTRIL DAILY, BEFORE 1ST USE, PRIME PUMP, AFTER ISE CLEAN TIP AND REPLACE CAP 48 mL 1 01/27/2024 ActiveStart: 87-05-0416atvy 1-2 spray(s) nasal route once daily fluticasone (Flonase) 50 MCG/ACT nasal spray Indications: Acute left otitis media , Acute non-recurrent pansinusitis Administer 1-2 sprays into each nostril Daily Shake gently. Before first use, prime pump. After use, clean tip and replace cap. 16 g 01/05/2024 Activefurosemide 40 mg oral tablet (20 sources)Loop DiureticStart: 82-33-2467jqcd 1 tablet by mouth once daily furosemide (Lasix) 40 MG tablet Indications: Localized edema TAKE 1 TABLET BY MOUTH EVERY DAY 100 tablet 3 08/31/2024 ActiveStart: 07-29-2022 End: 82-05-5278hcca 1 tablet by mouth once dailyfurosemide (Lasix) 40 MG tablet Indications: Localized edema Take 1 tablet (40 mg) by mouth Daily 100 tablet 4 07/12/2023 Activelisinopril 5 mg oral tablet (6 sources)Angiotensin Converting Enzyme InhibitorStart: 07-13-2023 End: 17-68-7631vayu 1 tablet by mouth once dailylisinopril 5 MG tablet Indications: Pure hypercholesterolemia (CMS/HCC) Take 1 tablet (5 mg) by mouth Daily 90 tablet 10/26/2023 Activephentermine hydrochloride 37.5 mg oral tablet (20 sources)Sympathomimetic Amine AnorecticStart: 04-26-2024 End: 27-04-6243fzui 1 tablet by mouth in the morningphentermine (Adipex-P) 37.5 MG tablet Indications: Morbid (severe) obesity due to excess calories (CMS-HCC) TAKE 1 TABLET (37.5 MG) BY MOUTH IN THE MORNING 30 tablet 12/21/2024 01/20/2025 ActiveStart: 03-23-2024 End: 61-76-6948gzsu 1 capsule by mouth before mealtimephentermine 37.5 MG capsule Indications: Morbid (severe) obesity due to excess calories (CMS/HCC) Ta ke 1 capsule (37.5 mg) by mouth in the morning. Take before meals. 30 capsule 04/26/2024 05/24/2024Discontinued (Other)simethicone 125 mg chewable tablet (20 sources)Start: 12-26-2023 End: 00-98-4976DQX Gas Relief Extra Strength 125 MG chewable tablet 12/26/2023 12/13/2024 Discontinued (Therapy completed) Completed/Discontinued Medications MedicationDrug Class(es)DatesSig (Normalized)Sig (Original)meloxicam 15 mg oral tablet (1 source)Nonsteroidal Anti-inflammatory DrugStart: 04-01-2023 End: 14-10-8600kdmq 1 tablet by mouth in the morningmeloxicam (Mobic) 15 MG tablet Indications: Chronic pain of left knee TAKE 1 TABLET (15 MG) BY MOUTH IN THE MORNING. 30 tablet 3 04/01/2023 07/12/2023 Discontinued (Other)methocarbamol 500 mg oral tablet (4 sources)Muscle RelaxantStart: 04-26-2024 End: 73-61-8772ctff 1 tablet by mouth four times daily as needed for muscle spasmsmethocarbamol (Robaxin) 500 MG tablet Indications: Muscle spasm Take 1 tablet (500 mg) by mouth 4 (four) times a day as needed for muscle spasms for up to 10 days 40 tablet 04/26/2024 05/24/2024 Discontinued (Other)PARoxetine hydrochloride 20 mg oral tablet (7 sources)Serotonin Reuptake InhibitorStart: 10-23-2024 End: 49-55-7228dbtm 1 tablet by mouth in the morningPARoxetine (Paxil) 20 MG tablet Indications: Anxiety Take 1 tablet (20 mg) by mouth in the morning.30 tablet 3 10/23/2024 10/31/2024 Discontinued (Side effects)Start: 09-28-2023 End: 34-40-4769fbgs 1 tablet by mouth once dailyPARoxetine (Paxil) 40 MG tablet Indications: Anxiety TAKE 1 TABLET BY MOUTH EVERY DAY AT THE SAME TIME EACH DAY 90 tablet 1 12/27/2023 ActiveStart: 06-09-2023 End: 46-65-8751oyxy 0.5 tablet by mouth once dailyPARoxetine (Paxil) 40 MG tablet Indications: Anxiety Take 0.5 tablets (20 mg) by mouth 1 (one) timeeach day at the same time 100 tablet 3 06/09/2023 06/16/2023 Discontinued (Dose adjustment)spironolactone 25 mg oral tablet (1 source)Aldosterone AntagonistStart: 01-05-2023 End: 43-83-3194mdsz 1 tablet by mouth in the morningspironolactone (Aldactone) 25 MG tablet Indications: Finding of above normal blood pressure Take 1 tablet (25 mg) by mouth in the morning. 30 tablet 3 01/05/2023 07/12/2023 Discontinued (Other) Problems Active Problems Problem ClassificationProblemDateDocumented DateEpisodic/ChronicAnxiety disorders (20 sources)Anxiety; Translations: [Anxiety disorder, unspecified]Onset: 679141-23-9567YevtwxsZihnbfpf mellitus with complications (2 sources)Type 2 diabetes mellitus; Translations: [Type 2 diabetes mellitus with other specified complication]81-60-2535WxxctpsAdmsfcodg of lipid metabolism (20 sources)Pure hypercholesterolemia; Translations: [Pure hypercholesterolemia, unspecified]Onset: 692226-50-7038RsnkhdiSyyhjhfcfe disorders (20 sources)Gastroesophageal reflux disease; Translations: [Gastro-esophageal reflux disease without esophagitis]Onset: 621837-97-3703HuhbfelAdtnscjeo hypertension (2 sources)Essential (primary) hypertension; Translations: [Essential (primary) hypertension]Onset: 99-46-7963CubluncAbenacbrduebp and screening for infectious disease (4 sources)Encounter for immunization; Translations: [ENCOUNTER FOR IMMUNIZATION]Onset: 86-73-5716QqhsvmhbIapprysylpjjd mental health disorders (2 sources)Primary insomnia; Translations: [Primary insomnia]37-56-2918Yzoujbm Nutritional deficiencies (20 sources)Vitamin D deficiency; Translations: [Vitamin D deficiency, unspecified]Onset: 019862-55-4029UrsceeyLqnhl connective tissue disease (2 sources)Spasm; Translations: [Other muscle spasm]60-46-4533JiepekhjEdiit gastrointestinal disorders (20 sources)Irritable bowel syndrome with diarrhea; Translations: [Irritable bowel syndrome with diarrhea]Onset: 407985-30-8137MpgudenFdzrp gastrointestinal disorders (1 source)Irritable bowel syndrome with diarrhea; Translations: [Irritable bowel syndrome with diarrhea]Onset: 85-58-8015CejutopTcqbm nutritional; endocrine; and metabolic disorders (20 sources)Obesity caused by energy imbalance; Translations: [Morbid (severe) obesity due to excess calories]Onset: 851848-28-3823TbfiizxRjqsj nutritional; endocrine; and metabolic disorders (20 sources)Body mass index 40+ - severely obese; Translations: [Body mass index (BMI) 50.0-59.9, adult]Onset: 564774-20-5229TonscbsTppuy nutritional; endocrine; and metabolic disorders (1 source)Morbid obesity; Translations: [Morbid (severe) obesity due to excess calories]Onset: 939434-83-8075IdxflwtYnqzy nutritional; endocrine; and metabolic disorders (2 sources)Other obesity due to excess calories; Translations: [Other obesity due to excess calories]Onset: 51-09-3408CdbkzyfIicuj nutritional; endocrine; and metabolic disorders (2 sources)Body mass index (BMI) 38.0-38.9, adult; Translations: [Body mass index (BMI) 38.0-38.9, adult]Onset: 44-40-6434EdrtbljAlxgu nutritional; endocrine; and metabolic disorders (2 sources)Morbid (severe) obesity due to excess calories; Translations: [Morbid (severe) obesity due to excess calories]Onset: 19-62-1198LhhpuboJwrsp screening for suspected conditions (not mental disorders or infectious disease) (2 sources)Patient encounter status; Translations: [Encounter for other screening for malignant neoplasm of breast]04-83-2019MckayyomPyazm upper respiratory infections (2 sources)Acute pharyngitis, unspecified; Translations: [Acute pansinusitis] Onset: 228264-06-2970JpuydzhbDumloo media and related conditions (1 source)Acute left otitis media; Translations: [Otitis media, unspecified, left ear]58-80-0854PkomgssdLatplbtz codes; unclassified (1 source)Pain, unspecified; Translations: [PAIN UNSPECIFIED]Onset: 03-26-2021 EpisodicResidual codes; unclassified (8 sources)History of sleeve gastrectomy; Translations: [Acquired absence of stomach [part of]]Onset: 521274-82-2669GuibmbiuJedphpcisdvv (2 sources)CONTACT W/AND (SUSP) EXPOS COVID-19; Translations: [CONTACT W/AND (SUSP) EXPOS COVID-19]Onset: 90-13-6503Ctycpwnhukkz (1 source)Patient on antidepressant monitoring planOnset: 436067-84-4553 Unclassified (1 source)Baseline PHQ-9Onset: 453614-34-2285Agfemrlqgkir (1 source)Obesity, class 2; Translations: [Obesity, class 2]Onset: 01-13-2024 Unclassified (2 sources)Post-op; Translations: [Post-op]Onset: 94-46-1596Aujzj infection (1 source)COVID-19; Translations: [COVID-19]Onset: 03-26-2021 Past or Other Problems Problem ClassificationProblemDateDocumented DateEpisodic/Chronic Administrative/social admission (6 sources)Encounter for pre-employment examination; Translations: [Dietary counseling and surveillance]Onset: 74-70-8123ZjsokmdtZlsbmnybdjivl of surgical procedures or medical care (2 sources)Other postprocedural complications of skin and subcutaneous tissue; Translations: [Other postprocedural complications of skin and subcutaneous tissue]Onset: 24-63-3282YucuiwylTwzoelxykh and other anemia (2 sources)Other iron deficiency anemias; Translations: [Other iron deficiency anemias]Onset: 66-82-1411UkszcpvrAjyvbyzy mellitus without complication (20 sources)Type 2 diabetes mellitus without complication; Translations: [Type 2 diabetes mellitus without complications]Onset: 07-12-2023 Resolved: 858994-88-9689RwbhxapJwsrtrzm mellitus without complication (20 sources)Impaired fasting glycemia; Translations: [Impaired fasting glucose] Onset: 827167-22-8146ZckngkhtUdpzk circulatory disease (20 sources)Elevated blood pressure; Translations: [Elevated blood-pressure reading, without diagnosis of hypertension]Onset: 07-29-2022 Resolved: 248846-90-6497LjofrxbrYhkct connective tissue disease (20 sources)Muscle pain; Translations: [Myalgia, unspecified site]Onset: 301414-51-1089VranvqnjXacrb gastrointestinal disorders (20 sources)History of bypass of stomach; Translations: [Bariatric surgery status]Onset: 395035-79-2695ArzxjpxqEstvy gastrointestinal disorders (2 sources)Bariatric surgery status; Translations: [Bariatric surgery status] Onset: 18-81-7683BzfixbjvAufsy infections; including parasitic (20 sources)Personal history of other infectious and parasitic diseases; Translations: [History of COVID-19]Onset: 420148-36-7216EquwqqsoBsild skin disorders (2 sources)Nonscarring hair loss, unspecified; Translations: [Nonscarring hair loss, unspecified]Onset: 29-07-4039AblrjoftSsontgvh codes; unclassified (20 sources)Insomnia; Translations: [Insomnia, unspecified]Onset: 07-29-2022 43-32-2870FulfxwksGtaviesm codes; unclassified (20 sources)Localized edema; Translations: [Localized edema]Onset: 07-29-2022 17-32-4874DxqrrfwbVqpikofctutj (1 source)CONTACT W/AND (SUSP) EXPOS COVID-19; Translations: [CONTACT W/AND (SUSP) EXPOS COVID-19]Onset: 28-97-6184Hcdzchkwpmdz (1 source)Obesity, class 2; Translations: [Obesity, class 2]Onset: 01-14-2024 Viral infection (20 sources)COVID-19; Translations: [Other specified viral infection]Onset: 07-29-2022 Resolved: 203823-94-7820Iloqbntl Results Test NameValueInterpretationReference RangeFacilityFollow-Upon 07-06-2024 Follow-[id number] Odette Azevedo 1980 F Date Provider Department Center 07/06/2024 74977-MZMJEFFERY CONNELL [facility] Second Fl Family History Problem Relation [...] Mother Maternal Grandfather Sister Sister Level of Service:85883 HI OFFICE/OUTPATIENT ESTABLISHED LOW MDM 20 MIN Reason for Visit and Comments: Follow-up [192359] - Odette is here today for follow up: 1 yr follow up S/p 07/06/23 [facility] - Hematology and Cell countson 33-12-8460AzT5b (Bld) [Mass fraction] 5.3 %NOMS HealthcareNo Panel Informationon 42-34-6527Qzaeuabebvdrvw and review of laboratory resultsNormDepartment of Veterans Affairs Medical Center-Wilkes BarreNOCA HealthcareOffice Visiton 04-68-2361Kamccp-up [id number] Odette Azevedo 1980 F Date Provider Department Center 05/15/2024 3848-LINNEA CERVANTES DONN Toure [facility] Family History Problem Relation Age of [...] Mother Maternal Grandfather Sister Sister Level of Service:67398 HI OFFICE/OUTPATIENT ESTABLISHED LOW MDM 20 [facility] HospitalTelemedicineon 53-51-9593Asbqhtkgglkb [id number] Odette Azevedo 1980 F Date Provider Department Center 04/04/2024 24462-QNFPCBWHLC OLD COIN DEALER [facility] [place] Family History Problem Relation Age of Onset [...] Mother Maternal Grandfather Sister Sister Level of Service:[id number]* OFFICE/OUTPATIENT [facility] 15-29 MINUTESNoBellevue HospitalMETRO IRON AND TIBCon 59-72-2386LWZ IRON74 ug/dL50.0 - 170.0 ug/dLNOMS HealthcareTBH PERCENT IRON NHDUAJRWIX18.2 %NOMS HealthcareTBH TOTAL IRON BINDING HRPNMIEA624 ug/dL250.0 - 450.0 ug/dLNOMS HealthcareCLINISYNCNOMS HealthcareFollow-Upon 98-12-7307Ezaeia-[id number] Odette Azevedo 1980 F Date Provider Department Center 01/14/2024 8250JENNIFFER QUEZADA [facility] Second Fl Family History Problem Relation [...] Mother Maternal Grandfather Sister Sister Level of Service:11490 HI OFFICE/OUTPATIENT ESTABLISHED MOD MDM 30 MIN Reason for Visit and Comments: Follow-up [[id number]] - Odette is here for a 6 mos ff up GS 07/05.NormalSt. Mary[facility] CampusLaboratory - Hematology and Cell countson 12-27-2023 HbA1c (Bld) [Mass fraction]4.8 %[facility]OM[facility] HealthcareNo Panel Informationon 12-27-2023 Interpretation and review of laboratory resultsAbnormalNOCA HealthcareNOMS HealthcareOffice Visiton 51-81-9528Edmwxv-up [id number] Odette Azevedo 1980 F Date Provider Department Center 11/23/2023 3848-LINNEA CERVANTES [facility] Family History Problem Relation Age of [...] Mother Maternal Grandfather Sister Sister Level of Service:41324 HI OFFICE/OUTPATIENT ESTABLISHED LOW MDM [address] [facility] CampusClinical Supporton 26-11-1981Yznlzxgx Support [id number] Odette Azevedo 1980 F Date Provider Department Center 10/12/2023 13595-EHUCHTKOURTNEY WHITE [facility] Second Fl Chart Close Cosign Accepted by: JEFFERY CONNELL[[id number]] Chart Close Cosign Accepted on: WedOct 12, [...] Sister Reason for Visit and Comments: Obesity [[id number]]NormalUnTrinity Health System Twin City Medical CenterFollow-Upon 26-83-2090Gxfccf-[id number] Odette Azevedo 1980 F Date Provider Department Center 09/02/2023 JENNIFFER KRAMER [facility] Second Fl Family History Problem Relation [...] Mother Maternal Grandfather Sister Sister Level of Service:15519 HI OFFICE/OUTPATIENT ESTABLISHED MOD MDM 30 MIN Reason for Visit and Comments: Follow-up [630163] - Patient is here for a 07/[address] 52-53-691633RPE Coordinator called patient to remind her of her 6-8 week follow up with [facility]eli [facility] on 09/02/2023 at 0900. She confirmed she would be there. Informed her to call us should she need to reschedule. She verbalized understanding.NormalSt. Mary's Medical Center, [place] CampusTelephoneon [id number] Odette Azevedo 1980 Date Provider Department Center 08/31/2023 TOMAS ELLER [facility] Second Fl Family History Problem Relation [...] Sister Mother Maternal Grandfather Sister SisterNormalUniversity of Heart Hospital Of AustinClinical Supporton 99-94-3925Umnseaux [id number] Odette Azevedo 1980 F Date Provider Department Center 08/05/202399299-QKLGLUINWC OLD COIN DEALER [facility] Second Fl Chart Close Cosign Required by: Jeffery Connell MD[[id number]] Family History Problem Relation Age of Onset [...] Brother Mother's Sister Mother Maternal Grandfather Sister SisterNormalUniversAvita Health SystemLetter (Out)on 07-28-2023 Letter (Out)[id number] Odette Azevedo 1980 F Date Provider Department Center 07/28/2023 JEFFERY ROCHA [facility] SURG Second Fl Family History Problem Relation [...] Mother's Sister Mother Maternal Grandfather Sister SisterNormalUniversity University Hospit[facility] Medical CenterOrders Onlyon 07-28-2023 Orders [id number] Odette Azevedo 1980 F Date Provider Department Center 07/28/2023 SPEEDY ROCHAIN [facility] SURG Second Fl Family History Problem Relation [...] Brother Mother's Sister Mother Maternal Grandfather Sister SisterNormalUniSelect Medical Specialty Hospital [facility] ABDOMEN LIMITEDon 99-28-9319Equ[place] [address] Ultrasound Report Signed Patient: ODETTE AZEVEDO MR#: [id number] : 1980 Acct:[id number] Age/Sex: 42 / F ADM Date: 07/23/23 Loc: US Attending Dr: Non-Staff Physician MDeysi Ordering Physician: PhysicianNonRichieStaff Arias Date of Service: 07/23/23 Procedure(s): US abdomen limited Accession Number(s): [id number] cc: ROSE BRADFORD ; PhysicianNon-Staff Arias [place] [id number] Patient Name: ODETTE AZEVEDO MRN: [id number] date: 1980 Sex: F Assigned Patient Location: US Current Patient Location: US Accession/Order Number: [id number] Exam Date: 07/23/2023 09:40 Report Date: 07/23/2023 [...] Signed By: 07/23/23 1030 DD/ 1027 TD/TT: Furniture Removalist:TBHRadiology, Radiologist, - 07/23/2023 [place] [address] Ultrasound Report Signed Patient: ODETTE AZEVEDO MR#: [id number] : 1980 Acct:[id number] Age/Sex: 42 / F ADM Date: 07/23/23 Loc: US Attending Dr: Non-Staff Physician Arias Ordering Physician: Physician,Non-Staff MDeysi Date of Service: 07/23/23 Procedure(s): US abdomen limited Accession Number(s): [id number] cc: ROSE BRADFORD ; Physician,Non-Staff MDeysi The [address] [address] Patient Name: ODETTE AZEVEDO MRN: [id number] date: 1980 Sex: F Assigned Patient Location: US Current Patient Location: US Accession/Order Number: [id number] Exam Date: 07/23/2023 09:40 Report Date: 07/23/2023 [...] Signed By: 07/23/23 1030 DD/ 1027 TD/TT: Furniture Removalist: JACQUELIN HealthcareRadiology Study observation (narrative)JACQUELIN HealthcareUS ABDOMEN LIMITEDOrdered By: Radiologist Radiology on 30-11-4294DCRR Healthcare Work Phone: Office Visiton 52-72-6772Opxkus-up [id number] Odette Azevedo 1980 F Date Provider Department Center 07/22/2023 65154-LRM, JEFFERY [facility] SURG Second Fl Family History Problem Relation [...] Mother Maternal Grandfather Sister Sister Level of Service:98365 HI POSTOP FOLLOW UP VISIT RELATED TO ORIGINAL PX Reason for Visit and Comments: Post-op [483] - Odette is here today for a post op visit, s/p 07/06/23 sleeve.[facility] HospitalOrders Onlyon 58-90-5043Helkbn [id number] Odette Azevedo 1980 F Date Provider Department Center 07/21/202330811-[address] [place] [address] SURG Second Fl Family History Problem Relation [...] Brother Mother's Sister Mother Maternal Grandfather Sister SisterNormalUniCleveland Clinic Fairview HospitalRefillon 77-70-6718Xllxko [id number] Odette Azevedo 1980 F Date Provider Department Center 07/21/202377811-EZE [facility] [place] Medical C Family History Problem Relation Age [...] Reason for Visit and Comments: Med Refill [230185]NormalSt. Mary's Medical Center, Ironton CampusLetter (Out)on 72-36-9870Lbqpvp (Out)[id number] Odette Azevedo 1980 F Date Provider Department Center 07/15/2023 79690-NMQJEFFERY MARTINEZ [facility] SURG Second Fl Family History Problem Relation [...] Brother Mother's Sister Mother Maternal Grandfather Sister SisterNormalUniCleveland Clinic Fairview HospitalOffice Visiton 07-15-2023 Follow-up [id number] Odette Azevedo 1980 F Date Provider Department Center 07/15/2023 95090-AMB, JEFFERY [facility] SURG Second Fl Family History Problem Relation [...] Mother Maternal Grandfather Sister Sister Level of Service:04520 HI POSTOP FOLLOW UP VISIT RELATED TO ORIGINAL PX Reason for Visit and Comments: Post-op [483] - Odette is here today for a post op visit, s/p 07/06/23 gastric sleeve.[facility] HospitalCA ECHO DOPPLER COMPLETE on 32-17-0996[facility] [address] [place] [address] Cardiology Report Signed Patient: ODETTE AZEVEDO MR#: [id number] : 1980 Acct:[id number] Age/Sex: 42 / F ADM Date: 06/07/23 Loc: CARD Attending Dr: LINNEA CERVANTES Ordering Physician: LINNEA CERVANTES Date of Service: 06/07/23 Procedure(s): CA echo doppler complete Accession Number(s): [id number] cc: ROSE BRADFORD ; LINNEA CERVANTES Patient Name: ODETTE AZEVEDO MR#: [id number] : 1980 Exam Date: 06/07/2023 Ordering Doctor: [...] BROWN Signed By: 06/08/231905 DD/ 04 TD/TT: Furniture Removalist:TBHRadiology, Radiologist, - 06/08/[address]23 [place] [address] Cardiology Report Signed Patient: ODETTE AZEVEDO MR#: [id number] : 1980 Acct:[id number] Age/Sex: 42 / F ADM Date: 06/07/23 Loc: CARD Attending Dr: LINNEA CERVANTES Ordering Physician: LINNEA CERVANTES Date of Service: 06/07/23 Procedure(s): CA echo doppler complete Accession Number(s): [id number] cc: ROSE BRADFORD ; LINNEA CERVANTES Patient Name: ODETTE AZEVEDO MR#: [id number] : 1980 Exam Date: 06/07/2023 Ordering Doctor: [...] BROWN Signed By: 06/08/231905 DD/ 04 TD/TT: Furniture Removalist: [facility]OSPITALSlime [facility] SpringfieldRadiology Study observation (narrative)[facility] ECHO DOPPLER COMPLETEOrdered By: Radiologist Radiology on 96-69-5046WZZE [employer] Work Phone: nm QING PERF SPECT REST STRon 49-50-4893BirS[place], [place] [address] Nuclear Medicine Report Signed Patient: ODETTE AZEVEDO MR#: [id number] : 1980 Acct:[id number] Age/Sex: 42 / F ADM Date: 05/10/23 Loc: OBDULIO Attending Dr: LINNEA CERVANTES Ordering Physician: LINNEA CERVANTES Date of Service: 05/10/23 Procedure(s): NM qing perf SPECT rest str Accession Number(s): [id number] cc: ROSE BRADFORD ; LINNEA CERVANTES Patient Name: ODETTE AZEVEDO MR#: [id number] : 1980 Exam Date: 05/10/2023 Ordering Doctor: [...] Signed By: 05/13/23 1527 DD/ 1526 TD/TT: Furniture Removalist:TBHRadiology, Radiologist, - 05/13/2023 [place] [address] Nuclear Medicine Report Signed Patient: ODETTE AZEVEDO MR#: [id number] : 1980 Acct:[id number] Age/Sex: 42 / F ADM Date: 05/10/23 Loc: NM Attending Dr: LNINEA CERVANTES Ordering Physician: LINNEA CERVANTES Date of Service: 05/10/23 Procedure(s): NM qing perf SPECT rest str Accession Number(s): [id number] cc: ROSE BRADFORD ; LINNEA CERVANTES Patient Name: ODETTE AZEVEDO MR#: [id number] : 1980 Exam Date: 05/10/2023 Ordering Doctor: [...] Signed By: 05/13/23 1527 DD/ 1526 TD/TT: Furniture Removalist: [facility] HOSPITALSlime [facility] SpringfieldRadiology Study observation (narrative)[facility] QING PERF SPECT REST STROrdered By: Radiologist Radiology on 38-52-4912KIDP [employer] Work Phone: [phone]-55 PCR (CVDTBH)on 90-70-6640IYOU-CoV-2 (COVID- 19) RNA LUIS ENRIQUE+probe Ql (Unsp spec)DetectedCritically abnormalNOT DETECTEDThe [facility] on above:Result Comment: This test is not yet approved or cleared by the [place] FDA. When there are no FDA-approved or cleared tests available, and other criteria are met, FDA can make tests available under an emergency access mechanism called an Emergency Use Authorization (EUA). The EUA for this test is supported by the [place] of Health and Human Service's (HHS's) declaration [...] be used). Performed By: #### CVDTBH #### [facility] [address] [place] [address] Dr. Yessica RashidQUANTIFERON TB GOLD PLUS (NON-INC)on 12-50-9824FawobdnLhpqhwtalm performed.NormalThe [facility] on above:Performed By: #### QNTTBG #### [facility] [address] [place] [address] Dr. Yessica SandersiaCommentNoBluffton Hospital on above:Result Comment: The QuantiFERON-TB Gold Plus result is determined by subtracting the Nil value from either TB antigen (Ag) tube. The mitogen tube serves as a control for the test.Performed By: #### QNTTBG #### [facility] [address] [place] [address] Dr. Yessica RashidMitogen Value>10.00NoBluffton Hospital on above: Performed By: #### QNTTBG #### [facility] [address] [place] [address] Dr. Yessica Brink Value0.10 IU/mLNormalMagruder Memorial Hospitalment on above: Performed By: #### QNTTBG #### [facility] [address] [place] [address] Dr. Yessica Clemens PlusNegativeNormalNegativeUc Medical Center Comment on above:Result Comment: Chemiluminescence immunoassay methodology Performed By: #### QNTTBG #### [facility] [address] [place] [address] Dr. Yessica Tong1 Ag Value0.10 IU/mLNormalUc Medical CenterComment on above:Performed By: #### QNTTBG #### [facility] [address] [place] [address] Dr. Yessica Tong2 Ag Value0.08 IU/mLNormalUc Medical CenterComment on above:Performed By: #### QNTTBG #### [facility] [address] [place] [address] Dr. Yessica Peterson B SURFACE ANTIBODY, QUANTon 20-93-1958Hivgwuakp B Surf AB Quant<3.1Critically lowImmunity>9.9The [facility] on above: Result Comment: Status of Immunity Anti-HBs Level Inconsistent with Immunity 0.0 - 9.9 Consistent with Immunity >9.9Performed By: #### HEPBSRF #### [facility] [address] [place] [address] Dr. Yessica Beavers IMMUNITYon 06-61-7455Sinoa Abs, IgG21.1 AU/mLNormalImmune >10.9[facility] on above:Result Comment: Negative <9.0 Equivocal 9.0 - 10.9 Positive >10.9 A positive result generally indicates past exposure to Mumps virus or previous vaccination.Performed By: #### MMRIMMU #### [facility] [address] [place] [address] Dr. Yessica Garciaa Antibodies, IgG1.77 indexNormalImmune >0.99The Mesfin HospitalComment on above:Result Comment: Non-immune <0.90 Equivocal 0.90 - 0.99 Immune >0.99Performed By: #### MMRIMMU #### [facility] [address] [place] [address] Dr. Yessica Luong Ab, IgG>300.0NormalImmune >16.4The [facility] Comment on above:Result Comment: Negative <13.5 Equivocal 13.5 - 16.4 Positive >16.4 Presence of antibodies to Rubeola is presumptive evidence of immunity except when acute infection is suspected.Performed By: #### MMRIMMU #### [facility] [address] [place] [address] Dr. Yessica RashidVARICELLA IGG ABon 73-15-2748Ukgpajcdx Zoster RqT2774 indexNormal Immune >165Uc Medical CenterComment on above:Result Comment: Negative <135 Equivocal 135 - 165 Positive >165 A positive result generally indicates exposure to the pathogen or administration of specific immunoglobulins, but it is not indication of active infection or stage of disease.Performed By: #### VARCEL #### [facility] [address] [place] [address] Dr. Yessica Rashid Vital Signs Date TimeVital SignValuePerforming JpjbrvojqWqhqdzcy61-17-6861 09:46-0400Body zyyvna938.6 cmKim Harding PA Work Phone: [phone] Joseph Health CenterEztenudbst42-74-6647 09:46-0400Body mass index (BMI) [Ratio]34.19 kg/t9Eniwc Hemmer PA Work Phone: [phone] CenterEqivgqlmzz47-71-9283 09:46-0400Body obsgvg92.36 kgKim Garvinmer PA Work Phone: [phone] CenterLetveorqao57-03-7490 09:46-0400Diastolic blood poajzuus84 mm[Hg]Kim Harding PA Work Phone: [phone] Joseph Health CenterJcaowxicay38-55-9884 09:46-0400Heart rate93 /min Kim Harding PA Work Phone: [phone] CenterAjlbomzxqh34-57-0221 09:46-0400Respiratory rate16 /minDrisslidia Dipti PA Work Phone: NOSaint Joseph Health CenterXuvxjlwgmf18-41-2681 09:46-5462KoR7% (BldA) [Mass fraction]99 %Kim Garvinedmund PA Work Phone: NOSaint Joseph Health CenterEsspolkjic46-30-6326 09:46-0400Systolic blood mm[Hg]Kim Dipti PA Work Phone: NOSaint Joseph Health CenterLrmsbrkelw82-45-5004 08:19-0400Body rnixwb153.6 cmYael Rivera ARTILLERY OFFICER Work Phone: NOSaint Joseph Health CenterYmgywgqjyk67-82-4716 08:19-0400Body mass index (BMI) [Ratio]34.84 kg/m2Donnyrob Arnoldo ARTILLERY OFFICER Work Phone: NOSaint Joseph Health CenterPcopgjasmi84-70-8400 08:19-0400Body mfblow27.08 kgDonnyrob Arnoldo ARTILLERY OFFICER Work Phone: NOSaint Joseph Health CenterLcwbkpvpyi59-25-6845 08:19-0400Diastolic blood nozjumfn76 mm[Hg]Yael Rivera ARTILLERY OFFICER Work Phone: NOSaint Joseph Health CenterJzzvuutryp84-47-8069 08:19-0400Heart rate78 /min Yael Rivera ARTILLERY OFFICER Work Phone: NOSaint Joseph Health CenterMaxnbkjpde26-56-4424 08:19-0400Respiratory rate16 /minDonnyrob Arnoldo ARTILLERY OFFICER Work Phone: NOSaint Joseph Health CenterZnnmwjoztp91-18-8165 08:19-7556HoP5% (BldA) [Mass fraction]97 %Yael Rivera ARTILLERY OFFICER Work Phone: NOSaint Joseph Health CenterMlwqfqugax93-07-3145 08:19-0400Systolic blood hvizxfln967 mm[Hg]Yael Rivera ARTILLERY OFFICER Work Phone: NOSaint Joseph Health CenterCkrnkfxdqk93-53-3965 15:38-0400Body .6 cmDonnyrob Arnoldo ARTILLERY OFFICER Work Phone: NOSaint Joseph Health CenterEbwukfoymv34-76-8886 15:38-0400Body mass index (BMI) [Ratio]36.56 kg/m2Donnyrob Arnoldo ARTILLERY OFFICER Work Phone: [facility] CenterJegfmddqgg55-36-8877 15:38-0400Body yjbcpq84.62 kgKirob Rivera ARTILLERY OFFICER Work Phone: [facility] CenterDwzqizxrzl10-64-7254 15:38-0400Diastolic blood mefysimv38 mm[Hg]Yael Rivera ARTILLERY OFFICER Work Phone: [facility] CenterFkfqkifayu03-37-4663 15:38-0400Heart rate84 /min Yael Rivera ARTILLERY OFFICER Work Phone: [facility] CenterPtdpbvxtzo33-61-2288 15:38-2000VaP5% (BldA) [Mass fraction]96 %Yael Rivera ARTILLERY OFFICER Work Phone: [facility] CenterXescfktmai32-40-3677 15:38-0400Systolic blood gsopnhid902 mm[Hg]Yael Arnoldo ARTILLERY OFFICER Work Phone: [facility] CenterSldsreyfsn00-40-5289 13:02-0500Body avalvi788.6 cmYael Rivera ARTILLERY OFFICER Work Phone: [phone] [place], [place] [address]Csvnpuucxp64-37-9486 13:02-0500Body mass index (BMI) [Ratio]38.38 kg/m2Yael Rivera ARTILLERY OFFICER Work Phone: [facility] CenterQgjzffawch25-85-1789 13:02-0500Body ikghee478.42 kgKirob Rivera ARTILLERY OFFICER Work Phone: [facility] CenterErmhxkolzk15-15-3010 13:02-0500Diastolic blood wkedzjfw86 mm[Hg]Yael Rivera ARTILLERY OFFICER Work Phone: [facility] CenterFkftiyzade93-17-0512 13:02-0500Heart rate79 /min Yael Rivera ARTILLERY OFFICER Work Phone: [facility] CenterMkbrvjshjr01-42-5943 13:02-0500Respiratory rate17 /minDonnyrob Rivera ARTILLERY OFFICER Work Phone: [facility] CenterBpwgahvady31-49-9817 13:02-0645EfQ4% (BldA) [Mass fraction]99 %Yael Rivera ARTILLERY OFFICER Work Phone: [facility] CenterGrpqhyacrc23-96-1501 13:02-0500Systolic blood kroirpow803 mm[Hg]Yael Rivera ARTILLERY OFFICER Work Phone: [facility] CenterTmkjagmzek83-83-7874 16:26-0500Body wyroth920.6 cmYael Rivera ARTILLERY OFFICER Work Phone: [facility] CenterJagcqdmxbj41-30-1323 16:26-0500Body mass index (BMI) [Ratio]40.51 kg/m2Yael Rivera ARTILLERY OFFICER Work Phone: [facility] CenterQexlkaqgrz04-38-0499 16:26-0500Body uxywte811.05 kgYael Rivera ARTILLERY OFFICER Work Phone: [facility] CenterOnbyjefxoe98-94-4310 16:26-0500Diastolic blood cbzsaypf10 mm[Hg]Yael Rivera ARTILLERY OFFICER Work Phone: [facility] CenterRosrlzclxv11-66-8580 16:26-0500Heart rate84 /min Yael Rivera ARTILLERY OFFICER Work Phone: [facility] CenterCgpnhlmeqd54-11-4418 16:26-5674GgX6% (BldA) [Mass fraction]100 %Yael Rivera ARTILLERY OFFICER Work Phone: [facility] CenterOxigkyrouj34-52-2977 16:26-0500Systolic blood tarsibys448 mm[Hg]Yael Rivera ARTILLERY OFFICER Work Phone: [facility] CenterHirhsxgxjh92-59-5345 17:04-0400Body dboldl842.6 cmKim Hemmer PA Work Phone: [facility] CenterNxnwkliajh50-26-7251 17:04-0400Body mass index (BMI) [Ratio]41.61 kg/u8Xvbhx Hemmer PA Work Phone: NOSaint Joseph Health CenterTlgxdishew61-30-6841 17:04-0400Body temperature 99.1 [degF]Kim Hemmer PA Work Phone: NOSaint Joseph Health CenterPjwdablthx87-42-9402 17:04-0400Body .95 kgKim Hemmer PA Work Phone: NOSaint Joseph Health CenterJbsffsthiw09-91-4350 17:04-0400Diastolic blood wjdnqikx11 mm[Hg]Kim Hemmer PA Work Phone: NOSaint Joseph Health CenterShxrmzauqp91-65-9234 17:04-0400Heart rate83 /min Kim Hemmer PA Work Phone: NOSaint Joseph Health CenterAnbcoqbbjw48-38-9513 17:04-0400Respiratory rate16 /minKim KAPLAN Work Phone: NOSaint Joseph Health CenterZufqjdglbd61-16-8602 17:04-0439JyX1% (BldA) [Mass fraction]98 %Kim KAPLAN Work Phone: NOSaint Joseph Health CenterKuffvxpesk47-36-1915 17:04-0400Systolic blood mm[Hg]Kim KAPLAN Work Phone: [facility] CenterOmkazfzgxk99-58-0493 08:44-0400Body dyhgmj281.6 Vinh Bradford MD Work Phone: [facility] CenterZdrudpvtos21-51-9255 08:44-0400Body mass index (BMI) [Ratio]41.13 kg/o9MeakmRose Bradford MD Work Phone: [facility] CenterVcmvhvgihf53-51-5171 08:44-0400Body jzndif978.68 kgRose Bradford MD Work Phone: [facility] CenterEnzjpgnwno19-84-4880 08:44-0400Diastolic blood nvotdvbo20 mm[Hg]Rose Bradford MD Work Phone: [facility] CenterGjqpteoljh02-44-4955 08:44-0400Heart rate85 /min Rose Bradford MD Work Phone: [facility] CenterSulgkboosd74-60-2948 08:44-0400Respiratory rate16 /minRose Bradford MD Work Phone: [facility] CenterBreqzdfqic06-60-7598 08:44-3826CpZ9% (BldA) [Mass fraction]98 %Rose Bradford MD Work Phone: NOSaint Joseph Health CenterLaaaatazod33-33-1294 08:44-0400Systolic blood jegichcs627 mm[Hg]Rose Bradford MD Work Phone: [facility] Healthcare Encounters Encounter DateEncounter TypeCare ProviderFacilityStart: 12-21-2024 End: 65-88-2513DscypkDrgzk M Hemmer PA Work Phone: [facility] Jakob Family MedinceComment on above:Morbid (severe) obesity due to excess calories (CMS-HCC); AnxietyStart: 12-13-2024 End: 97-97-0842Lsjzidkari Harding PA Work Phone: [facility] MedinceStart: 12-13-2024 End: 60-13-5840Vxxraq Jose Elias Harding PA Work Phone: [facility] MedinceStart: 12-13-2024 End: 57-94-3873udohfokvmwEWQCR M HEMMERNot AvailableStart: 12-13-2024 End: 43-95-5962Mkvbca outpatient visit 25 minutesKim KAPLAN Work Phone: [facility] Jakob Family MedinceComment on above:Primary insomnia (Primary Dx); Class 1 obesity due to excess calories with serious comorbidity and body mass index (BMI) of 34.0 to 34.9 in adult; Anxiety; H/O gastric sleeveStart: 11-22-2024 End: 42-64-9590WmwceoKrozn M Alda MD Work Phone: [facility]ob Family MedinceComment on above:Morbid (severe) obesity due to excess calories ([facility]-HCC)Start: 11-21-2024 End: 30-47-8867DrdiweIarqj M Hemmer PA Work Phone: [facility] Family MedinceComment on above:Anxiety Start: 10-31-2024 End: 50-17-8081Xvqenhhmj Abdifatah Bradford MD Work Phone: [facility] MedinceStart: 10-21-2024 End: 94-66-3130ErrcymIww C Miller ARTILLERY OFFICER Work Phone: [facility] Family MedinceComment on above:Morbid (severe) obesity due to excess calories ([facility]-HCC)Start: 09-26-2024 End: 23-27-7653SfzncpIxk C Miller ARTILLERY OFFICER Work Phone: [facility] CI FMComment on above:Anxiety; Morbid (severe) obesity due to excess calories (CMS-HCC)Start: 08-24-2024 End: 31-64-4322Bourekkari Rivera ARTILLERY OFFICER Work Phone: [facility] CI FMStart: 08-24-2024 End: 95-52-7434Ynvehfkari Rivera ARTILLERY OFFICER Work Phone: [facility] CI FMStart: 08-24-2024 End: 23-34-5519fwphvduatbYWW C MILLERNot AvailableStart: 08-24-2024 End: 49-46-8901Eyqrzb outpatient visit 15 minutesKirob Rivera ARTILLERY OFFICER Work Phone: [facility] CI FMComment on above:Morbid (severe) obesity due to excess calories (CMS-HCC); AnxietyStart: 07-22-2024 End: 29-65-0443DewuokMlciu M Hemmer PA Work Phone: [facility] CI FMComment on above:Morbid (severe) obesity due to excess calories (CMS/HCC); AnxietyStart: 07-06-2024 End: 37-45-9971hwvkpetispBMPCAQ HSUUniSumma Healthtart: 06-24-2024 End: 71-59-9313IlyhmwAbfit M Alda MD Work Phone: [facility] CI FMComment on above:Vitamin D deficiency (Primary Dx); Anxiety; Morbid (severe) obesity due to excess calories (CMS/HCC); H/O gastric bypassStart: 06-20-2024 End: 44-08-3758RidtouEhc C Miller ARTILLERY OFFICER Work Phone: [facility] CI FMComment on above:AnxietyStart: 05-24-2024 End: 82-68-4992Yirgks outpatient visit 25 minutesKirob Rivera ARTILLERY OFFICER Work Phone: [facility] CI FMComment on above:Morbid (severe) obesity due to excess calories (CMS/HCC); Type 2 diabetes mellitus with other specified complication, without long-term current use of insulin (CMS/HCC)Start: 05-24-2024 End: 73-75-7620tflmcbqkxgSWD C MILLERNot AvailableStart: 05-17-2024 End: 94-36-7854AmpzroRzcze M Hemmer PA Work Phone: [facility] CI FMComment on above:AnxietyStart: 05-15-2024 End: 73-28-7934dzzplonxsfZSBXXMI [facility] Start: 04-26-2024 End: 42-04-5725Wewqkd Marycruz Rivera ARTILLERY OFFICER Work Phone: [facility] CI FMStart: 04-26-2024 End: 05-22-7420Vneflu Marycruz Rivera ARTILLERY OFFICER Work Phone: [facility] CI FMStart: 04-26-2024 End: 01-23-2447Hlqszl outpatient visit 25 minutesYael Rivera ARTILLERY OFFICER Work Phone: [facility] CI FMComment on above:Morbid (severe) obesity due to excess calories (CMS/HCC) (Primary Dx); Muscle spasmStart: 04-26-2024 End: 59-45-0052dbnmejydzkDVZ C MILLERNot AvailableStart: 04-19-2024 End: 01-45-5549NmoecpYaajyxh Jaiden BARNES CI FMComment on above:AnxietyStart: 04-04-2024 End: 01-29-2208sgdqczioxeGHOQOP HSUUniSumma Healthtart: 03-29-2024 End: 41-90-2950Vtfnrsvcu Result EncounterGeneric External Data ProviderNOMS External Department UnsolicitedStart: 03-29-2024 End: 47-60-4027Mfopphtml Result EncounterGeneric External Data ProviderNOMS External Department UnsolicitedStart: 03-23-2024 End: 08-27-7509Cbctdg outpatient visit 25 minutesYael Rivera ARTILLERY OFFICER Work Phone: [facility] CI FMComment on above:Morbid (severe) obesity due to excess calories (CMS/HCC) (Primary Dx); Breast screening; Body mass index (BMI) 40.0-44.9, adult (CMS/HCC)Start: 03-23-2024 End: 97-73-5499lacndmoemnFTPAmanda Hood AvailableStart: 03-23-2024 End: 57-96-9935Qjsznc Marycruz Rivera ARTILLERY OFFICER Work Phone: [facility] CI FMStart: 03-23-2024 End: 35-46-6408Igkjzy Marycruz Rivera ARTILLERY OFFICER Work Phone: [facility] CI FMStart: 03-05-2024 End: 46-77-7313NxfxmtUomms M Hemmer PA Work Phone: [facility] CI FMComment on above:AnxietyStart: 01-29-2024 End: 05-82-6423ScmzfbLghumBlanka KAPLAN Work Phone: [facility] CI FMComment on above:AnxietyStart: 01-14-2024 ambulatoryHENRY FORD WEST BLOOMFIELD HOSPITALLLA [facility] Hospitaltart: 01-05-2024 End: 26-32-3686Gbvpes outpatient visit 15 minutesKim KAPLAN Work Phone: [facility] CI FMComment on above:Acute left otitis media (Primary Dx); Acute non-recurrent pansinusitisStart: 01-05-2024 End: 84-05-2237gzqfjruvwwGAPYZJoana Santos AvailableStart: 12-30-2023 End: 73-34-6664UkgdosNvarlsl Jaiden BARNES CI FMComment on above:AnxietyStart: 12-28-2023 End: 48-00-5085Sndqvdjuu encounterKim KAPLAN Work Phone: [facility] CI FMStart: 12-27-2023 End: 34-17-2512anhqlatpfxRHQDR M ALDANot AvailableStart: 12-27-2023 End: 74-37-8376Tyssgj outpatient visit 25 minutesRose Bradford MD Work Phone: [facility] CI FMComment on above:Type 2 diabetes mellitus without complication, without long-term current use of insulin (CMS/[facility]); Morbid (severe) obesity due to excess calories (CMS/HCC); Body mass index (BMI) 50.0-59.9, adult (CMS/HCC)Start: 11-23-2023 End: 84-04-1097ycquzhwtbjJCEVGWPFisher-Titus [facility] Start: 10-25-2023 End: 30-56-5990LfigmeUezwj M Alda MD Work Phone: NOSZ FMComment on above:Elevated LDL cholesterol level (CMS/HCC); AnxietyStart: 66-01-4285wkkisqcbmzYVTXOBTBPremier Health Miami [facility] Hospital Northtart: 44-72-5789dtvswlujwhOJMEKQW GAUAMISUniSumma Healthtart: 20-02-8156xdekxvehjwBIYEBXNBPremier Health Miami Valley [facility]: 07-29-2023 End: 18-64-2064psyrnxtokwISMEKC HSUUniversFirelands Regional Medical Centertart: 07-23-2023 End: 88-28-9269Rxyjkamsp Result EncounterGeneric External Data ProviderNOMS External Department UnsolicitedStart: 07-23-2023 End: 75-71-4311Mxuiutayx Result EncounterGeneric External Data ProviderNOMS External Department UnsolicitedStart: 07-22-2023 End: 30-86-5710gvcfsjmwmxVLJMDD HSUUniSumma Healthtart: 07-15-2023 End: 99-39-5008qfffqksonsBGMLQT HSniSumma Healthtart: 06-08-2023 End: 51-56-5416Yispfenlz Result EncounterGeneric External Data ProviderNOMS External Department UnsolicitedStart: 06-08-2023 End: 49-36-7142Jecckmdvc Result EncounterGeneric External Data ProviderNOMS External Department UnsolicitedStart: 05-13-2023 End: 82-90-5574Ooumvevjv Result EncounterGeneric External Data ProviderNOMS External Department UnsolicitedStart: 05-13-2023 End: 20-13-5593Bzxyujfyw Result EncounterGeneric External Data ProviderNOMS External Department UnsolicitedStart: 52-82-5328ilzewifjkaUP RUGEN ALDA Facility:N2Xragf: 03-24-2021 End: 50-19-9556ecbfiuxvfqDP ROSE ALDAFacility:T7Jcift: 01-10-2021 End: 47-43-0275dwjoxgreevRXTOYQ ROSSFacility:W9Fvunr: 12-16-2020 End: 12-30-2925dcrpfpzppnPUSJIMED EBERLYFacility:H1 Procedures DateProcedureProcedure DetailPerforming ClinicianStart: 63-56-9234Fkwked-up visitFollow-upJUSTIN HSUStart: 47-35-7223Jugxhscuet glycosylated a1cDonnym Maira Rivera NP Work Phone: Start: 10-57-1548PORVS IRON AND TIBCGeneric External Data ProviderStart: 62-89-8577Royhqvsloa glycosylated w7sTdspsRose Bradford MD Work Phone: Start: 16-32-4384JW ABDOMEN LIMITEDGeneric External Data ProviderStart: 02-41-3216AR ECHO DOPPLER COMPLETEGeneric External Data ProviderStart: 83-51-6177TA QING PERF SPECT REST STRGeneric External Data Provider Plan of Treatment DateCare ActivityDetailAuthorStart: 93-26-7369Jkiwbyamo for malignant neoplasm of colonColorectal Cancer ScreeningNOMS HealthcareComment on above:Postponed from 1978 (Other Medical Reasons)Start: 05-24-2025 End: 95-76-6705Vtvqhai encounter vjsjwextn22/19/2026 11:00 AM EDT Office Visit [facility] [place] [address] [place] [address] [place] [address] Kim Harding PA [address] [place] [address] [place] [address] NOMSlime Jaeger MedinceStart: 12-26-2024 Urine screening for proteinDiabetes: Urine Protein ScreeningNOCA Healthcare Start: 12-13-2024 End: 68-16-7875Juzgxht encounter /08/2025 9:30 AM EDT Office Visit [facility] [place] [address] [place] [address] Kim Harding PA [address] [place] [address] NOMS [place] Jaeger MedinceStart: 11-06-2024 COVID-19 Vaccine ( season)COVID-19 Vaccine ( season)NOMS HealthcareStart: 73-07-2283Mwobzmuob vaccinationInfluenza Vaccine (#1)NOMS HealthcareStart: 23-14-0848Jbqfrvoqyi A1c measurementDiabetes: Hemoglobin A1C NOMS HealthcareStart: 08-24-2024 End: 02-76-9892Omgncjb encounter qjtpcfyft65/19/2025 8:00 AM EDT Office Visit [facility] [address] [place] [address] Yael Rivera, ARTILLERY OFFICER [address] [facility] [address] [place] [address] NOMS CI FMStart: 82-17-6954Klgfz screening for protein Diabetes: Urine Protein ScreeningNOCA HealthcareStart: 05-24-2024 End: 57-76-3927Jwwgmok encounter aiekauuco70/19/2025 4:00 PM EDT Office Visit [facility] [address] [place] [address] Yael Rivera, ARTILLERY OFFICER [address] [facility] [address] [place] [address] NOMS CI FMStart: 04-26-2024 End: 40-81-8661Qufrzzl encounter uqakripya09/19/2025 1:00 PM EST Office Visit [facility] [address] [place] [address] Yael Rivera, ARTILLERY OFFICER [address] [place] [address] ArrivedNOMS CI FMComment on above:ArrivedStart: 03-82-1525Fmrhxyuuug A1c measurementDiabetes: Hemoglobin A5WLCZS Healthcare Start: 03-23-2024 End: 52-13-8747Bwfdqpm encounter tlizrsplj31/16/2025 4:30 PM EST Office Visit [facility] [address] [address] [place] [address] Yael Rivera NP [address] [place] [address] ArrivedNOMS CI FMComment on above:ArrivedStart: 03-23-2024 End: 25-61-4456JM Breast - bilateral ScreeningBilateral screening mammogram Imaging Routine Breast screening Expected: 03/23/2024 (Approximate), Expires: 05/21/2025[facility] Work Phone: Comment on above:Expected: 03/23/2024 (Approximate), Expires: 05/21/2025Start: 01-28-2024 End: 61-00-4912Lpwlermrtufa / ancillary services clujfdepmr12/22/2024 4:00 PM EST Ancillary Procedure [facility] [place] [address] [place] [address] [place] [address] RGVI IMAGING SANDUSKYStart: 01-11-2024 End: 85-00-2353Pdexjlz encounter tskveoktt49/05/2024 8:30 AM EST Office Visit [facility] [address] [address] [place] [address] Rose Bradford MD [address] [place] [address] NOMS CI FMStart: 69-22-2629Fotpfxmpk vaccinationInfluenza Vaccine (#1)NOMS HealthcareStart: 49-06-2176Vcvoflpclg A1c measurementDiabetes: Hemoglobin H5ASMWH HealthcareStart: 57-83-6883Bisvxzzf screeningDiabetes: Retinopathy ScreeningNOMS HealthcareStart: 14-53-1871Jjvxqhqdr for malignant neoplasm of breastMammogramNOMS HealthcareStart: 23-98-7518Jfzbsqayj for malignant neoplasm of cervixNOMS HealthcareStart: 98-84-0784Qmehbtycg for malignant neoplasm of cervixPap SmearNOMS HealthcareStart: 57-19-5433Kaoxjsbxh B Vaccines (1 of 3 - 19+ 3-dose series)Hepatitis B Vaccines (1 of 3 - 19+ 3-dose series)[facility] HealthcareStart: 07-86-2664Zyaftsnonckk Vaccine: Pediatrics (0 to 5 Years) and At-Risk Patients (6 to 64 Years) (1 of 2 - PCV)Pneumococcal Vaccine: Pediatrics (0 to 5 Years) and At-Risk Patients (6 to 64 Years) (1 of 2 - PCV) [facility] HealthcareStart: 18-09-3234FNgZ/Tdap/Td Vaccines (1 - Tdap)DTaP/Tdap/Td Vaccines (1 - Tdap)[facility] HealthcareStart: 18-03-9624YHD Vaccines (1 of 1 - Standard series)MMR Vaccines (1 of 1 - Standard series)[facility] CenterStart: 48-94-4643Ahrqjoscx for malignant neoplasm of colonSHRINERS HOSPITALS FOR CHILDREN Healthcare Immunizations Immunization DateImmunizationNotesCare PkiygwulAuniqotk03-26-6645bifymmmxh, injectable, madin katelynn canine kidney, preservative freeYael Rivera ARTILLERY OFFICER Work Phone: [phone] [place], [place] [address]Qzufddlmrn10-94-0881vnuegirwl virus vaccine, unspecified formulationYael Rivera NP Work Phone: [phone] [address] StreetDfglutlcvv93-46-3008pkqcjpyrg, injectable, quadrivalent, preservative freeRose Bradford MD Work Phone: [phone] [place], [place] [address]Pcdhjnxbgs62-57-4923uknczyvul virus vaccine, unspecified formulationRose Bradford MD Work Phone: [phone] [address] StreetYeqdzqmbqy09-80-6953ydshilakn, injectable, quadrivalent, preservative freeRose Bradford MD Work Phone: [phone] [address] StreetCvwkfratfd62-95-8124yqtrytdeq, injectable, quadrivalent, preservative freeRose Bradford MD Work Phone: [phone] [place], [place] [address]Rfkjktzsmh95-27-4513pyjexqypf, injectable, quadrivalent, preservative freeRose Bradford MD Work Phone: [phone] [place] [address] Payers DatePayer CategoryPayerPolicy [id number] [id number] Health [id number] [id number] [id number] 2.160.1.171034.3.57[id number] 2.160.1.370972.3.57[id number] 2.0.1.496366.3.57[id number] 2.0.1.027448.3.57[id number] 2.0.1.447095.3.57[id number] 2.160.1.473035.3.57[id number] 2.840.1.274177.3.57[id number] 2.0.1.959987.3.579.2.474377-07-1663Aifj-zya41179318233-19-8309Xdmtysk [id number] 2.0.1.0[id number] 2.0.1.389519.3.579.2.593 Social History DateTypeDetailFacilityStart: 11-35-7711Uudhtil smoking status NHISNever smoked tobaccoNOMS HealthcareStart: 70-63-1485Jaacojb use and exposureSmokeless tobacco non-userNOMS HealthcareStart: 05-12-2023 End: 26-53-6712Oxghlxshw beverage intakeCurrent drinker of alcohol (finding)NOMS HealthcareStart: 05-12-2023 End: 89-78-5631Gvturpn of Social functionNOMS HealthcareStart: 05-12-2023 End: 82-69-3649Nxzgyw connection and isolation panelNOCA HealthcareStart: 80-52-3041Jdf often do you attend congregational or tenriism services?Patient declined NOMS HealthcareDo you belong to any clubs or organizations such as congregational groups, unions, fraternal or athletic groups, or [...] got money to buy more.Never trueNOMS HealthcareStart: 09-90-0426Tfrgchq Commentdrinks 2-4 times a month and 6 or more drinks per occassion. Caffeine intake: coffee, chocolateNOMS HealthcareStart: 63-22-0245Oem assigned at birthNot on fileNOCA HealthcareStart: 05-24-2024 End: 52-00-6237Bjxmqujwm beverage intakeEx-drinker (finding)[facility] Healthcare Start: 49-07-7649Aftcnff CommentOnce or twice a month- gave up entirely for bariatric surgNOMS Healthcare Goals DatePatient GoalDesired Activity/StatePersonal health goal Functional Status DchtCrkxapbptpXvctwbHeaowdmu26-67-8620Mvmsnte Health Questionnaire 2 item (PHQ- 2) [Reported][facility] CenterClbrwrwddc49-06-1030Jrdhbth Health Questionnaire 2 item (PHQ- 2) [Reported][facility] Medical CenterOoqbpmkecu72-93-8586Tbfudlv Health Questionnaire 2 item (PHQ- 2) [Reported][facility] Clinical Notes 07-12-2023 to 12-13-2024 Note Date & FfbdOqtvItwhahvo15-27-5107 History of Present illness Narrative* ROSAURA Obregon [...] signed up to go back to the [facility] through. States has been a stressful year. Qynjuo-mx-oeh . Has extra people living with her rightnow. Changes at her job, working 12-16 hour days. Her 's son is in retirement and it is his familyliving with them. [...] Walker, talat calderon Diabetes Father Dom Walker, [facility] [place] Depression Father Dom Walker, talat calderon Hypertension Sister Pricila Multiple sclerosis Sister Pricila Diabetes Brother Dom Walker, talat Calderon Hypertension Brother Dom Walker, talat Calderon COPD Brother Dom Walker, talat Calderon Heart attack Brother Dom Walker, bio Yumiko Asthma Brother Dom Walker, bio Yumiko Diabetes Maternal Grandmother [place] Heart disease Maternal Grandmother [place] Mental illness Sister Lalita Past Medical History: [...] (around 03/15/2025) for Wellness. documented in this encounterMadison Medical CenterElnnibfivl84-83-1124 Telephone encounter Note* Telephone Encounter - ROSAURA Obregon - 11/22/2024 10:02 AM EDT OARRS reviewed, Rx sent into patient's pharmacy. [place] [address]Agrdjeavto21-40-4389 Miscellaneous Notes* Telephone Encounter - ROSAURA Obregon - 11/22/2024 10:02 AM EDT OARRS reviewed, Rx sent into patient's pharmacy. documented in this encounterMadison Medical CenterPwrdoxzgtx46-07-5054 Telephone encounter Note* Telephone Encounter - Apoorva Piña - 11/21/2024 10:54 AM EDT Patient scheduled [facility] CenterRmpamxsxzs69-89-6904 Miscellaneous Notes* Telephone Encounter - Apoorva Piña [...] OV 08/24/24 RF 09/27/24 documented in this encounterMadison Medical CenterCsycenqstu03-05-6053 Telephone encounter Note* Telephone Encounter - ROSAURA Obregon - 11/21/2024 10:38 AM EDT Please help pt get scheduled for a controlled medication follow up visit within the month. Last refill on this until seen. OARRS report generated and reviewed. [facility] Medical CenterZwgpllncgd97-25-5441 Telephone encounter Note* Telephone Encounter - MP NICHOLSON - 11/21/2024 9:58 AM EDT OV 08/24/24 RF 09/27/24 [facility] CenterSdtwdbtaua82-43-5851 Telephone encounter Note* Telephone Encounter - ROSAURA Obregon - 11/01/2024 9:52 AM EDT My chart message. [facility] CenterFaxtazmusr09-77-1176 Miscellaneous Notes* Telephone Encounter - ROSAURA Obregon - 11/01/2024 9:52 AM EDT My chart message. documented in this encounterMadison Medical CenterSakzdctyww44-53-4491 Telephone encounter Note* Telephone Encounter - ROSAURA Obregon - 09/27/2024 9:14 AM EDT OARRS reviewed, Rx sent into patient's pharmacy. [facility] CenterTopdvuntsp99-33-2422 Miscellaneous Notes* Telephone Encounter - ROSAURA Obregon - 09/27/2024 9:14 AM EDT OARRS reviewed, Rx sent into patient's pharmacy. documented in this encounterMadison Medical CenterIrlpmmxfxr02-28-0149 History of Present illness Narrative* Yael Rivera [...] in the morning. 90 capsule 3 biotin 80837 MCG tablet Take by mouth Daily buPROPion [...] Dom Walker, bio Yumiko Diabetes Maternal Grandmother [place] Heart disease Maternal Grandmother [place] Mental illness Sister Lalita Past Medical History: [...] Morbid (severe) obesity due to excess calories ([facility]) Discussed continued use of adipex and [...] No follow-ups on file. documented in this [facility]06-19-2025 Instructions* Patient Instructions* Yael Rivera NP - 08/24/2024 8:00 AM EDT Adipex renewed. Xanax renewed. documented in this [facility]05-19-2025 Telephone encounter Note* Telephone Encounter - ROSAURA Obregon - 07/24/2024 9:56 AM EDT OARRS reviewed, Rx sent into patient's pharmacy. [facility] CenterKrrylxvmom10-96-7855 Miscellaneous Notes* Telephone Encounter - ROSAURA Obregon - 07/24/2024 9:56 AM EDT OARRS reviewed, Rx sent into patient's pharmacy. documented in this encounterMadison Medical CenterArjxlwfhdl15-36-3386 NoteSubjective Patient ID: Odette Azevedo is a [...] Reviewed notes 05/24/24, 05/15/24 with PCP and advanced practice registered nurse. Labs 04/21/24 reviewed. Jeffery Connell MDUnTrinity Health System [facility]05-01-2025 NoteSubjective Patient ID: Odette Azevedo [...] the past 36 hour(s)). No follow-ups on file.[facility]03-19-2025 History of Present illness Narrative* Yael Rivera [...] capsule by mouth in the morning. biotin 69926 MCG tablet Take by mouth Daily buPROPion [...] Maternal Grandmother Greer Heart disease Maternal Grandmother [place] Mental illness Sister Lalita Past Medical History: Diagnosis Date Anemia Anxiety Arthritis COVID-19 03/24/2021 Depression ([facility]) Diabetes mellitus ([facility]) GERD (gastroesophageal reflux disease) Hypertension ([facility]) Inflammatory bowel disease Scoliosis Severe acute respiratory [...] Morbid (severe) obesity due to excess calories ([facility]) The pt's wt is down 10 lbs [...] complication, without long-term current use of insulin ([facility]) Hemoglobin A1C 5.3 - POCT Glycated hemoglobin, total No follow-ups on file. documented in this encounterMadison Medical CenterQghqgyttpq06-65-1965 Telephone encounter Note* Telephone Encounter - Yael Rivera NP - 05/18/2024 3:30 PM EDT Requested Prescriptions Signed Prescriptions Disp Refills ALPRAZolam (Xanax) 0.5 MG tablet 60 tablet 0 Sig: TAKE 1 TABLET (0.5 MG) BY MOUTH 2 (TWO) TIMES A DAY NEEDED FOR ANXIETY Authorizing Provider: YAEL RIVERA [facility] CenterTsyaqelchd91-72-7118 Miscellaneous Notes* Telephone Encounter - Yael Rivera NP - 05/18/2024 3:30 PM EDT Requested Prescriptions Signed Prescriptions Disp Refills ALPRAZolam (Xanax) 0.5 MG tablet 60 tablet 0 Sig: TAKE 1 TABLET (0.5 MG) BY MOUTH 2 (TWO) TIMES A DAY NEEDED FOR ANXIETY Authorizing Provider: YAEL RIVERA documented in this encounterMadison Medical CenterDrynsxatvb48-67-9412 NoteCardiology Clinic Note HPI: Odette Azevedo is [...] surgical history that includes Back surgery (1988); [place] tooth extraction; Spine surgery (1988); and Laparoscopic [...] disorder Father TALIB MCKENZIE COPD Father TALIB MCEKNZIE Heart disease Father TALIB MCKENZIE Hyperlipidemia Father TALIB MCKENZIE Mental illness Father TALIB RINCON Heart attack Brother Deep vein thrombosis Brother Diabetes Maternal Grandmother Greer Jean Alcohol abuse Maternal Grandmother Greer Jean Arthritis Maternal Grandmother Greer [place] Depression Maternal Grandmother Greer [place] Heart disease Maternal Grandmother Greer Jean Miscarriages [...] Brother Aaron Batool Suicide Attempts Brother Aaron Abtool Asthma Brother Dom Batool Hypertension Brother Dom [...] mouth in the mor (more content not included)...[facility]02-19-2025 History of Present illness Narrative* Yael Rivera, ARTILLERY OFFICER - 04/26/2024 1:00 PM EST Images from [...] capsule by mouth in the morning. biotin 52122 MCG tablet Take by mouth Daily buPROPion [...] 223 lbs. She continues to decline a freight broker agent consult. Will continue as ordered. Follow up [...] No follow-ups on file. documented in this [facility]02-19-2025 Instructions* Patient Instructions* Yael Rivera NP - 04/26/2024 1:00 PM EST Methocarbamol ordered today. Phentermine reordered. documented in this [facility]02-12-2025 Telephone encounter Note* Telephone Encounter - ROSAURA Obregon - 04/19/2024 9:02 AM EST OARRS reviewed, Rx sent into patient's pharmacy. [facility] Utmiupnodh33-02-7614 Miscellaneous Notes* Telephone Encounter - ROSAURA Obregon - 04/19/2024 9:02 AM EST OARRS reviewed, Rx sent into patient's pharmacy. documented in this encounterMadison Medical CenterZwtgbopmmb33-99-0679 NoteBariatric Nutrition Telehealth Follow Up Visit: Name: Odette Azevedo Date: 1980 Age: 43 y.o. Date of Visit: 04/04/24 Visit #: Nutrition assessment/counseling 9 month post op gastric sleeve on 07/06/23 This visit was conducted qioc-at-shdt with the use of audio and video technology using the [employer] Remote Telehealth between patient and provider for a virtual visit. Prior to start of visit the patient was informed that using a 3rd republican telecommunications application may carry some privacy risk? [...] Nausea/vomiting/Diarrhea/constipation: good BM Labs: labs drawn at [facility] but not all results uploaded. Abnormal [...] water, coffee and skinny syrup Current Diet/Special Diets:enterprise architect manager chad diet- high protein and low carb [...] from family and friends: none Knowledge of [facility] Bariatric Support group: yes Nutrition Diagnosis: Obesity [...] Intake: 60-80 gm protein (more content not included)...[facility]01-16-2025 History of Present illness Narrative* Yael Rivera, ARTILLERY OFFICER - 03/23/2024 4:30 PM EST Images from [...] capsule by mouth in the morning. biotin 44902 MCG tablet Take by mouth Daily buPROPion [...] No follow-ups on file. documented in this encounterMadison Medical CenterNvuxrlojqx93-22-8445 Instructions* Patient Instructions* Yael Rivera NP - 03/23/2024 4:30 PM EST Requested Prescriptions Signed Prescriptions Disp Refills phentermine 37.5 MG capsule 30 capsule 0 Sig: Take 1 capsule (37.5 mg) by mouth in the morning. Take before meals. documented in this encounterMadison Medical CenterUzkwuycjen65-22-9861 Telephone encounter Note* Telephone Encounter - ROSAURA Obregon - 01/31/2024 10:36 AM EST OARRS reviewed, Rx sent into patient's pharmacy. [facility] CenterSwzfgnnaae72-40-0877 Miscellaneous Notes* Telephone Encounter - ROSAURA Obregon - 01/31/2024 10:36 AM EST OARRS reviewed, Rx sent into patient's pharmacy. * Telephone Encounter - MP NICHOLSON - 01/31/2024 10:10 AM EST Patient is asking for a refill on their Alrazolam 0.5 mg documented in this encounterMadison Medical CenterQhrsqdiphs23-72-7014 Telephone encounter Note* Telephone Encounter - MP NICHOLSON - 01/31/2024 10:10 AM EST Patient is asking for a refill on their Alrazolam 0.5 mg [facility] CenterBkdkgjdtwp65-06-[address] [facility]-General Surgery Follow Up [...] 07/07/2023 ALBUMIN 4.6 01/07/2023 CREATININE 0.72 07/07/2023 FSYUPJIC64 192 01/07/2023 VITAMINB6 10.7 (L) 01/07/2023 VITAMINA [...] Normal range of motio (more content not included)...[facility]10-30-2024 History of Present illness Narrative* ROSAURA Obregon [...] capsule by mouth in the morning. biotin 61488 MCG tablet Take by mouth Daily buPROPion [...] or fail to improve. documented in this [facility]10-24-2024 Telephone encounter Note* Telephone Encounter - ROSAURA Obregon - 12/30/2023 10:02 AM EDT OARRS reviewed, Rx sent into patient's pharmacy. [facility] CenterOihpxavxrr37-11-8892 Miscellaneous Notes* Telephone Encounter - ROSAURA Obregon - 12/30/2023 10:02 AM EDT OARRS reviewed, Rx sent into patient's pharmacy. documented in this [facility]10-22-2024 Telephone encounter Note* Telephone Encounter - ROSAURA Obregon - 12/28/2023 11:11 AM EDT Sent via my chart message [facility] CenterZdbdpykjyl74-62-2225 Miscellaneous Notes* Telephone Encounter - ROSAURA Obregon - 12/28/2023 11:11 AM EDT Sent via my chart message * Telephone Encounter - ROSAURA Obregon - 12/28/2023 8:30 AM EDT Please let pt know that her recent labs were stable or normal. Stay hydrated, no other concerns at this time. documented in this [facility]10-22-2024 Telephone encounter Note* Telephone Encounter - ROSAURA Obregon - 12/28/2023 8:30 AM EDT Please let pt know that her recent labs were stable or normal. Stay hydrated, no other concerns at this time. [facility] Axrboqifqq93-10-5444 History of Present illness Narrative* Rose Bradford MD - 12/27/2023 8:54 AM EDTAssociated Problem(s): Body mass index (BMI) 50.0- 59.9, adult ([facility]) [employer] Calisthenics * Rose Bradford MD - 12/27/2023 8:53 AM EDTAssociated Problem(s): Morbid (severe) obesity due to excess calories ([facility]) Diet and Exercise Encouraged * Rose Bradford MD - 12/27/2023 8:47 AM EDTAssociated Problem(s): Type 2 diabetes mellitus, without long-term current use of insulin ([facility]) No Tobacco use Follow ADA 1800 diet [...] capsule by mouth in the morning. biotin 83694 MCG tablet Take by mouth Daily buPROPion [...] Morbid (severe) obesity due to excess calories ([facility]) Diet and Exercise Encouraged Type 2 diabetes mellitus, without long-term current use of insulin ([facility]) No Tobacco use Follow ADA 1800 diet [...] Body mass index (BMI) 50.0-59.9, adult (CMS/HCC) App [employer] Calisthenics No follow-ups on file. documented in this encounterMadison Medical CenterGwkcjxwheu59-05-5772 NoteCardiology Clinic Note Chief Complaint: Patient here [...] surgical history that includes Back surgery (1988); [place] tooth extraction; and Spine surgery (1988). Social [...] vein thrombosis Brother Diabetes Maternal Grandmother Greer [place] Alcohol abuse Maternal Grandmother Greer Jean Arthritis Maternal Grandmother [place] Jean Depression Maternal Grandmother [place] Jean Heart disease Maternal Grandmother [place] Jean Miscarriages / Stillbirths Maternal Grandmother Greer [place] Diabetes Paternal Grandfather Ray Mckenzie Hypertension Paternal [...] morning. No current facility-administ (more content not included)...[facility]08-20-2024 Telephone encounter Note* Telephone Encounter - ROSAURA Obregon - 10/26/2023 9:24 AM EDT OARRS reviewed, Rx sent into patient's pharmacy. [facility] CenterUhafdhtcyp87-60-5098 Miscellaneous Notes* Telephone Encounter - ROSAURA Obregon - 10/26/2023 9:24 AM EDT OARRS reviewed, Rx sent into patient's pharmacy. documented in this encounterMadison Medical CenterZjbakivflh66-95-3948 NoteBariatric Nutrition Follow Up Visit: Name: Odette [...] noted deficiencies/abnormal labs: 07/07/23 mag=1.8, phos=1.9, K=3.2, wvbvqza=143 Abnormal Physical Assessment Findings: none Allergies: Allergies Allergen Reactions Lumason [Sulfur Hexafluoride Microsphr] Shortness of breath and Headache Patient experienced facial flushing after administration of Lumason Latex Rash Anthropometrics: Initial BMI=56.02 Mmbzso=075# in 02/05/23 Current BMI= 45.14 IBW: 120# [...] vegetables Snacks: none Beverages: water Current Diet/Special Diets:[facility] Current Vitamins and supplements: biotin, Vit [...] from family and friends: yes Knowledge of [facility] Bariatric Support group: yes Nutrition Diagnosis: Obesity related to energy imbalance as evidenced by BMI =45 Nutrition Education/Assessment: Odette has been following her [facility] b[facility] diet. She is not always meeting [...] MVI with iron(18mg) and Calcium(1200-1500mg/d) + Vit D(8337-8729 IU/day) Encouraged bariatric support group bharati (more content not included)...[facility]06[facility]27-[address] [facility] Follow [...] intake she continues to see our Bariatric freight broker agent- Kourtney White. Patient continues to go for a walk. She is considering weight training with son. She does have a gym on he basement. Patient reported sleeping for at least 6-8 hours Patient reported no recent visit with PCP and consultants. Patient visits in the Emergency Room 24 Hour Food Recall Calorie 600 - 800 a day Bfast scrambled eggs slovak yogurt Protein shake intake 1 shake a [...] 29 07/07/2023 CL 101 (more content not included)...[facility] 08-05-2023 NoteBariatric Nutrition Follow Up Visit: Name: [...] noted deficiencies/abnormal labs: 07/07/23 mag=1.8, phos=1.9, K=3.2, haanomu=988 Abnormal Physical Assessment Findings: none Allergies: Allergies Allergen Reactions Lumason [Sulfur Hexafluoride Microsphr] Shortness of breath and Headache Patient experienced facial flushing after administration of Lumason Latex Rash Anthropometrics: IBW: 120 # Wt History: ba=821# on 01/07/23, ke=971# on 04/01/23, nn=282# on 06/02/23,ve=408# on 07/06/23, rx=838# 07/06/2023 5:57 PM 07/06/2023 6:15 PM 07/06/2023 [...] Nutrition History 24 hour Intake: Breakfast: yogurt slovak Lunch: chicken salad 3 bites Dinner: avocado, [...] then fruit Continue to (more content not included)...[facility] 07-22-2023 NoteSubjective Patient ID: Odette Azevedo is [...] refill gabapentin/oxycodone for pain relief for now. [facility]05-09-2024 NoteSubjective Patient ID: Odette Azevedo is a [...] able. Diagnosis Plan 1. S/P gastric sleeve procedureSt[facility] NotePost-op Phone Call Odette Azevedo is a [...] changes, chest pain, shortness of breath, or headaches.[facility] Diagnosis H/O gastric bypass- Primary Type 2 diabetes mellitus without complication, without long-term current use of insulin ([facility]/HCC) Type 2 diabetes mellitus with other specified complication, without long-term current use of insulin ([facility]) Pure hypercholesterolemia ([facility]) Pure hypercholesterolemia Vitamin D deficiency Anxiety Anxiety state, unspecified Type 2 diabetes mellitus without complication, without long-term current use of insulin ([facility]/HCC) Morbid (severe) obesity due to excess calories ([facility]) Body mass index (BMI) 50.0-59.9, adult ([facility]) documented in this encounter [facility]* Diagnosis H/O gastric bypass- [...] (CMS/HCC) Body mass index (BMI) 50.0-59.9, adult ([facility]) Acute left otitis media- Primary Acute non-recurrent pansinusitis documented in this encounter [facility]* Diagnosis H/O gastric bypass- Primary Type 2 diabetes mellitus without complication, without long-term current use of insulin ([facility]) Type 2 diabetes mellitus with other specified complication, without long-term current use of insulin (CMS/HCC) Pure hypercholesterolemia (CMS/HCC) Pure hypercholesterolemia Vitamin D deficiency Anxiety Anxiety state, unspecified Type 2 diabetes mellitus without complication, without long-term current use of insulin ([facility]) Morbid (severe) obesity due to excess calories ([facility]) Body mass index (BMI) 50.0-59.9, adult ([facility]) Anxiety Anxiety state, unspecified [facility] encounter [facility]* Diagnosis Elevated LDL cholesterol level ([facility]) Anxiety Anxiety state, unspecified documented [facility] encounter [facility]* Diagnosis H/O gastric bypass- Primary Type 2 diabetes mellitus without complication, without long-term current use of insulin ([facility]) Type 2 diabetes mellitus with other specified complication, without long-term current use of insulin ([facility]) Pure hypercholesterolemia ([facility]) Pure hypercholesterolemia Vitamin D deficiency Anxiety Anxiety state, unspecified Type 2 diabetes mellitus without complication, without long-term current use of insulin ([facility]) Morbid (severe) obesity due to excess calories ([facility]) Body mass index (BMI) 50.0-59.9, adult ([facility]) Anxiety Anxiety state, unspecified [facility] encounter [facility]* Diagnosis H/O gastric bypass- Primary Type 2 diabetes mellitus without complication, without long-term current use of insulin ([facility]) Type 2 diabetes mellitus with other specified complication, without long-term current use of insulin ([facility]) Pure hypercholesterolemia ([facility]) Pure hypercholesterolemia Vitamin D deficiency Anxiety Anxiety state, unspecified Type 2 diabetes mellitus without complication, without long-term current use of insulin ([facility]) Morbid (severe) obesity due to excess calories ([facility]) Body mass index (BMI) 50.0-59.9, adult ([facility]) Anxiety Anxiety state, unspecified documented [facility] encounter [facility]* Diagnosis H/O gastric bypass- Primary Type 2 diabetes mellitus without complication, without long-term current use of insulin ([facility]) Type 2 diabetes mellitus with other specified complication, without long-term current use of insulin (CMS/HCC) Pure hypercholesterolemia (CMS/HCC) Pure hypercholesterolemia Vitamin D deficiency Anxiety Anxiety state, unspecified Type 2 diabetes mellitus without complication, without long-term current use of insulin (CMS/HCC) Morbid (severe) obesity due to excess calories (CMS/HCC) Body mass index (BMI) 50.0-59.9, adult ([facility]) Morbid (severe) obesity due to excess calories (CMS/HCC)- Primary Breast screening Breast screening, unspecified Body mass index (BMI) 40.0-44.9, adult ([facility]) documented in this encounter [facility]* Diagnosis H/O gastric bypass- Primary Type 2 diabetes mellitus without complication, without long-term current use of insulin ([facility]) Type 2 diabetes mellitus with other specified complication, without long-term current use of insulin (CMS/HCC) Pure hypercholesterolemia (CMS/HCC) Pure hypercholesterolemia Vitamin D deficiency Anxiety Anxiety state, unspecified Type 2 diabetes mellitus without complication, without long-term current use of insulin (CMS/HCC) Morbid (severe) obesity due to excess calories (CMS/HCC) Body mass index (BMI) 50.0-59.9, adult ([facility]) Anxiety Anxiety state, unspecified documented in this [...] (CMS/HCC) Body mass index (BMI) 50.0-59.9, adult ([facility]) Morbid (severe) obesity due to excess calories [...] use of insulin documented in this encounter [facility]* Diagnosis H/O gastric bypass- [...] Anxiety state, unspecified documented in this encounter [facility]* Diagnosis H/O gastric bypass- [...] H/O gastric bypass documented in this encounter [facility]* Diagnosis H/O gastric bypass- [...] Anxiety state, unspecified documented in this encounter [facility]* Diagnosis H/O gastric bypass- [...] Morbid (severe) obesity due to excess calories ([facility]-HCC) Body mass index (BMI) 50.0-59.9, adult ([facility]) Anxiety Anxiety state, unspecified documented in this encounter [facility]* Diagnosis H/O gastric bypass- Primary Type 2 diabetes mellitus with other specified complication, without long-term current use of insulin (HCC) Pure hypercholesterolemia Pure hypercholesterolemia Vitamin D deficiency Anxiety Anxiety state, unspecified Type 2 diabetes mellitus without complication, without long-term current use of insulin (HCC) Morbid (severe) obesity due to excess calories ([facility]-HCC) Body mass index (BMI) 50.0-59.9, adult ([facility]) Morbid (severe) obesity due to excess calories ([facility]-HCC) documented in [facility] encounter [facility]* Diagnosis H/O gastric bypass- Primary Type 2 diabetes mellitus with other specified complication, without long-term current use of insulin (HCC) Pure hypercholesterolemia Vitamin D deficiency Anxiety Anxiety state, unspecified Type 2 diabetes mellitus without complication, without long-term current use of insulin (HCC) Morbid (severe) obesity due to excess calories ([facility]-HCC) Body mass index (BMI) 50.0-59.9, adult ([facility]) Primary insomnia- Primary Persistent disorder of initiating [...] Morbid (severe) obesity due to excess calories ([facility]-HCC) Body mass index (BMI) 50.0-59.9, adult ([facility]) Morbid (severe) obesity due to excess calories ([facility]) Anxiety Anxiety state, unspecified documented in this encounter [facility] Summary Purpose Family History No Family History Records FoundNo Family History Records FoundNo Family History Records Found Advance Directives No Advanced Directives Records FoundNo Advanced Directives Records FoundNo Advanced Directives Records Found Additional Source Comments INFORMATION SOURCE (unrecogn ized section and content) DATE CREATED AUTHOR 04/15/2021 [facility] DATE CREATED AUTHOR AUTHOR'S ORGANIZ ATION 07/11/2024 [facility] DATE CREATED AUTHOR AUTHOR'S ORGANIZ ATION 12/15/2024 [facility] EPIC Reason for Visit (unrecogniz ed section and content) ReasonCommentsDiabetesLast A1c was 5.2Med RefillAlprazolamAnxietySona is on alprazolam, wellbutrin, and buspirone and is working well for her.ReasonComments Med RefillReasonOnset DateCommentsMed Gbhfnh7312/30/2023easonCommentsObesity ReasonCommentsAnnual ExamWeight CheckStarting weight 236lb today weight is 213lb ReasonOnset DateCommentsMed Xtouyf2706/24/2024ReasonOnset DateCommentsMed Refill 10/21/2024 Care Teams (unrecognized sec tion and content) Team MemberRelationshipSpecialtyStart DateEnd Date Rose Bradford MD [address] [facility] [address] [place] [address] PCP - GeneralFamily Medicine09/11/22Team MemberRelationshipSpecialtyStart DateEnd Date Rose Bradford MD [address] [facility] [address] [place] [address] PCP - GeneralFamily Medicine09/11/22Team MemberRelationshipSpecialtyStart DateEnd Date Rose Bradford MD [address] [place] [address] [place] [address] PCP - GeneralFamily Medicine09/11/22Team MemberRelationshipSpecialtyStart DateEnd Date Roes Bradford MD [address] [place] [address] [place] [address] PCP - GeneralFamily Medicine09/11/22 Kim Harding PA [address] [place] [address] [place] [address] PCP - [facility] [employer] [facility]12/07/23Team MemberRelationshipSpecialtyStart DateEnd Date Rose Bradford MD [address] [place] [address] [place] [address] [facility] - [facility]/11/22Team MemberRelationshipSpecialtyStart DateEnd Date Rose Bradford MD [address] [place] [address] [place] [address] [facility] - [facility]09/11/22 Kim Harding PA [address] [facility] [address] [place] [address] PCP - [facility] [employer] [facility]12/07/23Team MemberRelationshipSpecialtyStart DateEnd Date Rose Bradford MD [address] [place] [address] [place] [address] [facility] - [facility]09/11/22 Kim Harding, PA [address] [place] [address] [place] [address] PCP - [facility] [employer] [facility]12/07/23Team MemberRelationshipSpecialtyStart DateEnd Date Rose Bradford MD [address] [place] [address] [place] [address] [facility] - [facility]09/11/22 Kim Harding, PA [address] [place] [address] [place] [address] PCP - [facility] [employer] [facility]12/07/23Team MemberRelationshipSpecialtyStart DateEnd Date Rose Bradford MD [address] [place] [address] [place] [address] PCP - GeneralFamily Medicine09/11/22 Kim Harding PA [address] [place] [address] [place] [address] PCP - [facility] [employer] [facility]12/07/23Team MemberRelationshipSpecialtyStart DateEnd Date Rose Bradford MD [address] [place] [address] [place] [address] [facility] - [facility]09/11/22 Kim Harding, PA [address] [place] [address] [place] [address] PCP - [facility] [employer] [facility]10Team MemberRelationshipSpecialtyStart Date End Date Rose Bradford MD [address] [place] [address] [place] [address] PCP - Generalmily Medicine09/11/22 Kim Harding, PA [address] [place] [address] [place] [address] PCP - [facility] [facility]10/Team MemberRelationshipSpecialtyStart Date End Date Rose Bradford MD [address] [place] [address] [place] [address] PCP - Generalmily Medicine09/11/22 Kim Harding, PA [address] [place] [address] [place] [address] PCP - [facility] [employer] [facility]12/06/2410Team MemberRelationshipSpecialtyStart Date End Date Rose Bradford MD [address] [place] [address] [place] [address] [facility]/11/22 Kim Harding PA [address] [place] [address] [place] [address] PCP - [facility] [employer] [facility]10Team MemberRelationshipSpecialtyStart Date End Date Rose Bradford MD [address] [facility] [address] [place] [address] [facility] - [facility]09/11/22 Kim Harding PA [address] [place] [address] [place] [address] PCP - [facility] [employer] [facility]10Team MemberRelationshipSpecialtyStart Date End Date Rose Bradford MD [address] [place] [address] [place] [address] [facility]09/11/22 Kim Harding PA [address] [place] [address] [place] [address] PCP - [facility] [employer] [facility]10Team MemberRelationshipSpecialtyStart Date End Date Rose Bradford MD [address] [place] [address] [place] [address] PCP - GeneralFamily Medicine09/11/22 Kim Harding PA [address] [place] [address] [place] [address] PCP - [facility] [employer] [facility]12/06/2410Team MemberRelationshipSpecialtyStart Date End Date Rose Bradford MD [address] [place] [address] [place] [address] PCP - GeneralFamily Medicine09/11/22 Kim Harding PA [address] [place] [address] [place] [address] PCP - [facility] [employer] [facility]10Team MemberRelationshipSpecialtyStart Date End Date Rose Bradford MD [address] [place] [address] [place] [address] PCP - Generalmily [facility]09/11/22 Kim Harding PA [address] [place] [place] [address] PCP - [facility] [employer] [facility]10Team MemberRelationshipSpecialtyStart Date End Date Rose Bradford MD [address] [place] [address] [place] [address] PCP - [facility]09/11/22 Rose Bradford MD [address] [place] [address] PCP - [facility] [employer] [facility]4/03/2510/30/25Team MemberRelationshipSpecialtyStart DateEnd Date Rose Bradford MD [address] [place] [address] [place] [address] PCP - [facility]09/11/22 Rose Bradford MD [address] [place] [address] [place] [address] PCP - [facility] [employer] [facility]06/06/2510Team MemberRelationshipSpecialtyStart DateEnd Date Rose Bradford MD [address] [place] [address] [place] [address] PCP - [facility]09/11/22 Rose Bradford MD [address] [facility] [address] [place] [address] PCP - [facility] [employer] [facility]06/06/2510Team MemberRelationshipSpecialtyStart DateEnd Date Rose Bradford MD [address] [facility] [address] [place] [address] PCP - [facility]09/11/22 Rose Bradford MD [address] [place] [address] [place] [address] PCP - [facility] [employer] [facility]/Team MemberRelationshipSpecialtyStart DateEnd Date Rose Bradford MD [address] [place] [address] PCP - [facility]09/11/22 Kim Harding PA [address] [place] [place] [address] PCP - [facility] [employer] [facility] Rose Bradford MD [address] [place] [place] [address] PCP - [facility] [employer] [facility]06/06/2510WednesdayFanny LPN [address] [place] [address] Licensed Practical Nursemily Lkzhzadp35/11/2411Team MemberRelationship SpecialtyStart DateEnd Date Rose Bradford MD [address] [place] [address] [place] [address] PCP - Generalmily Medicine09/11/22 Kim Harding PA [address] [facility] [address] [place] [address] PCP - [facility] [employer] [facility]10 Rose Bradford MD [address] [facility] [address] [place] [address] PCP - [facility] [employer] [facility]06/06/2510 RobbyFanny cuellar LPN [address] [place] [address] Licensed Practical [facility]semiSt[facility]01/16/2411/13/24 FOR RECORDS PERTAINING TO PATIENTS WHO ARE [...] BE BASED ON THE PRIMARY CLINICAL RECORDS. [facility] HospitalPandoDaily [facility]. provides no warranty or guarantee of the accuracy or completeness of information in this document.
--- NOTE | 2025-02-14 10:43 | US_ITS ---
The [address] [address] Patient Name: ODETTE MYERS MRN: [id number] date: 1980 Sex: F Assigned Patient Location: US Current Patient Location: US Accession/Order Number: [id number] Exam Date: 02/14/2025 10:44 Report Date: 02/14/2025 11:56 At the request of: EDITA FORD Procedure: US thyroid THYROID ULTRASOUND COMPARISON: CT neck 02/03/2025 CLINICAL DATA: Follow-up right thyroid nodule on CT. Difficulty swallowing. The right thyroid lobe measures 5.2 x 1.7 x 1.7 cm . The left lobe measures 4.8 x 1.6 x 1.3 cm. The isthmus measures 3 mm. Thyroid echo texture is heterogeneous. Multiple thyroid nodules are present. At the superior pole on the right, there is a heterogeneous hypoechoic nodule with associated hyperechoic foci suggesting calcification (TI-RADS 6). It measures approximately 13 x 8 x 14 mm in size . At the midpole, there is a small hypoechoic nodule measuring 5 mm. At the inferior pole there is a colloid cyst measuring 11 x 5 x 8 mm. On the left multiple tiny nodules are present and the largest were measured. At the midpole there is a mixed echogenicity nodule posteriorly measuring 6 x 5 x 5 mm . At the inferior pole superficially, there is a hypoechoic nodule measuring 7 x 3 x 5 mm. At the isthmus toward the left, there is a small mixed echogenicity nodule measuring 6 x 2 x 3 mm. US/US thyroid IMPRESSION: SUSPICIOUS RIGHT UPPER POLE NODULE FOR WHICH ULTRASOUND-GUIDED BIOPSY IS SUGGESTED. OTHERWISE HETEROGENEOUS THYROID WITH MULTIPLE ADDITIONAL SMALL NODULES. Impression dictated by: Kim Sweet M.D. 02/14/2025 11:56 AM Dictation Location: [place] [address] Electronically authenticated by: [id number] Y Date: 02/14/2025 11:56
== END 2025-02-14 10:38 | disposition home or self-care (01) ==
LOC: US 10:37
PROVIDERS: PCP Family Medicine; Visit Provider Nurse Practitioner Family
DX: E04.1 Nontoxic single thyroid nodule (principal)
CPT/HCPCS: 76536